=== PATIENT | female | born 1950 | race Caucasian/White ===

== ENCOUNTER 2018-11-10 12:58 | Inpatient (IN) | payer OTHER ==
[2018-11-10 13:25] LABS: Absolute Lymphocytes (CBC) 2.5 K/uL (0.7-4.9); Basophils % 0.4 % (0-1.3); Eosinophils % 0.6 % (0-4.4); Hematocrit 49.3 % (36.0-45.0); Lymphocytes % 26.2 % (15.3-44.8); MPV 8.5 fL (7.6-11.3); Monocytes % 8.1 % (3.3-12.3); RBC Red Blood Cell Count 5.32 M/uL (3.86-4.86)
[2018-11-10 13:27] LABS: Protime INR 1.01
[2018-11-10 13:43] LABS: ALT/SGPT 31 U/L (12-78); AST/SGOT 25 U/L (15-37); Albumin 3.6 g/dL (3.4-5.0); Alkaline Phosphatase 100 U/L (45-117); BUN Blood Urea Nitrogen 14 mg/dL (7-18); Bicarbonate 21 mmol/L (21-32); Bilirubin Direct 0.3 mg/dL (0-0.2); Bilirubin Total 1.2 mg/dL (0.2-1.0); Glucose Level 164 mg/dL (74-106); NT PRO-BNP 1364 pg/mL (<125); Potassium 3.6 mmol/L (3.5-5.1); Protein, Total 7.4 g/dL (6.4-8.2); Sodium Level 139 mmol/L (136-145); Troponin (Emerg Dept Use Only) < 0.02 ng/mL (0.0-0.045)
--- NOTE | 2018-11-10 13:45 | RAD REPORT ---
EXAM DESCRIPTION: RAD - Chest Single View - 11/10/2018 1:33 pm CLINICAL HISTORY: Dyspnea COMPARISON: None. TECHNIQUE: AP portable chest image was obtained 1325 hours . FINDINGS: Lungs are clear. Heart and vasculature are normal. No measurable pleural effusion and no p neumothorax. No acute bony abnormality seen. No acute aortic findings suspected. IMPRESSION: No acute cardiopulmonary process.
[2018-11-10] MEDS ORDERED: ENOXAPARIN 100 MG/ML SYR SQ ONE (13:46)
[2018-11-10] MEDS ORDERED: METOPROLOL TARTRATE 5 MG/5 ML INJ IV ONE (13:46)
[2018-11-10] MEDS ORDERED: ENOXAPARIN 30 MG/0.3 ML SQ ONE (13:48)
--- NOTE | 2018-11-10 14:36 | ER ---
Nurse's Notes [facility] Name: Mady Wilkins Age: 68 yrs Sex: Female : 1950 Arrival Date: 11/10/2018 Time: 13:05 Bed 4 Private MD: Diagnosis: Atrial fibrillation and flutter-with rvr Presentation: 11/10 13:06 Presenting complaint: EMS states: Generalized weakness x 1 week, N/V/D x 3 days. On hb scene HR 160-180, 110-130s after Cardizem 10mg IVP x 2. Transition of care: patient was not received from another setting of care. Onset of symptoms was November 10, 2018. Risk Assessment: Do you want to hurt yourself or someone else? Patient reports no desire to harm self or others. Care prior to arrival: Medication(s) given: Cardizem 10mg IVP x 1, Zofran 4 mg IVP, NS 250ml IV initiated. 18 GA, 22 GA, antecubital area. 13:06 Method Of Arrival: EMS: [facility] hb 13:06 Acuity: MONTSE 2 hb 13:40 Initial Sepsis Screen: Does the patient meet any 2 criteria? No. Patient's initial sg sepsis screen is negative. Does the patient have a suspected source of infection? No. Patient's initial sepsis screen is negative. Historical: - Allergies: 13:10 unknown antibiotic; hb - Home Meds: 13:10 None [Active]; hb - PMHx: 13:10 Fibromyalgia; Colitis; hb - Immunization history:: Adult Immunizations up to date. - Social history:: Smoking status: Patient/guardian denies using tobacco. - Ebola Screening: : No symptoms or risks identified at this time. Screenin:10 Abuse screen: Denies threats or abuse. Denies injuries from another. Nutritional hb screening: No deficits noted. Tuberculosis screening: No symptoms or risk factors identified. 13:23 Fall Risk Total Beauchamp Fall Scale indicates High Risk Score (45 or more points). Fall hb prevention measures have been instituted. Side Rails Up X 2 Frequent Obs/Assessments Occuring As available patient and family educated on Fall Prevention Program and Strategies. Assessment: 13:30 General: Appears in no apparent distress. uncomfortable, obese, well groomed, well sg developed, well nourished, Behavior is calm, cooperative. Pain: Complains of pain in headache Quality of pain is described as aching, sharp. Neuro: Level of Consciousness is awake, alert, obeys commands, Oriented to person, place, time, situation, Enrober are equal bilaterally Moves all extremities. Speech is normal, Facial symmetry appears normal, Pupils are PERRLA, Reports headache in entire frontal area. Cardiovascular: Capillary refill is brisk in bilateral fingers Patient's skin is warm and dry. Chest pain is denied. Respiratory: Airway is patent Respiratory effort is even, unlabored, Respiratory pattern is regular, symmetrical. GI: Abdomen is round non-distended, obese. : No signs and/or symptoms were reported regarding the genitourinary system. EENT: No signs and/or symptoms were reported regarding the EENT system. Derm: Skin is pink, warm \T\ dry. Musculoskeletal: No signs and/or symptoms reported regarding the musculoskeletal system. 14:30 Reassessment: Patient appears in no apparent distress at this time. Patient and/or sg family updated on plan of care and expected duration. Pain level reassessed. Patient is alert, oriented x 3, equal unlabored respirations, skin warm/dry/pink. 15:30 Reassessment: Patient appears in no apparent distress at this time. Patient and/or sg family updated on plan of care and expected duration. Pain level reassessed. Derm: Skin is pink, warm \T\ dry. Vital Signs: 13:06 BP 99 / 70; Pulse 133; Resp 16; Temp 97.8; Pulse Ox 100% on R/A; Weight 129.27 kg; hb Height 5 ft. 9 in. (175.26 cm); Pain 10/10; 13:40 BP 138 / 78; Pulse 88; Resp 16 S; Pulse Ox 100% ; sg 14:30 BP 113 / 62; Pulse 97; Resp 16; Pulse Ox 99% on R/A; sg 15:46 BP 139 / 87; Pulse 99; Resp 17 S; Pulse Ox 100% on R/A; Pain 0/10; sg 13:06 Body Mass Index 42.09 (129.27 kg, 175.26 cm) hb ED Course: 13:05 Patient arrived in ED. 13:07 Nash Livingston PA is PHCP. [facility] 13:07 Venkata Siegel MD is Attending Physician. jr8 13:09 Triage completed. hb 13:09 Arm band placed on. hb 13:12 Patient has correct armband on for positive identification. Placed in gown. Bed in low hb position. Call light in reach. Side rails up X2. disulfurizer tender on. Pulse ox on. NIBP on. 13:12 Maintain EMS IV. Dressing intact. Good blood return noted. Site clean \T\ dry. Gauge \T\ hb site: 18G LEFT AC. 13:19 EKG done, by data reduction technician. reviewed by Nash NUÑEZ. 3 13:23 CBC with Diff Sent. hb 13:23 Basic Metabolic Panel Sent. hb 13:23 LFT's Sent. hb 13:23 XRAY Chest (1 view) Sent. hb 13:28 Malik Cowan, RN is Primary Nurse. sg 13:30 No provider procedures requiring assistance completed. sg 13:33 X-ray completed. Portable x-ray completed in exam room. Patient tolerated procedure jb2 well. 13:35 XRAY Chest (1 view) In Process Unspecified. EDMS 14:35 Saba Arreaga MD is Hospitalizing Provider. jr8 15:42 Patient admitted, IV remains in place. intact, No redness/swelling at site. sg Administered Medications: 13:23 Drug: NS 0.9% 1000 ml Route: IV; Rate: 1000 ml; Site: left antecubital; hb 13:33 Drug: Metoprolol 5 mg Route: IVP; Site: left antecubital; sg 15:43 Drug: Lovenox 1 mg/kg Route: Sub-Q; Site: left lower abdomen; sg Outcome: 14:35 Decision to Hospitalize by Provider. jr8 16:00 Admitted to Tele accompanied by tech, via stretcher, room 430, with chart, Report sg called to Isabel COHEN 16:00 Condition: good 16:00 Instructed on the need for admit, safety practices, Demonstrated understanding of instructions. 16:07 Patient left the ED. hb Signatures: Dispatcher [employer] EDMS Malik Cowan, RN RN sg Arnie Haq jb2 Nash Livingston PA PA jr8 Wendy Jung RN RN Dawna Damico 3
[2018-11-10 14:37] LABS: Thyroid Stimulating Hormone 2.77 uIU/mL (0.360-3.740)
--- NOTE | 2018-11-10 14:37 | EDPHYS ---
Physician Documentation [facility] Name: Mady Wilkins Age: 68 yrs Sex: Female : 1950 Arrival Date: 11/10/2018 Time: 13:05 Bed 4 Private MD: ED Physician Venkata Siegel HPI: 11/10 14:23 This 68 yrs old Female presents to ER via EMS with complaints of AFIB w/RVR, jr8 shortness of breath. 14:23 The patient has shortness of breath at rest. Onset: The symptoms/episode began/occurred jr8 gradually, 1 week(s) ago, and became worse today, and became persistent today. Duration: The symptoms are continuous. The patient's shortness of breath is aggravated by light activity, walking. Associated signs and symptoms: Pertinent positives: chest pain, nausea, vomiting, palpitations. Severity of symptoms: At their worst the symptoms were moderate in the emergency department the symptoms have improved mildly. It is unknown whether or not the patient has had similar symptoms in the past. The patient has not recently seen a physician. Stated that she has been having n/v/d, weakness, shortness of breath, and palpitation feeling on/off for about one week. Has had similar symptoms in past. Much worse today. EMS called out and found patient to be cool, diaphoretic, with HR in the 180s and irregular. Cardizem given with mild control of rate upon arrival to ED . Historical: - Allergies: 13:10 unknown antibiotic; hb - Home Meds: 13:10 None [Active]; hb - PMHx: 13:10 Fibromyalgia; Colitis; hb - Immunization history:: Adult Immunizations up to date. - Social history:: Smoking status: Patient/guardian denies using tobacco. - Ebola Screening: : No symptoms or risks identified at this time. ROS: 14:23 Eyes: Negative for injury, pain, redness, and discharge, ENT: Negative for injury, jr8 pain, and discharge, Neck: Negative for injury, pain, and swelling, Back: Negative for injury and pain, MS/Extremity: Negative for injury and deformity, Skin: Negative for injury, rash, and discoloration, Neuro: Negative for headache, weakness, numbness, tingling, and seizure. 14:23 Cardiovascular: Positive for chest pain, palpitations. 14:23 Respiratory: Positive for dyspnea on exertion, shortness of breath. 14:23 Abdomen/GI: Positive for abdominal pain, nausea, vomiting, and diarrhea, Negative for abdominal distension, anorexia, dysphagia, hematemesis, black/tarry stool, rectal pain, rectal bleeding, bowel incontinence, flatulence. Exam: 14:23 Eyes: Pupils equal round and reactive to light, extra-ocular motions intact. Lids and jr8 lashes normal. Conjunctiva and sclera are non-icteric and not injected. Cornea within normal limits. Periorbital areas with no swelling, redness, or edema. ENT: Nares patent. No nasal discharge, no septal abnormalities noted. Tympanic membranes are normal and external auditory canals are clear. Oropharynx with no redness, swelling, or masses, exudates, or evidence of obstruction, uvula midline. Mucous membranes moist. Neck: Trachea midline, no thyromegaly or masses palpated, and no cervical lymphadenopathy. Supple, full range of motion without nuchal rigidity, or vertebral point tenderness. No Meningismus. Abdomen/GI: Soft, non-tender, with normal bowel sounds. No distension or tympany. No guarding or rebound. No evidence of tenderness throughout. Back: No spinal tenderness. No costovertebral tenderness. Full range of motion. Skin: Warm, dry with normal turgor. Normal color with no rashes, no lesions, and no evidence of cellulitis. MS/ Extremity: Pulses equal, no cyanosis. Neurovascular intact. Full, normal range of motion. Neuro: Awake and alert, GCS 15, oriented to person, place, time, and situation. Cranial nerves II-XII grossly intact. Motor strength 5/5 in all extremities. Sensory grossly intact. Cerebellar exam normal. Normal gait. 14:23 Cardiovascular: Rate: tachycardic, actual rate is 140 bpm, Rhythm: irregularly irregular, Pulses: Pulses are 2+ in bilateral radial, brachial, femoral, popliteal, posterior tibial and and dorsalis pedis arteries.. Heart sounds: normal, normal S1and S2, no S3 or S4, no murmur, no rub, no gallop, Edema: is not appreciated, JVD: is not appreciated. Vital Signs: 13:06 BP 99 / 70; Pulse 133; Resp 16; Temp 97.8; Pulse Ox 100% on R/A; Weight 129.27 kg; hb Height 5 ft. 9 in. (175.26 cm); Pain 10/10; 13:40 BP 138 / 78; Pulse 88; Resp 16 S; Pulse Ox 100% ; sg 14:30 BP 113 / 62; Pulse 97; Resp 16; Pulse Ox 99% on R/A; sg 15:46 BP 139 / 87; Pulse 99; Resp 17 S; Pulse Ox 100% on R/A; Pain 0/10; sg 13:06 Body Mass Index 42.09 (129.27 kg, 175.26 cm) hb MDM: 13:07 Patient medically screened. [facility] 14:35 Data reviewed: vital signs, nurses notes, lab test result(s), EKG, radiologic studies, jr8 plain films. Data interpreted: Pulse oximetry: on room air is 100 %. Interpretation: normal. Counseling: I had a detailed discussion with the patient and/or guardian regarding: the historical points, exam findings, and any diagnostic results supporting the discharge/admit diagnosis, lab results, radiology results, the need for further work-up and treatment in the hospital. 11/10 13:07 Order name: Basic Metabolic Panel [facility] 11/10 13:07 Order name: CBC with Diff [facility] 11/10 13:07 Order name: LFT's [facility] 11/10 13:07 Order name: Magnesium; Complete Time: 14:21 [facility] 11/10 13:07 Order name: NT PRO-BNP; Complete Time: 14:21 [facility] 11/10 13:07 Order name: PT-INR; Complete Time: 14:21 [facility] 11/10 13:07 Order name: Troponin (emerg Dept Use Only); Complete Time: 14:21 [facility] 11/10 13:07 Order name: XRAY Chest (1 view); Complete Time: 14:21 [facility] 11/10 13:07 Order name: Lipase; Complete Time: 14:46 [facility] 11/10 13:07 Order name: T4 Free; Complete Time: 14:46 [facility] 11/10 13:07 Order name: TSH; Complete Time: 14:46 [facility] 11/10 13:09 Order name: Basic Metabolic Panel; Complete Time: 14:21 [facility] 11/10 13:09 Order name: CBC with Automated Diff; Complete Time: 14:21 [facility] 06/20 13:09 Order name: Liver (Hepatic) Function; Complete Time: 14:21 [facility] 11/10 13:07 Order name: EKG; Complete Time: 13:10 [facility] 11/10 13:07 Order name: Cardiac monitoring; Complete Time: 13:23 [facility] 11/10 13:07 Order name: EKG - Nurse/Tech; Complete Time: 13:11 [facility] 11/10 13:07 Order name: IV Saline Lock; Complete Time: 13:11 [facility] 11/10 13:07 Order name: Labs collected and sent; Complete Time: 14:57 [facility] 11/10 13:07 Order name: O2 Per Protocol; Complete Time: 13:11 [facility] 11/10 13:07 Order name: O2 Sat Monitoring; Complete Time: 13: [facility] 11/10 14:57 Order name: Echo with Doppler EDMS Administered Medications: 13:23 Drug: NS 0.9% 1000 ml Route: IV; Rate: 1000 ml; Site: left antecubital; hb 13:33 Drug: Metoprolol 5 mg Route: IVP; Site: left antecubital; sg 15:43 Drug: Lovenox 1 mg/kg Route: Sub-Q; Site: left lower abdomen; sg Disposition: 16:15 Co-signature as Attending Physician, Venkata Siegel MD I agree with the assessment and kdr plan of care. Disposition: 11/10/18 14:35 Hospitalization ordered by Saba Arreaga for Inpatient Admission. Preliminary diagnosis is Atrial fibrillation and flutter - with rvr. - Bed requested for Telemetry/MedSurg (Inpatient). - Status is Inpatient Admission. hb - Condition is Stable. - Problem is new. - Symptoms have improved. UTI on Admission? No Signatures: Dispatcher [facility] Milka Camacho RN RN Malik Cowan RN RN Venkata Siegel MD MD [facility] Nash Livingston PA PA jr8 Wendy Jung RN RN hb Corrections: (The following items were deleted from the chart) 15:02 14:35 Hospitalization Ordered by Saba Arreaga MD for Inpatient Admission. Preliminary dw diagnosis is Atrial fibrillation and flutter - with rvr. Bed requested for Telemetry/MedSurg (Inpatient). Status is Inpatient Admission. Condition is Stable. Problem is new. Symptoms have improved. UTI on Admission? No. jr8 15:06 15:02 11/10/2018 14:35 Hospitalization Ordered by Saba Arreaga MD for Inpatient dw Admission. Preliminary diagnosis is Atrial fibrillation and flutter - with rvr. Bed requested for Telemetry/MedSurg (Inpatient). Status is Inpatient Admission. Condition is Stable. Problem is new. Symptoms have improved. UTI on Admission? No. dw 16:07 15:06 11/10/2018 14:35 Hospitalization Ordered by Saba Arreaga MD for Inpatient hb Admission. Preliminary diagnosis is Atrial fibrillation and flutter - with rvr. Bed requested for Telemetry/MedSurg (Inpatient). Status is Inpatient Admission. Condition is Stable. Problem is new. Symptoms have improved. UTI on Admission? No. dw
--- NOTE | 2018-11-10 15:04 | P.HP ---
Certification for Inpatient Patient admitted to: Inpatient Practitioner: I am a practitioner with admitting privileges, knowledge of patient current condition, hospital course, and medical plan of care. Services: Services provided to patient in accordance with Admission requirements found in Title 42 Section 412.3 of the Code of Federal Regulations Patient History Date of Service: 11/10/18 Reason for admission: Atrial fibrillation with RVR History of Present Illness: This is a 68-year-old female with no real past medical history admitted for symptomatic atrial fibrillation with RVR. Patient started with shortness of breath about a week ago, progressively worsening. Now she started feels palpitations along with the dyspnea on exertion. Also complaining of nausea and vomiting. She states she has had such previous episodes, mostly when she is stressed or anxious. She denies any OTC teas/medications/weight loss pills/ caffeine. Her symptoms became persistent today, therefore EMS was called. On EMS evaluation, patient's heart rate was of 180, in A-Fib with RVR. 2 times Cardizem were given which brought heart rate to 130. Patient was then brought to the emergency room here. In the emergency room, she received metoprolol x1 IV which helped control her heart rate to 80-100. She continues to remain in atrial fibrillation, but the rate is controlled. Initial blood pressure was 99/70 the ER, satting well on room air. BMI of 42. Labs remarkable for creatinine of 1.32, total bili 1.2, direct bili elevated at 3.3. TSH and free T4 normal. Her chest x-ray was without any acute abnormalities. She also received Lovenox in the ER. At the time of my exam, she was alert oriented x3, in no acute distress. She remained in atrial fibrillation, rate controlled. She was admitted for further evaluation of her new onset atrial fibrillation. Allergies tramadol Allergy (Verified 11/10/18 16:24) Nausea/Vomiting Home Medications: Ascorbic Acid [Vitamin C] 1 tab PO DAILY 11/10/18 Cholecalciferol (Vitamin D3) [Vitamin D 1000 Iu Tab*] 1 tab PO DAILY 11/10/18 Vitamin A [Vitamin A*] 1 tab PO DAILY 11/10/18 - Past Medical/Surgical History Diabetic: No -: HTN, no medications - Family History Father -: Hypertension, Diabetes Mother -: Hypertension, Diabetes, Stroke Sister -: Hypertension, Diabetes - Social History Smoking Status: Never smoker Alcohol use: No CD- Drugs: No Caffeine use: No Review of Systems 10-point ROS is otherwise unremarkable Physical Examination - Physical Exam General: Alert, In no apparent distress, Oriented x3, Obese HEENT: Atraumatic, PERRLA, Mucous membr. moist/pink, EOMI, Sclerae nonicteric Neck: Supple, 2+ carotid pulse no bruit, No LAD, Without JVD or thyroid abnormality Respiratory: Clear to auscultation bilaterally, Normal air movement Cardiovascular: Normal S1 S2, Irregular heart rate/rhythm (Atrial fibrilation) Gastrointestinal: Normal bowel sounds, No tenderness Musculoskeletal: No tenderness Integumentary: No rashes Neurological: Normal gait, Normal speech, Normal strength at 5/5 x4 extr, Normal tone, Normal affect Lymphatics: No axilla or inguinal lymphadenopathy - Studies Laboratory Data (last 24 hrs) 11/10/18 13:15: Lipase 53 L 11/10/18 13:15: PT 11.9, INR 1.01 11/10/18 13:15: WBC 9.4, Hgb 16.0 H, Hct 49.3 H, Plt Count 322 11/10/18 13:15: Sodium 139, Potassium 3.6, BUN 14, Creatinine 1.32 H, Glucose 164 H, Magnesium 2.0, Total Bilirubin 1.2 H, AST 25, ALT 31, Alkaline Phosphatase 100 Assessment and Plan - Problems (Diagnosis) (1) Atrial fibrillation with RVR Current Visit: Yes Status: Acute Plan: Unsure of etiology - monitor with tele - cardiology consult, awaiting accommodations - echo ordered, pending - [id number] score of 2 - will continue anticoagulation, full-dose Lovenox. May need oral anticoagulation with Eliquis on discharge. - rate control with metoprolol (2) JEZ (acute kidney injury) Current Visit: Yes Status: Acute Plan: Continue IV fluids and monitor creatinine (3) Morbid obesity with BMI of 40.0-44.9, adult Current Visit: Yes Status: Acute (4) Hypertension Current Visit: Yes Status: Chronic Plan: Per patient, she is not on any prior medications for HTN but has been told she has HTN. - Continue Metoprolol - monitor BP. Will adjust as needed. Qualifiers: Hypertension type: unspecified Qualified Code(s): I10 - Essential (primary ) hypertension - Plan DVT prophylaxis: Full-dose anticoagulation, as above GI prophylaxis: None Diet: Heart healthy Disposition: Admit to floor with tele. Pending cardiac evaluation and symptomatic improvement. She will need primary care set up upon discharge. Discharge Plan: Home Plan to discharge in: 48 Hours - Advance Directives Does patient have a Living Will: No Does patient have a Durable POA for Healthcare: No Time Spent Managing Pts Care (In Minutes): 55
[2018-11-10] MEDS ORDERED: ACETAMINOPHEN 500 MG TAB ONE (16:18)
[2018-11-10] MEDS ORDERED: POTASSIUM CL SA 10 MEQ TAB PO ONE (17:00)
[2018-11-10] MEDS: NA CHLORIDE 0.9% 1,000 ML IV SCH (17:11)
[2018-11-10] MEDS: ACETAMINOPHEN 325 MG TABLET PO PRN (17:53)
[2018-11-10] MEDS: METOPROLOL TAR 25 MG TAB PO SCH (17:53)
--- NOTE | 2018-11-10 18:40 | EKG ---
Test Date: 2018-11-10 Test Time: 13:00:44 Passenger Service Supervisor: CYNTHIA/S MEASUREMENT RESULTS: Intervals: Rate: 119 MI: QRSD: 74 QT: 336 QTc: 472 [place]: P: MI: QRS: 68 T: 268 INTERPRETIVE STATEMENTS: Atrial fibrillation with rapid ventricular response ST & T wave abnormality, consider inferolateral ischemia Abnormal ECG Compared to ECG 09/13/2006 12:04:07 ST (T wave) deviation now present Possible ischemia now present Sinus rhythm no longer present Electronically Signed On 11-10-18 18:38:56 CDT by Tobi Beverly
[2018-11-10] MEDS: Enoxaparin 120 MG/0.8 ML SYR SQ SCH (21:13)
[2018-11-10] MEDS ORDERED: MELATONIN 3 MG TABLET PO ONE (22:24)
[2018-11-11] MEDS: NA CHLORIDE 0.9% 1,000 ML IV SCH ×2 (03:49→13:27)
[2018-11-11] MEDS: ACETAMINOPHEN 325 MG TABLET PO PRN (03:49)
[2018-11-11] MEDS: ONDANSETRON 4 MG/2 ML VIAL IV PRN (05:10)
[2018-11-11] MEDS: METOPROLOL TAR 25 MG TAB PO SCH (05:10)
[2018-11-11 06:25] LABS: Absolute Lymphocytes (CBC) 2.6 K/uL (0.7-4.9); Basophils % 0.6 % (0-1.3); Eosinophils % 1.4 % (0-4.4); Lymphocytes % 28.2 % (15.3-44.8); MPV 9.1 fL (7.6-11.3); Monocytes % 9.3 % (3.3-12.3)
[2018-11-11 06:36] LABS: Bilirubin Total 1.1 mg/dL (0.2-1.0); Potassium 3.9 mmol/L (3.5-5.1); Protein, Total 6.3 g/dL (6.4-8.2)
[2018-11-11] MEDS: Enoxaparin 120 MG/0.8 ML SYR SQ SCH ×2 (08:10→22:02)
[2018-11-11] MEDS: SOTALOL HCL 80 MG TAB PO SCH ×2 (12:06→17:36)
--- NOTE | 2018-11-11 12:50 | ECHO ---
HEIGHT: 5 ft 6.5 in WEIGHT: 250 lb 4.8 oz DATE OF STUDY: 11/11/[address]: Saba Arreaga MD 2-DIMENSIONAL: YES M.MODE: YES DOPPLER: YES COLOR FLOW: YES TDS: YES PORTABLE: NO DEFINITY: NO BUBBLE STUDY: NO DIAGNOSIS: ATRIAL FIBRILLATION CARDIAC HISTORY: CATHERIZATION: NO SURGERY: NO PROSTHETIC VALVE: NO PACEMAKER: NO MEASUREMENTS (cm) DIASTOLIC (NORMALS) SYSTOLIC (NORMALS) IVSd 1.0 (0.6-1.2) LA Diam 3.9 (1.9-4.0) LVEF 54% LVIDd 3.5 (3.5-5.7) LVIDs 2.6 (2.0-3.5) %FS 27% LVPWd 1.2 (0.6-1.2) Ao Diam 2.3 (2.0-3.7) 2 DIMENSIONAL ASSESSMENT: RIGHT ATRIUM: NORMAL LEFT ATRIUM: NORMAL RIGHT VENTRICLE: NORMAL LEFT VENTRICLE: NORMAL TRICUSPID VALVE: NORMAL MITRAL VALVE: NORMAL PULMONIC VALVE: NORMAL AORTIC VALVE: NORMAL PERICARDIAL EFFUSION: NONE AORTIC ROOT: NORMAL LEFT VENTRICULAR WALL MOTION: NORMAL. DOPPLER/COLOR FLOW: NORMAL. COMMENTS: TECHNICALLY DIFFICULT STUDY. NORMAL LEFT VENTRICULAR SIZE AND FUNCTION. NORMAL LEFT ATRIAL SIZE. NO THROMBUS. TECHNOLOGIST: MACKENZIE YOUSIF
[2018-11-11] MEDS ORDERED: POTASSIUM CL SA 10 MEQ TAB PO ONE (16:00)
--- NOTE | 2018-11-11 17:19 | P.PN ---
Subjective Date of Service: 11/11/18 Chief Complaint: Atrial fibrillation with RVR Subjective: Improving Patient seen and examined at bedside. at bedside. Chart reviewed and case discussed with nursing staff. No acute events noted overnight. Patient continues to be in atrial fibrillation , heart rate ranges anywhere from 80s to 170s. Denies any chest pain this morning, headache, vision changes, syncope, GI or complaints. Reports improved shortness of breath but has not really gotten out of bed. Review of Systems 10-point ROS is otherwise unremarkable Physical Examination - Vital Signs Temperature: 97.5 F Blood Pressure: 96/67 Pulse: 72 Respirations: 19 Pulse Ox (%): 95 - Physical Exam General: Alert, In no apparent distress, Oriented x3, Obese HEENT: Atraumatic, PERRLA, EOMI Neck: Supple, JVD not distended Respiratory: Clear to auscultation bilaterally, Normal air movement Cardiovascular: Normal S1 S2, Irregular heart rate/rhythm (Irregularly irregular ) Gastrointestinal: Normal bowel sounds, No tenderness Musculoskeletal: No tenderness Integumentary: No rashes Neurological: Normal speech, Normal tone, Normal affect Lymphatics: No axilla or inguinal lymphadenopathy Assessment And Plan - Current Problems (Diagnosis) (1) Atrial fibrillation with RVR Current Visit: Yes Status: Acute Plan: Unsure of etiology - monitor with tele - cardiology consult, recommendations appreciated - echo normal, no thrombus. Ejection fraction of 54% - [id number] score of 2 - will continue anticoagulation, full-dose Lovenox. She will need oral anticoagulation with p.o. Eliquis on discharge. - beta-parvez discontinued per cardiology. Started sotalol 80 mg b.i.d. (2) JEZ (acute kidney injury) Current Visit: Yes Status: Acute Plan: Resolved. Continue IV fluids and monitor creatinine (3) Morbid obesity with BMI of 40.0-44.9, adult Current Visit: Yes Status: Acute (4) Hypertension Current Visit: Yes Status: Chronic Plan: Per patient, she is not on any prior medications for HTN but has been told she has HTN. - continue to monitor. Adjust medications as needed. Qualifiers: Hypertension type: unspecified Qualified Code(s): I10 - Essential (primary ) hypertension - Plan DVT prophylaxis: Full-dose anticoagulation, as above GI prophylaxis: None Diet: Heart healthy Disposition: Pending symptomatic improvement. She will need primary care set up upon discharge.
--- NOTE | 2018-11-11 20:09 | CON ---
Date of Consultation: 11/11/[address] Arreaga's service on 11/10/2018. I saw the patient on 11/11/2018. Reason For Consultation: Atrial fibrillation. History Of Present Illness: Ms. Wilkins is a 68-year-old white woman without any past medical cardiac h istory. She has a history of fibromyalgia, came in with palpitation, fast heart rate was noted to be in atrial fibrillation at a rate of about 120. She was given IV metoprolol and p.o. metoprolol, as well as Lovenox, and admitted for further evaluation and treatment. She denied any chest pain or parag rtness of breath. Denied any PND, orthopnea, pedal edema. She denied any syncope. Past Medical History: Otherwise negative. Allergies: TRAMADOL. Review of Systems: Negative. Social History: Negative. Family History: Negative. Medications: At home are none. Physical Examination: General: She weighed 250 pounds. Blood pressure is 164/68, atrial fibrillation, rate of 100. HEENT: Negative. Neck: Supple with no bruit. Chest: Clear. Cardiac: Revealed atrial fibrillation. Abdomen: Benign. Extremities: Revealed no clubbing, cyanosis, or edema. Diagnostic Data: Positive for a BNP of 1364. Her creatinine was 1.32. Chest x-ray was normal. EKG showed rapid atrial fibrillation. Impression And Plan: New-onset atrial fibrillation, unresponsive to beta-parvez. I would continue her Lovenox. I would put her on sotalol 80 mg 1 p.o. b.i.d. she has to get 3 dosages before we can d ischarge her. We can certainly keep her on the sotalol, put on Eliquis or Xarelto. Send her home to [place] if she converts or not. If she does not convert, we will wait for about 3 weeks on Xarelto or Eliquis before we do a cardioversion. She will eventually need an outpatient stress test. The case was discussed with Dr. Arreaga. TARA/RENARD Voice ID: [id number] Report ID: [id number]
[2018-11-12] MEDS: ONDANSETRON 4 MG/2 ML VIAL IV PRN (02:24)
[2018-11-12] MEDS: SOTALOL HCL 80 MG TAB PO SCH (05:25)
[2018-11-12 06:10] LABS: Absolute Lymphocytes (CBC) 2.6 K/uL (0.7-4.9); Basophils % 0.7 % (0-1.3); Eosinophils % 1.9 % (0-4.4); Lymphocytes % 26.7 % (15.3-44.8); MPV 9.1 fL (7.6-11.3); Monocytes % 7.8 % (3.3-12.3); RBC Red Blood Cell Count 4.16 M/uL (3.86-4.86)
[2018-11-12 06:24] LABS: Bilirubin Total 1.1 mg/dL (0.2-1.0); Protein, Total 6.1 g/dL (6.4-8.2)
--- NOTE | 2018-11-12 07:46 | EKG ---
Test Date: 2018-11-12 Test Time: 01:39:30 Forming Roll Operator: RT Segovia MEASUREMENT RESULTS: Intervals: Rate: 77 MN: 152 QRSD: 78 QT: 408 QTc: 461 [place]: P: 72 MN: 152 QRS: 39 T: 20 INTERPRETIVE STATEMENTS: Normal sinus rhythm Normal ECG Compared to ECG 11/10/2018 13:00:44 Atrial fibrillation no longer present ST (T wave) deviation no longer present Possible ischemia no longer present Electronically Signed On 11-12-18 07:45:49 CDT by Tobi Beverly
--- NOTE | 2018-11-12 08:22 | PN ---
The patient was seen yesterday for new-onset atrial fibrillation. She was switched from beta-parvez to sotalol 80 mg 1 p.o. b.i.d. She was also placed on Xarelto 20 mg daily. Overnight, she converte d to sinus rhythm. Her EKG is actually normal. Ms. Wilkins is asymptomatic today, is feeling better. We will send her home on her home medication. Also, her sotalol 80 b.i.d., Xarelto 20 mg daily. I w johnld like to see her in the office in the next couple of weeks. We will probably do an outpatient st ress test at that time. TARA/RENARD Voice ID: [id number] Report ID: [id number]
[2018-11-12] MEDS: Enoxaparin 120 MG/0.8 ML SYR SQ SCH (08:32)
[2018-11-12] MEDS ORDERED: PANTOPRAZOLE 40MG TABLET PO SCH (09:00)
[2018-11-12] MEDS: NA CHLORIDE 0.9% 1,000 ML IV SCH ×2 (10:34)
--- NOTE | 2018-11-12 11:23 | P.DS ---
Admission Date: 11/10/18 Discharge Date: 11/12/18 Disposition: ROUTINE DISCHARGE Discharge Condition: GOOD Reason for Admission: Atrial fibrillation with RVR Consultations: Cardiology - Problems (1) Atrial fibrillation with RVR Current Visit: Yes Status: Acute (2) JEZ (acute kidney injury) Current Visit: Yes Status: Acute (3) Morbid obesity with BMI of 40.0-44.9, adult Current Visit: Yes Status: Acute (4) Hypertension Current Visit: Yes Status: Chronic Qualifiers: Hypertension type: unspecified Qualified Code(s): I10 - Essential (primary ) hypertension Brief History of Present Illness: This is a 68-year-old female with no real past medical history admitted for symptomatic atrial fibrillation with RVR. Patient started with shortness of breath about a week ago, progressively worsening. Now she started feels palpitations along with the dyspnea on exertion. Also complaining of nausea and vomiting. She states she has had such previous episodes, mostly when she is stressed or anxious. She denies any OTC teas/medications/weight loss pills/ caffeine. Her symptoms became persistent today, therefore EMS was called. On EMS evaluation, patient's heart rate was of 180, in A-Fib with RVR. 2 times Cardizem were given which brought heart rate to 130. Patient was then brought to the emergency room here. In the emergency room, she received metoprolol x1 IV which helped control her heart rate to 80-100. She continues to remain in atrial fibrillation, but the rate is controlled. Initial blood pressure was 99/70 the ER, satting well on room air. BMI of 42. Labs remarkable for creatinine of 1.32, total bili 1.2, direct bili elevated at 3.3. TSH and free T4 normal. Her chest x-ray was without any acute abnormalities. She also received Lovenox in the ER. At the time of my exam, she was alert oriented x3, in no acute distress. She remained in atrial fibrillation, rate controlled. Hospital Course: She was admitted for further evaluation of her new onset atrial fibrillation. Cardiology was consulted. Beta-parvez was started along with anticoagulation as patient had a [id number] score of 2. She continued to be in atrial fibrillation. Her beta-parvez was discontinued and she was started on sotalol 80 mg b.i.d.. Overnight, she converted to normal sinus rhythm. This morning, prior to discharge she was alert oriented x3, in no acute distress and asymptomatic. She was also hemodynamically stable. She continues remain in normal sinus rhythm. She was then cleared for discharge by cardiology. She will be discharged on sotalol 80 mg twice a day and Xarelto for anticoagulation. She will follow up with cardiology in 2 weeks. She otherwise remained stable throughout the stay. Her diagnosis and treatment plan were explained to patient, all questions were answered and she verbalized understanding. She was then discharged home in a safe stable manner. Vital Signs/Physical Exam: Temp Pulse Resp BP Pulse Ox 97.7 F 67 20 138/53 L 94 11/12/18 08:00 11/12/18 08:00 11/12/18 08:00 11/12/18 08:00 11/12/18 08:00 General: Alert, In no apparent distress, Oriented x3 HEENT: Atraumatic, PERRLA, EOMI Neck: Supple, JVD not distended Respiratory: Clear to auscultation bilaterally, Normal air movement Cardiovascular: Regular rate/rhythm, Normal S1 S2 Gastrointestinal: Normal bowel sounds, No tenderness Musculoskeletal: No tenderness Integumentary: No rashes Neurological: Normal speech, Normal tone, Normal affect Lymphatics: No axilla or inguinal lymphadenopathy Laboratory Data at Discharge: WBC 9.8 K/uL (4.3-10.9) 11/12/18 05:28 Hgb 12.9 g/dL (12.0-15.0) 11/12/18 05:28 Hct 39.0 % (36.0-45.0) 11/12/18 05:28 Plt Count 248 K/uL (152-406) 11/12/18 05:28 PT 11.9 SECONDS (9.5-12.5) 11/10/18 13:15 INR 1.01 11/10/18 13:15 Sodium 144 mmol/L (136-145) 11/12/18 05:28 Potassium 4.0 mmol/L (3.5-5.1) 11/12/18 05:28 BUN 10 mg/dL (7-18) 11/12/18 05:28 Creatinine 1.00 mg/dL (0.55-1.3) 11/12/18 05:28 Glucose 91 mg/dL (74-106) 11/12/18 05:28 Phosphorus 3.5 mg/dL (2.5-4.9) 11/12/18 05:28 Magnesium 2.0 mg/dL (1.8-2.4) 11/10/18 13:15 Total Bilirubin 1.1 mg/dL (0.2-1.0) H 11/12/18 05:28 AST 17 U/L (15-37) 11/12/18 05:28 ALT 25 U/L (12-78) 11/12/18 05:28 Alkaline Phosphatase 73 U/L (45-117) 11/12/18 05:28 Lipase 53 U/L (73-393) L 11/10/18 13:15 Home Medications: Ascorbic Acid [Vitamin C] 1 tab PO DAILY 11/10/18 Cholecalciferol (Vitamin D3) [Vitamin D 1000 Iu Tab*] 1 tab PO DAILY 11/10/18 Vitamin A [Vitamin A*] 1 tab PO DAILY 11/10/18 Rivaroxaban [Xarelto] 20 mg PO DAILY #30 tablet 11/12/18 Sotalol HCl [Betapace*] 80 mg PO BID 6AM 6PM tab 11/12/18 New Medications: Rivaroxaban [Xarelto] 20 mg PO DAILY #30 tablet Patient Discharge Instructions: Please follow up with the primary care physician in 2-3 days. Please follow up with cardiology in 2 weeks. Please return to the emergency room for worsening symptoms. New medications: Sotalol , a medicine for your heart rate. Xarelto, blood thinner. Diet: AHA Activity: Ad carlos Followup: Tobi Beverly MD [ACTIVE - CAN ADMIT] - 1-2 Weeks Time spent managing pt's care (in minutes): 55
== END 2018-11-12 11:14 | disposition home or self-care (01) | DRG 309 ==
LOC: ER 12:58 → ERHOLD 14:48 → 4TH 15:47
PROVIDERS: ADMIT Family Medicine; ATTEND Family Medicine
DX: I48.91 Unspecified atrial fibrillation (principal); N17.9 Acute kidney failure, unspecified; Z68.41 Body mass index [BMI] 40.0-44.9, adult; E66.01 Morbid (severe) obesity due to excess calories; I10 Essential (primary) hypertension; M79.7 Fibromyalgia
CPT/HCPCS: 36415; 71045; 80048; 80053; 80076; 83690; 83735; 83880; 84100; 84439; 84443; 84484; 85025; 85610; 93005; 93306; 94760; 96372; 96374; 99285; J1650; J2405; J7030

== ENCOUNTER 2021-10-08 07:14 | Inpatient (IN) | payer BC ==
[2021-10-08 07:59] LABS: Absolute Lymphocytes (CBC) 0.9 K/uL (0.7-4.9); Hematocrit 43.6 % (36.0-45.0); Lymphocytes % 8.4 % (15.3-44.8); MPV 8.6 fL (7.6-11.3); RBC Red Blood Cell Count 4.72 M/uL (3.86-4.86)
[2021-10-08 08:00] LABS: Protime INR 1.06
[2021-10-08 08:09] LABS: Potassium 4.4 mmol/L (3.5-5.1); Troponin High Sensitivity 24.5 pg/mL (<58.9)
--- NOTE | 2021-10-08 08:22 | RAD REPORT ---
EXAM DESCRIPTION: Nadia Single View10/08/2021 8:02 am CLINICAL HISTORY: Shortness of breath COMPARISON: 2019 FINDINGS: The lungs appear clear of acute infiltrate. The heart is normal size IMPRESSION: No acute abnormalities displayed
[2021-10-08] MEDS ORDERED: AMIODARONE HCL 150 MG in D5W 100 ML IV STA (08:48)
[2021-10-08] MEDS ORDERED: ENOXAPARIN 100 MG/ML SYR SQ ONE (08:52)
[2021-10-08] MEDS ORDERED: AMIODARONE HCL 900 MG in Dextrose 5%-Water 482 ML IV SCH ×2 (09:00→10:00)
--- NOTE | 2021-10-08 09:12 | ER ---
Nurse's Notes [facility] Name: Mady Wilkins Age: 71 yrs Sex: Female : 1950 Arrival Date: 10/08/2021 Time: 07:17 Bed 4 Private MD: Diagnosis: A fib with RVR;Elevated BNP Presentation: 10/08 07:20 Chief complaint: EMS states: patient reported to them she started experiencing ap3 shortness of breath with chest pain at approx 0500 this morning. Upon EMS assessment, patient was in A-Fib with RVR with a heart rate in the 190s. Patient reported chest pain with shortness of breath on a scale of 8/10. It is also reported that the patient can NOT take any blood thinners. Patient states she is bed bound due to chronic pain with fibromyalgia, and has been unable to get access to her medications for "some time". Patient also reports pain with urination. Coronavirus screen: At this time, the client does not indicate any symptoms associated with coronavirus-19. Ebola Screen: No symptoms or risks identified at this time. Initial Sepsis Screen: Does the patient meet any 2 criteria? HR > 90 bpm. Does the patient have a suspected source of infection? No. Patient's initial sepsis screen is negative. Risk Assessment: Do you want to hurt yourself or someone else? Patient reports no desire to harm self or others. Onset of symptoms was October 08, 2021 at 05:00. Care prior to arrival: Medication(s) given: zofran 4 mg, Cardizem X's 2. First dose was 15 and second was 10 for a total of 25. IV initiated. 20 GA, in the left antecubital area. 07:20 Method Of Arrival: EMS: [facility] ap3 07:29 Acuity: MONTSE 2 ap3 Triage Assessment: 07:26 General: Appears uncomfortable, Behavior is calm, quiet. Pain: Complains of pain in ap3 chest Also complains of shortness of breath. Neuro: Level of Consciousness is awake, alert, obeys commands, patient is awake, alert and obeys commands. However, patient appears sleepy and quiet.. Cardiovascular: Reports chest pain, shortness of breath, Rhythm is irregular. Respiratory: Airway is patent Respiratory effort is even, unlabored. Historical: - Allergies: 07:24 unknown antibiotic; ap3 07:24 ALL BLOOD THINNERS; ap3 - Home Meds: 07:24 None [Active]; ap3 - PMHx: 07:24 Colitis; Fibromyalgia; Atrial fibrillation; ap3 - Immunization history:: Client reports having NOT received the Covid vaccine. - Social history:: Smoking status: unknown. Screenin:28 Abuse screen: Denies threats or abuse. Nutritional screening: No deficits noted. ap3 Tuberculosis screening: No symptoms or risk factors identified. 09:59 Fall Risk Secondary diagnosis (15 points) impaired mobility. tw2 Assessment: 10:03 Reassessment: Patient appears in no apparent distress at this time. No changes from tw2 previously documented assessment. Patient and/or family updated on plan of care and expected duration. Pain level reassessed. Patient is alert, oriented x 3, equal unlabored respirations, skin warm/dry/pink. 11:53 Reassessment: Patient appears in no apparent distress at this time. No changes from tw2 previously documented assessment. Patient and/or family updated on plan of care and expected duration. Pain level reassessed. Patient is alert, oriented x 3, equal unlabored respirations, skin warm/dry/pink. 12:10 Reassessment: pt requesting to use bedpan for bm at this time. pt instructed to press tw2 call light when finished. 12:22 Reassessment: pt pressed call light, upon entry into room pt had pants skilled nursing up, tw2 wipes and bedpan on tray next to bed, pt was working hard to breathe. pt nc increased to 4L at this time. will continue to monitor. 13:00 Reassessment: Patient appears in no apparent distress at this time. Patient and/or tw2 family updated on plan of care and expected duration. Pain level reassessed. Patient is alert, oriented x 3, equal unlabored respirations, skin warm/dry/pink. 14:00 Reassessment: Patient appears in no apparent distress at this time. Patient and/or tw2 family updated on plan of care and expected duration. Pain level reassessed. Patient is alert, oriented x 3, equal unlabored respirations, skin warm/dry/pink. Patient states feeling better. 15:00 Reassessment: Patient appears in no apparent distress at this time. No changes from tw2 previously documented assessment. Patient and/or family updated on plan of care and expected duration. Pain level reassessed. Patient is alert, oriented x 3, equal unlabored respirations, skin warm/dry/pink. Vital Signs: 07:20 BP 121 / 79; Pulse 132; Pulse Ox 99% on 4 lpm NC; Weight 113.4 kg; Height 5 ft. 6 in. ap3 (167.64 cm); Pain 8/10; 07:30 Resp 24; ss 08:27 BP 137 / 113; Pulse 129; Resp 16; Pulse Ox 100% on 3 lpm NC; mh5 08:37 BP 130 / 70; Pulse 136; ss 09:45 BP 126 / 97; Pulse 125; Resp 17; Pulse Ox 100% on 3 lpm NC; mh5 10:00 BP 123 / 106; Pulse 109; Resp 18; Pulse Ox 100% on 3 lpm NC; mh5 10:15 BP 93 / 78; Pulse 144; Resp 18; Pulse Ox 100% on 3 lpm NC; mh5 10:30 BP 94 / 68; Pulse 144; Resp 16; Pulse Ox 99% on 3 lpm NC; mh5 10:45 BP 118 / 103; Pulse 135; Resp 16; Temp 98(TE); Pulse Ox 99% on 3 lpm NC; mh5 11:00 BP 133 / 83; Pulse 134; Resp 17; Pulse Ox 99% on 3 lpm NC; tw2 11:30 BP 114 / 82; Pulse 126; Resp 20; Pulse Ox 99% on 3 lpm NC; tw2 11:45 BP 135 / 95; Pulse 145; Resp 19; Pulse Ox 98% on 3 lpm NC; tw2 12:15 BP 143 / 87; Pulse 143; Resp 24; Pulse Ox 98% on 4 lpm NC; tw2 12:30 BP 146 / 83; Pulse 138; Resp 26; Pulse Ox 99% on 4 lpm NC; tw2 12:45 BP 134 / 96; Pulse 136; Resp 22; Pulse Ox 98% on 4 lpm NC; tw2 13:00 BP 136 / 84; Pulse 138; Resp 18; Pulse Ox 100% on 3 lpm NC; tw2 13:30 BP 136 / 84; Pulse 134; Resp 17; Pulse Ox 98% on R/A; tw2 13:45 BP 139 / 92; Pulse 123; Resp 19; Pulse Ox 99% on 3 lpm NC; tw2 14:00 BP 136 / 88; Pulse 134; Resp 18; Pulse Ox 100% on 3 lpm NC; tw2 14:15 BP 141 / 84; Pulse 128; Resp 19; Pulse Ox 98% on 3 lpm NC; tw2 14:30 BP 126 / 75; Pulse 134; Resp 18; Pulse Ox 100% on 3 lpm NC; tw2 14:45 BP 144 / 72; Pulse 131; Resp 18; Pulse Ox 99% on 3 lpm NC; tw2 15:00 BP 146 / 83; Pulse 133; Resp 21; Pulse Ox 100% on 3 lpm NC; tw2 15:15 BP 144 / 94; Pulse 130; Resp 18; Pulse Ox 100% on 3 lpm NC; tw2 15:45 BP 122 / 95; Pulse 132; Resp 20; Pulse Ox 100% on 3 lpm NC; tw2 16:30 BP 127 / 72; Pulse 129; Resp 19; Pulse Ox 99% on 3 lpm NC; tw2 07:20 Body Mass Index 40.35 (113.40 kg, 167.64 cm) ap3 ED Course: 07:17 Patient arrived in ED. ss 07:19 Mars Graff DO is Attending Physician. ms3 07:27 Arm band placed on left wrist. ap3 07:28 Patient has correct armband on for positive identification. ap3 07:29 Triage completed. ap3 07:49 Maintain EMS IV. Dressing intact. Good blood return noted. Site clean \\T\\ dry. Gauge \\T\\ ss site: 20 gauge in L AC. Flushed. 08:01 Christiana Mckinley RN is Primary Nurse. tw2 08:04 XRAY Chest (1 view) In Process Unspecified. EDMS 09:10 Tk Young MD is Hospitalizing Provider. ms3 10:30 Inserted saline lock: 22 gauge in right forearm, using aseptic technique. ,using tw2 aseptic technique. VICKI Boss. 16:58 No provider procedures requiring assistance completed. tw2 16:59 Patient admitted, IV remains in place. tw2 19:08 Primary Nurse role handed off by Christiana Mckinley, VICKI tw2 19:25 Nikolai Sauceda, VICKI is Primary Nurse. as6 10/09 14:08 Primary Nurse role handed off by Nikolai Sauceda, VICKI [email or web address] 14:08 Inge Lee, VICKI is Primary Nurse. jl7 10/10 05:04 Notified the Hospitalist of a critical lab result(s), pot 5.9 lac 8.5 ast 385. tw5 Administered Medications: 10/08 07:36 CANCELLED (Physician Discretion): Aspirin Chewable Tablet 324 mg PO once; 81 mg tablets ms3 x 4 09:40 Drug: amiodarone 900 mg, D5W 500 ml Route: IVPB; Rate: 1 mg/min; Site: left antecubital;tw2 16:58 Follow up: IV Status: Infusion continued upon admission tw2 09:40 Drug: amiodarone 150 mg Volume: 100 ml; Route: IVPB; Infused Over: 10 mins; Site: left tw2 antecubital; 09:51 Follow up: Response: No adverse reaction; IV Status: Completed infusion; IV Intake: tw2 100ml 09:55 Drug: Lovenox (enoxaparin) 1 mg/kg Route: Sub-Q; Site: left lower abdomen; tw2 15:20 Follow up: Response: No adverse reaction tw2 Medication: 07:29 VIS not applicable for this client. ap3 Intake: 09:51 IV: 100ml; Total: 100ml. tw2 Outcome: 09:11 Decision to Hospitalize by Provider. ms3 16:58 Condition: stable tw2 16:58 Instructed on the need for admit, ICU HOLD 16:59 Admitted to tw2 10/10 14:03 Patient left the ED. iw Signatures: Dispatcher [employer] EDMS Mitra Zamora RN RN iw Smirch, Shelby, RN RN ss Wise, Tara, RN RN 2 Raissa Sumner [facility] Inge Lee RN RN jl7 Kyara Anthony RN RN ap3 Mars Graff DO DO ms3 Hodan Bass tw5 Nikolai Sauceda RN RN as6 Corrections: (The following items were deleted from the chart) 10/08 10:46 08:27 BP 137 / 113; Pulse 129bpm; Resp 16bpm; Pulse Ox 100% RA; tw2 5 10:46 09:45 BP 126 / 97; Pulse 125bpm; Resp 17bpm; Pulse Ox 100% RA; tw2 5 12:31 12:18 Reassessment: pt requesting to use bedpan for bm at this time. pt instructed to tw2 press call light when finished. tw2
--- NOTE | 2021-10-08 09:12 | EDPHYS ---
Physician Documentation [facility] Name: Mady Wilkins Age: 71 yrs Sex: Female : 1950 Arrival Date: 10/08/2021 Time: 07:17 Bed 4 Private MD: ED Physician Mars Graff HPI: 10/08 08:05 This 71 yrs old Female presents to ER via EMS with complaints of AFIB. ms3 08:05 The patient has shortness of breath at rest. Onset: The symptoms/episode began/occurred ms3 this morning. Duration: The symptoms are continuous, and are unchanged since they started. The patient's shortness of breath has no apparent modifying factors. Associated signs and symptoms: The patient has no apparent associated signs or symptoms. Severity of symptoms: At their worst the symptoms were moderate in the emergency department the symptoms are unchanged. . 71-year-old female with past medical history of atrial fibrillation and fibromyalgia presents via [facility] for shortness of breath that began on waking up this morning. EMS states they administered 10 mg Cardizem followed by an additional 15 mg Cardizem with slight improvement of patient's heart rate. Patient denies alleviating or inciting factors.. Historical: - Allergies: 07:24 unknown antibiotic; ap3 07:24 ALL BLOOD THINNERS; ap3 - Home Meds: 07:24 None [Active]; ap3 - PMHx: 07:24 Colitis; Fibromyalgia; Atrial fibrillation; ap3 - Immunization history:: Client reports having NOT received the Covid vaccine. - Social history:: Smoking status: unknown. ROS: 08:05 Constitutional: Negative for fever, and chills. Neck: Negative for injury, pain, and ms3 swelling, Back: Negative for injury and pain, MS/Extremity: Negative for injury and deformity. Exam: 08:32 ECG was reviewed by the Attending Physician. ms3 09:47 Constitutional: This is a well developed, well nourished patient who is awake, alert, ms3 and in no acute distress. Head/Face: Normocephalic, atraumatic. Neck: Trachea midline, no cervical lymphadenopathy. Supple, full range of motion without nuchal rigidity, or vertebral point tenderness. No Meningismus. Chest/axilla: Normal chest wall appearance and motion. Nontender with no deformity. Respiratory: Lungs have equal breath sounds bilaterally, clear to auscultation and percussion. No rales, rhonchi or wheezes noted. No increased work of breathing, no retractions or nasal flaring. Abdomen/GI: Soft, non-tender, with normal bowel sounds. No distension or tympany. No guarding or rebound. No evidence of tenderness throughout. Back: No spinal tenderness. No costovertebral tenderness. Full range of motion. Skin: Warm, dry with normal turgor. Normal color with no rashes, no lesions, and no evidence of cellulitis. Psych: Awake, alert, with orientation to person, place and time. Behavior, mood, and affect are within normal limits. 09:47 Cardiovascular: Rate: tachycardic, Rhythm: irregularly irregular, Pulses: Vital Signs: 07:20 BP 121 / 79; Pulse 132; Pulse Ox 99% on 4 lpm NC; Weight 113.4 kg; Height 5 ft. 6 in. ap3 (167.64 cm); Pain 8/10; 07:30 Resp 24; ss 08:27 BP 137 / 113; Pulse 129; Resp 16; Pulse Ox 100% on 3 lpm NC; mh5 08:37 BP 130 / 70; Pulse 136; ss 09:45 BP 126 / 97; Pulse 125; Resp 17; Pulse Ox 100% on 3 lpm NC; mh5 10:00 BP 123 / 106; Pulse 109; Resp 18; Pulse Ox 100% on 3 lpm NC; mh5 10:15 BP 93 / 78; Pulse 144; Resp 18; Pulse Ox 100% on 3 lpm NC; mh5 10:30 BP 94 / 68; Pulse 144; Resp 16; Pulse Ox 99% on 3 lpm NC; mh5 10:45 BP 118 / 103; Pulse 135; Resp 16; Temp 98(TE); Pulse Ox 99% on 3 lpm NC; mh5 11:00 BP 133 / 83; Pulse 134; Resp 17; Pulse Ox 99% on 3 lpm NC; tw2 11:30 BP 114 / 82; Pulse 126; Resp 20; Pulse Ox 99% on 3 lpm NC; tw2 11:45 BP 135 / 95; Pulse 145; Resp 19; Pulse Ox 98% on 3 lpm NC; tw2 12:15 BP 143 / 87; Pulse 143; Resp 24; Pulse Ox 98% on 4 lpm NC; tw2 12:30 BP 146 / 83; Pulse 138; Resp 26; Pulse Ox 99% on 4 lpm NC; tw2 12:45 BP 134 / 96; Pulse 136; Resp 22; Pulse Ox 98% on 4 lpm NC; tw2 13:00 BP 136 / 84; Pulse 138; Resp 18; Pulse Ox 100% on 3 lpm NC; tw2 13:30 BP 136 / 84; Pulse 134; Resp 17; Pulse Ox 98% on R/A; tw2 13:45 BP 139 / 92; Pulse 123; Resp 19; Pulse Ox 99% on 3 lpm NC; tw2 14:00 BP 136 / 88; Pulse 134; Resp 18; Pulse Ox 100% on 3 lpm NC; tw2 14:15 BP 141 / 84; Pulse 128; Resp 19; Pulse Ox 98% on 3 lpm NC; tw2 14:30 BP 126 / 75; Pulse 134; Resp 18; Pulse Ox 100% on 3 lpm NC; tw2 14:45 BP 144 / 72; Pulse 131; Resp 18; Pulse Ox 99% on 3 lpm NC; tw2 15:00 BP 146 / 83; Pulse 133; Resp 21; Pulse Ox 100% on 3 lpm NC; tw2 15:15 BP 144 / 94; Pulse 130; Resp 18; Pulse Ox 100% on 3 lpm NC; tw2 15:45 BP 122 / 95; Pulse 132; Resp 20; Pulse Ox 100% on 3 lpm NC; tw2 16:30 BP 127 / 72; Pulse 129; Resp 19; Pulse Ox 99% on 3 lpm NC; tw2 07:20 Body Mass Index 40.35 (113.40 kg, 167.64 cm) ap3 MDM: 07:24 Patient medically screened. ms3 08:32 Differential diagnosis: CHF exacerbation, Myocardial Infarction A Fib RVR. ms3 09:50 Data reviewed: vital signs, nurses notes, lab test result(s), EKG, radiologic studies. ms3 Data interpreted: monitor tech: rate is 126 beats/min, rhythm is atrial fibrillation, irregularly irregular, with no ectopy, Interpretation: atrial fibrillation, irregular, tachycardia. Counseling: I had a detailed discussion with the patient and/or guardian regarding: the historical points, exam findings, and any diagnostic results supporting the discharge/admit diagnosis, lab results, radiology results, the need for further work-up and treatment in the hospital. ED course: Discussed case with Dr Young and he accepts patient. Dr Gama saw patient in the ED. Discussed plan with patient and her and they understand/ agree with plan. Patient remains in stable condition.. 10/08 07:24 Order name: Basic Metabolic Panel; Complete Time: 08:19 ms3 10/08 07:24 Order name: CBC with Diff; Complete Time: 01:08 ms3 10/08 07:24 Order name: NT PRO-BNP; Complete Time: 08:19 ms3 10/08 07:24 Order name: PT-INR; Complete Time: 08:04 ms3 10/08 07:24 Order name: Troponin HS; Complete Time: 08:19 ms3 10/08 07:32 Order name: TSH; Complete Time: 08:19 ms3 10/08 08:47 Order name: COVID-19 SARS RT PCR (Document "Date of Onset" if Symptomatic); Complete ss Time: 01:10/08 09:35 Order name: CBC Smear Scan; Complete Time: 01:08 EDMS 10/08 09:58 Order name: CBC with Automated Diff EDMS 10/08 09:58 Order name: CBC with Automated Diff; Complete Time: 01:08 EDMS 10/08 09:58 Order name: Comprehensive Metabolic Panel EDMS 10/08 09:58 Order name: Comprehensive Metabolic Panel; Complete Time: 01:08 EDMS 10/08 09:58 Order name: T4 Free EDMS 10/09 03:25 Order name: T4 Free; Complete Time: 01:08 EDMS 10/09 09:56 Order name: Urine Dipstick-Ancillary; Complete Time: 01:08 EDMS 10/09 11:03 Order name: Urine Microscopic Only; Complete Time: 01:08 EDMS 10/09 16:22 Order name: Urine Dipstick-Ancillary; Complete Time: 01:08 EDMS 10/10 02:04 Order name: CBC with Automated Diff; Complete Time: 03:35 EDMS 10/10 02:36 Order name: Comprehensive Metabolic Panel; Complete Time: 03:35 EDMS 10/10 02:36 Order name: NT PRO-BNP; Complete Time: 03:35 EDMS 10/10 02:36 Order name: Magnesium; Complete Time: 03:35 EDMS 10/10 02:36 Order name: Thyroid Stimulating Hormone; Complete Time: 03:35 EDMS 10/10 02:37 Order name: Lactate; Complete Time: 03:35 EDMS 10/10 02:42 Order name: Procalcitonin; Complete Time: 03:35 EDMS 10/10 03:08 Order name: T4 Free; Complete Time: 03:35 EDMS 10/10 04:14 Order name: Potassium; Complete Time: 04:31 EDMS 10/10 04:34 Order name: ABG Arterial Blood Gas EDMS 10/10 04:50 Order name: Glucose, Ancillary Testing EDMS 10/10 05:03 Order name: Lactate Sepsis 2 HR Follow-up EDMS 10/10 05:05 Order name: Comprehensive Metabolic Panel EDMS 10/08 07:24 Order name: XRAY Chest (1 view); Complete Time: 09:11 ms3 10/08 07:24 Order name: EKG; Complete Time: 07:25 ms3 10/08 07:24 Order name: Cardiac monitoring; Complete Time: 08:02 ms3 10/08 07:24 Order name: EKG - Nurse/Tech; Complete Time: 15:20 ms3 10/08 07:24 Order name: IV Saline Lock; Complete Time: 08:02 ms3 10/08 07:24 Order name: Labs collected and sent; Complete Time: 08:02 ms3 10/08 07:24 Order name: O2 Per Protocol; Complete Time: 08:02 ms3 10/08 07:24 Order name: O2 Sat Monitoring; Complete Time: 08:02 ms3 10/08 07:32 Order name: Echo without doppler (2D) ms3 10/08 09:58 Order name: CONS Physician Consult EDMS 10/08 09:58 Order name: Heart Healthy EDMS 10/10 07:07 Order name: ABG Arterial Blood Gas EDMS 10/10 07:09 Order name: Lactate EDMS 10/10 08:11 Order name: Urine Culture EDMS 10/10 09:55 Order name: Lactate Sepsis 2 HR Follow-up EDMS 10/10 11:48 Order name: Comprehensive Metabolic Panel EDMS 10/10 11:48 Order name: NT PRO-BNP EDMS 10/10 11:48 Order name: Magnesium EDMS 10/10 11:49 Order name: Lactate EDMS 10/10 12:18 Order name: CBC with Automated Diff EDMS 10/10 12:34 Order name: Manual Differential EDMS 10/10 13:09 Order name: US EDMS EC:32 Rate is 135 beats/min. Rhythm is regular. QRS [place] is Normal. QRS interval is normal. ms3 Clinical impression: Atrial Fibrillation with RVR. Interpreted by me. Administered Medications: 07:36 CANCELLED (Physician Discretion): Aspirin Chewable Tablet 324 mg PO once; 81 mg tablets ms3 x 4 09:40 Drug: amiodarone 900 mg, D5W 500 ml Route: IVPB; Rate: 1 mg/min; Site: left antecubital;tw2 16:58 Follow up: IV Status: Infusion continued upon admission tw2 09:40 Drug: amiodarone 150 mg Volume: 100 ml; Route: IVPB; Infused Over: 10 mins; Site: left tw2 antecubital; 09:51 Follow up: Response: No adverse reaction; IV Status: Completed infusion; IV Intake: tw2 100ml 09:55 Drug: Lovenox (enoxaparin) 1 mg/kg Route: Sub-Q; Site: left lower abdomen; tw2 15:20 Follow up: Response: No adverse reaction tw2 Disposition Summary: 10/08/21 09:11 Hospitalization Ordered Hospitalization Status: Inpatient Admission ms3 Provider: Tk Young ms3 Condition: Stable ms3 Problem: new ms3 Symptoms: are unchanged ms3 Bed/Room Type: Standard ms3 Location: Intensive Care Unit(10/10/21 10:50) dw Room Assignment: 1-(10/10/21 10:50) dw Diagnosis - A fib with RVR ms3 - Elevated BNP ms3 Forms: - Medication Reconciliation Form ms3 - SBAR form ms3 Signatures: Dispatcher [employer] EDMS Rossy Genao RN RN mw Woody, Diana RN RN dw Aydin Arreaga MD MD rn Smirch, Shelby, RN RN ss Wise, Tara, RN RN tw2 Kyara Anthony RN RN ap3 Mars Graff DO DO ms3 Noreen Rust Corrections: (The following items were deleted from the chart) 07:36 07:24 Aspirin Chewable Tablet 324 mg PO once; 81 mg tablets x 4 ordered. ms3 ms3 12:14 09:11 Telemetry/MedSurg (Inpatient) ms3 ms3 12:14 09:11 ms3 ms3 17:37 12:14 Intensive Care Unit ms3 ss 17:37 12:14 ms3 ss 10/09 23:43 05 17:37 [facility] ER HOLD ss mw 10/09 23:43 10/08 17:37 ERHOLD- ss mw 10/10 01:22 05 23:43 Telemetry/MedSurg (Inpatient) mw 10/10 01:22 10/09 23:43 mw 10/10 10:50 01:22 [facility] ER HOLD wm dw 10:50 01:22 ERHOLD- wm dw
[2021-10-08 09:34] LABS: Blood Morphology Comment NOT SEEN (NOT SEEN); Platelet Estimate ADEQ; White Blood Cell Scan OK (OK)
[2021-10-08] MEDS ORDERED: ACETAMINOPHEN 500 MG TAB PO PRN (09:54)
[2021-10-08] MEDS: ONDANSETRON 4 MG/2 ML VIAL IV PRN (15:58)
[2021-10-08] MEDS ORDERED: ONDANSETRON 4 MG/2 ML VIAL ONE (15:58)
[2021-10-09 03:04] LABS: Absolute Lymphocytes (CBC) 2.2 K/uL (0.7-4.9); Hematocrit 40.4 % (36.0-45.0); Lymphocytes % 23.2 % (15.3-44.8); MPV 8.5 fL (7.6-11.3)
[2021-10-09 03:20] LABS: Albumin 3.3 g/dL (3.4-5.0); Bilirubin Total 2.3 mg/dL (0.2-1.0); Potassium 4.3 mmol/L (3.5-5.1); Protein, Total 6.6 g/dL (6.4-8.2)
[2021-10-09] MEDS ORDERED: METOPROLOL TARTRATE 5 MG/5 ML INJ IV STA ×2 (06:43→18:13)
[2021-10-09] MEDS ORDERED: METOPROLOL TARTRATE 5 MG/5 ML INJ IV ONE ×2 (07:21→19:34)
--- NOTE | 2021-10-09 07:40 | EKG ---
Test Date: 2021-10-08 Test Time: 08:32:32 Building Engineer: ANJALI MEASUREMENT RESULTS: Intervals: Rate: 135 [place]: QRSD: 76 QT: 344 QTc: 516 [place]: P: [place]: QRS: 82 T: 251 INTERPRETIVE STATEMENTS: Atrial fibrillation with rapid ventricular response Low voltage QRS Nonspecific ST and T wave abnormality Abnormal ECG Compared to ECG 11/12/2018 01:39:30 Low QRS voltage now present ST (T wave) deviation now present Sinus rhythm no longer present Electronically Signed On 10-09-21 07:37:20 CDT by Tobi Beverly
--- NOTE | 2021-10-09 08:26 | P.HP ---
Certification for Inpatient Patient admitted to: Inpatient With expected LOS: >2 Midnights Patient will require the following post-hospital care: None Practitioner: I am a practitioner with admitting privileges, knowledge of patient current condition, hospital course, and medical plan of care. Services: Services provided to patient in accordance with Admission requirements found in Title 42 Section 412.3 of the Code of Federal Regulations Patient History Date of Service: 10/08/21 Reason for admission: Atrial fibrillation with rapid ventricular response History of Present Illness: Patient is a 71-year-old female who presents to the hospital with atrial fibrillation. She has a history of atrial fibrillation but her rate is normally well controlled on sotalol. However, she may not have been compliant and her heart rate has been elevated. She presented to the emergency room with heart rates in the 170s. She was given IV amiodarone and she has been started on IV amiodarone drip. Her heart rate has come down to the 120s and 130s. We have consulted cardiology and they have seen the patient at this time. Continue with anticoagulation and medication for rate control. Patient is fully anticoagulated on home Xarelto. Future cardioversion if rate is not controlled. Will be admitted to the hospital for further treatment. Allergies tramadol Allergy (Verified 11/10/18 16:24) Nausea/Vomiting acetaminophen [From Tylenol] Adverse Reaction (Verified 10/08/21 15:59) Anaphylaxis Home Medications: Ascorbic Acid [Vitamin C] 1 tab PO DAILY 11/10/18 Cholecalciferol (Vitamin D3) [Vitamin D 1000 Iu Tab*] 1 tab PO DAILY 11/10/18 Vitamin A [Vitamin A*] 1 tab PO DAILY 11/10/18 Rivaroxaban [Xarelto] 20 mg PO DAILY #30 tablet 11/12/18 Sotalol HCl [Betapace*] 80 mg PO BID 6AM 6PM tab 11/12/18 Sotalol HCl [Sotalol] 80 mg PO BID #100 tablet 11/12/18 - Past Medical/Surgical History Has patient received pneumonia vaccine in the past: No Diabetic: No -: HTN, no medications -: atrial fibrillation -: fibromyalgia -: Kidney disease -: Cholesystectomy - Family History Father Medical History: Hypertension, Diabetes Mother Medical History: Hypertension, Diabetes, Stroke Sister Medical History: Hypertension, Diabetes - Social History Smoking Status: Never smoker Alcohol use: No Place of Residence: Home Physical Examination - Vital Signs Temperature: 97 F Blood Pressure: 143/109 Pulse: 135 Respirations: 15 Pulse Ox (%): 98 - Studies Laboratory Data (last 24 hrs) 10/08/21 07:44: WBC 11.3 H, Hgb 14.2, Hct 43.6, Plt Count 236 Assessment & Plan - Problems (Diagnosis) (1) JEZ (acute kidney injury) Current Visit: No Status: Acute (2) Atrial fibrillation with RVR Current Visit: No Status: Acute (3) Morbid obesity with BMI of 40.0-44.9, adult Current Visit: No Status: Acute (4) Hypertension Current Visit: No Status: Chronic Qualifiers: - Plan Plan: 1. Continue with amiodarone drip 2. Continue with Xarelto 3. Appreciate cardiology consultation 4. Echocardiogram pending 5. Continue home cardiac meds but hold sotalol 6. Strict blood pressure and blood sugar control 7. GI DVT prophylaxis Discharge Plan: Home Plan to discharge in: Greater than 2 days - Advance Directives Does patient have a Living Will: No Does patient have a Durable POA for Healthcare: No - Code Status/Comfort Care Code Status Assessed: Yes Code Status: Full Code Critical Care: No Time Spent Managing PTS Care (In Minutes): 45
--- NOTE | 2021-10-09 08:36 | ECHO ---
HEIGHT: 5 ft 6 in WEIGHT: 248 lb 0 oz DATE OF STUDY: 10/08/[address]: Mars Graff DO 2-DIMENSIONAL: YES M.MODE: YES DOPPLER: YES COLOR FLOW: YES TDS: YES PORTABLE: YES DEFINITY: BUBBLE STUDY: DIAGNOSIS: ATRIAL FIBRILLATION WITH RAPID VENTRICULAR RESPONSE CARDIAC HISTORY: CATHERIZATION: SURGERY: PROSTHETIC VALVE: PACEMAKER: MEASUREMENTS (cm) DIASTOLIC (NORMALS) SYSTOLIC (NORMALS) IVSd 1.1 (0.6-1.2) LA Diam 4.1 (1.9-4.0) LVEF 22% LVIDd 4.2 (3.5-5.7) LVIDs 3.8 (2.0-3.5) %FS 10% LVPWd 1.2 (0.6-1.2) Ao Diam 3.1 (2.0-3.7) 2 DIMENSIONAL ASSESSMENT: RIGHT ATRIUM: NORMAL LEFT ATRIUM: DILATED RIGHT VENTRICLE: NORMAL LEFT VENTRICLE: NORMAL TRICUSPID VALVE: NORMAL MITRAL VALVE: MITRAL ANNULAR CALCIFICATION PULMONIC VALVE: NORMAL AORTIC VALVE: NORMAL PERICARDIAL EFFUSION: NONE AORTIC ROOT: NORMAL LEFT VENTRICULAR WALL MOTION: SEVERE GLOBAL HYPOKINESIS. DOPPLER/COLOR FLOW: MODERATE PUMONARY HYPERTENSION. RIGHT VENTRICULAR SYSTOLIC PRESSURE 51 mmHg. COMMENTS: SEVERE GLOBAL HYPOKINESIS. MODERATE PUMONARY HYPERTENSION. EJECTION FRACTION 25-30%. LEFT ATRIAL ENLARGEMENT. TECHNOLOGIST: ALLISON JACOBO
[2021-10-09] MEDS ORDERED: METOPROLOL TAR 50 MG TAB PO SCH ×2 (09:00→21:00)
[2021-10-09] MEDS ORDERED: RIVAROXABAN 20 MG TABLET PO SCH (09:00)
[2021-10-09] MEDS ORDERED: RIVAROXABAN 20 MG TABLET PO ONE (09:42)
[2021-10-09] MEDS ORDERED: METOPROLOL TAR 50 MG TAB ONE ×2 (09:42→21:35)
[2021-10-09] MEDS: MORPHINE 2 MG/ML SYR IV PRN (09:45)
[2021-10-09] MEDS ORDERED: MORPHINE 2 MG/ML SYR ONE (09:47)
[2021-10-09 09:56] LABS: Urine Blood Trace-intact (Negative); Urine Glucose Negative (Negative); Urine Protein Trace (Negative); Urine Specific Gravity >=1.030 (1.005-1.030); Urine pH 5.5 (5.0-7.0)
[2021-10-09] MEDS ORDERED: AMIODARONE HCL 900 MG in Dextrose 5%-Water 482 ML IV SCH (11:00)
[2021-10-09 11:03] LABS: Urine Amorphous Sediment 4+ /HPF (NONE SEEN); Urine Bacteria NONE SEEN /HPF (<20); Urine RBC NONE SEEN /HPF (NONE SEEN)
[2021-10-09] MEDS ORDERED: CEFTRIAXONE 1000 MG/VIAL ONE (13:45)
[2021-10-09] MEDS ORDERED: NA CHLORIDE 0.9% 100 ML IV ONE (13:45)
[2021-10-09 16:22] LABS: Urine Blood TRACE (Negative); Urine Glucose NEGATIVE (Negative); Urine Protein TRACE (Negative); Urine Specific Gravity >1.030 (1.005-1.030); Urine pH 5.5 (5.0-7.0)
[2021-10-09] MEDS ORDERED: PROMETHAZINE INJ 25 MG/ML AMP IV PRN (21:36)
[2021-10-09] MEDS ORDERED: AMIODARONE HCL 450 MG in D5W 241 ML IV SCH (23:45)
[2021-10-09] MEDS ORDERED: ALBUMIN HUMAN 25% 100 ML IV ONE (23:51)
[2021-10-09] MEDS ORDERED: NA CHLORIDE 0.9% 500 ML ONE (23:54)
[2021-10-10] MEDS ORDERED: ONDANSETRON 4 MG/2 ML VIAL ONE (00:03)
[2021-10-10] MEDS ORDERED: ALBUMIN HUMAN 25% 100 ML IV ONE ×2 (00:04→06:36)
[2021-10-10] MEDS ORDERED: NA CHLORIDE 0.9% 500 ML ONE ×3 (01:19→04:09)
[2021-10-10] MEDS ORDERED: NA CHLORIDE 0.9% 500 ML IV SCH ×3 (02:00→04:00)
[2021-10-10 02:04] LABS: Absolute Lymphocytes (CBC) 2.1 K/uL (0.7-4.9); Hematocrit 44.6 % (36.0-45.0); Lymphocytes % 16.3 % (15.3-44.8); MPV 9.1 fL (7.6-11.3); RBC Red Blood Cell Count 4.69 M/uL (3.86-4.86)
[2021-10-10] MEDS ORDERED: NOREPINEPHRINE 4mg/D5W 250mL 0 MG/0 ML BAG IV ONE (02:15)
[2021-10-10 02:32] LABS: Albumin 3.3 g/dL (3.4-5.0); Bilirubin Total 4.2 mg/dL (0.2-1.0); Protein, Total 6.5 g/dL (6.4-8.2)
[2021-10-10 02:36] LABS: Magnesium 2.1 mg/dL (1.8-2.4); Potassium 5.7 mmol/L (3.5-5.1); Thyroid Stimulating Hormone 6.76 uIU/mL (0.360-3.740)
[2021-10-10] MEDS ORDERED: NOREPINEPHRINE 4 MG in D5W 250 ML IV SCH (03:00)
[2021-10-10] MEDS ORDERED: D50W 25 GM/50 ML SYRINGE IV PRN (04:19)
[2021-10-10] MEDS ORDERED: GLUCAGON 1 MG/VIAL IM PRN (04:19)
[2021-10-10] MEDS ORDERED: INSULIN -REGULAR HUMAN 50 UNIT/0.5 ML ML IV SCH (04:21)
[2021-10-10] MEDS ORDERED: D10W 250 ML IV SCH (04:22)
[2021-10-10] MEDS ORDERED: CALCIUM GLUC 10% INJ 4.65 MEQ in NA CHLORIDE 0.9% 100 ML IV ONE (04:23)
[2021-10-10 04:33] LABS: Arterial Blood Carboxyhemoglob 0.7 % (0-1.5); Blood Gas Oxyhemoglobin 96.5 % (94-97); Blood O2 Saturation 98.1 % (92-98.5)
[2021-10-10] MEDS ORDERED: SOD POLYSTYREN SUL 15 GM/60 ML UCUP PO ONE (04:41)
[2021-10-10] MEDS ORDERED: D10W 125 ML IV SCH (05:00)
[2021-10-10 05:02] LABS: Bilirubin Total 4.5 mg/dL (0.2-1.0); Protein, Total 5.8 g/dL (6.4-8.2)
[2021-10-10] MEDS ORDERED: CALCIUM GLUCONATE 1 GM IVPB 1 GM/50 ML BAG IV ONE (05:03)
[2021-10-10 05:05] LABS: Potassium 5.9 mmol/L (3.5-5.1)
--- NOTE | 2021-10-10 05:11 | P.INFCA ---
Sepsis Focused Assessment - Focused Assessment Complete? Sepsis Focused Assessment Completed?: Yes - Sepsis Screen Result Severe Sepsis: Positive Septic Shock: Positive - Evaluation Current stage of sepsis: Septic shock - Vital Signs Reviewed: Yes Temperature: 96.8 F Heart rate: 72 Blood Pressure: 81/56 Respiratory Rate: 24 O2 Sat by Pulse Oximetry: 97 - Examination Date exam was performed: 10/10/21 Time exam was performed: 05:06 Heart: Irregular rhythm (afib) Lungs: Diminished air movement (lower lobes ) Peripheral pulses: 1+ Faint Peripheral pulse location: Radial, Pedal Capillary refill: <2 Seconds Skin examination: Pale Comments: no sepsis fluids. patient received 4 500 mL boluses & is fluid overloaded
--- NOTE | 2021-10-10 05:26 | P.PN ---
Date of Service: 10/10/21 Received a call around 0100 that BP slowly trended down while on amio drip. 80s systolic. Amio drip was stopped and 500 mL bolus given along with albumin. Blood cultures, lactic acid, procal, cmp drawn. BP remained low despite additional boluses. Levophed was started in AC then transitioned to central line (ED provider inserted). Lactic acid came back at 5.4 and potassium 5.7. ABG and stat CXR done. Revealed metabolic acidosis and trace pleural effusions. Sepsis fluids were not initiated as patient had already received 4 500 mL boluses. Gave sodium bicarb, kayexolate, and calcium gluconate. BP slowly improving on levophed. Patient is awake and alert answering questions. Will keep patient in ER and monitor closely as ICU hold (no ICU beds available).
[2021-10-10] MEDS ORDERED: NOREPINEPHRINE 4mg/D5W 250mL 4 MG/250 ML BAG IV ONE ×2 (05:33→13:39)
[2021-10-10] MEDS ORDERED: SOD POLYSTYREN SUL 15 GM/60 ML UCUP ONE (05:33)
[2021-10-10 07:06] LABS: Arterial Blood Carboxyhemoglob 0.7 % (0-1.5); Blood Gas Oxyhemoglobin 95.8 % (94-97); Blood O2 Saturation 97.4 % (92-98.5)
[2021-10-10] MEDS ORDERED: ALBUMIN HUMAN 25% 50 ML IV ONE ×2 (07:07→07:09)
[2021-10-10] MEDS ORDERED: SODIUM BICARB 50 MEQ/50ML VIAL ONE ×2 (07:45→10:26)
[2021-10-10] MEDS: D5W 1,000 ML with NA BICARB 8.4% 150 MEQ IV SCH ×2 (08:00)
[2021-10-10] MEDS ORDERED: D5W 1,000 ML with NA BICARB 8.4% 150 MEQ IV SCH ×2 (08:00)
[2021-10-10] MEDS ORDERED: NOREPINEPHRINE 8 MG in Dextrose 5%-Water 500 ML IV SCH ×2 (08:00→23:58)
[2021-10-10] MEDS ORDERED: HYDROCORTISONE NA SUC 200 MG in NA CHLORIDE 0.9% 100 ML IV ONE (08:00)
[2021-10-10] MEDS: HYDROCORTISONE NA SUC 200 MG in NA CHLORIDE 0.9% 100 ML IV SCH (08:15)
[2021-10-10] MEDS: SODIUM BICARB 325 MG TAB PO SCH ×2 (09:00→20:03)
--- NOTE | 2021-10-10 09:45 | P.PN ---
Subjective Date of Service: 10/09/21 Patient's heart rate remains elevated. Continuing on amiodarone drip. Echocardiogram pending. Continue monitoring renal function and liver function testing. Review of Systems 10-point ROS is otherwise unremarkable Physical Examination - Vital Signs Temperature: 99.3 F Blood Pressure: 101/47 Pulse: 79 Respirations: 19 Pulse Ox (%): 100 - Physical Exam General: Alert, In no apparent distress, Oriented x3 HEENT: Atraumatic, PERRLA, EOMI Neck: Supple, JVD not distended Respiratory: Clear to auscultation bilaterally, Normal air movement Cardiovascular: Irregular heart rate/rhythm, Systolic murmur Gastrointestinal: Normal bowel sounds, Soft and benign, Non-distended, No tenderness Musculoskeletal: No clubbing, No swelling, No tenderness Neurological: Normal strength at 5/5 x4 extr, Sensation intact, Cranial nerves 3-12 intact - Studies Medications List Reviewed: Yes Assessment & Plan - Problems (Diagnosis) (1) JEZ (acute kidney injury) Current Visit: No Status: Acute (2) Atrial fibrillation with RVR Current Visit: No Status: Acute (3) Morbid obesity with BMI of 40.0-44.9, adult Current Visit: No Status: Acute (4) Hypertension Current Visit: No Status: Chronic Qualifiers: - Plan Plan: 1. Continue with amiodarone drip 2. Continue with Xarelto 3. Appreciate cardiology consultation 4. Echocardiogram pending 5. Continue home cardiac meds but hold sotalol 6. Strict blood pressure and blood sugar control 7. GI DVT prophylaxis Discharge Plan: Home Plan to discharge in: Greater than 2 days - Advance Directives Does patient have a Living Will: No Does patient have a Durable POA for Healthcare: No - Code Status/Comfort Care Code Status: Full Code Critical Care: Yes Time Spent Managing PTS Care (In Minutes): 40
[2021-10-10] MEDS ORDERED: NA CHLORIDE 0.9% 100 ML IV ONE (09:54)
[2021-10-10] MEDS ORDERED: PIPERACIL/TAZO 2.25 GM VIAL IV ONE (09:54)
--- NOTE | 2021-10-10 09:55 | P.PN ---
Subjective Date of Service: 10/10/21 Patient was found to be hypotensive. Patient was severely acidotic. Patient had lactic acidosis. Patient was in acute liver failure and acute renal failure. Patient was given bicarb and lactic acidosis is improving. Patient still hypotensive and on 30 mics of Levophed. Review of Systems 10-point ROS is otherwise unremarkable Physical Examination - Vital Signs Temperature: 99.3 F Blood Pressure: 101/47 Pulse: 79 Respirations: 19 Pulse Ox (%): 100 - Physical Exam General: Alert, In no apparent distress, Oriented x3 HEENT: Atraumatic, PERRLA, EOMI Neck: Supple, JVD not distended Respiratory: Diminished Cardiovascular: Irregular heart rate/rhythm Gastrointestinal: Normal bowel sounds, Soft and benign, Non-distended, No tenderness Musculoskeletal: No clubbing, No tenderness, Swelling Neurological: Normal strength at 5/5 x4 extr, Sensation intact - Studies Medications List Reviewed: Yes Assessment & Plan - Problems (Diagnosis) (1) JEZ (acute kidney injury) Current Visit: No Status: Acute (2) Atrial fibrillation with RVR Current Visit: No Status: Acute (3) Morbid obesity with BMI of 40.0-44.9, adult Current Visit: No Status: Acute (4) Hypertension Current Visit: No Status: Chronic Qualifiers: - Plan Plan: 1. DC amiodarone drip 2. DC Xarelto 3. Appreciate cardiology consultation 4. Echocardiogram with systolic dysfunction 5. Nephrology and Pulmonary consultation 6. Levophed & bicarb drip 6. Strict blood pressure and blood sugar control 7. GI DVT prophylaxis Discharge Plan: Home Plan to discharge in: Greater than 2 days - Advance Directives Does patient have a Living Will: No Does patient have a Durable POA for Healthcare: No - Code Status/Comfort Care Code Status: Full Code Critical Care: Yes Time Spent Managing PTS Care (In Minutes): 45
[2021-10-10] MEDS: PIPER TAZO 2.25 GM in NA CHLORIDE 0.9% 50 ML IV SCH ×2 (10:00→17:40)
[2021-10-10 11:14] LABS: Hematocrit 46.3 % (36.0-45.0); Lymphocytes % 4.3 % (15.3-44.8); MPV 9.1 fL (7.6-11.3); RBC Red Blood Cell Count 4.85 M/uL (3.86-4.86)
[2021-10-10 11:45] LABS: Albumin 3.7 g/dL (3.4-5.0); Bilirubin Total 5.4 mg/dL (0.2-1.0); Protein, Total 6.2 g/dL (6.4-8.2)
[2021-10-10 11:48] LABS: Potassium 5.6 mmol/L (3.5-5.1)
--- NOTE | 2021-10-10 12:05 | P.CNS ---
Date of Consult: 10/10/21 Reason for Consult: JEZ Requesting Physician: Tk Young Chief Complaint: Atrial fibrillation with rapid ventricular response History of Present Illness: 71F w/ PMHx of afib on sotalol & xarelto, who p/w SOB found to be in rapid afib w/ hypotension, received amiodarone gtt w/ HR now better controlled. Referred to Nephrology for JEZ. Baseline SCr 1.0 as of 10/2018. SCr 1.1 on adm, increased to 2.6 today. Allergies tramadol Allergy (Verified 11/10/18 16:24) Nausea/Vomiting acetaminophen [From Tylenol] Adverse Reaction (Verified 10/08/21 15:59) Anaphylaxis Home Medications: Ascorbic Acid [Vitamin C] 1 tab PO DAILY 11/10/18 Cholecalciferol (Vitamin D3) [Vitamin D 1000 Iu Tab*] 1 tab PO DAILY 11/10/18 - Past Medical/Surgical History Diabetic: No -: HTN, no medications -: atrial fibrillation -: fibromyalgia -: Kidney disease -: Cholesystectomy - Family History Father Medical History: Hypertension, Diabetes Mother Medical History: Hypertension, Diabetes, Stroke Sister Medical History: Hypertension, Diabetes - Social History Alcohol use: No CD- Drugs: No Caffeine use: No Place of Residence: Home Review of Systems General: Weakness Eyes: Unremarkable ENT: Unremarkable Respiratory: Shortness of Breath, SOB with Excertion Cardiovascular: Orthopnea Gastrointestinal: Unremarkable Genitourinary: Unremarkable Musculoskeletal: Unremarkable Integumentary: Unremarkable Neurological: Unremarkable Lymphatics: Unremarkable Physical Examination Temp Pulse Resp BP Pulse Ox 99.1 F 99 H 20 97/39 L 100 10/10/21 11:00 10/10/21 11:00 10/10/21 11:00 10/10/21 11:00 10/10/21 11:00 General: Acute distress HEENT: Atraumatic, Normocephalic Neck: Supple Respiratory: Other (+increased work of breathing; symmetric chest expansion) Cardiovascular: No rubs, No murmurs Gastrointestinal: Soft and benign, Non-distended Musculoskeletal: No clubbing Integumentary: No warmth Neurological: Normal tone, Sensation intact Lymphatics: No axilla or inguinal lymphadenopathy Urinary: Other (no bladder distention) External genitalia: Deferred Rectal: Deferred Conclusions/Impression: # JEZ 2/2 ischemic ATN from rapid afib w/ hypotension Baseline SCr 1.0 as of 10/2018 SCr 1.1 on adm, increased to 2.6 today Urinalysis inc SG, trace protein, otherwise unremarkable KUB on abd US +R renal cyst, otherwise unremarkable F/u random urine chem + UPCR F/u CPK HR control Keep MAP > 65 Strict I/O Polo cath Monitor renal panel # Rapid afib Hx of afib on sotalol & xarelto at home BNP sig elevated, trop neg TTE w/ systolic dysfxn May resume amio gtt or po as LFT abnormality c/w ischemic hepatopathy from rapid afib w/ hypotension, rather than LONG TERM from amiodarone Per Cardiology # AGMA Bicarb gtt # Hyperkalemia Shld improve w/ acidosis correction # Rising anion gap w/ lactic acidosis & normal osmolal gap 2/2 hypoperfusion & renal dysfxn Toxic alcohol ingestion unlikely Monitor #Acute respiratory failure 2/2 rapid afib HR control per other services Respiratory support per other services
--- NOTE | 2021-10-10 12:06 | P.CNS ---
Date of Consult: 10/10/21 Reason for Consult: Possible sepsis Chief Complaint: Atrial fibrillation with rapid ventricular response History of Present Illness: Patient is 71 years of age who presented to this hospital with Obie parham according to the she has some numbness in her left arm history of severe fibromyalgia has been out of medication heart rate is now controlled she is on IV amiodarone on BiPAP has some bleeding on anticoagulation before patient is alert Allergies tramadol Allergy (Verified 11/10/18 16:24) Nausea/Vomiting acetaminophen [From Tylenol] Adverse Reaction (Verified 10/08/21 15:59) Anaphylaxis Home Medications: Ascorbic Acid [Vitamin C] 1 tab PO DAILY 11/10/18 Cholecalciferol (Vitamin D3) [Vitamin D 1000 Iu Tab*] 1 tab PO DAILY 11/10/18 Vitamin A [Vitamin A*] 1 tab PO DAILY 11/10/18 Rivaroxaban [Xarelto] 20 mg PO DAILY #30 tablet 11/12/18 Sotalol HCl [Betapace*] 80 mg PO BID 6AM 6PM tab 11/12/18 Sotalol HCl [Sotalol] 80 mg PO BID #100 tablet 11/12/18 - Past Medical/Surgical History Diabetic: No -: HTN, no medications -: atrial fibrillation -: fibromyalgia -: Kidney disease -: Cholesystectomy - Family History Father Medical History: Hypertension, Diabetes Mother Medical History: Hypertension, Diabetes, Stroke Sister Medical History: Hypertension, Diabetes - Social History Alcohol use: No CD- Drugs: No Caffeine use: No Place of Residence: Home Review of Systems is unable to be obtained Physical Examination Temp Pulse Resp BP Pulse Ox 99.1 F 99 H 20 97/39 L 100 10/10/21 11:00 10/10/21 11:00 10/10/21 11:00 10/10/21 11:00 10/10/21 11:00 General: Alert, Other (Minimally responsive) Neck: Supple Respiratory: Clear to auscultation bilaterally, Diminished Cardiovascular: No edema, Regular rate/rhythm Gastrointestinal: Normal bowel sounds, Soft and benign Musculoskeletal: No clubbing, No swelling - Problems (1) Hypotension Current Visit: Yes Status: Acute Plan: Patient here was admitted with Obie parham developed hypotension abnormal LFTs elevated white count patient is on Zosyn and Levophed chest x-ray is clear echocardiogram shows severe global hypokinesis poor ejection fraction blood gases shows severe metabolic acidosis worsening renal function abnormal LFTs elevated lactic acid patient received 1 dose of hydrocortisone patient has se chata nazario not sure what medication she is taking Qualifiers: Hypotension type: unspecified hypotension type Qualified Code(s): I95.9 - H ypotension, unspecified
[2021-10-10 12:34] LABS: Blood Morphology Comment NOT SEEN (NOT SEEN); Platelet Estimate ADEQ
--- NOTE | 2021-10-10 13:08 | RAD REPORT ---
EXAM DESCRIPTION: US - Abdomen Exam Complete - 10/10/2021 12:47 pm CLINICAL HISTORY: Renal and hepatic failure COMPARISON: Chest Single View dated 10/10/2021 FINDINGS: Exam is limited due to limited patient mobility and body habitus affects. Gallbladder is not identified and absent by history. No mass or abnormal fluid collection in the gall bladder fossa. Common bile duct is normal with no common duct stone identified. Liver and spleen are normal size. Liver increased echogenicity noted which may be body habitus affect s, mild fatty infiltration or a combination. No focal liver lesion was identifiable. No portal vein a bnormality seen on Doppler assessment. The pancreas is obscured by bowel. No hydronephrosis or suspicious mass of the right kidney. A 3.8 centimeter cyst is present in the mid right kidney. Left kidney was obscured by body habitus affects and bowel. No left renal assessment c an be made. Aorta and IVC are partially obscured. No bulky lymphadenopathy or mass. Trace amount of fluid is present along the superior margin of the right liver. Due to body habitus af fects, it is difficult to determine if this is a trace amount of ascites or possibly minimal posterio r gutter pleural effusion. IMPRESSION: Increased echogenicity of the normal size liver could be fatty infiltration, body habitu s affects or a combination. No focal lesions seen. Simple right renal cyst 3.8 cm in size with no hydronephrosis or suspicious right renal finding. Nonvisualization of the left kidney. No assessment can be made. Pancreas is also obscured with no assessment made.
[2021-10-10 14:35] LABS: Albumin 3.6 g/dL (3.4-5.0); Phosphorus 5.9 mg/dL (2.5-4.9); Potassium 4.6 mmol/L (3.5-5.1)
[2021-10-10] MEDS ORDERED: PHENOL 1.4% ORAL SPRAY 180ML MM PRN (14:59)
[2021-10-10] MEDS ORDERED: DIGOXIN 0.25 MG/ML AMP IV SCH (15:00)
--- NOTE | 2021-10-10 15:37 | RAD REPORT ---
EXAM DESCRIPTION: XR Chest, 1 View CLINICAL HISTORY: The patient is 71 years old and is Female; central line placement and SHOB TECHNIQUE: Frontal view of the chest. COMPARISON: No relevant prior studies available. FINDINGS: Lungs: See below. Pleural space: Left hemidiaphragm is obscured which can be seen with left pleural effusion, as we ll as left lower lobe consolidation or atelectasis. Blunting of the costophrenic angles suggestive of bilateral pleural effusions. No pneumothorax. Heart: Unremarkable. Mediastinum: Unremarkable. Bones/joints: Unremarkable. IMPRESSION: 1. Left hemidiaphragm is obscured which can be seen with left pleural effusion, as wel l as left lower lobe consolidation or atelectasis. 2. Blunting of the costophrenic angles suggestive of bilateral pleural effusions. Electronically signed by: Obdulio Taylor MD 10/10/2021 4:23 AM CDT Due to temporary technical issues with the PACS/Fluency reporting system, reports are being signed by the in house radiologists without review as a courtesy to insure prompt reporting. The interpreting radiologist is fully responsible for the content of the report.
[2021-10-10 22:14] LABS: Absolute Lymphocytes (CBC) 1.4 K/uL (0.7-4.9); Hematocrit 39.5 % (36.0-45.0); RBC Red Blood Cell Count 4.24 M/uL (3.86-4.86)
[2021-10-10 22:58] LABS: Albumin 3.3 g/dL (3.4-5.0); Bilirubin Total 3.9 mg/dL (0.2-1.0); Potassium 4.6 mmol/L (3.5-5.1); Protein, Total 5.8 g/dL (6.4-8.2)
[2021-10-11] MEDS: PIPER TAZO 2.25 GM in NA CHLORIDE 0.9% 50 ML IV SCH ×3 (00:42→16:35)
[2021-10-11] MEDS ORDERED: HYDROCORTISONE SUC 100 MG INJ IV ONE (05:34)
[2021-10-11] MEDS ORDERED: HYDROCORTISONE SUC 100 MG INJ ONE (05:42)
[2021-10-11 06:07] LABS: Absolute Lymphocytes (CBC) 2.1 K/uL (0.7-4.9); Hematocrit 36.2 % (36.0-45.0); MPV 9.1 fL (7.6-11.3)
[2021-10-11 06:29] LABS: Protime INR 4.41
[2021-10-11 06:53] LABS: Albumin 2.9 g/dL (3.4-5.0); Magnesium 1.7 mg/dL (1.8-2.4); Potassium 3.7 mmol/L (3.5-5.1)
[2021-10-11] MEDS: D5W 1,000 ML with NA BICARB 8.4% 150 MEQ IV SCH ×2 (07:41)
[2021-10-11] MEDS: HYDROCORTISONE NA SUC 200 MG in NA CHLORIDE 0.9% 100 ML IV SCH (08:44)
[2021-10-11] MEDS: SODIUM BICARB 325 MG TAB PO SCH ×2 (09:08→21:01)
--- NOTE | 2021-10-11 11:07 | RAD REPORT ---
EXAM DESCRIPTION: RAD - Chest Single View - 10/11/2021 6:20 am CLINICAL HISTORY: pneumonia Chest pain. COMPARISON: Chest Single View dated 10/10/2021; Chest Single View dated 10/08/2021; Chest Single View dated 11/10/2018 FINDINGS: Portable technique limits examination quality. The lungs are grossly clear. Small left pleural effusion. The heart is upper limit of normal in size. No displaced fractures. IMPRESSION: Stable chest since yesterday's study.
--- NOTE | 2021-10-11 13:34 | P.PN ---
Subjective Date of Service: 10/11/21 Chief Complaint: Atrial fibrillation with rapid ventricular response Today Off pressers , BP stable Bicarbonate 28, of Bicarbonate drip Anuric will cont current medical treatment for now physcial exam General: Awake , Alert, NAD , obese HEENT: Atraumatic, Normocephalic Neck: Supple, no elevated JVD Respiratory: Expiratory wheezes, no rales Cardiovascular: No rubs, No murmurs Gastrointestinal: Soft and benign, Non-distended Musculoskeletal: No clubbing Integumentary: No warmth Neurological: Normal tone, Sensation intact Lymphatics: No axilla or inguinal lymphadenopathy Urinary: Other (no bladder distention) Conclusions/Impression: # JEZ 2/2 ischemic ATN from rapid afib w/ hypotension SCr 1.1 on adm, Anuric cr trending up to 3.1 KUB on abd US +R renal cyst, otherwise unremarkable F/u random urine chem + UPCR Keep MAP > 65 Strict I/O Polo cath Monitor renal panel no indication for renal replacement therapy at this time, but if creatinine cont to trend up +/- Acidosis +/- signs of fluid overload +/- hyperkalemia then pt might require renal replacement therapy # Afib with RVR now rate controlled BNP sig elevated, trop neg TTE w/ systolic dysfxn # AGMA Bicarbonate level 29 today off Bicarbonate drip # Hyperkalemia resolved low potassium diet # elevated LFT s due to shocked liver #Acute respiratory failure 2/2 rapid afib HR control per other services Respiratory support per other services Total time spent 45 minutes including documentation, reviewing labs , placing orders and discussing plan of care with medical staff and pt Physical Examination - Vital Signs Temperature: 96.8 F Blood Pressure: 123/66 Pulse: 80 Respirations: 16 Pulse Ox (%): 99 - Studies Medications List Reviewed: Yes
[2021-10-11] MEDS ORDERED: ALBUMIN HUMAN 25% 100 ML IV ONE (15:48)
[2021-10-11] MEDS: MORPHINE 2 MG/ML SYR IV PRN (23:24)
[2021-10-12] MEDS: PIPER TAZO 2.25 GM in NA CHLORIDE 0.9% 50 ML IV SCH ×3 (00:12→16:45)
[2021-10-12 06:42] LABS: Absolute Lymphocytes (CBC) 1.9 K/uL (0.7-4.9); Hematocrit 34.6 % (36.0-45.0); Lymphocytes % 13.7 % (15.3-44.8); MPV 9.7 fL (7.6-11.3); RBC Red Blood Cell Count 3.77 M/uL (3.86-4.86)
[2021-10-12 06:48] LABS: Protime INR 2.13
[2021-10-12 07:37] LABS: Albumin 3.1 g/dL (3.4-5.0); Bilirubin Total 2.2 mg/dL (0.2-1.0); Magnesium 1.9 mg/dL (1.8-2.4); Phosphorus 5.2 mg/dL (2.5-4.9); Potassium 3.7 mmol/L (3.5-5.1); Protein, Total 5.5 g/dL (6.4-8.2)
[2021-10-12] MEDS: SODIUM BICARB 325 MG TAB PO SCH (08:11)
[2021-10-12] MEDS: HYDROCORTISONE NA SUC 200 MG in NA CHLORIDE 0.9% 100 ML IV SCH (08:19)
[2021-10-12] MEDS ORDERED: ALBUMIN HUMAN 25% 100 ML IV ONE (11:40)
--- NOTE | 2021-10-12 13:08 | P.PN ---
Subjective Date of Service: 10/12/21 Chief Complaint: Atrial fibrillation with rapid ventricular response Today no overnight events cnt to be Anuric Cr trending up to 5.1 , if cont to trend up then will consider to initate renal replacement therapy physcial exam General: Awake , Alert, NAD , obese HEENT: Atraumatic, Normocephalic Neck: Supple, no elevated JVD Respiratory: Expiratory wheezes, no rales Cardiovascular: No rubs, No murmurs Gastrointestinal: Soft and benign, Non-distended Musculoskeletal: swelling, No clubbing Integumentary: No warmth Neurological: Normal tone, Sensation intact Lymphatics: No axilla or inguinal lymphadenopathy Urinary: Other (no bladder distention) Conclusions/Impression: # JEZ 2/2 ischemic ATN from rapid afib w/ hypotension SCr 1.1 on adm, Anuric cr trending up to 5.1 KUB on abd US +R renal cyst, otherwise unremarkable F/u random urine chem + UPCR Keep MAP > 65 Strict I/O Polo cath Monitor renal panel no indication for renal replacement therapy at this time, but if creatinine cont to trend up +/- Acidosis +/- signs of fluid overload +/- hyperkalemia then pt might require renal replacement therapy # Afib with RVR now rate controlled BNP sig elevated, trop neg TTE w/ systolic dysfxn # AGMA Bicarbonate level 29 today will stop po bicarbonate # Hyperkalemia resolved low potassium diet # elevated LFT s due to shocked liver trending down #Acute respiratory failure 2/2 rapid afib HR control per other services Respiratory support per other services Total time spent 45 minutes including documentation, reviewing labs , placing orders and discussing plan of care with medical staff and pt Physical Examination - Vital Signs Temperature: 96.9 F Blood Pressure: 113/55 Pulse: 64 Respirations: 14 Pulse Ox (%): 87 - Studies Medications List Reviewed: Yes
[2021-10-12] MEDS ORDERED: FUROSEMIDE 40 MG/4 ML VIAL IV ONE (13:30)
--- NOTE | 2021-10-12 14:27 | CON ---
Date of Consultation: 10/08/2021 The patient was admitted on 10/08/2021. I saw the patient on 10/08/2021. Reason For Consultation: Recurrent atrial fibrillation with rapid ventricular response. History Of Present Illness: Ms. Wilkins is a 71-year-old woman. She was admitted to Dr. Young on 2021. I saw her on 10/08/2021. Ms. Wilkins has had a history of atrial fibrillation. At one point, brennen white was on Xarelto and sotalol, but she was not taking it because she could not afford it. Has a histo ry of severe fibromyalgia, colitis, and chronic renal disease, was brought because of palpitation and rapid ventricular response with a heart rate of 113. Denied any chest pain denied any nausea, vomit ing, or diaphoresis. Has had some PND and orthopnea, but no pedal edema. Denied any syncope. Denie d any fever or chills. Past Medical History: As stated above. Allergies: SHE IS ALLERGIC TO XARELTO AND ANTIBIOTICS. Medications: At home were none. Review of Systems: Negative. Social History: Negative. Family History: Negative. Physical Examination: Vital Signs: She was in AFib with rate of 113. Otherwise, vital signs stable. She was afebrile. HEENT: Negative. Neck: Supple with no bruit. Chest: Reveals some rales both bases. Cardiac: Revealed atrial fibrillation. Abdomen: Obese, but benign. Extremities: Revealed trace edema. Diagnostic Data: Showed an elevated white count, creatinine of 2.77. She has elevated liver functio n tests, elevated lactic acid. Her chest x-ray was normal. Her EKG showed AFib with rapid ventricul ar response. Impression And Plan: 1.Recurrent atrial fibrillation. 2.Fibromyalgia. 3.Colitis. 4.Chronic renal disease. We elected to start the patient on IV amiodarone, hopefully that will cont rol her rate and cardiovert her. Obtain a 2D echocardiogram. Consult Nephrology. Continue close fo llowups. TARA/RENARD Voice ID: [id number] Report ID: [id number]
--- NOTE | 2021-10-12 14:51 | PN ---
Date of Progress Note: 10/10/2021 Mrs. Wilkins came in with atrial fibrillation, placed on IV amiodarone, became hypotensive with elevated liver function tests, elevated lactic acid, elevated creatinine. Echocardiogram showed an ejection fraction of 22%. She remains on albumin, received 1 dose of digoxin. Lasix has been held. She is o n Levophed. She is on bicarb for respiratory acidosis. She is on Solu-Cortef. She is on Zosyn. Ne phrology is following. They think she has ischemic ATN from the rapid atrial fibrillation and hypote nsion. I recommended a Polo catheter, renal panel, bicarbonate. Dr. Zambrano has been consulted as well. I believe her main problem is acute systolic congestive heart failure. We will continue her present regimen for now. She is obviously not a candidate for RADHA inhibitors. Her therapy is going to have to be low-dose beta-parvez, anticoagulation, and Lasix down the road when she is able to cody erate that. I would still consider a cardioversion electrically down the road. She will eventually need a Lexiscan and maybe a heart catheterization that will have to wait until her renal function imp roves. I will discuss the case further with Dr. Young. TARA/RENARD Voice ID: [id number] Report ID: [id number]
--- NOTE | 2021-10-12 14:57 | PN ---
Date of Progress Note: 10/09/2021 Ms. Wilkins had came in with atrial fibrillation, rapid ventricular response. She was placed on IV amio darone. Here, she remained in atrial fibrillation at a lower rate; however, echocardiogram showed mo derate pulmonary hypertension with an ejection fraction of 22%. She is showing worsening liver funct ion, worsening renal function, hypotensive, on Levophed now. IV amiodarone was discontinued. We marly l aim for rate control with beta-parvez if her blood pressure allows us, hopefully wean off the Levo phed. She needs to be on antibiotics. Nephrology is involved. We will continue to follow along. W e should probably avoid the use of IV Lasix or any diuretics. She is presently on albumin, Solu-Ramesh ef, antibiotics. May need to be hydrated. I will continue to follow her. TARA/RENARD Voice ID: [id number] Report ID: [id number]
--- NOTE | 2021-10-12 20:55 | P.PN ---
Date of Service: 10/11/21 Subjective Patient remains acidotic and hypotensive. We have been able to wean down the Levophed drip at this time. Continue with aggressive management of the acidosis. Most likely related to amiodarone toxicity. Review of Systems 10-point ROS is otherwise unremarkable Physical Examination - Vital Signs Reviewed - Physical Exam General: Alert, In no apparent distress, Oriented x3 Respiratory: Diminished Cardiovascular: Irregular heart rate/rhythm Gastrointestinal: Normal bowel sounds, Soft and benign, Non-distended, No tenderness Musculoskeletal: No clubbing, No tenderness, Swelling Neurological: Normal strength at 5/5 x4 extr, Sensation intact - Studies Medications List Reviewed: Yes Assessment & Plan - Problems (Diagnosis) (1) Acute liver injury with severe lactic acidosis Current Visit: Yes Status: Acute (2) Atrial fibrillation with RVR Current Visit: Yes Status: Acute (3) Morbid obesity with BMI of 40.0-44.9, adult Current Visit: No Status: Chronic (4) Cardiomyopathy with an ejection fraction of 25% Current Visit: Yes Status: Acute (5) Acute kidney injury Current Visit: Yes Status: Acute - Plan Continue with plan of care as mentioned below: 1. DC'd amiodarone drip; started digoxin; monitor levels 2. DC Xarelto; monitor coagulopathy 3. Appreciate cardiology consultation 4. Echocardiogram with systolic dysfunction 5. Nephrology and Pulmonary consultation 6. Levophed & bicarb drip will be discontinued 6. Strict blood pressure and blood sugar control 7. GI DVT prophylaxis Discharge Plan: Home Plan to discharge in: Greater than 2 days - Advance Directives Does patient have a Living Will: No Does patient have a Durable POA for Healthcare: No - Code Status/Comfort Care Code Status: Full Code Critical Care: Yes Time Spent Managing PTS Care (In Minutes): 35
--- NOTE | 2021-10-12 21:02 | P.PN ---
Date of Service: 10/12/21 Subjective Patient is improving. Acidosis has improved. We have discontinued bicarb drip as well as Levophed has been weaned off. Patient's urine output is still minimal and renal function is worsening. Spoke with nephrology and considering dialysis if renal function continues to worsen. Patient with cardiomyopathy with an ejection fraction of 25%. Atrial fibrillation converted to sinus rhythm. Patient was on amiodarone but developed liver toxicity. This is on hold. Review of Systems 10-point ROS is otherwise unremarkable Physical Examination - Vital Signs Reviewed - Physical Exam General: Alert, In no apparent distress, Oriented x3; morbid obesity Respiratory: Diminished Cardiovascular: Sinus rhythm regular rate and rhythm with no murmurs Gastrointestinal: Normal bowel sounds, Soft and benign, Non-distended, No tenderness Musculoskeletal: No clubbing, No tenderness, Swelling Neurological: Generalized weakness with no focal deficits Assessment & Plan - Problems (Diagnosis) (1) Acute liver injury with severe lactic acidosis Current Visit: Yes Status: Acute (2) Atrial fibrillation with RVR Current Visit: Yes Status: Acute (3) Morbid obesity with BMI of 40.0-44.9, adult Current Visit: No Status: Chronic (4) Cardiomyopathy with an ejection fraction of 25% Current Visit: Yes Status: Acute (5) Acute kidney injury Current Visit: Yes Status: Acute (6) Thrombocytopenia Current Visit: Yes Status: Acute - Plan Continue with plan of care as mentioned below: 1. DC'd amiodarone drip; started digoxin; monitor levels 2. DC Xarelto; monitor coagulopathy 3. Appreciate cardiology consultation 4. Echocardiogram with systolic dysfunction 5. Nephrology and Pulmonary consultation 6. Levophed & bicarb drip will be discontinued 6. Strict blood pressure and blood sugar control 7. GI DVT prophylaxis Discharge Plan: Home Plan to discharge in: Greater than 2 days - Advance Directives Does patient have a Living Will: No Does patient have a Durable POA for Healthcare: No - Code Status/Comfort Care Code Status: Full Code Critical Care: Yes Time Spent Managing PTS Care (In Minutes): 35
--- NOTE | 2021-10-12 21:03 | PN ---
Date of Progress Note: 10/11/2021 Ms. Wilkins had come in with atrial fibrillation, initially treated with amiodarone. Developed liver fa ilure, kidney failure, hypotension. Her kidney failure presumed to be related to ATN, liver failure presumed related to passive congestion. Has an ejection fraction of 22%. Today, her vital signs sta ble. She is in sinus rhythm. Blood pressure is 131/72 with a pulse of 67, O2 saturation 98% on the nasal cannula. Creatinine, however, run down to 5.13, it was initially about 2. Her hemoglobin is s table. White count was 14,000, which has improved. Her liver functions are down from yesterday with an AST of 3115, her ALT is 3048. Her BNP is 8538. She is presently getting digoxin as needed. She is on Lasix on an as-needed basis. Levophed has been discontinued. She is getting bicarbonate. Mayur white is on antibiotic. She is on Solu-Cortef. She has been followed by Nephrology who believe she has ischemic ATN from rapid AFib and hypotension. She is anuric. KUB and abdominal ultrasound and renal ultrasound have been rather unremarkable. She has a Polo catheter, so they are holding dialysis fo r now unless she becomes hyperkalemic or fluid overloaded. Bicarbonate has been stopped by them. He r hyperkalemia has been resolved. We will continue to follow her along. TARA/RENARD Voice ID: [id number] Report ID: [id number]
[2021-10-13] MEDS: PIPER TAZO 2.25 GM in NA CHLORIDE 0.9% 50 ML IV SCH ×2 (01:35→08:24)
[2021-10-13 04:11] LABS: UR PROTEIN 280.5 mg/dL (<11.9); Urine Protein/Creatinine Ratio 3.34 ratio (<0.15)
[2021-10-13 05:04] LABS: Absolute Lymphocytes (CBC) 1.7 K/uL (0.7-4.9); Hematocrit 35.9 % (36.0-45.0); Lymphocytes % 13.1 % (15.3-44.8); MPV 9.2 fL (7.6-11.3)
[2021-10-13 05:39] LABS: Albumin 3.2 g/dL (3.4-5.0); Bilirubin Total 1.7 mg/dL (0.2-1.0); Digoxin Level 0.8 ng/mL (0.80-2.00); Magnesium 1.9 mg/dL (1.8-2.4); Phosphorus 5.6 mg/dL (2.5-4.9); Potassium 3.9 mmol/L (3.5-5.1); Protein, Total 5.8 g/dL (6.4-8.2)
[2021-10-13] MEDS: MORPHINE 2 MG/ML SYR IV PRN (06:21)
--- NOTE | 2021-10-13 07:38 | P.PN ---
Subjective Date of Service: 10/13/21 Chief Complaint: Atrial fibrillation with rapid ventricular response Subjective: No new changes (seen , no new issues -still on NC 02 -still anuria) Physical Examination - Vital Signs Temperature: 98 F Blood Pressure: 125/70 Pulse: 72 Respirations: 17 Pulse Ox (%): 100 - Studies Medications List Reviewed: Yes Assessment And Plan Physician Review: Patient Assessed, Agree with Above Assessment and Plan Physician Review Additional Text: Physical Exam General: Alert, In no apparent distress, Oriented x3; morbid obesity Respiratory: Diminished Cardiovascular: Sinus rhythm regular rate and rhythm with no murmurs Gastrointestinal: Normal bowel sounds, Soft and benign, Non-distended, No tenderness Musculoskeletal: No clubbing, No tenderness, Swelling Neurological: Generalized weakness with no focal deficits Assessment & Plan s.p admitted for with RVR s/p amiodarone but developed amiodarone toxicity, hypotension acute kidney injury with acute liver toxicity. Creatinine still worsening. - Problems (Diagnosis) (1) Acute liver injury with severe lactic acidosis Current Visit: Yes Status: Acute (2) Atrial fibrillation with RVR Current Visit: Yes Status: Acute (3) Morbid obesity with BMI of 40.0-44.9, adult Current Visit: No Status: Chronic (4) Cardiomyopathy with an ejection fraction of 25% Current Visit: Yes Status: Acute (5) Acute kidney injury Current Visit: Yes Status: Acute (6) Thrombocytopenia Current Visit: Yes Status: Acute Plan Continue with plan of care as mentioned below: -Creatinine worsening, symptomatic elevated BNP, consider renal replacement therapy today, defer to nephrology team -continue to hold amiodarone, continue digoxin doses, rate controlled now Continue to optimize blood pressure Resolve hypertension Low EF CHFEF of 25%, appreciate cardiology follow-up Off Xarelto due to coagulopathy Strict blood pressure and blood sugar control GI DVT prophylaxis Discharge Plan: Home Plan to discharge in: Greater than 2 days - Advance Directives Does patient have a Living Will: No Does patient have a Durable POA for Healthcare: No
[2021-10-13] MEDS: HYDROCORTISONE NA SUC 200 MG in NA CHLORIDE 0.9% 100 ML IV SCH (08:25)
[2021-10-13] MEDS: DIGOXIN 0.125 MG TABLET PO SCH (08:36)
[2021-10-13] MEDS ORDERED: NA CHLORIDE 0.9% 500 ML ONE (09:18)
--- NOTE | 2021-10-13 09:55 | P.CNS ---
Date of Consult: 10/13/21 Reason for consult: Patient needs dialysis History of present illness: 71-year-old female who was admitted with A. fib and rapid ventricular response now needs dialysis as she has acute renal failure. Patient is awake and alert and oriented x3. Denies any fever or chills. Denies any signs or symptoms of infection. Review of systems: No sore throat, runny nose, headaches, dizziness, chest pain, nausea, vomiting, diarrhea, constipation or bleeding per rectum. Review of systems is otherwise unremarkable. Past medical history: Hypertension, A. fib, acute renal failure, morbid obesity Past surgical history: Cholecystectomy Allergies: Tramadol and acetaminophen Social history: Patient denies smoking or drinking alcohol Family history: Hypertension, diabetes and stroke Vital signs: Stable, afebrile Physical exam: Awake, alert and oriented x3 Head and neck exam: Cranial nerves II through XII grossly within normal limits, no neck masses, no JVD, throat clear and neck supple Chest: Clear Heart: S1-S2 Abdomen: Soft Extremity: Neurovascular intact Neuro: Nonfocal Diagnostic data: Laboratory data reviewedWhite count is 13.2, potassium is normal, BUN and creatinine are elevated, INR is elevated but trending down Assessment: Acute renal failure in a patient with multiple medical problems Plan/recommendation: Case discussed with the simulation software engineer. We will proceed with Tesio catheter placement. Patient understands risk benefits alternatives and agrees to procedure. CC:
[2021-10-13] MEDS ORDERED: LIDOCAINE 1% 20 ML MDV ONE (10:12)
[2021-10-13] MEDS ORDERED: HEPARIN 5000 UNIT/ML 1 ML VIAL ONE ×2 (10:13)
[2021-10-13] MEDS ORDERED: NS 0.9% VIAL 10 ML ONE (10:14)
[2021-10-13] MEDS ORDERED: NA CHLORIDE 0.9% 100 ML IV ONE (10:14)
[2021-10-13] MEDS ORDERED: propofoL 200 MG/20 ML VIAL IV ONE (10:33)
[2021-10-13] MEDS ORDERED: FENTANYL CITR 100 MCG/2 ML ONE (10:34)
[2021-10-13] MEDS ORDERED: ONDANSETRON 4 MG/2 ML VIAL ONE (10:34)
[2021-10-13] MEDS ORDERED: LIDOCAINE 2% MPF 5 ML VIAL ONE (10:34)
[2021-10-13] MEDS ORDERED: MIDAZOLAM HCL 2 MG/2 ML INJ ONE (10:34)
--- NOTE | 2021-10-13 11:23 | P.OP ---
Date of Service: 10/13/21 Preop diagnosis: Acute renal failure Postop diagnosis: Same Procedure performed: Placement of right IJ Tesio catheter, interpretation of intraoperative fluoroscopy Surgeon: Daniel Moss MD Audio Visual Production Specialist: LENY Kelly Estimated blood loss: Minimal Specimen: None Findings: As above Anesthesia: General Complications: None Drains: None Fluids and blood products: Nonapplicable Disposition: Recovery room Operative note: Patient brought to the OR and placed in the supine position. General anesthesia begun. Patient prepped and draped in usual sterile fashion. Lidocaine 1% infiltrated locally. 18-gauge needle used to access the right IJ vein. Guidewire passed and position confirmed with fluoroscopy. A counterincision made on the right anterior chest. Tunneling device used to tunnel the catheter between the 2 wounds. Seldinger technique used. Vein dilated. Tip of the catheter under fluoroscopy placed in the SVC. Catheter flushed with heparin and packed with heparin with good blood flow. 3-0 chromic used to reapproximate subcutaneous tissue. 3-0 nylon used to secure the tube to the chest wall. Sterile dressing applied. Patient awakened and taken to recovery room in good general condition. Chest x-ray has been ordered. CC:
--- NOTE | 2021-10-13 11:53 | RAD REPORT ---
EXAM DESCRIPTION: RAD - Fluoroscopy <1 Hour - 10/13/2021 11:47 am CLINICAL HISTORY: Venous catheter insertion. TESSIO CATH COMPARISON: No comparisons FINDINGS: Fluoroscopic imaging is submitted from placement of a venous catheter. Details of the pro cedure not available. Fluoroscopy time: 0.1 minutes
--- NOTE | 2021-10-13 11:58 | RAD REPORT ---
EXAM DESCRIPTION: RAD - Chest Single View - 10/13/2021 11:47 am CLINICAL HISTORY: Status post Tesio catheter placement Chest pain. COMPARISON: Chest Single View dated 10/11/2021; Chest Single View dated 10/10/2021; Chest Single View dated 10/08/2021; Chest Single View dated 11/10/2018 FINDINGS: Portable technique limits examination quality. Right-sided venous catheter has tip in the SVC. No postprocedure pneumothorax seen.
[2021-10-13] MEDS ORDERED: PIPERACIL/TAZO 3.375 GM VIAL IV ONE (23:50)
[2021-10-13] MEDS: PIPER TAZO 3.375 GM in NA CHLORIDE 0.9% 50 ML IV SCH (23:51)
[2021-10-13] MEDS ORDERED: NA CHLORIDE 0.9% 50 ML IV ONE (23:51)
--- NOTE | 2021-10-14 02:40 | PN ---
Date of Progress Note: 10/13/2021 Chief Complaint: Acute kidney injury, severe, with oliguria. Subjective: Creatinine is elevated and urine output has not improved. The patient developed acute kidney injury secondary to ischemic acute tubular necrosis from rapid atrial fibrillation with hypotension. On admission, serum creatinine was 1.1 and was trending up to 5.1. The patient underwent catheter placement and dialysis started today to obtain metabolic clearance. Review of Systems: The patient is lethargic, cannot provide review of systems. She follows commands. Objective: Lungs: Clear to auscultation bilaterally. Heart: S1 and S2. Abdomen: Soft, benign. Extremities: Slight edema. Laboratory Data: WBC 13.2, hemoglobin 11.6, platelet count 124,000. Chemistry showed sodium 144, potassium 3.9, chloride 95, CO2 of 27, BUN 63, creatinine of 6.72, magnesium 1.9, phosphorus 5.6. Impression And Plan: 1. Acute kidney injury, oliguric and anuric. Renal function has declined. The patient is started on hemodialysis. Plan is to monitor electrolytes. Adjust dialysis parameters. 2. Atrial fibrillation. Cardiology consultation was requested. 3. Hypertension. Monitor blood pressure closely. Adjust treatment accordingly. 4. Hyperkalemia, resolved. The patient is on low-potassium diet. Monitor electrolytes, adjust dialysis parameters. 5. Cardiorenal syndrome due to renal hypoperfusion in setting of acute systolic congestive heart failure complicated by atrial fibrillation. Heart rate is controlled. 6. Congestive heart failure with systolic dysfunction. Monitor blood pressure during dialysis, adjust ultrafiltration goal accordingly. DEEDEE/RENARD Voice ID: [id number] Report ID: [id number] AMARI
[2021-10-14 05:02] LABS: Absolute Lymphocytes (CBC) 1.4 K/uL (0.7-4.9); Hematocrit 34.8 % (36.0-45.0); Lymphocytes % 15.3 % (15.3-44.8); MPV 9.2 fL (7.6-11.3); RBC Red Blood Cell Count 3.76 M/uL (3.86-4.86)
[2021-10-14 05:40] LABS: Albumin 2.9 g/dL (3.4-5.0); Bilirubin Total 2.3 mg/dL (0.2-1.0); Potassium 4.1 mmol/L (3.5-5.1); Protein, Total 5.8 g/dL (6.4-8.2)
[2021-10-14] MEDS: MORPHINE 2 MG/ML SYR IV PRN (06:28)
[2021-10-14 08:04] LABS: Magnesium 1.9 mg/dL (1.8-2.4)
[2021-10-14] MEDS: DIGOXIN 0.125 MG TABLET PO SCH (08:38)
[2021-10-14] MEDS: HYDROCORTISONE NA SUC 200 MG in NA CHLORIDE 0.9% 100 ML IV SCH (08:39)
[2021-10-14] MEDS ORDERED: PIPERACIL/TAZO 3.375 GM VIAL IV ONE (08:41)
[2021-10-14] MEDS ORDERED: NA CHLORIDE 0.9% 50 ML ONE (08:56)
--- NOTE | 2021-10-14 09:08 | EKG ---
Test Date: 2021-10-14 Test Time: 07:22:17 Aircraft Body Repairer: CYNTHIA MEASUREMENT RESULTS: Intervals: Rate: 132 NH: QRSD: 80 QT: 300 QTc: 444 Campbell: P: NH: QRS: 70 T: 251 INTERPRETIVE STATEMENTS: Atrial fibrillation with rapid ventricular response ST & T wave abnormality, consider inferior ischemia or digitalis effect Abnormal ECG Compared to ECG 10/08/2021 08:32:32 Possible ischemia now present ST (T wave) deviation still present Electronically Signed On 10-14-21 09:07:55 CDT by Tobi Beverly
[2021-10-14] MEDS: carvediloL 6.25 MG TAB PO SCH ×2 (09:28→22:54)
[2021-10-14] MEDS: PIPER TAZO 3.375 GM in NA CHLORIDE 0.9% 50 ML IV SCH (09:29)
[2021-10-14] MEDS ORDERED: dexAMETHasone 10 MG/ML VIAL ONE (10:51)
[2021-10-14] MEDS ORDERED: ROCURONIUM 50 MG/5 ML VIAL IV ONE (10:55)
--- NOTE | 2021-10-14 12:42 | P.PN ---
Subjective Date of Service: 10/14/21 Chief Complaint: Atrial fibrillation with rapid ventricular response Subjective: New changes (Initiated on dialysis yesterday Feels drowsy today but shortness of breath improving Noted with recurrent rapid ventricular response today but improved with added Coreg) Physical Examination - Vital Signs Temperature: 95.9 F Blood Pressure: 117/88 Pulse: 133 Respirations: 11 Pulse Ox (%): 100 - Studies Medications List Reviewed: Yes Assessment And Plan Physician Review: Patient Assessed, Agree with Above Assessment and Plan Physician Review Additional Text: Physical Exam General: Alert, In no apparent distress, Oriented x3; morbid obesity, on nasal cannula O2 Respiratory: Diminished breath sounds, mild basal crypt Cardiovascular: Still irregular rhythm with no murmurs Gastrointestinal: Normal bowel sounds, Soft and benign, Non-distended, No tenderness GUFoley in situ Musculoskeletal: No clubbing, No tenderness, Swelling Neurological: Generalized weakness with no focal deficits Assessment & Plan s.p admitted for with RVR s/p amiodarone but developed amiodarone toxicity, hypotension acute kidney injury with acute liver toxicity. Creatinine still worsening, initiated on hemodialysis to - Problems (Diagnosis) (1) Acute liver injury with severe lactic acidosis Current Visit: Yes Status: Acute (2) Atrial fibrillation with RVR Current Visit: Yes Status: Acute (3) Morbid obesity with BMI of 40.0-44.9, adult Current Visit: No Status: Chronic (4) Cardiomyopathy with an ejection fraction of 25% Current Visit: Yes Status: Acute (5) Acute kidney injury Current Visit: Yes Status: Acute (6) Thrombocytopenia Current Visit: Yes Status: Acute Plan Continue initiated hemodialysis Follow UF target of 2 to 3 L today Continue to hold amiodarone, continue digoxin doses, continue cardiology follow- up and chronic If onset of hypotension with ultrafiltration to achieve euvolemic status, I will consider dobutamine/milrinone since low EF Follow with cardiology Appreciate nephrology follow-up Continue to hold Xarelto due to coagulopathy Resolved hypotension Elevated liver enzymes as well as acute kidney injury may be due to hypotension rather than amiodarone toxicity Strict blood pressure and blood sugar control GI DVT prophylaxis Add PT/OT DC [place] Discharge Plan: Home Plan to discharge in: Greater than 2 days - Advance Directives Does patient have a Living Will: No Does patient have a Durable POA for Healthcare: No 10/14/21 12:39
--- NOTE | 2021-10-14 14:22 | RAD REPORT ---
EXAM DESCRIPTION: RAD - Chest Single View - 10/14/2021 2:13 pm CLINICAL HISTORY: COPD COMPARISON: Portable 10/13/2021 TECHNIQUE: AP portable chest image was obtained 10/14/2021 2:13 pm . FINDINGS: No acute lung parenchymal process. Interstitial pattern matches comparison. Right-sided di alysis catheter is in place. Heart and vasculature are normal. No pneumothorax. Bilateral costophreni c angle blunting matches comparison. No acute bony abnormality seen. No acute aortic findings suspect ed. IMPRESSION: No new cardiopulmonary process. Chest findings are stable from October 13 imaging.
--- NOTE | 2021-10-14 14:51 | RAD REPORT ---
EXAM DESCRIPTION: US - Renal Ultrasound-Complete - 10/14/2021 1:59 pm CLINICAL HISTORY: JEZ COMPARISON: Abdomen Exam Complete dated 10/10/2021 FINDINGS: The right kidney measures 11.7 x 5.4 x 5.3 cm. The left kidney is identified on today's s tudy and measures 11.1 x 6.0 x 5.2 cm. Cortical thickness is normal. Echogenicity of each kidney is i ncreased slightly most likely medical renal disease. No hydronephrosis or suspicious renal mass. A 3. 8 centimeter right renal mass is again identified. Bladder was contracted and not assessed on this study. IMPRESSION: Underlying medical renal disease is evident in each kidney but no hydronephrosis, mass o r other significant finding.
--- NOTE | 2021-10-14 18:31 | PN ---
Date of Progress Note: 10/14/2021 Subjective: The patient was admitted with atrial fibrillation with RVR. The patient again had yesterday another atrial fibrillation with RVR continue. The patient was seen by Cardiology. Started on beta parvez. The patient still had oliguric. The patient was initiated on dialysis, received session of dialysis yesterday, scheduled for another session of today. The patient do not have any shortness of breath on 1 L of oxygen saturating above 96, but she complaining from tachycardia. Physical Examination: Vital Signs: When I saw the patient, blood pressure 117/88, pulse of 140, afebrile. Chest: Clear to auscultation. Heart: S1, S2. Tachycardic. Abdomen: Soft, nontender. Extremities: No edema. Neurological: Alert and oriented x3. No focal. Skin: Did not see any purpura, no ecchymosis or no sign of any atheroembolic on the peripheral. Laboratory Data: WBC 9.1, H and H 11.6/34.8, platelet 125. Sodium 137, potassium 4.1, bicarb 29, BUN 50, creatinine 6.1. This is after dialysis yesterday. Calcium 8.1, AST 368, ALT 1306, trending down. Albumin 2.9 procalcitonin 1.9. TSH 6.7. Urinalysis P/C ratio 3.3. Nephrotic range of proteinuria, specific gravity of 1030. Assessment And Plan: 1. Acute kidney injury, oliguric with nephrotic range proteinuria, normal volume without any hematuria. The patient does not have any history of diabetes. No anemia. Our differential diagnosis: a. Atheroembolic. b. Poor perfusion acute tubular necrosis. c. Cardiorenal. 2. Again I going to go ahead and send for C3 and C4 with urine eosinophil to evaluate for any atheroembolic process for the patient. 3. With the presence of the anemia and nephrotic range of proteinuria, we will send for serum protein electrophoresis. 4. With the presence of nephrotic range of proteinuria with only hypertension, no other risk factor. I going to go ahead and send for renal ultrasound, send for full serology to evaluate the patient and we will follow up. 5. We will monitor the patient on daily basis. We will do dialysis today. I do not think she going to need another session of dialysis tomorrow. We will follow up. 6. Nephrotic range of proteinuria with the presence of the anemia and acute kidney injury as above. We will send for serum protein electrophoresis. 7. Anemia, possible secondary to renal failure. We will send for serum protein electrophoresis and we will send for the rest of the workup of the anemia. 8. Hypertension, currently blood pressure on the lower side. We will utilize the blood pressure for more rate control. 9. Atrial fibrillation with RVR as by the Cardiology. 10. Elevation in BNP, possible secondary to the atrial fibrillation. We will follow up with Cardiology. Time spent examining the patient [id number], reviewing the data of lab and radiology discussing the case with the patient reviewing the case with the clinical team manager including nursing discussing the case with the hospitalist 35-minute RICHARD/RENARD Voice ID: [id number] Report ID: [id number] MTDD
[2021-10-14] MEDS ORDERED: CYCLOBENZAPRINE 10 MG TAB PO ONE (23:01)
[2021-10-15 05:30] LABS: Absolute Lymphocytes (CBC) 1.3 K/uL (0.7-4.9); Hematocrit 36.1 % (36.0-45.0); Lymphocytes % 13.2 % (15.3-44.8); MPV 9.1 fL (7.6-11.3); RBC Red Blood Cell Count 3.93 M/uL (3.86-4.86)
[2021-10-15 06:20] LABS: AST/SGOT 152 U/L (15-37); Albumin 2.9 g/dL (3.4-5.0); Alkaline Phosphatase 79 U/L (45-117); BUN Blood Urea Nitrogen 39 mg/dL (7-18); Bicarbonate 27 mmol/L (21-32); Bilirubin Total 1.8 mg/dL (0.2-1.0); Creatine Phosphokinase 20 U/L (26-192); Ferritin 372.8 ng/mL (8-388); Folic Acid, (Folate) > 20.0 ng/mL (3.1-17.5); Glomerular Filtration Rate 7 ml/min (=/>90); Glucose Level 92 mg/dL (74-106); Phosphorus 4.7 mg/dL (2.5-4.9); Potassium 3.8 mmol/L (3.5-5.1); Protein, Total 5.9 g/dL (6.4-8.2); Sodium Level 136 mmol/L (136-145); Transferrin 178 mg/dL (200-360); Uric Acid 7.7 mg/dL (2.6-6.0)
[2021-10-15 06:21] LABS: ALT/SGPT 932 U/L (12-78)
[2021-10-15] MEDS: carvediloL 6.25 MG TAB PO SCH (07:53)
--- NOTE | 2021-10-15 09:03 | P.PN ---
Subjective Date of Service: 10/15/21 Chief Complaint: Atrial fibrillation with rapid ventricular response Subjective: No new changes, No C/O voiced (tolerating dialysis well) Physical Examination - Vital Signs Temperature: 97.7 F Blood Pressure: 160/81 Pulse: 78 Respirations: 16 Pulse Ox (%): 99 - Studies Medications List Reviewed: Yes Assessment And Plan Physician Review: Patient Assessed, Agree with Above Assessment and Plan Physician Review Additional Text: Physical Exam General: Alert, In no apparent distress, Oriented x3; morbid obesity, on nasal cannula O2- 1L Respiratory: Diminished breath sounds, mild basal crypt Cardiovascular: Still irregular rhythm with no murmurs Gastrointestinal: Normal bowel sounds, Soft and benign, Non-distended, No tenderness GUFoley in situ Musculoskeletal: No clubbing, No tenderness, Swelling Neurological: Generalized weakness with no focal deficits Assessment & Plan s.p admitted for with RVR s/p amiodarone but developed amiodarone toxicity, hypotension acute kidney injury with acute liver toxicity. Creatinine still worsening, initiated on hemodialysis 10/13/21 - Problems (Diagnosis) (1) Acute liver injury with severe lactic acidosis Current Visit: Yes Status: Acute (2) Atrial fibrillation with RVR Current Visit: Yes Status: Acute (3) Morbid obesity with BMI of 40.0-44.9, adult Current Visit: No Status: Chronic (4) Cardiomyopathy with an ejection fraction of 25% Current Visit: Yes Status: Acute (5) Acute kidney injury Current Visit: Yes Status: Acute (6) Thrombocytopenia Current Visit: Yes Status: Acute Plan -Doing well Volume status improving, continue ultrafiltration with hemodialysis Rate improving, increase Coreg further for better blood pressure control to 12.5 twice daily today Wean off O2 We will restart Xarelto if INR less than 1.5 in a.m. -Continue to hold amiodarone since possibility of hepatic toxicity although both combined liver toxicity and acute kidney injury likely due to hypotension, - continue digoxin doses, continue cardiology follow-up Resolved hypotension -start trial of Entresto Strict blood pressure and blood sugar control GI DVT prophylaxis Continue started PT/OT DC Polo Transfer to telemetry floor today Discharge Plan: Home Plan to discharge in: Greater than 2 days - Advance Directives Does patient have a Living Will: No Does patient have a Durable POA for Healthcare: No 10/15/21 09:03 Time Spent Managing PTS Care (In Minutes): 35
[2021-10-15 09:04] LABS: Rheumatoid Factor NEG (NEG)
[2021-10-15] MEDS: HYDROCORTISONE NA SUC 200 MG in NA CHLORIDE 0.9% 100 ML IV SCH (09:22)
[2021-10-15] MEDS: carvediloL 12.5 MG TAB PO SCH ×2 (09:22→21:03)
--- NOTE | 2021-10-15 16:04 | PN ---
Date of Progress Note: 10/15/2021 Subjective: The patient is doing better, status post dialysis yesterday, tolerated the dialysis very well, managed to remove 1 L. Heart rate has been stabilized. Physical Examination: Vital Signs: Blood pressure 135/59, pulse of 90, irregular, afebrile. The patient still oliguric. Urine output only 50 cc. We managed to remove 1 L ultrafiltration. Chest: Faint crackles. DICTATION ENDS HERE RICHARD/RENARD Voice ID: [id number] Report ID: [id number]
--- NOTE | 2021-10-15 16:04 | PN ---
Date of Progress Note: 10/15/2021 Subjective: The patient was admitted to the hospital with AFib with RVR. The patient had acute kidney injury, normal-sized kidney with nephrotic range of proteinuria, oliguric. The patient was initiated on dialysis. Yesterday, the patient again had episode of AFib with RVR, started on carvedilol, currently her rate better controlled. The patient had dialysis yesterday, managed to remove 1 L, tolerated dialysis very well on blood flow of 250. Physical Examination: General: When I saw the patient; the patient is sleeping on nasal cannula 1-2 L, saturating 97%. Vital Signs: Blood pressure 135/59, pulse of 90, irregular. Chest: Faint crackles bilateral base. Heart S1, S2. Regular. Abdomen: Soft, nontender. Extremity: Trace edema. Neurological: Alert, oriented x3. No focal. Laboratory Data: WBC 9.9, H and H 12/36.1, platelets 139. Sodium 136, potassium 3.8, bicarb 27, BUN 39, creatinine 5.8, calcium 8.4, uric acid 7.7, phosphorus 4.7. Iron saturation is 15.3, ferritin 372. AST dropped to 152, ALT 932 trending down back. LDH 303, mildly elevated. Albumin 2.9. Serum protein electrophoresis is still pending. TSH 6.7, PTH 159. WBC 9.9, H and H 12/36.1. Serology still pending. Current Medications: The patient on include; 1. Promethazine. 2. Flexeril. 3. Heparin. 4. Carvedilol 12.5 b.i.d. 5. Digoxin 0.125. 6. Zofran. 7. Hydrocortisone. Assessment And Plan: 1. Acute kidney injury, normal-sized kidney, nephrotic range of proteinuria, oliguric, looked to me started being normal volume. The patient just stabilized from the cardiac standpoint. No uremic symptoms. Normal volume. No hyperkalemia. I am going to hold on the dialysis today. Given the patient is oliguric, the patient will require dialysis. We will arrange for dialysis tomorrow. I am going to go ahead and increase blood flow to 300, increase the treatment time to 3 hours and we will monitor the patient. 2. Hypertension, currently blood pressure marginal. Continue to utilize blood pressure for more rate control. 3. Nephrotic range of proteinuria. No history of diabetes or other diseases with acute kidney injury. Waiting for full serology. Depending on that, we will decide. The patient currently needing anticoagulation because of the new onset of atrial fibrillation. We will decide depending on the serology if the patient is going to need to have kidney biopsy for further evaluation. I will send for complement to evaluate if there is any atheroembolic even though that not supported with the finding of the urine without any hematuria. Waiting for urine eosinophil and complement. No significant elevation in LDH. 4. Rhabdomyolysis. The patient received dialysis. We will continue. 5. Hypokalemia. The patient is going to be dialyzed on high potassium bath. No need for supplement currently. 6. Atrial fibrillation with rapid ventricular response. We will follow up with Cardiology. Continue anticoagulation. Time spent examining the patient [id number], reviewing the data of lab and radiology discussing the case with the patient reviewing the case with the steam room attendant including nursing discussing the case with the hospitalist 35-minute ALLYN Voice ID: [id number] Report ID: [id number] AMARI
[2021-10-16] MEDS: MORPHINE 2 MG/ML SYR IV PRN ×3 (04:43→21:22)
[2021-10-16 05:11] LABS: Protime INR 1.12
[2021-10-16 05:12] LABS: Absolute Lymphocytes (CBC) 1.5 K/uL (0.7-4.9); Lymphocytes % 13.6 % (15.3-44.8); MPV 8.9 fL (7.6-11.3); RBC Red Blood Cell Count 3.91 M/uL (3.86-4.86)
[2021-10-16 05:36] LABS: Albumin 2.8 g/dL (3.4-5.0); Bilirubin Total 1.3 mg/dL (0.2-1.0); Phosphorus 5.4 mg/dL (2.5-4.9); Potassium 3.8 mmol/L (3.5-5.1); Protein, Total 5.7 g/dL (6.4-8.2)
--- NOTE | 2021-10-16 05:49 | PN ---
Date of Progress Note: 10/13/2021 Ms. Wilkins has been followed for atrial fibrillation, acute systolic congestive heart failure, renal fa ilure, liver failure. Today, her blood pressure is 143/105. She is back in atrial fibrillation at a rate of 119. She is off amiodarone because of liver failure. Her creatinine is 6.19. Her liver fu nction tests are decreasing. Presently on digoxin, heparin, and carvedilol as well as antibiotics. I suggest we increase her carvedilol dose to 12.5 mg twice a day. Avoid amiodarone or antiarrhythmic s. Start hemodialysis. Will follow as needed. TARA/RENARD Voice ID: [id number] Report ID: [id number]
--- NOTE | 2021-10-16 06:22 | PN ---
Date of Progress Note: 10/14/2021 Ms. Wilkins today has a blood pressure of 139/89. She has no complaint. She has a 99% O2 saturation on nasal cannula. Remained in atrial fibrillation at rate 114. She was started dialysis on 10/13/2021 . Creatinine was pending for today. Overall, she looks and feels better. Hepatitis panel and HIV p sherine remained pending. I will decrease her digoxin dose to 0.125 every other day because of her dandy l failure. Continue on carvedilol 12.5 mg twice a day and increase to 25 mg b.i.d., if her heart rat e remains poorly controlled. We will continue to follow her as needed. TARA/MODL Voice ID: [id number] Report ID: [id number]
[2021-10-16] MEDS: carvediloL 12.5 MG TAB PO SCH ×2 (07:33→21:16)
[2021-10-16] MEDS: DIGOXIN 0.125 MG TABLET PO SCH (07:35)
--- NOTE | 2021-10-16 07:47 | P.PN ---
Subjective Date of Service: 10/16/21 Chief Complaint: Atrial fibrillation with rapid ventricular response Subjective: No new changes (Seen, feel better -weaned off 02) Physical Examination - Vital Signs Temperature: 97.5 F Blood Pressure: 122/70 Pulse: 78 Respirations: 11 Pulse Ox (%): 94 - Studies Medications List Reviewed: Yes Assessment And Plan Discharge Plan: Home Physician Review: Patient Assessed, Agree with Above Assessment and Plan Physician Review Additional Text: Physical Exam General: Alert, In no apparent distress, Oriented x3; morbid obesity, on nasal cannula O2- 1L Respiratory: Diminished breath sounds, mild basal crypt Cardiovascular: Still irregular rhythm with no murmurs Gastrointestinal: Normal bowel sounds, Soft and benign, Non-distended, No tenderness GUFoley in situ Musculoskeletal: No clubbing, No tenderness, Swelling Neurological: Generalized weakness with no focal deficits Assessment & Plan s.p admitted for with RVR s/p amiodarone but developed amiodarone toxicity, hypotension acute kidney injury with acute liver toxicity. Creatinine still worsening, initiated on hemodialysis 10/13/21 - Problems (Diagnosis) (1) Acute liver injury with severe lactic acidosis Current Visit: Yes Status: Acute (2) Atrial fibrillation with RVR Current Visit: Yes Status: Acute (3) Morbid obesity with BMI of 40.0-44.9, adult Current Visit: No Status: Chronic (4) Cardiomyopathy with an ejection fraction of 25% Current Visit: Yes Status: Acute (5) Acute kidney injury Current Visit: Yes Status: Acute (6) Thrombocytopenia Current Visit: Yes Status: Acute Plan -continue dialysis today - volume much improved -follow plan for outpt dialysis set up -rate controlled now , c/w coreg - restarted Xarelto since improved coagulaopthy -Continue to hold amiodarone since possibility of hepatic toxicity although both combined liver toxicity and acute kidney injury likely due to hypotension,continue digoxin doses, continue cardiology follow-up -Resolved hypotension -Strict blood pressure and blood sugar control -GI DVT prophylaxis -Continue started PT/OT Discharge Plan: Home Plan to discharge in: when dialysis setup ready - Advance Directives Does patient have a Living Will: No Does patient have a Durable POA for Healthcare: No Time Spent Managing PTS Care (In Minutes): 31
[2021-10-16] MEDS ORDERED: DIGOXIN 0.25 MG TABLET PO SCH (09:00)
[2021-10-16] MEDS ORDERED: ALBUMIN HUMAN 25% 100 ML IV SCH (11:41)
--- NOTE | 2021-10-16 11:49 | PN ---
Date of Progress Note: 10/16/2021 Subjective: The patient was admitted with acute kidney injury. The patient had anuric stage. The patient required to be initiated on dialysis, tolerated the dialysis very well. The patient had AFib with RVR, now rate controlled with beta-parvez. Blood pressure has been stable. The patient had dialysis yesterday, managed to remove 1 L, tolerated very well. Blood pressure has been stable. The patient got right IJ PermCath. Physical Examination: Vital Signs: When I saw the patient; blood pressure of 122/70, pulse of 78, afebrile. The patient is still oliguric. Chest: Clear to auscultation. Heart: S1, S2. Regular. Abdomen: Soft, nontender. No guarding or rebound. Extremities: Trace edema. Neurologic: Alert and oriented x3. No focality. Laboratory Data: WBC 10.9, H and H 11.9/36, platelet 131. Sodium 133, potassium 3.8, bicarb 26, BUN 49, creatinine 7.1, GFR of 6, calcium 8.5, phosphorus 5.4, AST 81, ALT trending down 626, alkaline phosphatase 78. Serum protein electrophoresis is still pending. PTH 159. PC ratio is 3.3. Current Medications: The patient on include; 1. Promethazine. 2. Heparin. 3. Carvedilol 12.5 b.i.d. 4. Digoxin 0.125. 5. Zofran. 6. Hydrocortisone. Assessment And Plan: 1. Acute kidney injury with nephrotic range proteinuria secondary to cardiorenal. Serology is still pending. The patient is anuric. The patient is dialysis dependent currently. I am going to follow up the serology workup if there is any sign for any hypercoagulopathy or any autoimmune disease. I am going to send for hypercoagulopathy workup to consider if the patient had any questionable of renal vein thrombosis/our differential is going to be with the presence of nephrotic range of proteinuria;. a. Renal vein thrombosis. b. Cardiorenal secondary to poor perfusion, ATN secondary to the atrial fibrillation. c. Toxic ATN. d. Poor perfusion ATN secondary to low blood pressure. I am going to continue dialysis 3 times a week. e. As I said, we will send for hypercoagulopathy workup. We will follow up serology. f. Continue to monitor the patient. g. We discussed with social media coordinator for request for outpatient setup for hemodialysis. 2. Nephrotic range of proteinuria with acute kidney injury. No activity in the urine. Serology is still pending. We will send for hypercoagulopathy workup. 3. Atrial fibrillation as by primary and Cardiology. 4. Rhabdomyolysis, improving. CK trending down. The patient on dialysis. 5. Hypokalemia. The patient being dialyzed on high potassium bath, improved, resolved. 6. Hyponatremia secondary to dilutional secondary to cardiac. The patient is going to be corrected on dialysis. 7. Iron deficiency anemia. Hemoglobin above 11. I do not see the need to initiate any iron replacement for the time being. 8. Secondary hyperparathyroidism with elevation on the PTH, calcium and phosphorus on the goal. No need for initiating of any vitamin D or any phosphorus binder for the time being. 9. Liver shock secondary to poor perfusion secondary to the atrial fibrillation. AST, ALT trending down. We will follow up with primary. 10. Nephrotic range of proteinuria with anemia. Serum protein electrophoresis is still pending. We will follow up. Time spent examining the patient [id number], reviewing the data of lab and radiology discussing the case with the patient reviewing the case with the cdl team truck driver including nursing discussing the case with the hospitalist 35-minute RICHARD/RENARD Voice ID: [id number] Report ID: [id number]
[2021-10-16] MEDS ORDERED: ALBUMIN HUMAN 25% 50 ML IV SCH (14:00)
[2021-10-17 05:48] LABS: Albumin 2.9 g/dL (3.4-5.0); Bilirubin Total 1.3 mg/dL (0.2-1.0); Phosphorus 4.8 mg/dL (2.5-4.9); Protein, Total 5.6 g/dL (6.4-8.2)
[2021-10-17] MEDS: carvediloL 12.5 MG TAB PO SCH ×2 (08:28→20:53)
--- NOTE | 2021-10-17 13:28 | P.PN ---
Subjective Date of Service: 10/17/21 Chief Complaint: Atrial fibrillation with rapid ventricular response Subjective: No new changes Physical Examination - Vital Signs Temperature: 97.3 F Blood Pressure: 132/65 Pulse: 69 Respirations: 20 Pulse Ox (%): 98 - Physical Exam General: In no apparent distress HEENT: Atraumatic, Normocephalic Neck: Supple Respiratory: Other (symmetric chest expansion) Cardiovascular: No rubs, No murmurs Gastrointestinal: Soft and benign, No guarding Musculoskeletal: No clubbing Integumentary: No warmth Neurological: Normal tone Urinary: Other (no bladder distention) External genitalia: Deferred Rectal: Deferred - Studies Medications List Reviewed: Yes Assessment And Plan - Plan # JZE 2/2 ischemic ATN from rapid afib w/ hypotension Baseline SCr 1.0 as of 10/2018 SCr 1.1 on adm Urinalysis inc SG, trace protein, otherwise unremarkable KUB on abd US +R renal cyst, otherwise unremarkable Urine chem non-prerenal +Nephrotic-range proteinuria, 3.3g on random UPCR. Workup neg so far. CPK low, no rhabdo HR control Keep MAP > 65 Strict I/O Now HD dependent. Cont HD TTS until sig renal recovery. Monitor renal panel # Rapid afib Hx of afib on sotalol & xarelto at home BNP sig elevated, trop neg TTE w/ systolic dysfxn HR controlled On Carvedilol + Digoxin Mngt per primary team and Cardiology # Hyperkalemia Resolved HD as above # Increased anion gap w/ lactic acidosis & normal osmolal gap 2/2 hypoperfusion & renal dysfxn Toxic alcohol ingestion unlikely Monitor #Acute respiratory failure 2/2 rapid afib HR control per other services Respiratory support per other services # Secondary hyperPTH iPTH elevated at 159, monitor F/u 25OHD Physician Review: Patient Assessed, Agree with Above Assessment and Plan
--- NOTE | 2021-10-17 14:28 | P.PN ---
Subjective Date of Service: 10/17/21 Chief Complaint: Atrial fibrillation with rapid ventricular response Subjective: No new changes, No C/O voiced (still feel weak -HD today) Physical Examination - Vital Signs Temperature: 97.3 F Blood Pressure: 132/65 Pulse: 69 Respirations: 20 Pulse Ox (%): 98 - Studies Medications List Reviewed: Yes Assessment And Plan Physician Review: Patient Assessed, Agree with Above Assessment and Plan Physician Review Additional Text: Physical Exam General: Alert, In no apparent distress, Oriented x3; morbid obesity, on RA Respiratory: Diminished breath sounds, mild basal crypt Cardiovascular: Still irregular rhythm with no murmurs Gastrointestinal: Normal bowel sounds, Soft and benign, Non-distended, No tenderness GUFoley removed Musculoskeletal: No clubbing, No tenderness, Swelling Neurological: Generalized weakness with no focal deficits Assessment & Plan s.p admitted for with RVR s/p amiodarone but developed amiodarone toxicity, hypotension acute kidney injury with acute liver toxicity. Creatinine still worsening, initiated on hemodialysis 10/13/21 - Problems (Diagnosis) (1) Acute liver injury with severe lactic acidosis Current Visit: Yes Status: Acute (2) Atrial fibrillation with RVR Current Visit: Yes Status: Acute (3) Morbid obesity with BMI of 40.0-44.9, adult Current Visit: No Status: Chronic (4) Cardiomyopathy with an ejection fraction of 25% Current Visit: Yes Status: Acute (5) Acute kidney injury Current Visit: Yes Status: Acute (6) Thrombocytopenia Current Visit: Yes Status: Acute Plan -continue dialysis today -Much improved volume status Follow case management for outpatient dialysis set up Continue restarted Xarelto since improved coagulopathy Resolved hypotension, continue to avoid recurrence A. fib rate controlled Continue to hold amiodarone since possibility of hepatic toxicity although both combined liver toxicity and acute kidney injury likely due to hypotension,continue digoxin doses, continue cardiology follow-up --Strict blood pressure and blood sugar control -GI DVT prophylaxis -Continue started PT/OT, follow-up plan for inpatient rehab if accepted Discharge Plan: Home Plan to discharge in: when dialysis setup ready - Advance Directives Does patient have a Living Will: No Does patient have a Durable POA for Healthcare: No
[2021-10-17] MEDS: MORPHINE 2 MG/ML SYR IV PRN (20:53)
[2021-10-18] MEDS: MORPHINE 2 MG/ML SYR IV PRN (01:31)
[2021-10-18 07:06] LABS: Albumin 2.6 g/dL (3.4-5.0); Phosphorus 5.5 mg/dL (2.5-4.9)
[2021-10-18] MEDS: carvediloL 12.5 MG TAB PO SCH ×2 (09:16→21:25)
[2021-10-18] MEDS: DIGOXIN 0.125 MG TABLET PO SCH (09:16)
--- NOTE | 2021-10-18 09:57 | P.PN ---
Subjective Date of Service: 10/18/21 Chief Complaint: Atrial fibrillation with rapid ventricular response Subjective: No new changes Physical Examination - Vital Signs Temperature: 98.1 F Blood Pressure: 140/98 Pulse: 90 Respirations: 20 Pulse Ox (%): 97 - Physical Exam General: Other (appears chronically ill) HEENT: Atraumatic, Normocephalic Neck: Supple Respiratory: Other (symmetric chest expansion) Cardiovascular: No rubs, No murmurs Gastrointestinal: No rebound, No guarding Musculoskeletal: No clubbing Integumentary: No warmth Neurological: Normal speech, Normal tone Urinary: Other (no bladder distention) External genitalia: Deferred Rectal: Deferred - Studies Medications List Reviewed: Yes Assessment And Plan - Plan # JEZ 2/2 ischemic ATN from rapid afib w/ hypotension Baseline SCr 1.0 as of 10/2018 SCr 1.1 on adm Urinalysis inc SG, trace protein, otherwise unremarkable KUB on abd US +R renal cyst, otherwise unremarkable Urine chem non-prerenal +Nephrotic-range proteinuria, 3.3g on random UPCR. Workup neg so far. CPK low, no rhabdo HR control Keep MAP > 65 Strict I/O Now HD dependent. Cont HD TTS until sig renal recovery. HD today. Monitor renal panel # Rapid afib Hx of afib on sotalol & xarelto at home BNP sig elevated, trop neg TTE w/ systolic dysfxn HR controlled On Carvedilol + Digoxin Mngt per primary team and Cardiology # Hyperkalemia Resolved HD as above # Increased anion gap w/ lactic acidosis & normal osmolal gap 2/2 hypoperfusion & renal dysfxn Toxic alcohol ingestion unlikely Monitor #Acute respiratory failure 2/2 rapid afib HR control per other services Respiratory support per other services # Secondary hyperPTH iPTH elevated at 159, monitor F/u 25OHD Physician Review: Patient Assessed, Agree with Above Assessment and Plan
--- NOTE | 2021-10-18 11:57 | P.PN ---
Subjective Date of Service: 10/18/21 Chief Complaint: Atrial fibrillation with rapid ventricular response Subjective: No new changes, No C/O voiced (Feels fine, complaining of weakness) Physical Examination - Vital Signs Temperature: 98.1 F Blood Pressure: 140/98 Pulse: 90 Respirations: 20 Pulse Ox (%): 97 - Studies Medications List Reviewed: Yes Assessment And Plan Physician Review: Patient Assessed, Agree with Above Assessment and Plan Physician Review Additional Text: Physical Exam General: Alert, In no apparent distress, Oriented x3; morbid obesity, on RA Respiratory: Diminished breath sounds, mild basal crypt Cardiovascular: Still irregular rhythm with no murmurs Gastrointestinal: Normal bowel sounds, Soft and benign, Non-distended, No tenderness GUFoley removed Musculoskeletal: No clubbing, No tenderness, Swelling Neurological: Generalized weakness with no focal deficits Assessment & Plan s.p admitted for with RVR s/p amiodarone but developed amiodarone toxicity, hypotension acute kidney injury with acute liver toxicity. Creatinine still worsening, initiated on hemodialysis 10/13/21 - Problems (Diagnosis) (1) Acute liver injury with severe lactic acidosis Current Visit: Yes Status: Acute (2) Atrial fibrillation with RVR Current Visit: Yes Status: Acute (3) Morbid obesity with BMI of 40.0-44.9, adult Current Visit: No Status: Chronic (4) Cardiomyopathy with an ejection fraction of 25% Current Visit: Yes Status: Acute (5) Acute kidney injury Current Visit: Yes Status: Acute (6) Thrombocytopenia Current Visit: Yes Status: Acute Plan -Continue dialysis 3 times per week, monitor for renal recovery since acute renal failure Volume status controlled Needs to participate with physical therapy discussed with patient Follow case management for outpatient SNF/acute rehab since marked weakness Platelet count improving, continue restarted Xarelto Continue restarted Xarelto since improved coagulopathy Resolved hypotension, continue to avoid recurrence A. fib rate controlled Continue to hold amiodarone since possibility of hepatic toxicity although both combined liver toxicity and acute kidney injury likely due to hypotension,continue digoxin doses, continue cardiology follow-up --Strict blood pressure and blood sugar control -GI DVT prophylaxis -Continue started PT/OT, follow-up plan for inpatient rehab if accepted Discharge Plan: Home Plan to discharge in: when dialysis setup ready or accepted by rehab - Advance Directives Does patient have a Living Will: No Does patient have a Durable POA for Healthcare: No 10/18/21 11:54
[2021-10-18 15:12] LABS: Albumin, (SPE) 3.2 g/dL (3.8-4.8); Alpha-1-Globulins 0.4 g/dL (0.2-0.3); Alpha-2-Globulins 0.7 g/dL (0.5-0.9); Gamma Globulins 0.7 g/dL (0.8-1.7); INTERPRETATION REPORT
[2021-10-18 16:57] LABS: HIV AG/AB 4TH GEN Non-reactive (Non-reactive)
[2021-10-19 00:07] LABS: Vitamin D 1,25-Dihydroxy Total 22 pg/mL (18-72); Vitamin D,1,25-OH2, D2 <8 pg/mL
[2021-10-19 04:17] LABS: Absolute Lymphocytes (CBC) 1.2 K/uL (0.7-4.9); Hematocrit 34.6 % (36.0-45.0); Lymphocytes % 11.9 % (15.3-44.8); MPV 8.4 fL (7.6-11.3); RBC Red Blood Cell Count 3.73 M/uL (3.86-4.86)
[2021-10-19 04:35] LABS: Albumin 2.7 g/dL (3.4-5.0); Bilirubin Total 1.4 mg/dL (0.2-1.0); Phosphorus 4.5 mg/dL (2.5-4.9); Potassium 4.1 mmol/L (3.5-5.1); Protein, Total 5.6 g/dL (6.4-8.2)
[2021-10-19] MEDS: carvediloL 12.5 MG TAB PO SCH ×2 (08:38→21:50)
--- NOTE | 2021-10-19 13:00 | P.PN ---
Subjective Date of Service: 10/19/21 Chief Complaint: Atrial fibrillation with rapid ventricular response Subjective: No new changes (still feel weak Awaiting outpatient dialysis set up and SNF set up) Physical Examination - Vital Signs Temperature: 97.2 F Blood Pressure: 154/81 Pulse: 75 Respirations: 18 Pulse Ox (%): 97 - Studies Medications List Reviewed: Yes Assessment And Plan Physician Review: Patient Assessed, Agree with Above Assessment and Plan Physician Review Additional Text: Physical Exam General: Alert, In no apparent distress, Oriented x3; morbid obesity, on RA Respiratory: Diminished breath sounds, mild basal crypt Cardiovascular: Still irregular rhythm with no murmurs Gastrointestinal: Normal bowel sounds, Soft and benign, Non-distended, No tenderness GUFoley removed Musculoskeletal: No clubbing, No tenderness, Swelling Neurological: Generalized weakness with no focal deficits Assessment & Plan s.p admitted for with RVR s/p amiodarone but developed amiodarone toxicity, hypotension acute kidney injury with acute liver toxicity. Creatinine still worsening, initiated on hemodialysis 10/13/21 - Problems (Diagnosis) (1) Acute liver injury with severe lactic acidosis Current Visit: Yes Status: Acute (2) Atrial fibrillation with RVR Current Visit: Yes Status: Acute (3) Morbid obesity with BMI of 40.0-44.9, adult Current Visit: No Status: Chronic (4) Cardiomyopathy with an ejection fraction of 25% Current Visit: Yes Status: Acute (5) Acute kidney injury Current Visit: Yes Status: Acute (6) Thrombocytopenia Current Visit: Yes Status: Acute Plan -Continue dialysis 3 times per week, monitor for renal recovery since acute renal failure Volume status controlled Needs to participate with physical therapy discussed with patient Follow case management for outpatient SNF/acute rehab since marked weakness Platelet count improving, -Xarelto previously on hold due to coagulopathy which has now resolved, since new renal failure, will switch to Eliquis for A. fib and DVT prophylaxis for now Resolved hypotension, continue to avoid recurrence -A. fib rate controlled now Continue to hold amiodarone since possibility of hepatic toxicity although both combined liver toxicity and acute kidney injury likely due to hypotension,continue digoxin doses, continue cardiology follow-up --Strict blood pressure and blood sugar control -GI DVT prophylaxis -Continue started PT/OT, follow-up plan for inpatient rehab if accepted Discharge Plan: Home Plan to discharge in: when dialysis setup ready or accepted by rehab - Advance Directives Does patient have a Living Will: No Does patient have a Durable POA for Healthcare: No 10/19/21 13:00
[2021-10-19] MEDS: APIXABAN 2.5 MG TABLET PO SCH (21:50)
[2021-10-19] MEDS: MORPHINE 2 MG/ML SYR IV PRN (21:51)
--- NOTE | 2021-10-19 22:39 | P.PN ---
Subjective Date of Service: 10/19/21 Chief Complaint: Atrial fibrillation with rapid ventricular response Subjective: No new changes, Other (Received HD yesterday.) Physical Examination - Vital Signs Temperature: 97.8 F Blood Pressure: 176/80 Pulse: 89 Respirations: 17 Pulse Ox (%): 96 - Physical Exam General: In no apparent distress HEENT: Atraumatic, Normocephalic Neck: Supple Respiratory: Other (symmetric chest expansion) Cardiovascular: No rubs, No murmurs Gastrointestinal: Soft and benign, No guarding Musculoskeletal: No clubbing Integumentary: No warmth Neurological: Normal tone Urinary: Other (no bladder distention) External genitalia: Deferred Rectal: Deferred - Studies Medications List Reviewed: Yes Assessment And Plan - Plan # JEZ 2/2 ischemic ATN from rapid afib w/ hypotension Baseline SCr 1.0 as of 10/2018 SCr 1.1 on adm, now HD dependent. Urinalysis inc SG, trace protein, otherwise unremarkable KUB on abd US +R renal cyst, otherwise unremarkable Urine chem non-prerenal +Nephrotic-range proteinuria, 3.3g on random UPCR. Workup neg so far. CPK low, no rhabdo HR control Keep MAP > 65 Strict I/O HD received yesterday. Cont HD TTS until sig renal recovery. Monitor renal panel Outpt HD placement # Rapid afib Hx of afib on sotalol & xarelto at home BNP sig elevated, trop neg TTE w/ systolic dysfxn HR controlled On Carvedilol + Digoxin Mngt per primary team and Cardiology # Hyperkalemia Resolved HD as above # Increased anion gap w/ lactic acidosis & normal osmolal gap 2/2 hypoperfusion & renal dysfxn Toxic alcohol ingestion unlikely Monitor #Acute respiratory failure 2/2 rapid afib HR control per other services Respiratory support per other services # Secondary hyperPTH iPTH elevated at 159, monitor 25OHD 37, at goal Physician Review: Patient Assessed, Agree with Above Assessment and Plan
[2021-10-20 04:22] LABS: Absolute Lymphocytes (CBC) 1.7 K/uL (0.7-4.9); Hematocrit 33.1 % (36.0-45.0); Lymphocytes % 14.5 % (15.3-44.8); MPV 8.3 fL (7.6-11.3); RBC Red Blood Cell Count 3.61 M/uL (3.86-4.86)
[2021-10-20 04:47] LABS: Albumin 2.6 g/dL (3.4-5.0); Bilirubin Total 1.5 mg/dL (0.2-1.0); Potassium 4.1 mmol/L (3.5-5.1); Protein, Total 5.7 g/dL (6.4-8.2)
[2021-10-20] MEDS: ONDANSETRON 4 MG/2 ML VIAL IV PRN (06:04)
[2021-10-20] MEDS: MORPHINE 2 MG/ML SYR IV PRN (06:05)
[2021-10-20] MEDS: DIGOXIN 0.125 MG TABLET PO SCH (08:11)
[2021-10-20] MEDS: APIXABAN 2.5 MG TABLET PO SCH ×2 (08:11→21:41)
[2021-10-20] MEDS: carvediloL 12.5 MG TAB PO SCH (08:11)
--- NOTE | 2021-10-20 20:09 | P.PN ---
Date of Service: 10/20/21 Subjective Patient clinical symptoms continues to improve. Review of Systems 10-point ROS is otherwise unremarkable Physical Examination - Vital Signs Reviewed - Physical Exam General: Alert, In no apparent distress, Oriented x3; morbid obesity Respiratory: Diminished Cardiovascular: Sinus rhythm regular rate and rhythm with no murmurs Gastrointestinal: Normal bowel sounds, Soft and benign, Non-distended, No tenderness Musculoskeletal: No clubbing, No tenderness, Swelling Neurological: Generalized weakness with no focal deficits Assessment & Plan - Problems (Diagnosis) (1) Acute liver injury with severe lactic acidosis Current Visit: Yes Status: Acute (2) Atrial fibrillation with RVR Current Visit: Yes Status: Acute (3) Morbid obesity with BMI of 40.0-44.9, adult Current Visit: No Status: Chronic (4) Cardiomyopathy with an ejection fraction of 25% Current Visit: Yes Status: Acute (5) Acute kidney injury Current Visit: Yes Status: Acute (6) Thrombocytopenia Current Visit: Yes Status: Acute - Plan Continue with plan of care as mentioned below: 1. Liver function testing has improved 2. Patient is currently on hemodialysis 3. Appreciate cardiology consultation; continue with medication for rate control 4. Echocardiogram with systolic dysfunction; continue with diuretics 5. Nephrology and Pulmonary consultation appreciated 6. Physical therapy and await for inpatient rehab 6. Strict blood pressure and blood sugar control 7. GI DVT prophylaxis Discharge Plan: Home Plan to discharge in: Greater than 2 days - Advance Directives Does patient have a Living Will: No Does patient have a Durable POA for Healthcare: No - Code Status/Comfort Care Code Status: Full Code Critical Care: Yes Time Spent Managing PTS Care (In Minutes): 35
[2021-10-20] MEDS: carvediloL 25 MG TAB PO SCH (21:41)
--- NOTE | 2021-10-20 23:17 | PN ---
Date of Progress Note: 10/20/2021 Chief Complaint: Acute kidney injury secondary to ischemic ATN complicated by hypotension due to atrial fibrillation with rapid ventricular response. Previously in 2019 serum creatinine was 1.0, on admission serum creatinine was 1.1 and renal function has declined due to renal hypoperfusion in setting of atrial fibrillation following hypotensive episode. The patient although has history of nephrotic range proteinuria. Renal ultrasound showed right renal cyst, but there was no hydronephrosis. There was no evidence of rhabdomyolysis. The patient remains dialysis dependent. She has had dialysis on Wednesday. Review of Systems: Denies fever or chills. P.o. intake is improving. Objective: Lungs: Clear to auscultation bilaterally. Heart: S1, S2. Abdomen: Soft. Benign. Extremities: Slight edema around ankles. Impression And Plan: 1. Acute kidney injury secondary to ischemic acute tubular necrosis from atrial fibrillation with hypotension. Renal function has not improved. The patient is dialysis dependent and needs to continue dialysis on Wednesday, , Wednesday. 2. Proteinuria, nephrotic range. Workup was ordered to rule out nephritis and monoclonal gammopathy of unknown significance. Continue to monitor. 3. The patient may be a candidate renal biopsy, if renal function does not improved. 4. Hypertension. Blood pressure is elevated. Plan is to increase carvedilol. Monitor blood pressure and heart rate. 5. Rapid ventricular response, atrial fibrillation. The patient is on beta parvez and Xarelto at home. BNP is elevated. Troponin is negative. The patient has systolic dysfunction on transthoracic echo. The patient will continue digoxin. Monitor digoxin level. Further recommendation per Primary Team and Cardiology. 6. Hyperkalemia, resolved. Continue dialysis with electrolytes, adjusted per current blood work. 7. Increased anion gap lactic acidosis with normal osmolal gap secondary to renal hypoperfusion and renal dysfunction. Monitor labs. 8. Secondary hyperparathyroid. Vitamin D level is 37. Elevated PTH of 159, currently in proportion to renal dysfunction. Continue to monitor. EB/MODL Voice ID: [id number] Report ID: [id number] MTDD
--- NOTE | 2021-10-21 04:44 | P.PN ---
Subjective Date of Service: 10/21/21 Chief Complaint: Atrial fibrillation with rapid ventricular response Subjective: No new changes Physical Examination - Vital Signs Temperature: 98.1 F Blood Pressure: 146/79 Pulse: 90 Respirations: 19 Pulse Ox (%): 96 - Physical Exam General: In no apparent distress HEENT: Atraumatic, Normocephalic Neck: Supple, JVD not distended Respiratory: Other (Symmetric chest expansion) Cardiovascular: No rubs, No murmurs Gastrointestinal: Soft and benign, No rebound Musculoskeletal: No clubbing Integumentary: No warmth Neurological: Normal speech, Normal tone Lymphatics: No axilla or inguinal lymphadenopathy Urinary: Other (No bladder distention) External genitalia: Deferred Rectal: Deferred - Studies Medications List Reviewed: Yes Assessment And Plan - Plan # JEZ 2/2 ischemic ATN from rapid afib w/ hypotension Baseline SCr 1.0 as of 10/2018 SCr 1.1 on adm, now HD dependent. Urinalysis inc SG, trace protein, otherwise unremarkable KUB on abd US +R renal cyst, otherwise unremarkable Urine chem non-prerenal +Nephrotic-range proteinuria, 3.3g on random UPCR. Workup neg so far. CPK low, no rhabdo HR control Keep MAP > 65 Strict I/O HD received yesterday. Cont HD TTS until sig renal recovery. Received HD today. Monitor renal panel Outpt HD placement # Rapid afib Hx of afib on sotalol & xarelto at home BNP sig elevated, trop neg TTE w/ systolic dysfxn HR controlled On Carvedilol + Digoxin Mngt per primary team and Cardiology # Hyperkalemia Resolved HD as above # Increased anion gap w/ lactic acidosis & normal osmolal gap 2/2 hypoperfusion & renal dysfxn Toxic alcohol ingestion unlikely Monitor #Acute respiratory failure 2/2 rapid afib HR control per other services Respiratory support per other services # Secondary hyperPTH iPTH elevated at 159, monitor 25OHD 37, at goal # Dispo Rehab facility placement ongoing Physician Review: Patient Assessed, Agree with Above Assessment and Plan
[2021-10-21 05:28] LABS: Absolute Lymphocytes (CBC) 1.3 K/uL (0.7-4.9); Hematocrit 32.1 % (36.0-45.0); MPV 8.4 fL (7.6-11.3); RBC Red Blood Cell Count 3.48 M/uL (3.86-4.86)
[2021-10-21 05:52] LABS: Albumin 2.5 g/dL (3.4-5.0); Bilirubin Total 1.9 mg/dL (0.2-1.0); Potassium 4.2 mmol/L (3.5-5.1); Protein, Total 5.5 g/dL (6.4-8.2)
[2021-10-21] MEDS: carvediloL 25 MG TAB PO SCH ×2 (09:00→21:43)
[2021-10-21] MEDS: APIXABAN 2.5 MG TABLET PO SCH ×2 (09:00→21:43)
[2021-10-21] MEDS: ONDANSETRON 4 MG/2 ML VIAL IV PRN (10:12)
[2021-10-21 13:39] LABS: Protein C Antigen 74 % (70-140)
[2021-10-21] MEDS ORDERED: LOPERAMIDE HCL 2 MG CAPSULE PO STA (18:01)
[2021-10-22 05:50] LABS: Albumin 2.4 g/dL (3.4-5.0); Bilirubin Total 1.5 mg/dL (0.2-1.0); Potassium 3.9 mmol/L (3.5-5.1); Protein, Total 5.3 g/dL (6.4-8.2)
[2021-10-22] MEDS: DIGOXIN 0.125 MG TABLET PO SCH (09:31)
[2021-10-22] MEDS: carvediloL 25 MG TAB PO SCH ×2 (09:31→20:25)
[2021-10-22] MEDS: APIXABAN 2.5 MG TABLET PO SCH ×2 (09:32→20:25)
--- NOTE | 2021-10-22 12:25 | P.PN ---
Subjective Date of Service: 10/22/21 Chief Complaint: Atrial fibrillation with rapid ventricular response Physical Examination - Vital Signs Temperature: 97.9 F Blood Pressure: 112/55 Pulse: 79 Respirations: 14 Pulse Ox (%): 98 - Physical Exam General: In no apparent distress HEENT: Atraumatic, Normocephalic Neck: Supple, JVD not distended Respiratory: Other (symmetric chest expansion) Cardiovascular: No rubs, No murmurs Gastrointestinal: Soft and benign, No guarding Musculoskeletal: No warmth Integumentary: No warmth Neurological: Normal tone Urinary: Other (no bladder distention) External genitalia: Deferred Rectal: Deferred - Studies Medications List Reviewed: Yes Assessment And Plan - Plan # JEZ 2/2 ischemic ATN from rapid afib w/ hypotension Baseline SCr 1.0 as of 10/2018 SCr 1.1 on adm, now HD dependent. Urinalysis inc SG, trace protein, otherwise unremarkable KUB on abd US +R renal cyst, otherwise unremarkable Urine chem non-prerenal +Nephrotic-range proteinuria, 3.3g on random UPCR. Workup neg so far. CPK low, no rhabdo HR control Keep MAP > 65 Strict I/O HD received yesterday. Received HD yesterday. Cont HD TTS until sig renal recovery. Monitor renal panel Outpt HD placement # Rapid afib Hx of afib on sotalol & xarelto at home BNP sig elevated, trop neg TTE w/ systolic dysfxn HR controlled On Carvedilol + Digoxin Mngt per primary team and Cardiology # Hyperkalemia Resolved HD as above # Increased anion gap w/ lactic acidosis & normal osmolal gap 2/2 hypoperfusion & renal dysfxn Toxic alcohol ingestion unlikely Monitor #Acute respiratory failure 2/2 rapid afib HR control per other services Respiratory support per other services # Secondary hyperPTH iPTH elevated at 159, monitor 25OHD 37, at goal # Dispo Rehab facility placement ongoing Physician Review: Patient Assessed, Agree with Above Assessment and Plan
[2021-10-23 05:07] VITALS: BMI 44.3
[2021-10-23 09:02] VITALS: O2SAT 96
[2021-10-23] MEDS: APIXABAN 2.5 MG TABLET PO SCH (09:07)
[2021-10-23] MEDS: carvediloL 25 MG TAB PO SCH (09:07)
--- NOTE | 2021-10-23 12:40 | P.PN ---
Subjective Date of Service: 10/23/21 Chief Complaint: Atrial fibrillation with rapid ventricular response Subjective: No new changes Physical Examination - Vital Signs Temperature: 98.4 F Blood Pressure: 164/76 Pulse: 78 Respirations: 20 Pulse Ox (%): 96 - Physical Exam General: In no apparent distress HEENT: Atraumatic, Normocephalic Neck: Supple, JVD not distended Respiratory: Clear to auscultation bilaterally Cardiovascular: No rubs, No murmurs Gastrointestinal: Soft and benign, No rebound Musculoskeletal: No clubbing Integumentary: No warmth Neurological: Normal speech, Normal tone Urinary: Other (No bladder distention) External genitalia: Deferred Rectal: Deferred - Studies Medications List Reviewed: Yes Assessment And Plan - Plan # JEZ 2/2 ischemic ATN from rapid afib w/ hypotension Baseline SCr 1.0 as of 10/2018 SCr 1.1 on adm, now HD dependent. Urinalysis inc SG, trace protein, otherwise unremarkable KUB on abd US +R renal cyst, otherwise unremarkable Urine chem non-prerenal +Nephrotic-range proteinuria, 3.3g on random UPCR. Workup neg so far. CPK low, no rhabdo HR control Keep MAP > 65 Strict I/O HD received yesterday. Received HD today. Cont HD TTS until sig renal recovery. Monitor renal panel Outpt HD placement # Rapid afib Hx of afib on sotalol & xarelto at home BNP sig elevated, trop neg TTE w/ systolic dysfxn HR controlled On Carvedilol + Digoxin Mngt per primary team and Cardiology # Hyperkalemia Resolved HD as above # Increased anion gap w/ lactic acidosis & normal osmolal gap 2/2 hypoperfusion & renal dysfxn Toxic alcohol ingestion unlikely Monitor #Acute respiratory failure 2/2 rapid afib HR control per other services Respiratory support per other services # Secondary hyperPTH iPTH elevated at 159, monitor 25OHD 37, at goal # Dispo Rehab facility placement ongoing Physician Review: Patient Assessed, Agree with Above Assessment and Plan
[2021-10-24 06:38] VITALS: BP 164/76; TEMP 98.4
[2021-10-24 20:05] LABS: Anti-Cardiolipin IgA Antibody <2.0 APL-U/mL (<20.0)
--- NOTE | 2021-11-08 03:20 | P.PN ---
Date of Service: 10/21/21 Subjective Continues to improve. Review of Systems 10-point ROS is otherwise unremarkable Physical Examination - Vital Signs Reviewed - Physical Exam General: Alert, In no apparent distress, Oriented x3; morbid obesity Respiratory: Diminished Cardiovascular: Sinus rhythm regular rate and rhythm with no murmurs Gastrointestinal: Normal bowel sounds, Soft and benign, Non-distended, No tenderness Musculoskeletal: No clubbing, No tenderness, Swelling Neurological: Generalized weakness with no focal deficits Assessment & Plan - Problems (Diagnosis) (1) Acute liver injury with severe lactic acidosis Current Visit: Yes Status: Acute (2) Atrial fibrillation with RVR Current Visit: Yes Status: Acute (3) Morbid obesity with BMI of 40.0-44.9, adult Current Visit: No Status: Chronic (4) Cardiomyopathy with an ejection fraction of 25% Current Visit: Yes Status: Acute (5) Acute kidney injury Current Visit: Yes Status: Acute (6) Thrombocytopenia Current Visit: Yes Status: Acute - Plan Continue with plan of care as mentioned below: 1. Liver function testing has improved 2. Patient is currently on hemodialysis; renal function stable 3. Appreciate cardiology consultation; continue with medication for rate control 4. Echocardiogram with systolic dysfunction; continue with diuretics 5. Nephrology and Pulmonary consultation appreciated 6. Physical therapy and await for inpatient rehab 6. Strict blood pressure and blood sugar control 7. GI DVT prophylaxis Discharge Plan: Home Plan to discharge in: Greater than 2 days - Advance Directives Does patient have a Living Will: No Does patient have a Durable POA for Healthcare: No - Code Status/Comfort Care Code Status: Full Code Critical Care: Yes Time Spent Managing PTS Care (In Minutes): 35
--- NOTE | 2021-11-08 03:21 | P.PN ---
Date of Service: 10/22/21 Subjective Patient's clinical symptoms are better. Possibly rehab placement. Continues to improve. Review of Systems 10-point ROS is otherwise unremarkable Physical Examination - Vital Signs Reviewed - Physical Exam General: Alert, In no apparent distress, Oriented x3; morbid obesity Respiratory: Diminished Cardiovascular: Sinus rhythm regular rate and rhythm with no murmurs Gastrointestinal: Normal bowel sounds, Soft and benign, Non-distended, No tenderness Musculoskeletal: No clubbing, No tenderness, Swelling Neurological: Generalized weakness with no focal deficits Assessment & Plan - Problems (Diagnosis) (1) Acute liver injury with severe lactic acidosis Current Visit: Yes Status: Acute (2) Atrial fibrillation with RVR Current Visit: Yes Status: Acute (3) Morbid obesity with BMI of 40.0-44.9, adult Current Visit: No Status: Chronic (4) Cardiomyopathy with an ejection fraction of 25% Current Visit: Yes Status: Acute (5) Acute kidney injury Current Visit: Yes Status: Acute (6) Thrombocytopenia Current Visit: Yes Status: Acute - Plan Continue with plan of care as mentioned below: 1. Liver function stable 2. Patient is currently on hemodialysis; renal function stable 3. Appreciate cardiology consultation; continue with medication for rate control 4. Echocardiogram with systolic dysfunction; continue with diuretics 5. Nephrology and Pulmonary consultation appreciated 6. Physical therapy and transfer to inpatient rehab 6. Strict blood pressure and blood sugar control 7. GI DVT prophylaxis Discharge Plan: Home Plan to discharge in: Greater than 2 days - Advance Directives Does patient have a Living Will: No Does patient have a Durable POA for Healthcare: No - Code Status/Comfort Care Code Status: Full Code Critical Care: Yes Time Spent Managing PTS Care (In Minutes): 35
--- NOTE | 2021-11-08 03:22 | P.DS ---
Discharge Date: 10/23/21 Disposition: TRANSFER TO INPATIENT REHAB Discharge Condition: GOOD Reason for Admission: Atrial fibrillation with rapid ventricular response Consultations: Cardiology Nephrology General surgery - Problems (1) JEZ (acute kidney injury) Status: Acute (2) Atrial fibrillation with RVR Status: Acute (3) Morbid obesity with BMI of 40.0-44.9, adult Status: Acute (4) Hypertension Status: Chronic Qualifiers: Brief History of Present Illness: Patient is a 71-year-old female who presents to the hospital with atrial fibrillation. She has a history of atrial fibrillation but her rate is normally well controlled on sotalol. However, she may not have been compliant and her heart rate has been elevated. She presented to the emergency room with heart rates in the 170s. She was given IV amiodarone and she has been started on IV amiodarone drip. Her heart rate has come down to the 120s and 130s. We have consulted cardiology and they have seen the patient at this time. Continue with anticoagulation and medication for rate control. Patient is fully anticoagulated on home Xarelto. Future cardioversion if rate is not controlled. Will be admitted to the hospital for further treatment. Hospital Course: Patient with prolonged hospital stay. Liver function improved. Renal function is stable. Cardiac status is stable. Continue with strengthening patient had inpatient rehab. At this time, patient is stable for discharge. Vital Signs/Physical Exam: Temp Pulse Resp BP Pulse Ox 98.4 F 78 20 164/76 H 96 10/24/21 06:38 10/24/21 06:38 10/24/21 06:38 10/24/21 06:38 10/24/21 06:38 General: Alert, In no apparent distress, Oriented x3 Laboratory Data at Discharge: WBC 11.4 K/uL (4.3-10.9) H 10/21/21 05:00 Hgb 10.5 g/dL (12.0-15.0) L 10/21/21 05:00 Hct 32.1 % (36.0-45.0) L 10/21/21 05:00 Plt Count 143 K/uL (152-406) L 10/21/21 05:00 PT 12.3 SECONDS (9.5-12.5) 10/16/21 04:40 INR 1.12 10/16/21 04:40 APTT 29.8 SECONDS (24.3-36.9) 10/16/21 04:40 Sodium 136 mmol/L (136-145) 10/22/21 05:00 Potassium 3.9 mmol/L (3.5-5.1) 10/22/21 05:00 BUN 27 mg/dL (7-18) H 10/22/21 05:00 Creatinine 6.80 mg/dL (0.55-1.3) H* D 10/22/21 05:00 Glucose 118 mg/dL (74-106) H 10/22/21 05:00 Uric Acid 7.7 mg/dL (2.6-6.0) H 10/15/21 05:00 Phosphorus 4.5 mg/dL (2.5-4.9) 10/19/21 04:00 Magnesium 1.9 mg/dL (1.8-2.4) 10/14/21 04:45 Total Bilirubin 1.5 mg/dL (0.2-1.0) H 10/22/21 05:00 AST 27 U/L (15-37) 10/22/21 05:00 ALT 101 U/L (12-78) H 10/22/21 05:00 Alkaline Phosphatase 86 U/L (45-117) 10/22/21 05:00 Home Medications: Apixaban [Eliquis *] 2.5 mg PO BID #60 tablet 10/23/21 Digoxin [Lanoxin*] 0.125 mg PO Q48H #20 tab 10/23/21 carvediloL [Coreg*] 25 mg PO BID #60 tab 10/23/21 New Medications: carvediloL [Coreg*] 25 mg PO BID #60 tab Apixaban [Eliquis *] 2.5 mg PO BID #60 tablet Digoxin [Lanoxin*] 0.125 mg PO Q48H #20 tab Physician Discharge Instructions: -DC to inpatient rehab Diet: AHA Activity: Fall precautions Followup: Dusty Banegas MD [ASSOCIATE-ACTIVE - CAN ADMIT] - NONE,NONE [Primary Care Provider] - Time spent managing pt's care (in minutes): 35
== END 2021-10-23 18:20 | DRG 308 ==
LOC: ER 07:14 → ERHOLD 09:54 → 3RD-ICU 10-10 12:36 → 2ND 10-16 15:15
PROVIDERS: ADMIT Hospitalist; ATTEND Hospitalist
PROC: 3E043XZ Introduction of Vasopressor into Central Vein, Percutaneous Approach (ICD-10-PCS; 2021-10-10)
PROC: 0T9B70Z Drainage of Bladder with Drainage Device, Via Natural or Artificial Opening (ICD-10-PCS; 2021-10-10)
PROC: 5A09357 Assistance with Respiratory Ventilation, Less than 24 Consecutive Hours, Continuous Positive Airway Pressure (ICD-10-PCS; 2021-10-10)
PROC: 5A1D70Z Performance of Urinary Filtration, Intermittent, Less than 6 Hours Per Day (ICD-10-PCS; 2021-10-13)
PROC: 02HV33Z Insertion of Infusion Device into Superior Vena Cava, Percutaneous Approach (ICD-10-PCS; principal; 2021-10-13 10:30)
PROC: 5A1D70Z Performance of Urinary Filtration, Intermittent, Less than 6 Hours Per Day (ICD-10-PCS; 2021-10-14)
PROC: 5A1D70Z Performance of Urinary Filtration, Intermittent, Less than 6 Hours Per Day (ICD-10-PCS; 2021-10-16)
PROC: 5A1D70Z Performance of Urinary Filtration, Intermittent, Less than 6 Hours Per Day (ICD-10-PCS; 2021-10-18)
PROC: 5A1D70Z Performance of Urinary Filtration, Intermittent, Less than 6 Hours Per Day (ICD-10-PCS; 2021-10-21)
PROC: 5A1D70Z Performance of Urinary Filtration, Intermittent, Less than 6 Hours Per Day (ICD-10-PCS; 2021-10-23)
DX: I48.91 Unspecified atrial fibrillation (principal); N17.0 Acute kidney failure with tubular necrosis; K72.00 Acute and subacute hepatic failure without coma; J96.00 Acute respiratory failure, unspecified whether with hypoxia or hypercapnia; I50.21 Acute systolic (congestive) heart failure; Z68.41 Body mass index [BMI] 40.0-44.9, adult; E87.2 Acidosis; I75.89 Atheroembolism of other site; I13.0 Hypertensive heart and chronic kidney disease with heart failure and stage 1 through stage 4 chronic kidney disease, or unspecified chronic kidney disease; M62.82 Rhabdomyolysis; I82.3 Embolism and thrombosis of renal vein; E87.1 Hypo-osmolality and hyponatremia; N25.81 Secondary hyperparathyroidism of renal origin; R57.9 Shock, unspecified; I42.9 Cardiomyopathy, unspecified; M79.7 Fibromyalgia; E66.01 Morbid (severe) obesity due to excess calories; Z20.822 Contact with and (suspected) exposure to COVID-19; E87.5 Hyperkalemia; K52.9 Noninfective gastroenteritis and colitis, unspecified; I12.9 Hypertensive chronic kidney disease with stage 1 through stage 4 chronic kidney disease, or unspecified chronic kidney disease; N18.9 Chronic kidney disease, unspecified; D69.6 Thrombocytopenia, unspecified; D63.1 Anemia in chronic kidney disease; E87.6 Hypokalemia; T46.2X5A Adverse effect of other antidysrhythmic drugs, initial encounter
CPT/HCPCS: 36415; 71045; 76000; 76700; 76770; 80048; 80053; 80069; 80162; 81003; 81015; 82140; 82306; 82550; 82570; 82607; 82652; 82728; 82746; 82805; 82947; 83520; 83540; 83605; 83615; 83735; 83880; 83930; 83935; 83970; 84100; 84132; 84145; 84156; 84165; 84300; 84439; 84443; 84466; 84484; 84550; 85025; 85044; 85302; 85305; 85306; 85610; 85730; 86021; 86022; 86038; 86147; 86160; 86225; 86430; 86704; 86705; 86706; 86803; 87040; 87086; 87088; 87340; 87389; 88108; 90935; 93005; 93306; 94660; 96365; 96366; 96372; 97110; 97161; 97530; 99285; C1752; C1769; J0282; J0610; J1100; J1160; J1644; J1650; J1720; J1940; J2250; J2270; J2405; J2543; J2550; J2704; J3010; J7040; J7060; P9047; U0003

== ENCOUNTER 2021-10-20 10:57 | Inpatient (IN) | payer BC ==
--- NOTE | 2021-10-23 11:09 | R.PREADM ---
PRE-ADMISSION SCREENING FORM SCREENING DATE AND TIME 10/20/2021 11:05 (CDT) ANTICIPATED REHAB ADMISSION DATE 10/22/2021 REFERRING FACILITY [facility] REFERRAL DATE AND TIME 10/20/2021 11:05 (CDT) REFERRAL ROOM# 221 ACUTE ADMIT DATE 10/08/2021 Previous Rehabilitation(s): No. 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 Dusty Banegas M.D. MR# [id number] NAME RADHA LOPEZ ADDRESS [address] [facility] [address] [facility] [id number] DATE OF 1950 AGE 71 SSN# [id number] GENDER female MARITAL STATUS RACE unknown race ADMIT FROM 02 - [facility] PRE-HOSPITAL LIVING SETTING 01 - Home (private home/apt. board/care, assisted living, long term, transitional living) HOME TYPE AND DETAILS Type of home: single family house # of levels in the residence: 1 # of steps within the residence: 0 # of steps to enter the residence: 0 PRE-HOSPITAL LIVING WITH Family/Relatives FAMILY SUPPORT Yes PRIMARY FAMILY CONTACT NAME Kristine Lopez PRIMARY FAMILY CONTACT ALT. PHONE PRIMARY FAMILY CONTACT RELATIONSHIP Spouse PHONE PRIMARY FAMILY CONTACT ON ADM.? no IS PRIMARY FAMILY CONTACT AUTH. REP.? no 1ST EMERGENCY CONTACT Kristine Lopez 1ST CONTACT ALT. PHONE 1ST CONTACT RELATIONSHIP Spouse PHONE 1ST CONTACT ON ADM. no IS 1ST CONTACT AUTH. REP.? no PHONE 2ND CONTACT ON ADM.? no PATIENT EMPLOYMENT STATUS Retired (for age) PATIENT EMPLOYER No Employer PAYOR INFORMATION: 1ST PAYOR NAME ROLANDO SAJI 1ST PAYOR INJURY/ILLNESS DUE TO ACCIDENT? No ANOTHER REPUBLICAN RESPONSIBLE? No PRIMARY REHAB/ACUTE DIAGNOSIS: Atrial Fibrillation with RVR ONSET DATE 10/08/2021 REHAB IMPAIRMENT CATEGORY (JACKIE): 14 Cardiac does NOT meet 60% rule PRIMARY DIAGNOSIS-RELATED SURGERIES: None COMORBID REHAB/ACUTE DIAGNOSES: - Tier 1 Dependence on renal dialysis (Z99.2) - Tier 3 Morbid (severe) obesity due to excess calories (E66.01) Acute kidney failure, unspecified (N17.9) INTERVENTIONS: - Acute Kidney Injury Monitor pt for s/s of kidney insufficiency Monitor pt labs Dialysis - Afib Monitor pt cardiac and respiratory status regularly Administer prescribed anticoagulants and monitor effectiveness Vitals will be monitored regularly - Morbid Obesity Implement healthy diet Increase regular exercise - Hypertension Monitor patient B/P and treat with prescribed medications Monitor response to medications to control blood pressure Implement healthy diet Increase physical activity Fluid management - CHF Monitor daily weights Monitor for signs of fluid overload - Pleural Effusion Monitor color and characteristics of pt respiratory secretions Monitor for pt nail beds and skin cyanosis Monitor pt breathing rate, characteristics, involvement of accessory muscles when breathing and irreg ular breathing patterns Monitor pt o2 saturation - Rhabdomyolysis Assess patient's degree of fatigability and explore limitations to physical activity Assess pt v/s and characteristics of pain after administration of medication Educate patient on relaxation techniques and deep breathing - Liver Shock Monitor pt labs Monitor pt v/s regularly Monitor pt cardiac and respiratory status regularly RISK FOR COMPLICATIONS: - DVT Active and Passive ROM exercises Assist patient with frequent position changes Elevate BLE - Skin Breakdown Encourage ambulation as tolerated Repositioning q 2 hours Use of pillows or foam wedges while in bed - Pain Education on relaxation and deep breathing techniques Assist patient with frequent position changes at least every 2 hours Anticipate the need for pain medication for optimal pain managment Administer prescribed pain medication as needed - Stroke Monitor and maintain patient pain level Monitor patient blood pressure - Fluid Overload Administer prescribed diuretics Monitor pt fluid intake - Respiratory Failure Administer supplemental O2 as needed Monitor pt O2 sats - Bleeding Maintain pt safety Monitor pt for injury - CHF Monitor pt for s/s cardiac/respiratory distress SUMMARY OF ACUTE HOSPITALIZATION: Pt. is a 71 yo female of unknown race. On 10/08/2021 she was admitted to [facility] with diagnosis Atrial Fibrillation with RVR. Her impairment category is Cardiac 09 - Cardiac Disorders (). Pre-morbidly, Pt. was independent/mod-I in Self-Care and Locomotion; and she had good Safety Awarenes s, Balance, Transfers Control, and Endurance. Currently, she has deficits of Locomotion, Balance, Self-Care, Endurance, Transfers Control, and Safe ty Awareness. Pt. is now referred to [facility] for acute in-patient rehabilitation in order to maximize patient's functional independence in activities of daily living, strength, ROM, and mobi lity. Patient has realistic goal of being discharged at assistance level 6-Taylor to reside at Home with Fam gerard/Relatives. PAST MEDICAL HISTORY Acute kidney failure, unspecified (N17.9) Dependence on renal dialysis (Z99.2) Morbid (severe) obesity due to excess calories (E66.01) Fibromyalgia (M79.7) Hypertension PAST SURGICAL HISTORY: Cholecystectomy MEDICATION ALLERGIES: No Known Drug Allergies (NKDA) ENVIRONMENTAL ALLERGIES: - Substance Allergies None Known - Other Allergies None Known CODE STATUS: Full code WEIGHT/HEIGHT/BMI: WEIGHT 282 lbs HEIGHT 5' 6" BMI 45.5 DIET: - Diet Type Regular - Diet - Solid Texture Regular - Diet - Liquid Texture Regular - Tube Feed N/A SKIN DIAGRAM: PermCath on Chest; extent - small; stage - NS(Not Stageable). Treatment - Per Physician's Orders. REVIEW OF SYSTEMS: - Gen Alert and awake Lying in bed No apparent distress Oriented to: person, time, and place - Vital Signs Temperature: 98.4 F SBP/DBP: 164/76 Pulse: 78 Resp: 20 Vital signs stable, afebrile - CVS RRR VITAL SIGNS Temperature: 98.4 F SBP/DBP: 164/76 Pulse: 78 Resp: 20 Vital signs stable, afebrile 10/23/2021 MEDICATIONS/TREATMENT: Other- See attached MAR (Medication Administration Record). CURRENT SPHINCTER CONTROL: Pre-hospital bladder status: unspecified # of bladder accidents in the last 7 days prior to screenin Pre-hospital bowel status: unspecified # of bowel accidents in the last 7 days prior to screenin Last Bowel Movement Date: 10/20/2021 CURRENT LOCOMOTION STATUS: distance walked 0 feet DETAILED CURRENT FUNCTIONAL STATUS: - Bladder accident frequency: 7-Ind - No accidents in the past 7 days - Bowel accident frequency: 7-Ind - No accidents in the past 7 days - Walking score based on distance walked: 0(N/A) - Wheelchair score based on distance traveled: 0(N/A) QI SCORES: - Self-Care A. Eating 02-Substantial/maximal assistance B. Oral hygiene 02-Substantial/maximal assistance C. Toileting hygiene 02-Substantial/maximal assistance E. Shower/bathe self 02-Substantial/maximal assistance F. Upper body dressing 02-Substantial/maximal assistance G. Lower body dressing 02-Substantial/maximal assistance H. Putting on/taking off footwear 02-Substantial/maximal assistance - Mobility A. Roll left and right 03-Partial/moderate assistance B. Sit to lying 03-Partial/moderate assistance C. Lying to sitting on side of bed 03-Partial/moderate assistance D. Sit to stand 03-Partial/moderate assistance E. Chair/[id number] transfer 88-Not attempted due to medical condition or safety concerns F. Toilet transfer 88-Not attempted due to medical condition or safety concerns G. Car transfer 88-Not attempted due to medical condition or safety concerns I. Walk 10 feet 88-Not attempted due to medical condition or safety concerns J. Walk 50 feet with two turns 88-Not attempted due to medical condition or safety concerns K. Walk 150 feet 88-Not attempted due to medical condition or safety concerns L. Walking 10 feet on uneven surfaces 88-Not attempted due to medical condition or safety concerns M. 1 step (curb) 88-Not attempted due to medical condition or safety concerns N. 4 steps 88-Not attempted due to medical condition or safety concerns O. 12 steps 88-Not attempted due to medical condition or safety concerns P. Picking up object 88-Not attempted due to medical condition or safety concerns R. Wheel 50 feet with two turns 09-Not applicable S. Wheel 150 feet 09-Not applicable - Bladder and Bowel Bladder continence 5-No urine output Bowel continence 1-Occasionally incontinent - Endurance Poor - Balance Fair - Safety Awareness Fair CURRENT FUNC. DEFICITS: Self-Care, Mobility, Endurance, Balance, and Safety Awareness HISTORY OF FALLS. HAS THE PATIENT HAD TWO OR MORE FALLS IN THE PAST YEAR OR ANY FALL WITH INJURY IN T HE PAST YEAR?: No PRIOR SURGERY. DID THE PATIENT HAVE MAJOR SURGERY DURING THE 100 DAYS PRIOR TO ADMISSION?: No THERAPY NOTES FROM ACUTE CARE: Attached. SPECIAL NEEDS: - Safety Concerns Skin breakdown and Fall precautions needed due to skin breakdown risk, Poor balance, Risk of injury, and High fall risk - Respiratory Supplemental oxygen: as needed liters Nasal Canula - Fall Precautions Due to poor balance - Dialysis Dialysis TBD PRECAUTIONS: - Fall Precaution Bed alarm TABS alarm Wheel chair alarm - Bleeding Risk Heparin - DVT Risk due to restricted mobility, age, and obesity - Skin Breakdown Risk due to restricted mobility and age - Cardiac Precaution Monitor blood pressure, heart rate, lower extremity edema, notify MD for shortness of breath or chest pain PATIENT NEEDS ACTIVE AND ONGOING THERAPEUTIC INTERVENTION OF MULTIPLE THERAPY DISCIPLINES, INCLUDING: - Dietary and Nutrition Adequate Nutrition. Nutritional Education. Nutritional Supplements. - Occupational Therapy Cognitive Retraining. Patient needs Occupational Therapy for a daily minimum of 1.5 hours at least 5 out of 7 days, to improve Activities of Daily Living, including: Eating, Grooming, Bathing, Dressing, Toileting, Toilet Transfers, Community Reintegration, Higher functional activities, Adaptive Equipme nt, Splinting, Household Tasks, and Other activities as determined. Visual Perceptual Training. - Speech Therapy Cognitive Training. Expressive Language Skills. Memory Strategies. Patient needs Speech Therapy for a daily minimum of 1.5 hours at least 5 out of 7 days, to improve: Swallowing, Cognition, Language Ski lls, and Compensatory Strategies. Receptive Language Skills. Speech Intelligibility Training. - Physical Therapy Patient needs Physical Therapy for a daily minimum of 1.5 hours at least 5 out of 7 days, to improve: Mobility, Strengthening, Transfers, Stretching, ROM, Endurance, Ability to manage stairs, Gait, and Balance. PATIENT NEEDS CLOSE MEDICAL SUPERVISION BY A REHABILITATION PHYSICIAN FOR: Coordination of Treatment Team Medical and Co-Morbidity Management Respiratory/Airway Management Wound Care Bowel and Bladder Management Pain Management PATIENT REQUIRES 24X7 REHAB NURSING FOR MEDICAL AND FUNCTIONAL MGT. OF THE FOLLOWING DEFICITS: Patient requires 24x7 Rehabilitation Nursing for: Pain Issues, Identifying and preventing risk factor s, Monitoring and reporting current medical conditions, Assisting with ambulation and transfer, Vanessa ting with all ADL-s, Teaching patients about disease process and medications, Family teaching, Provid ing safe environment, Bowel and Bladder Issues, Skin Integrity, and Medication Management PATIENT REQUIRES INTENSIVE, COORDINATED INTERDISCIPLINARY APPROACH TO REHAB: Patient needs Dietary and Nutrition Services for: Adequate Nutrition, Nutritional Supplements, and Nu tritional Education Patient needs Case Finisher and/or Case Management for: Discharge Planning, Arranging Home Equipmen t or Services, and Family Interventions PATIENT REHAB POTENTIAL: Jah LOPEZ is able and expected to receive 3 hours of individualized therapy daily on at least 5 of ever y 7 days Jah LOPEZ'main prognosis for significant practical improvement within a reasonable period of time appears Good Expected level of measurable improvement will be of a practical value to Jah LOPEZ's functional capacit y or adaptations to impairments Has a viable Discharge Plan Medically appropriate; condition is sufficiently stable to participate in intensive rehab program DISCHARGE PLAN: - Estimated Length of Stay (days) 10. - Consensus on plan Discharge plan has been discussed with primary caregiver. Patient/Family is in agreement with the vandana n. Primary caregiver is in agreement with the plan. - Patient/Family Goals Return home independently. - Planned Living Setting Upon Discharge Home, to live with Family/Relatives. Transitional Living. RECOMMENDED CARE LEVEL: IRF RECOMMENDATION DETAILS: Recommended Admission to Comprehensive Rehabilitation Program to Increase Functional Trigg SCREENER'S COMPLETENESS CONFIRMATION: - Screening Confirmation The patient data collection on this preadmission screening form is finished PHYSICIANS REVIEW AND ADMISSION DETERMINATION Admit - Based on my review of the Pre-Admission Screening results, in my medical judgment and experie nce, I concur with the findings and recommend admission to [facility], as this patient requires an IRF level of care. SIGNATURE PANEL: Clinical Liaison - [electronically] signed by Marly Delgadillo on 10/23/2021 at 10:40 (CDT) Physician Reviewer - [electronically] signed by Dr. uDsty Banegas M.D. on 10/23/2021 at 11:07 (CDT )
--- OUTSIDE RECORDS SUMMARY | 2021-10-23 18:28 | XMS REPORT | Continuity of Care Document ---
:1950 Author Organization [facility] t Address [address] [place] [id number] Care Team Providers Name Role Phone Unavailable Unavailable Unavailable Problems This patient has no known problems. Allergies, Adverse Reactions, Alerts This patient has no known allergies or adverse reactions. Medications This patient has no known medications. Procedures This patient has no known procedures. Results Test Description Test Time Test Comments Results Result Comments Source HEPATITIS C PCR, QUANTITATIVE 2021-10-17 18:13:08 Test Item Value Reference Range Interpretation Comme nts HCV RESULT COMPONENT (BEAKER) (test HCV RNA not detected HCV RNA no t detected code = 2699) This test uses a Real-Time Polymerase Chain Reaction (RT-PCR) methodology and was performed using KRISTIN Ampliprep/KRISTIN TaqMan HCV test kit version 2.0 ([employer]le [employer]).Reportable range for this assay is 15 - 100,000,000 IU per mL (1.18 - 8.00 Log IU/mL).HEPATITIS B SURFACE ANTIBODY 2021-10-15 22:13:18 Test Item Value Reference Range Interpretation Comments HEPATITIS B SURFACE ANTIBODY < mIU/mL <8.0 (BEAKER) (test code = 647) Document Analyst ID - BSHEPATITIS B CORE ANTIBODY, [id number] 22:08:40 Test Item Value Reference Range Interpretation Comments HEPATITIS B CORE IGM ANTIBODY Nonreactive Nonreactive (BEAKER) (test code = 645) Document Analyst ID - BSHEPATITIS B CORE ANTIBODY, [id number] 22:08:40 Test Item Value Reference Range Interpretation Comments HEPATITIS B CORE TOTAL ANTIBODY Nonreactive Nonreactive (BEAKER) (test code = 497) Document Analyst ID - BSHEPATITIS B SURFACE [id number] 13:45:53 Test Item Value Reference Range Interpretation Comments HEPATITIS B SURFACE ANTIBODY < mIU/mL <8.0 (BEAKER) (test code = 647) Document Analyst ID - JUAN JOSÉ MHEPATITIS B SURFACE [id number] 13:39:29 Test Item Value Reference Range Interpretation Comments HEPATITIS B SURFACE ANTIGEN (2) Nonreactive Nonreactive (BEAKER) (test code = 2585) Specimen is considered negative for HBsAg.
[2021-10-23] MEDS ORDERED: PHENOL 1.4% ORAL SPRAY 180ML MM PRN (19:33)
[2021-10-23] MEDS ORDERED: carvediloL 25 MG TAB PO SCH (20:00)
[2021-10-23] MEDS: APIXABAN 2.5 MG TABLET PO SCH (21:28)
[2021-10-23 22:20] LABS: Digoxin Level 1.2 ng/mL (0.80-2.00)
[2021-10-24 06:00] LABS: Absolute Lymphocytes (CBC) 1.6 K/uL (0.7-4.9); Hematocrit 31.3 % (36.0-45.0); Lymphocytes % 18.7 % (15.3-44.8); MPV 7.9 fL (7.6-11.3); RBC Red Blood Cell Count 3.44 M/uL (3.86-4.86)
[2021-10-24 06:20] LABS: Albumin 2.7 g/dL (3.4-5.0); Magnesium 1.9 mg/dL (1.8-2.4); Phosphorus 3.7 mg/dL (2.5-4.9)
[2021-10-24] MEDS: APIXABAN 2.5 MG TABLET PO SCH (07:05)
[2021-10-24] MEDS: carvediloL 25 MG TAB PO SCH ×2 (08:02→19:44)
[2021-10-24] MEDS: DIGOXIN 0.125 MG TABLET PO SCH (08:02)
[2021-10-24] MEDS: ONDANSETRON 4 MG (ODT) TAB PO PRN ×2 (08:52→12:51)
--- NOTE | 2021-10-24 10:06 | P.RH.PN ---
Estimated Length of Stay: 11 Expected Discharge Date: 10/31/21 Discharge Disposition Plan: Home Family Support: Yes [facility] Goal: Mobility, Transfers, Self Care Vital Signs: Last Vital Signs Temp 97.7 F 10/24/21 07:59 Pulse 87 10/24/21 08:02 Resp 17 10/24/21 07:59 BP 148/66 H 10/24/21 08:02 Pulse Ox 94 10/24/21 07:59 Laboratory: Laboratory Last Values WBC 8.5 K/uL (4.3-10.9) D 10/24/21 05:43 RBC 3.44 M/uL (3.86-4.86) L 10/24/21 05:43 Hgb 10.6 g/dL (12.0-15.0) L 10/24/21 05:43 Hct 31.3 % (36.0-45.0) L 10/24/21 05:43 MCV 90.9 fL (80-100) 10/24/21 05:43 MCH 30.8 pg (27.0-35.0) 10/24/21 05:43 MCHC 33.8 g/dL (32.0-36.0) 10/24/21 05:43 RDW 15.6 % (12.1-15.2) H 10/24/21 05:43 Plt Count 169 K/uL (152-406) 10/24/21 05:43 MPV 7.9 fL (7.6-11.3) 10/24/21 05:43 Neutrophils % 65.1 % (41.7-73.7) 10/24/21 05:43 Lymphocytes % 18.7 % (15.3-44.8) 10/24/21 05:43 Monocytes % 12.7 % (3.3-12.3) H 10/24/21 05:43 Eosinophils % 2.4 % (0-4.4) 10/24/21 05:43 Basophils % 1.1 % (0-1.3) 10/24/21 05:43 Absolute Neutrophils 5.5 K/uL (1.8-8.0) 10/24/21 05:43 Absolute Lymphocytes 1.6 K/uL (0.7-4.9) 10/24/21 05:43 Absolute Monocytes 1.1 K/uL (0.1-1.3) 10/24/21 05:43 Absolute Eosinophils 0.2 K/uL (0-0.5) 10/24/21 05:43 Absolute Basophils 0.1 K/uL (0-0.5) 10/24/21 05:43 Sodium 138 mmol/L (136-145) 10/24/21 05:43 Potassium 4.0 mmol/L (3.5-5.1) 10/24/21 05:43 Chloride 105 mmol/L (98-107) 10/24/21 05:43 Carbon Dioxide 26 mmol/L (21-32) 10/24/21 05:43 Anion Gap 11.0 mEq/L (5.0-15.0) 10/24/21 05:43 BUN 21 mg/dL (7-18) H 10/24/21 05:43 Creatinine 6.05 mg/dL (0.55-1.3) H* 10/24/21 05:43 Est GFR (CKD-EPI) 7 ml/min (=/>90) L 10/24/21 05:43 Glucose 93 mg/dL (74-106) 10/24/21 05:43 Calcium 8.5 mg/dL (8.5-10.1) 10/24/21 05:43 Phosphorus 3.7 mg/dL (2.5-4.9) 10/24/21 05:43 Magnesium 1.9 mg/dL (1.8-2.4) 10/24/21 05:43 Albumin 2.7 g/dL (3.4-5.0) L 10/24/21 05:43 Prealbumin 13.0 mg/dL (20-40) L 10/24/21 05:43 Digoxin 1.20 ng/mL (0.80-2.00) 10/23/21 21:00 Weight: 259 lb 1.6 oz Physician Update: Reports stomach cramping. Stood up with minimum assistance. She refused to work with physical therapy. Will be evaluated by OT later today. Summary: Patient's care plan and fci goals have been reviewed and revised as necessary. Please see the Rehabilitation Signature page for all necessary signatures.
[2021-10-24] MEDS: NYSTATIN PWDR 100000 UNIT/GM TOP SCH ×2 (10:40→19:45)
--- NOTE | 2021-10-24 11:15 | P.CNS ---
Date of Consult: 10/24/21 Reason for Consult: ESRD Requesting Physician: Dusty Bnaegas History of Present Illness: 71F who was admitted w/ rapid afib c/b hypotension & JEZ. She became dialysis dependent & has been receiving HD TTS. She was dc to the rehab floor yesterday. On my eval, she remains bedbound. Has poor motivation to do any OOB activity. VS stable. No uremic complaints. Allergies tramadol Allergy (Verified 10/24/21 14:31) Nausea/Vomiting acetaminophen [From Tylenol] Adverse Reaction (Verified 10/24/21 14:31) Anaphylaxis Home Medications: Apixaban [Eliquis *] 2.5 mg PO BID #60 tablet 10/23/21 Digoxin [Lanoxin*] 0.125 mg PO Q48H #20 tab 10/23/21 carvediloL [Coreg*] 25 mg PO BID #60 tab 10/23/21 - Past Medical/Surgical History Diabetic: No -: HTN, no medications -: atrial fibrillation -: fibromyalgia -: Kidney disease -: Cholesystectomy - Family History Father Medical History: Hypertension, Diabetes Mother Medical History: Hypertension, Diabetes, Stroke Sister Medical History: Hypertension, Diabetes - Social History Smoking Status: Unknown if ever smoked Alcohol use: No CD- Drugs: No Caffeine use: No Place of Residence: Home Review of Systems General: Weakness Eyes: Unremarkable ENT: Unremarkable Respiratory: Unremarkable Cardiovascular: Unremarkable Gastrointestinal: Unremarkable Genitourinary: Unremarkable Musculoskeletal: Unremarkable Integumentary: Unremarkable Neurological: Unremarkable Lymphatics: Unremarkable Physical Examination Temp Pulse Resp BP Pulse Ox 97.7 F 87 17 148/66 H 94 10/24/21 07:59 10/24/21 08:02 10/24/21 07:59 10/24/21 08:02 10/24/21 07:59 General: In no apparent distress HEENT: Atraumatic, Normocephalic Neck: Supple, JVD not distended Respiratory: Clear to auscultation bilaterally Cardiovascular: Normal pulses, No rubs, No murmurs Capillary refill: <2 Seconds Gastrointestinal: Soft and benign, No guarding Musculoskeletal: No clubbing Integumentary: No warmth Neurological: Normal speech, Normal tone Lymphatics: No axilla or inguinal lymphadenopathy Urinary: Other (No bladder distention) External genitalia: Deferred Rectal: Deferred Laboratory Data (last 24 hrs) 10/24/21 05:43: Sodium 138, Potassium 4.0, BUN 21 H, Creatinine 6.05 H*, Glucose 93, Phosphorus 3.7, Magnesium 1.9 10/24/21 05:43: WBC 8.5 D, Hgb 10.6 L, Hct 31.3 L, Plt Count 169 10/23/21 21:00: Creatinine 5.64 H* D Conclusions/Impression: # JEZ 2/2 ischemic ATN from rapid afib w/ hypotension Baseline SCr 1.0 as of 10/2018 SCr 1.1 on adm, now remains HD dependent Cont HD TTS until sig renal recovery Urinalysis inc SG, trace protein, otherwise unremarkable KUB on abd US +R renal cyst, otherwise unremarkable Urine chem non-prerenal +Nephrotic-range proteinuria, 3.3g on random UPCR. Workup neg so far. CPK low, no rhabdo HR control Keep MAP > 65 Strict I/O Monitor renal panel Outpt HD placement # Rapid afib Hx of afib on sotalol & xarelto at home BNP sig elevated, trop neg TTE w/ systolic dysfxn HR controlled On Carvedilol + Digoxin Mngt per primary team and Cardiology # Hyperkalemia Resolved HD as above # Increased anion gap w/ lactic acidosis & normal osmolal gap 2/2 hypoperfusion & renal dysfxn Toxic alcohol ingestion unlikely Monitor #Acute respiratory failure 2/2 rapid afib HR control per other services Respiratory support per other services # Secondary hyperPTH iPTH elevated at 159, monitor 25OHD 37, at goal
--- NOTE | 2021-10-24 12:09 | RAD REPORT ---
EXAM DESCRIPTION: CT - Head Brain Wo Cont - 10/24/2021 10:52 am CLINICAL HISTORY: Left hand weakness, R/O stroke. COMPARISON: No comparisons TECHNIQUE: Axial 5 mm thick images of the head were obtained without IV contrast. All CT scans are performed using dose optimization technique as appropriate and may include automated exposure control or mA/KV adjustment according to patient size. FINDINGS: No intracranial hemorrhage is present. In the posteroinferior left occipital lobe there is a 4 x 3 x 2.5 cm area of decreased attenuation. This abuts the tentorium along the inferior margin w ith small portion abutting the posterior falx. No significant mass effect at this site. No significan t localized edema or midline shift. There is questionable more subtle diminished attenuation along th e posteromedial temporal lobe. Patient has underlying mild for age atrophy and chronic ischemic flores e. The left occipital finding is most likely acute/subacute CVA. No additional site infarction identi fied. No abnormal extra-axial fluid collections. Ventricles are normal. Mastoid air cells and visualized portions of the paranasal sinuses are clear. No acute bony findings. Findings telephoned to Dr Banegas 12:04 p.m. IMPRESSION: Acute/subacute nonhemorrhagic left occipital lobe CVA as detailed. No significant mass effect or edema. No other acute intracranial finding seen.
[2021-10-24] MEDS ORDERED: DOCUSATE NA/SENNA CONC 1 TAB PO PRN (14:26)
[2021-10-24] MEDS ORDERED: LORAZEPAM 0.5 MG TABLET PO ONE (15:00)
--- NOTE | 2021-10-24 16:51 | RAD REPORT ---
EXAM DESCRIPTION: MRI - Brain Wo Cont - 10/24/2021 4:13 pm CLINICAL HISTORY: stroke Headache, drowsiness COMPARISON: Head Brain Wo Cont dated 10/24/2021 TECHNIQUE: Multi-sequence, multiplanar MR imaging of the brain was performed without contrast. FINDINGS: No intracranial hemorrhage, hydrocephalus or extra-axial fluid collections. 31 mm area of abnormal signal is seen in the left occipital lobe. In addition there is 14-15 mm area of abnormal si gnal in the right posterior frontal lobe near the precentral gyrus. The area in the posterior right f rontal lobe precentral gyrus shows evidence of diffusion restriction diminished ADC map is compatible with acute CVA. Left occipital lobe finding shows no significant diffusion abnormality. Midline structures are normally formed. Mastoid air cells and paranasal sinuses are clear. IMPRESSION: 14-15 mm nonhemorrhagic acute CVA right posterior frontal lobe near the pre central gyru s. Left occipital lobe signal abnormality does not show diffusion restriction.
--- NOTE | 2021-10-24 17:14 | R.HP ---
HISTORY AND PHYSICAL FACILITY: [facility] ENCOUNTER DATE AND TIME: 10/24/2021 15:30 (CDT) MR#: [id number] NAME RADHA LOPEZ ADDRESS: [address] [place] [id number]: [place]IP [id number] PHONE: DATE OF : 1950 AGE: 71 SSN# [id number] GENDER: Female DEXTERITY Unknown dexterity MARITAL STATUS RACE Unknown race PRE-HOSPITAL LIVING SETTING 01 - Home (private home/apt. board/care, assisted living, alf, transitional living) PRE-HOSPITAL LIVING WITH Family/Relatives ENCOUNTER PHYSICIAN: Dr. Dusty Banegas M.D. REFERRING DOCTOR: demond Young DATE OF ADMISSION: 10/23/2021 18:43 (CDT) REFERRING FACILITY [facility] HOME TYPE AND DETAILS: Type of home: single family house # of levels in the residence: 1 # of steps within the residence: 0 # of steps to enter the residence: 0 ONSET DATE: 10/08/2021 PRIMARY DIAGNOSIS-RELATED SURGERIES: None SECONDARY/COMORBID DIAGNOSES (TIERED): - Tier 3 Morbid (severe) obesity due to excess calories (E66.01) Acute kidney failure, unspecified (N17.9) - Tier 1 Dependence on renal dialysis (Z99.2) HISTORY OF PRESENT ILLNESS (HPI): Pt. is a 71 yo female of unknown race. On 10/08/2021 Pt. presented to [facility] with shortness of breath at rest, fatigue and ch est discomfort along with left hand weakness not initially noted. Her EKG showed afib with rapid vent ricular response and ECHO show very low EF of 22%. Her repeat chest x-ray showed bilateral pleural ef fusions. She experienced shock with elevated lactic acid, procalcitonin and severely decreased SBP to 70s for several hours. She had acute renal and liver failure treated with hemodialysis three times p er week and careful hydration. Due to her multiple complex medical conditions, she is significantly d ebilitated with stroke deficits of left hand weakness and incoordination along with right face weakne ss and visual field deficits. NIH stroke scale 4. It is necessary for her to have acute inpatient young abilitation to facilitate her recovery. She received 0.5 mg of Ativan just prior brain MRI and will r equire 12 -24 hours of recovery time prior to beginning aggressive rehab. Given her current condition , the onset of her aggressive physical, occupational and speech therapy will be delayed until Wednesday morning 10/27/21. She will have gentle therapy in bed until then. On 10/08/2021 she was admitted to [facility] with diagnosis Subacute left occipital stroke with right facial weakness and visual field deficit.. Her impairment category is Stroke - Right Body (Left Brain) (01.2). Pre-morbidly, Pt. was independent/mod-I in Self-Care and Locomotion; and she had good Safety Awarenes s, Balance, Transfers Control, and Endurance. Currently, she has deficits of Locomotion, Balance, Self-Care, Endurance, Transfers Control, and Safe ty Awareness. Pt. is now referred to [facility] for acute in-patient rehabilitation in order to maximize patient's functional independence in activities of daily living, strength, ROM, and mobi lity. Patient has realistic goal of being discharged at assistance level 6-Taylor to reside at Home with Fam gerard/Relatives. Atrial fibrillation with rapid response, new onset end stage renal disease with HD 3 times weekly. Un treated fibromyalgia with generalized pain in extremities and core. MEDICATION ALLERGIES: No Known Drug Allergies (NKDA) ENVIRONMENTAL ALLERGIES: - Substance Allergies None Known - Other Allergies None Known PAST MEDICAL HISTORY: Acute kidney failure, unspecified (N17.9) Dependence on renal dialysis (Z99.2) Morbid (severe) obesity due to excess calories (E66.01) Fibromyalgia (M79.7) Hypertension PAST SURGICAL HISTORY: Cholecystectomy SOCIAL HISTORY: - Home Living Family/Relatives REVIEW OF SYSTEMS: - Gen No Chills Fatigue No Fever - Eyes No Double Vision No itchiness - ENMT No Difficulty Swallowing - CVS No Chest Discomfort No Chest Pain Fatigue No Weight Gain - Resp No Cough No Shortness of Breath - GI Continent Abdominal Pain Constipation No Diarrhea - Continent No Kidney Pain No Painful Urination No Urinary Urgency - MSK No Joint Pain Muscle Cramps Stiffness - Skin No Itching No Rash No Suspicious Lesions - Neuro Coordination Difficulty No Difficulty with Concentration No Memory Loss No Seizures Weakness - Psych Anxiety No Depression No HIV Exposure No Persistent Infections No Seasonal Allergies - Endo No Cold/Heat Intolerance No Excessive Hunger No Excessive Thirst No Excessive Urination PHYSICAL EXAM - Gen Alert and awake Lying in bed No apparent distress Oriented to: person, time, and place - Skin No skin breakdown. Normacephalic - Eyes No abnormalities - ENMT No abnormalities - Neck No abnormalities - CVS IRIR - Chest No abnormalities - Abd Soft - GI nondistended Deferred - No abnormalities - Ext No significant edema - MSK 4/5 weakness in left upper and 4/5 weakness in right face. - Neuro 4/5 weakness in left upper and 4/5 weakness in right face with right visual field deficit. - Psych Mild anxiety. VITAL SIGNS Temperature: 97.7 F SBP/DBP: 142/70 Pulse: 75 Resp: 17 NURSING: - Shower allowing shower - Bladder care per protocol - Skin care per protocol PRECAUTIONS: - Fall Precaution Bed alarm TABS alarm Wheel chair alarm - Bleeding Risk Heparin - DVT Risk due to restricted mobility, age, and obesity - Skin Breakdown Risk due to restricted mobility and age - Cardiac Precaution Monitor blood pressure, heart rate, lower extremity edema, notify MD for shortness of breath or chest pain ACTIVITIES OOB only with supervision QI SCORES: - Self-Care A. Eating 02-Substantial/maximal assistance B. Oral hygiene 02-Substantial/maximal assistance C. Toileting hygiene 02-Substantial/maximal assistance E. Shower/bathe self 02-Substantial/maximal assistance F. Upper body dressing 02-Substantial/maximal assistance G. Lower body dressing 02-Substantial/maximal assistance H. Putting on/taking off footwear 02-Substantial/maximal assistance - Mobility A. Roll left and right 03-Partial/moderate assistance B. Sit to lying 03-Partial/moderate assistance C. Lying to sitting on side of bed 03-Partial/moderate assistance D. Sit to stand 03-Partial/moderate assistance E. Chair/yds-fv-cjjel transfer 88-Not attempted due to medical condition or safety concerns F. Toilet transfer 88-Not attempted due to medical condition or safety concerns G. Car transfer 88-Not attempted due to medical condition or safety concerns I. Walk 10 feet 88-Not attempted due to medical condition or safety concerns J. Walk 50 feet with two turns 88-Not attempted due to medical condition or safety concerns K. Walk 150 feet 88-Not attempted due to medical condition or safety concerns L. Walking 10 feet on uneven surfaces 88-Not attempted due to medical condition or safety concerns M. 1 step (curb) 88-Not attempted due to medical condition or safety concerns N. 4 steps 88-Not attempted due to medical condition or safety concerns O. 12 steps 88-Not attempted due to medical condition or safety concerns P. Picking up object 88-Not attempted due to medical condition or safety concerns R. Wheel 50 feet with two turns 09-Not applicable S. Wheel 150 feet 09-Not applicable - Bladder and Bowel Bladder continence 5-No urine output Bowel continence 1-Occasionally incontinent - Endurance Poor - Balance Fair - Safety Awareness Fair CURRENT FUNC. DEFICITS: Self-Care, Mobility, Endurance, Balance, and Safety Awareness MEDICATIONS: - Other See attached MAR (Medication Administration Record) ASSESSMENT: Pt. is a 71 yo female of unknown race.On 10/08/2021 she was admitted to [facility] with di agnosis Subacute left occipital stroke with right facial weakness and visual field deficit.Due to her multiple complex medical conditions, she is significantly debilitated with stroke deficits of left h and weakness and incoordination along with right face weakness and visual field deficits. NIH stroke scale 4. It is necessary for her to have acute inpatient rehabilitation to facilitate her recovery. S he received 0.5 mg of Ativan just prior to brain MRI and will require 12 -24 hours of recovery time p rior to beginning aggressive rehab. Onset of aggressive physical, occupational and speech therapy wi ll be delayed until Wednesday morning 10/27/21. She will have gentle therapy in bed until then.Her impairm ent category is Stroke - Right Body (Left Brain) (01.2).Pre-morbidly, Pt. was independent/mod-I in S elf-Care and Locomotion; and she had good Safety Awareness, Balance, Transfers Control, and Endurance .Currently, she has deficits of Locomotion, Balance, Self-Care, Endurance, Transfers Control, and Saf ety Awareness.Pt. is now referred to [facility] for acute in-patient rehabilit ation in order to maximize patient's functional independence in activities of daily living, strength, ROM, and mobility.- Rehab Goal Patient has realistic goal of being discharged at assistance level 6-Taylor to reside at Home with Fam gerard/Relatives. for Dementia, TBI, Stroke, or others - Physical Therapy Weakness - to improve, our physical therapists will perform initial evaluation of pt's status upon ad mission and devise an individualized program for Aquatic Therapy, Neuromuscular Reeducation, and Stre ngthening Poor balance - to improve, our physical therapists will perform initial evaluation of pt's status upo n admission and devise an individualized program for Balance Training Inability to transfer - to improve, our physical therapists will perform initial evaluation of pt's s tatus upon admission and devise an individualized program for Bed mobility Need in caregiver upon discharge - to improve, our physical therapists will perform initial evaluatio n of pt's status upon admission and devise an individualized program for Caregiver Training Poor endurance - to improve, our physical therapists will perform initial evaluation of pt's status u kareen admission and devise an individualized program for Endurance Training Edema - to improve, our physical therapists will perform initial evaluation of pt's status upon admi ssion and devise an individualized program for Elevation Training, and Lymphedema Therapy Gait dysfunction - to improve, our physical therapists will perform initial evaluation of pt's status upon admission and devise an individualized program for Gait Training, and Wheel Chair mobility Need for home safety evaluation - to improve, our physical therapists will perform initial evaluation of pt's status upon admission and devise an individualized program for Home Evaluation New precaution - to improve, our physical therapists will perform initial evaluation of pt's status u kareen admission and devise an individualized program for Patient precaution education Achieving independence - to improve, our physical therapists will perform initial evaluation of pt's status upon admission and devise an individualized program for Community Reintegration Activities - Occupational Therapy Weakness - to improve, our occupation therapists will perform initial evaluation of pt's status upon admission and devise an individualized program for Aquatic Therapy, Balance, Endurance, UE ROM, and U E strengthening ADL deficits - to improve, our occupation therapists will perform initial evaluation of pt's status u kareen admission and devise an individualized program for Bathing, Bed mobility, Community Reintegration , Cooking, Dressing, Eating, Fine Motor Skills, Grooming, Homemaking, Kitchen Mobility, Laundry, Eliana ent Education, Safety Awareness, Splinting - Positioning, Transfers(Toilet, Tub, Shower), and Wheel C hair Management Need for child care aide - to improve, our occupation therapists will perform initial evaluation of pt's s tatus upon admission and devise an individualized program for Caregiver Training - Balance Training for Poor balance - Balance for Weakness - Bed mobility for Inability to transfer for ADL deficits - Cognition - orientation for Dementia - Dressing Status: for ADL deficits - Gait Training for Gait dysfunction - Eating for ADL deficits - Lymphedema Therapy for Edema - Grooming Status: for ADL deficits - Toilet Transfer for ADL deficits Status: - Bed to Chair Transfer SELECT Status: for ADL deficits - Tub Transfer for ADL deficits Status: - Hygiene for ADL deficits - Shower Transfer for ADL deficits Status: - Wheel Chair to Bed Transfer Status: for ADL deficits MEDICAL PLAN: - Diet Type Regular - Diet - Liquid Texture Regular - Tube Feed N/A - Bleeding Risk Heparin - DVT Risk due to restricted mobility, age, and obesity - Skin Breakdown Risk due to restricted mobility and age - Cardiac Precaution Monitor blood pressure, heart rate, lower extremity edema, notify MD for shortness of breath or chest pain - Fall Precaution Bed alarm TABS alarm Wheel chair alarm - Bladder care per protocol - Skin care per protocol - Other See attached MAR (Medication Administration Record) - Diet - Solid Texture Regular - Shower shower DISCHARGE PLAN: - Estimated Length of Stay (days) 10. - Consensus on plan Discharge plan has been discussed with primary caregiver. Patient/Family is in agreement with the vandana n. Primary caregiver is in agreement with the plan. - Patient/Family Goals Return home independently. - Planned Living Setting Upon Discharge Home, to live with Family/Relatives. Transitional Living. SIGNATURE PANEL: (CDT)
--- NOTE | 2021-10-24 17:16 | PAPE ---
POST ADMISSION PHYSICIAN EVALUATION PATIENT: [facility] MR# [id number] REFERRING DOCTOR demond Young EVALUATION DATE AND TIME 10/24/2021 17:13 (CDT) NAME RADHA LOPEZ DATE OF 1950 AGE 71 PHONE N# [id number] GENDER female EVALUATING PHYSICIAN Dr. Dusty Banegas M.D. ADMISSION DIAGNOSIS: Subacute left occipital stroke with right facial weakness and visual field deficit. Late subacute right hemispheric stroke with left hand weakness ONSET DATE 10/08/2021 SECONDARY/COMORBID DIAGNOSES TIERED: - Tier 3 Morbid (severe) obesity due to excess calories (E66.01) Acute kidney failure, unspecified (N17.9) - Tier 1 Dependence on renal dialysis (Z99.2) POST-ADMISSION FUNCTIONAL/MEDICAL STATUS: - Bladder Same accident frequency: 7-Ind - No accidents in the past 7 days - Bowel Same accident frequency: 7-Ind - No accidents in the past 7 days - Walking Same score based on distance walked: 0(N/A) - Wheelchair Same score based on distance traveled: 0(N/A) STATUS CHANGE EVALUATION: No change in Functional or Medical Status is identified compared with Pre-Admission screening. PATIENT NEEDS CLOSE MEDICAL SUPERVISION BY A REHABILITATION PHYSICIAN FOR: Coordination of Treatment Team Medical and Co-Morbidity Management Respiratory/Airway Management Wound Care Bowel and Bladder Management Pain Management PATIENT REQUIRES 24X7 REHAB NURSING FOR MEDICAL AND FUNCTIONAL MGT. OF THE FOLLOWING DEFICITS: Patient requires 24x7 Rehabilitation Nursing for: Pain Issues, Identifying and preventing risk factor s, Monitoring and reporting current medical conditions, Assisting with ambulation and transfer, Vanessa ting with all ADL-s, Teaching patients about disease process and medications, Family teaching, Provid ing safe environment, Bowel and Bladder Issues, Skin Integrity, and Medication Management PATIENT REQUIRES INTENSIVE, COORDINATED INTERDISCIPLINARY APPROACH TO REHAB: Patient needs Dietary and Nutrition Services for: Adequate Nutrition, Nutritional Supplements, and Nu tritional Education Patient needs Barrel Rifler Operator and/or Case Management for: Discharge Planning, Arranging Home Equipmen t or Services, and Family Interventions LIST OF IDENTIFIED AND POTENTIAL PROBLEMS: Alteration in air exchange Alteration in leisure activities Bladder, Incontinence Bowel, Incontinence Falls, Actual or Potential Infection, Actual or Potential Mobility Impaired Pain, Alteration in Comfort Self Care Deficit Skin Integrity, Actual or Potential Urinary Tract Infection (UTI), Actual or Potential RISK FOR COMPLICATIONS - DVT Active and Passive ROM exercises. Assist patient with frequent position changes. Elevate BLE. - Skin Breakdown Encourage ambulation as tolerated. Repositioning q 2 hours. Use of pillows or foam wedges while in be d. - Pain Education on relaxation and deep breathing techniques. Assist patient with frequent position changes at least every 2 hours. Anticipate the need for pain medication for optimal pain managment. Administe r prescribed pain medication as needed. - Stroke Monitor and maintain patient pain level. Monitor patient blood pressure. - Fluid Overload Administer prescribed diuretics. Monitor pt fluid intake. - Respiratory Failure Administer supplemental O2 as needed. Monitor pt O2 sats. - Bleeding Maintain pt safety. Monitor pt for injury. - CHF Monitor pt for s/s cardiac/respiratory distress. INTERVENTIONS - Acute Kidney Injury Monitor pt for s/s of kidney insufficiency. Monitor pt labs. Dialysis. - Afib Monitor pt cardiac and respiratory status regularly. Administer prescribed anticoagulants and monitor effectiveness. Vitals will be monitored regularly. - Morbid Obesity Implement healthy diet. Increase regular exercise. - Hypertension Monitor patient B/P and treat with prescribed medications. Monitor response to medications to control blood pressure. Implement healthy diet. Increase physical activity. Fluid management. - CHF - Pleural Effusion Monitor color and characteristics of pt respiratory secretions. Monitor for pt nail beds and skin cy anosis. Monitor pt breathing rate, characteristics, involvement of accessory muscles when breathing a nd irregular breathing patterns. Monitor pt o2 saturation. - Rhabdomyolysis Assess patient's degree of fatigability and explore limitations to physical activity. Assess pt v/s a nd characteristics of pain after administration of medication. Educate patient on relaxation techniqu es and deep breathing. - Liver Shock Monitor pt labs. Monitor pt v/s regularly. Monitor pt cardiac and respiratory status regularly. PATIENT COULD BE AT RISK FOR COMPLICATIONS FROM ADVERSE MEDICAL CONDITIONS DUE TO HIS/HER COMORBIDITI ES AND THE RIGORS OF THE INTENSIVE REHABILLITATION PROGRAM. METHODS OR INTERVENTIONS TO AVOID COMPLIC ATIONS INCLUDE: - Bleeding Assess lab values and manage abnormalities. Nursing to teach precautions for anti-coagulation therapy . Stroke patients assessed for lethargy or change in status. Wound to be assessed every shift. - Infection Clinical staff to assess and manage the signs and symptoms of infection including fever, redness, war mth, etc. - Urinary Tract Infection - Aspiration Clinical staff will assess and manage coughing, drooling, congestion. - Falls Patient will be evaluated for Fall Precautions and will be placed on Fall Precautions as indicated pe r protocol. - Skin Breakdown Nursing will assess skin daily using assessment tool and will place on Skin Breakdown Precautions as indicated per protocol. - Pain Clinical staff may employ non-medication methods such as massage, distraction, decrease stimulus, etc . as needed. Clinical staff will assess patient's pain level every shift per protocol to assess and e nsure pain management effectiveness. Medications will be given and the pain level re-assessed. PRELIMINARY PLAN OF CARE: - Physical Therapy Patient needs Physical Therapy for a daily minimum of 1.5 hours at least 5 out of 7 days, to improve: Mobility, Strengthening, Transfers, Stretching, ROM, Endurance, Ability to manage stairs, Gait, and Balance. - Speech Therapy Patient needs Speech Therapy for a daily minimum of 0.5 hours at least 5 out of 7 days, to improve: S wallowing, Cognition, Language Skills, and Compensatory Strategies. - Rehabilitation Nursing Patient requires 24x7 Rehabilitation Nursing for: Pain Issues, Identifying and preventing risk factor s, Monitoring and reporting current medical conditions, Assisting with ambulation and transfer, Vanessa ting with all ADL-s, Teaching patients about disease process and medications, Family teaching, Provid ing safe environment, Bowel and Bladder Issues, Skin Integrity, and Medication Management. Patient needs Barrel Rifler Operator and/or Case Management for: Discharge Planning, Arranging Home Equipmen t or Services, and Family Interventions. - Dietary and Nutrition Services Patient needs Dietary and Nutrition Services for: Adequate Nutrition, Nutritional Supplements, and Nu tritional Education. - Occupational Therapy Patient needs Occupational Therapy for a daily minimum of 1.5 hours at least 5 out of 7 days, to impr ove Activities of Daily Living, including: Eating, Grooming, Bathing, Dressing, Toileting, Toilet Tra nsfers, Community Reintegration, Higher functional activities, Adaptive Equipment, Splinting, Househo ld Tasks, and Other activities as determined. - Aggressive physical, occupational and speech therapy to begin Wednesday. Due to her multiple complex medical conditions, she is significantly debilitated with stroke deficits of left hand weakness and incoordination along with right face weakness and visual field deficits. N IH stroke scale 4. It is necessary for her to have acute inpatient rehabilitation to facilitate her r ecovery. She received 0.5 mg of Ativan just prior brain MRI and will require 12 -24 hours of recovery time prior to beginning aggressive rehab. Given her current condition, the onset of her aggressive p hysical, occupational and speech therapy will be delayed until Wednesday10/27/21. She will have g entle therapy in bed until then. QI SCORES: - Self-Care A. Eating 02-Substantial/maximal assistance B. Oral hygiene 02-Substantial/maximal assistance C. Toileting hygiene 02-Substantial/maximal assistance E. Shower/bathe self 02-Substantial/maximal assistance F. Upper body dressing 02-Substantial/maximal assistance G. Lower body dressing 02-Substantial/maximal assistance H. Putting on/taking off footwear 02-Substantial/maximal assistance - Mobility A. Roll left and right 03-Partial/moderate assistance B. Sit to lying 03-Partial/moderate assistance C. Lying to sitting on side of bed 03-Partial/moderate assistance D. Sit to stand 03-Partial/moderate assistance E. Chair/ghl-ps-acjrs transfer 88-Not attempted due to medical condition or safety concerns F. Toilet transfer 88-Not attempted due to medical condition or safety concerns G. Car transfer 88-Not attempted due to medical condition or safety concerns I. Walk 10 feet 88-Not attempted due to medical condition or safety concerns J. Walk 50 feet with two turns 88-Not attempted due to medical condition or safety concerns K. Walk 150 feet 88-Not attempted due to medical condition or safety concerns L. Walking 10 feet on uneven surfaces 88-Not attempted due to medical condition or safety concerns M. 1 step (curb) 88-Not attempted due to medical condition or safety concerns N. 4 steps 88-Not attempted due to medical condition or safety concerns O. 12 steps 88-Not attempted due to medical condition or safety concerns P. Picking up object 88-Not attempted due to medical condition or safety concerns R. Wheel 50 feet with two turns 09-Not applicable S. Wheel 150 feet 09-Not applicable - Bladder and Bowel Bladder continence 5-No urine output Bowel continence 1-Occasionally incontinent - Endurance Poor - Balance Fair - Safety Awareness Fair POTENTIAL FUNCTIONAL GOALS FOR PATIENT TO ACHIEVE BY DISCHARGE: - Safety Precaution Patient will remain free from falls or injury at time of discharge. - Bed Mobility Patient will perform bed mobility at 4-Juliana level of assistance. - Transfers Patient will complete transfers from bed to chair at 4-Juliana level of assistance. - Mobility Patient will ambulate 150 ft with 4-Juliana level of assistance with RW. PATIENT REHAB POTENTIAL Jah LOPEZ is able and expected to receive 3 hours of individualized therapy daily on at least 5 of ever y 7 days Jah MITCHELLs prognosis for significant practical improvement within a reasonable period of time appears Good Expected level of measurable improvement will be of a practical value to Jah MITCHELLs functional capacit y or adaptations to impairments Has a viable Discharge Plan Medically appropriate; condition is sufficiently stable to participate in intensive rehab program DISCHARGE PLAN: - Estimated Length of Stay (days) 10. - Consensus on plan Discharge plan has been discussed with primary caregiver. Patient/Family is in agreement with the vandana n. Primary caregiver is in agreement with the plan. - Patient/Family Goals Return home independently. - Planned Living Setting Upon Discharge Home, to live with Family/Relatives. Transitional Living. CONCLUSION ON REHABILITATION NECESSITY: I have evaluated patient's pre-admission functional status and, comparing it to the patient's post-ad mission functional status now, I conclude that the pre-admission assessment was accurate. Patient's c ondition on admission supports the medical necessity of admission to IR[facility]. It is safe to proceed with patient's therapy program. SIGNATURE PANEL: (CDT)
[2021-10-24] MEDS: APIXABAN 5 MG TABLET PO SCH (19:44)
[2021-10-24] MEDS: MEGESTROL 40 MG TAB PO SCH (19:44)
[2021-10-24] MEDS: GABAPENTIN 100 MG CAP PO SCH (19:45)
[2021-10-24] MEDS: LOPERAMIDE HCL 2 MG CAPSULE PO PRN (19:46)
[2021-10-24] MEDS: ATORVASTATIN 20 MG TAB PO SCH (19:46)
[2021-10-25 06:20] LABS: Urine Appearance Clear (Clear); Urine Bilirubin Negative (Negative); Urine Blood 2+ (Negative); Urine Color Yellow (Yellow); Urine Glucose Negative (Negative); Urine Protein Negative (Negative); Urine Urobilinogen 0.2 mg/dL (0.2-1.0)
[2021-10-25 06:29] LABS: Urine Microscopic Reflex ORDER UMIC
[2021-10-25 06:51] LABS: Urine Bacteria 20-50 /HPF (<20); Urine RBC <5 /HPF (NONE SEEN)
[2021-10-25] MEDS: MEGESTROL 40 MG TAB PO SCH ×2 (09:07→20:13)
[2021-10-25] MEDS: VENLAFAXINE HCL XR 37.5MG CAP PO SCH (09:07)
[2021-10-25] MEDS: APIXABAN 5 MG TABLET PO SCH ×2 (09:07→20:14)
[2021-10-25] MEDS: GABAPENTIN 100 MG CAP PO SCH ×2 (09:07→20:13)
[2021-10-25] MEDS: NYSTATIN PWDR 100000 UNIT/GM TOP SCH ×2 (09:07→20:14)
[2021-10-25] MEDS: DIGOXIN 0.125 MG TABLET PO SCH (09:07)
[2021-10-25] MEDS: carvediloL 25 MG TAB PO SCH ×2 (09:07→20:13)
[2021-10-25] MEDS: ONDANSETRON 4 MG (ODT) TAB PO PRN (09:55)
--- NOTE | 2021-10-25 14:29 | EKG ---
Test Date: 2021-10-24 Test Time: 13:06:37 Fire Alarm Dispatcher: CYNTHIA MEASUREMENT RESULTS: Intervals: Rate: 88 IA: QRSD: 82 QT: 346 QTc: 418 Rohwer: P: IA: QRS: 40 T: 226 INTERPRETIVE STATEMENTS: Atrial fibrillation ST & T wave abnormality, consider inferior ischemia or digitalis effect ST & T wave abnormality, consider anterior ischemia or digitalis effect Abnormal ECG Compared to ECG 10/14/2021 07:22:17 No significant changes Electronically Signed On 10-25-21 14:28:25 CDT by Michael Chaudhari
[2021-10-25] MEDS: ATORVASTATIN 20 MG TAB PO SCH (20:14)
[2021-10-26] MEDS: DIGOXIN 0.125 MG TABLET PO SCH (08:47)
[2021-10-26] MEDS: GABAPENTIN 100 MG CAP PO SCH ×2 (08:48→19:54)
[2021-10-26] MEDS: VENLAFAXINE HCL XR 37.5MG CAP PO SCH (08:48)
[2021-10-26] MEDS: MEGESTROL 40 MG TAB PO SCH ×2 (08:48→19:54)
[2021-10-26] MEDS: APIXABAN 5 MG TABLET PO SCH ×2 (08:48→19:54)
[2021-10-26] MEDS: NYSTATIN PWDR 100000 UNIT/GM TOP SCH ×2 (08:48→19:54)
[2021-10-26] MEDS: carvediloL 25 MG TAB PO SCH ×2 (08:48→19:53)
--- NOTE | 2021-10-26 10:02 | P.PN ---
Subjective Date of Service: 10/26/21 Subjective no overnight events last HD on 10/24 pt is making more urine now will monitor output labs tomorrow will decide about next HD after tomorrow's labs General: Awake, NAD , obese HEENT: Atraumatic, Normocephalic Neck: Supple, no elevated JVD Respiratory: Other CTAB. No rales or wheezes Cardiovascular: No rubs, No murmurs Gastrointestinal: Soft and benign, Non-distended Musculoskeletal: No clubbing Integumentary: No warmth Neurological: Normal tone, Sensation intact Lymphatics: No axilla or inguinal lymphadenopathy Urinary: Other (no bladder distention) # JEZ 2/2 ischemic ATN from rapid afib w/ hypotension Baseline SCr 1.0 as of 10/2018 SCr 1.1 on adm, now remains HD dependent +Nephrotic-range proteinuria, 3.3g on random UPCR. Workup neg so far. CPK low, no rhabdo HR control Keep MAP > 65 Strict I/O Monitor renal panel last HD on 10/24 pt is making more urine now will monitor output labs tomorrow will decide about next HD after tomorrow's labs # Rapid afib Hx of afib on sotalol & xarelto at home BNP sig elevated, trop neg TTE w/ systolic dysfxn HR controlled On Carvedilol + Digoxin Mngt per primary team and Cardiology # Hyperkalemia Resolved renal diet #Acute respiratory failure 2/2 rapid afib HR control per other services Respiratory support per other services # Secondary hyperPTH iPTH elevated at 159, monitor 25OHD 37, at goal Total time spent 45 minutes including documentation, reviewing labs , placing orders and discussing plan of care with medical staff and pt Physical Examination - Vital Signs Temperature: 98.2 F Blood Pressure: 136/60 Pulse: 65 Respirations: 18 Pulse Ox (%): 96
[2021-10-26] MEDS: LOPERAMIDE HCL 2 MG CAPSULE PO PRN (14:39)
[2021-10-26] MEDS: ATORVASTATIN 20 MG TAB PO SCH (19:54)
[2021-10-27 06:41] LABS: Albumin 2.6 g/dL (3.4-5.0); Bilirubin Total 0.9 mg/dL (0.2-1.0); Potassium 3.9 mmol/L (3.5-5.1); Protein, Total 5.7 g/dL (6.4-8.2)
[2021-10-27] MEDS: DIGOXIN 0.125 MG TABLET PO SCH (07:10)
[2021-10-27] MEDS: APIXABAN 5 MG TABLET PO SCH ×2 (07:11→19:29)
[2021-10-27] MEDS: carvediloL 25 MG TAB PO SCH ×2 (07:11→19:35)
[2021-10-27] MEDS ORDERED: SIMETHICONE 80 MG TAB PO PRN (08:48)
[2021-10-27] MEDS: GABAPENTIN 100 MG CAP PO SCH ×2 (09:07→19:30)
[2021-10-27] MEDS: MEGESTROL 40 MG TAB PO SCH ×2 (09:07→19:29)
[2021-10-27] MEDS: VENLAFAXINE HCL XR 37.5MG CAP PO SCH (09:07)
[2021-10-27] MEDS: NYSTATIN PWDR 100000 UNIT/GM TOP SCH ×2 (09:08→19:30)
[2021-10-27 09:25] LABS: CKMB Creatine Kinase MB < 1.0 ng/mL (1.0-3.6); Creatine Phosphokinase 99 U/L (26-192)
--- NOTE | 2021-10-27 13:17 | EKG ---
Test Date: 2021-10-27 Test Time: 12:03:02 Trekking Guide: CYNTHIA MEASUREMENT RESULTS: Intervals: Rate: 78 PA: QRSD: 82 QT: 348 QTc: 396 [place]: P: PA: QRS: 49 T: 256 INTERPRETIVE STATEMENTS: Atrial fibrillation ST & T wave abnormality, consider inferior ischemia or digitalis effect ST & T wave abnormality, consider anterior ischemia or digitalis effect Abnormal ECG Compared to ECG 10/24/2021 13:06:37 No significant changes Electronically Signed On 10-27-21 13:17:30 CDT by Michael Chaudhari
--- NOTE | 2021-10-27 17:37 | R.PN ---
PROGRESS NOTES ENCOUNTER DATE AND TIME: 10/27/2021 10:51 (CDT) NAME RADHA LOPEZ DATE OF : 1950 DATE OF ADMISSION: 10/23/2021 18:43 (CDT) Subacute left occipital stroke with right facial weakness and visual field deficit.Late subacute righ t hemispheric stroke with left hand weaknessCHIEF COMPLAINT: Subacute left occipital stroke, late subacute right hemispheric stroke SUBJECTIVE: Pt denied any Shortness of Breath. 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 Supervisor Grips. 8.45, HDL 37, LDL 52, WBC 8.5, Hgb 10.6. UA is positive with 20-50 bacteria, WBC 10-20, esterase 2+, digoxin level 1.2. Self-propelled wheelchair 480 with standby assistance. VITAL SIGNS Temperature: 97.6 F SBP/DBP: 136/64 Pulse: 79 Resp: 16 MEDICATION ALLERGIES: No Known Drug Allergies (NKDA) ENVIRONMENTAL ALLERGIES: - Substance Allergies None Known - Other Allergies None Known NURSING: - Shower allowing shower - Bladder care per protocol - Skin care per protocol PRECAUTIONS: - Fall Precaution Bed alarm TABS alarm Wheel chair alarm - Bleeding Risk Heparin - DVT Risk due to restricted mobility, age, and obesity - Skin Breakdown Risk due to restricted mobility and age - Cardiac Precaution Monitor blood pressure, heart rate, lower extremity edema, notify MD for shortness of breath or chest pain ACTIVITIES OOB only with supervision THERAPIES: - Dietary and Nutrition Adequate Nutrition. Nutritional Education. Nutritional Supplements. - Occupational Therapy Cognitive Retraining. Patient needs Occupational Therapy for a daily minimum of 1.5 hours at least 5 out of 7 days, to improve Activities of Daily Living, including: Eating, Grooming, Bathing, Dressing, Toileting, Toilet Transfers, Community Reintegration, Higher functional activities, Adaptive Equipme nt, Splinting, Household Tasks, and Other activities as determined. Visual Perceptual Training. - Speech Therapy Cognitive Training. Expressive Language Skills. Memory Strategies. Patient needs Speech Therapy for a daily minimum of 1.5 hours at least 5 out of 7 days, to improve: Swallowing, Cognition, Language Ski lls, and Compensatory Strategies. Receptive Language Skills. Speech Intelligibility Training. - Physical Therapy Patient needs Physical Therapy for a daily minimum of 1.5 hours at least 5 out of 7 days, to improve: Mobility, Strengthening, Transfers, Stretching, ROM, Endurance, Ability to manage stairs, Gait, and Balance. PHYSICAL EXAM - Gen Alert and awake Lying in bed No apparent distress Oriented to: person, time, and place - Skin No skin breakdown. Normacephalic - Eyes No abnormalities - ENMT No abnormalities - Neck No abnormalities - CVS IRIR - Chest No abnormalities - Abd Soft - GI nondistended Deferred - No abnormalities - Ext No significant edema - MSK 4/5 weakness in left upper and 4/5 weakness in right face. - Neuro 4/5 weakness in left upper and 4/5 weakness in right face with right visual field deficit. - Psych Mild anxiety. ASSESSMENT: Pt. is a 71 yo female of unknown race.On 10/08/2021 Pt. presented to [facility] with short ness of breath at rest, fatigue and chest discomfort along with left hand weakness not initially note d. Her EKG showed afib with rapid ventricular response and ECHO show very low EF of 22%. Her repeat c hest x-ray showed bilateral pleural effusions. She experienced shock with elevated lactic acid, proca lcitonin and severely decreased SBP to 70s for several hours. She had acute renal and liver failure t reated with hemodialysis three times per week and careful hydration. Due to her multiple complex medi mey conditions, she is significantly debilitated with stroke deficits of left hand weakness and incoo rdination along with right face weakness and visual field deficits. NIH stroke scale 4. It is necessa ry for her to have acute inpatient rehabilitation to facilitate her recovery. She received 0.5 mg of Ativan just prior brain MRI and will require 12 -24 hours of recovery time prior to beginning aggress suzanne rehab. Given her current condition, the onset of her aggressive physical, occupational and speech therapy will be delayed until Wednesday morning 10/27/21. She will have gentle therapy in bed until then. On 10/08/2021 she was admitted to [facility] with diagnosis Subacute left occipital stroke with right facial weakness and visual field deficit.On 10/08/2021 she was admitted to [facility] with diagnosis Subacute left occipital stroke with right facial weakness and visual field def icit..Due to her multiple complex medical conditions, she is significantly debilitated with stroke de ficits of left hand weakness and incoordination along with right face weakness and visual field defic its. NIH stroke scale 4. It is necessary for her to have acute inpatient rehabilitation to facilitate her recovery. She received 0.5 mg of Ativan just prior to brain MRI and will require 12 -24 hours of recovery time prior to beginning aggressive rehab. Onset of aggressive physical, occupational and s peech therapy will be delayed until Wednesday morning 10/27/21. She will have gentle therapy in bed until then.Her impairment category is Stroke - Right Body (Left Brain) (01.2).Pre-morbidly, Pt. was indepe ndent/mod-I in Self-Care and Locomotion; and she had good Safety Awareness, Balance, Transfers Contro l, and Endurance.Currently, she has deficits of Locomotion, Balance, Self-Care, Endurance, Transfers Control, and Safety Awareness.Pt. is now referred to [facility] for acute in-p atient rehabilitation in order to maximize patient's functional independence in activities of daily l iving, strength, ROM, and mobility.- Rehab Goal Patient has realistic goal of being discharged at assistance level 6-Taylor to reside at Home with Fam gerard/Relatives. Atrial fibrillation with rapid response, new onset end stage renal disease with HD 3 times weekly. Un treated fibromyalgia with generalized pain in extremities and core.MDM/PLAN: - Physical Therapy Weakness - to improve, our physical therapists will perform initial evaluation of pt's status upon a dmission and devise an individualized program for Aquatic Therapy, Neuromuscular Reeducation, and Str engthening Poor balance - to improve, our physical therapists will perform initial evaluation of pt's status up on admission and devise an individualized program for Balance Training Inability to transfer - to improve, our physical therapists will perform initial evaluation of pt's status upon admission and devise an individualized program for Bed mobility Need in caregiver upon discharge - to improve, our physical therapists will perform initial evaluati on of pt's status upon admission and devise an individualized program for Caregiver Training Poor endurance - to improve, our physical therapists will perform initial evaluation of pt's status upon admission and devise an individualized program for Endurance Training Edema - to improve, our physical therapists will perform initial evaluation of pt's status upon admis michael and devise an individualized program for Elevation Training, and Lymphedema Therapy Gait dysfunction - to improve, our physical therapists will perform initial evaluation of pt's statu s upon admission and devise an individualized program for Gait Training, and Wheel Chair mobility Need for home safety evaluation - to improve, our physical therapists will perform initial evaluatio n of pt's status upon admission and devise an individualized program for Home Evaluation New precaution - to improve, our physical therapists will perform initial evaluation of pt's status upon admission and devise an individualized program for Patient precaution education Achieving independence - to improve, our physical therapists will perform initial evaluation of pt's status upon admission and devise an individualized program for Community Reintegration Activities - Occupational Therapy Weakness - to improve, our occupation therapists will perform initial evaluation of pt's status upon admission and devise an individualized program for Aquatic Therapy, Balance, Endurance, UE ROM, and UE strengthening ADL deficits - to improve, our occupation therapists will perform initial evaluation of pt's status upon admission and devise an individualized program for Bathing, Bed mobility, Community Reintegratio n, Cooking, Dressing, Eating, Fine Motor Skills, Grooming, Homemaking, Kitchen Mobility, Laundry, Pat ient Education, Safety Awareness, Splinting - Positioning, Transfers(Toilet, Tub, Shower), and Wheel Chair Management Need for home care consultant - to improve, our occupation therapists will perform initial evaluation of pt's status upon admission and devise an individualized program for Caregiver Training - Other See attached MAR (Medication Administration Record) - Diet Type Continue Regular - Diet - Liquid Texture Continue Regular - Tube Feed Continue N/A - Bleeding Risk Heparin - DVT Risk due to restricted mobility, age, and obesity - Skin Breakdown Risk due to restricted mobility and age - Cardiac Precaution Monitor blood pressure, heart rate, lower extremity edema, notify MD for shortness of breath or ches t pain - Fall Precaution Bed alarm TABS alarm Wheel chair alarm - Bladder care per protocol - Skin care per protocol - Diet - Solid Texture Continue Regular - Shower allowing shower for Dementia, TBI, Stroke, or others - Balance Training for Poor balance - Balance for Weakness - Bed mobility for Inability to transfer for ADL deficits - Cognition - orientation for Dementia - Dressing Status: indep for ADL deficits - Gait Training for Gait dysfunction - Eating for ADL deficits - Lymphedema Therapy for Edema - Grooming Status: indep for ADL deficits - Toilet Transfer for ADL deficits Status: indep - Bed to Chair Transfer SELECT Status: indep for ADL deficits - Tub Transfer for ADL deficits Status: indep - Hygiene for ADL deficits - Shower Transfer for ADL deficits Status: indep - Wheel Chair to Bed Transfer Status: indep for ADL deficits FUNCTIONAL STATUS: UPDATED AT WEEKLY TEAM CONFERENCE - Bladder Same accident frequency: 7-Ind - No accidents in the past 7 days - Bowel Same accident frequency: 7-Ind - No accidents in the past 7 days - Walking Same score based on distance walked: 0(N/A) - Wheelchair Same score based on distance traveled: 0(N/A) FUNCTIONAL STATUS: - Self-Care A. Eating Ind B. Grooming sup C. Bathing modA D. Dressing - Upper Juliana E. Dressing - Lower modA F. Toileting sup - Sphincter Control G. Bladder control Juliana H. Bowel control Juliana - Transfers Control I. Bed/Chair/Wheelchair sup J. Toilet sup K. Tub/Shower Juliana - Locomotion L. Walk/Wheelchair (B) sup M. Stairs maxA - Communication N. Comprehension (B) sup O. Expression (B) Juliana - Social Cognition P. Social Interaction Taylor Q. Problem Solving Juliana R. Memory Juliana - Endurance Fair - Balance Good - Safety Awareness Fair QI SCORES: - Self-Care A. Eating 02-Substantial/maximal assistance B. Oral hygiene 02-Substantial/maximal assistance C. Toileting hygiene 02-Substantial/maximal assistance E. Shower/bathe self 02-Substantial/maximal assistance F. Upper body dressing 02-Substantial/maximal assistance G. Lower body dressing 02-Substantial/maximal assistance H. Putting on/taking off footwear 02-Substantial/maximal assistance - Mobility A. Roll left and right 03-Partial/moderate assistance B. Sit to lying 03-Partial/moderate assistance C. Lying to sitting on side of bed 03-Partial/moderate assistance D. Sit to stand 03-Partial/moderate assistance E. Chair/[id number] transfer 88-Not attempted due to medical condition or safety concerns F. Toilet transfer 88-Not attempted due to medical condition or safety concerns G. Car transfer 88-Not attempted due to medical condition or safety concerns I. Walk 10 feet 88-Not attempted due to medical condition or safety concerns J. Walk 50 feet with two turns 88-Not attempted due to medical condition or safety concerns K. Walk 150 feet 88-Not attempted due to medical condition or safety concerns L. Walking 10 feet on uneven surfaces 88-Not attempted due to medical condition or safety concerns M. 1 step (curb) 88-Not attempted due to medical condition or safety concerns N. 4 steps 88-Not attempted due to medical condition or safety concerns O. 12 steps 88-Not attempted due to medical condition or safety concerns P. Picking up object 88-Not attempted due to medical condition or safety concerns R. Wheel 50 feet with two turns 09-Not applicable S. Wheel 150 feet 09-Not applicable - Bladder and Bowel Bladder continence 5-No urine output Bowel continence 1-Occasionally incontinent - Endurance Poor - Balance Fair - Safety Awareness Fair CURRENT [facility]. DEFICITS: Self-Care, Mobility, Endurance, Balance, and Safety Awareness SIGNATURE PANEL: (CDT)
[2021-10-27] MEDS: ATORVASTATIN 20 MG TAB PO SCH (19:30)
--- NOTE | 2021-10-28 02:01 | PN ---
Date of Progress Note: 10/27/2021 Chief Complaint: Acute kidney injury. Subjective: The patient remains dialysis dependent. She has nonoliguric urine output, although crea tinine level has not improved; in between dialysis creatinine level is going up, the patient is to [facility] today. Patient has history of acute kidney injury secondary to ischemic ATN from rapid atrial fibrillation r esulted in hypotension and renal hypoperfusion, which caused ATN. Serum creatinine previously at [facility] was 1.1. Currently, patient is dialysis dependent and creatinine level is ranging from 6-8. P atient has nephrotic range proteinuria, rhabdo was ruled out. Patient is making more urine, has nono liguric urine output over last 24 hours, although urine output was 500. Review of Systems: Denies fever, chills. Objective: Lungs: Clear to auscultation bilaterally. Heart: S1, S2. Abdomen: Soft, benign. Extremities: Minimal edema. Impression And Plan: 1.Acute kidney injury secondary to acute tubular necrosis. Continue dialysis. Patient has nephroti c range proteinuria, she might be a candidate for renal biopsy if renal function does not improve. 2.History of cardiac arrhythmia, rapid atrial fibrillation. Patient is on beta-parvez and Xarelto. Monitor BMP. Continue ultrafiltration to control fluid overload. The patient has systolic dysfunc tion. She had a transthoracic echo, which showed diminished ejection fraction. Patient will continu e carvedilol and digoxin. Adjust digoxin level to renal function. 3.Hyperkalemia, resolved. Continue renal diet with low potassium diet. 4.Acute respiratory failure secondary to rapid atrial fibrillation, currently rate is controlled. 5.Secondary hyperparathyroid. Intact PTH decelerated. 25-hydroxy vitamin D level remains stable. Intact PTH is adequate to current renal function. EB/MODL Voice ID: [id number] Report ID: [id number]
[2021-10-28 04:36] LABS: Absolute Lymphocytes (CBC) 1.8 K/uL (0.7-4.9); Lymphocytes % 26.9 % (15.3-44.8); MPV 7.7 fL (7.6-11.3); RBC Red Blood Cell Count 3.46 M/uL (3.86-4.86)
[2021-10-28 04:55] LABS: Albumin 2.7 g/dL (3.4-5.0); Phosphorus 3.3 mg/dL (2.5-4.9); Potassium 3.7 mmol/L (3.5-5.1)
[2021-10-28] MEDS: APIXABAN 5 MG TABLET PO SCH ×2 (08:53→19:51)
[2021-10-28] MEDS: MEGESTROL 40 MG TAB PO SCH ×2 (08:53→19:50)
[2021-10-28] MEDS: VENLAFAXINE HCL XR 37.5MG CAP PO SCH (08:54)
[2021-10-28] MEDS: NYSTATIN PWDR 100000 UNIT/GM TOP SCH ×2 (08:54→19:50)
[2021-10-28] MEDS: GABAPENTIN 100 MG CAP PO SCH ×2 (08:54→19:50)
[2021-10-28] MEDS: DIGOXIN 0.125 MG TABLET PO SCH (08:54)
[2021-10-28] MEDS: carvediloL 25 MG TAB PO SCH ×2 (08:54→19:50)
--- NOTE | 2021-10-28 18:12 | R.PN ---
PROGRESS NOTES ENCOUNTER DATE AND TIME: 10/28/2021 18:09 (CDT) NAME RADHA LOPEZ DATE OF : 1950 DATE OF ADMISSION: 10/23/2021 18:43 (CDT) Subacute left occipital stroke with right facial weakness and visual field deficit.Late subacute righ t hemispheric stroke with left hand weaknessCHIEF COMPLAINT: Subacute left occipital stroke, late subacute right hemispheric stroke SUBJECTIVE: Pt denied any Shortness of Breath. 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 5.07, HDL 37, LDL 52, WBC 6.7, Hgb 10.4. UA is positive with 20-50 bacteria, WBC 10-20, esterase 2+, digoxin level 1.2. Self-propelled wheelchair 480 with standby assistance. VITAL SIGNS Temperature: 97.5 F SBP/DBP: 157/54 Pulse: 72 Resp: 16 MEDICATION ALLERGIES: No Known Drug Allergies (NKDA) ENVIRONMENTAL ALLERGIES: - Substance Allergies None Known - Other Allergies None Known NURSING: - Shower allowing shower - Bladder care per protocol - Skin care per protocol PRECAUTIONS: - Fall Precaution Bed alarm TABS alarm Wheel chair alarm - Bleeding Risk Heparin - DVT Risk due to restricted mobility, age, and obesity - Skin Breakdown Risk due to restricted mobility and age - Cardiac Precaution Monitor blood pressure, heart rate, lower extremity edema, notify MD for shortness of breath or chest pain ACTIVITIES OOB only with supervision THERAPIES: - Dietary and Nutrition Adequate Nutrition. Nutritional Education. Nutritional Supplements. - Occupational Therapy Cognitive Retraining. Patient needs Occupational Therapy for a daily minimum of 1.5 hours at least 5 out of 7 days, to improve Activities of Daily Living, including: Eating, Grooming, Bathing, Dressing, Toileting, Toilet Transfers, Community Reintegration, Higher functional activities, Adaptive Equipme nt, Splinting, Household Tasks, and Other activities as determined. Visual Perceptual Training. - Speech Therapy Cognitive Training. Expressive Language Skills. Memory Strategies. Patient needs Speech Therapy for a daily minimum of 1.5 hours at least 5 out of 7 days, to improve: Swallowing, Cognition, Language Ski lls, and Compensatory Strategies. Receptive Language Skills. Speech Intelligibility Training. - Physical Therapy Patient needs Physical Therapy for a daily minimum of 1.5 hours at least 5 out of 7 days, to improve: Mobility, Strengthening, Transfers, Stretching, ROM, Endurance, Ability to manage stairs, Gait, and Balance. PHYSICAL EXAM - Gen Alert and awake Lying in bed No apparent distress Oriented to: person, time, and place - Skin No skin breakdown. Normacephalic - Eyes No abnormalities - ENMT No abnormalities - Neck No abnormalities - CVS IRIR - Chest No abnormalities - Abd Soft - GI nondistended Deferred - No abnormalities - Ext No significant edema - MSK 4/5 weakness in left upper and 4/5 weakness in right face. - Neuro 4/5 weakness in left upper and 4/5 weakness in right face with right visual field deficit. - Psych Mild anxiety. ASSESSMENT: Pt. is a 71 yo female of unknown race.On 10/08/2021 Pt. presented to [facility] with short ness of breath at rest, fatigue and chest discomfort along with left hand weakness not initially note d. Her EKG showed afib with rapid ventricular response and ECHO show very low EF of 22%. Her repeat c hest x-ray showed bilateral pleural effusions. She experienced shock with elevated lactic acid, proca lcitonin and severely decreased SBP to 70s for several hours. She had acute renal and liver failure t reated with hemodialysis three times per week and careful hydration. Due to her multiple complex medi mey conditions, she is significantly debilitated with stroke deficits of left hand weakness and incoo rdination along with right face weakness and visual field deficits. NIH stroke scale 4. It is necessa ry for her to have acute inpatient rehabilitation to facilitate her recovery. She received 0.5 mg of Ativan just prior brain MRI and will require 12 -24 hours of recovery time prior to beginning aggress suzanne rehab. Given her current condition, the onset of her aggressive physical, occupational and speech therapy will be delayed until Wednesday morning 10/27/21. She will have gentle therapy in bed until then. On 10/08/2021 she was admitted to [facility] with diagnosis Subacute left occipital stroke with right facial weakness and visual field deficit.On 10/08/2021 she was admitted to [facility] with diagnosis Subacute left occipital stroke with right facial weakness and visual field def icit..Due to her multiple complex medical conditions, she is significantly debilitated with stroke de ficits of left hand weakness and incoordination along with right face weakness and visual field defic its. NIH stroke scale 4. It is necessary for her to have acute inpatient rehabilitation to facilitate her recovery. She received 0.5 mg of Ativan just prior to brain MRI and will require 12 -24 hours of recovery time prior to beginning aggressive rehab. Onset of aggressive physical, occupational and s peech therapy will be delayed until Wednesday morning 10/27/21. She will have gentle therapy in bed until then.Her impairment category is Stroke - Right Body (Left Brain) (01.2).Pre-morbidly, Pt. was indepe ndent/mod-I in Self-Care and Locomotion; and she had good Safety Awareness, Balance, Transfers Contro l, and Endurance.Currently, she has deficits of Locomotion, Balance, Self-Care, Endurance, Transfers Control, and Safety Awareness.Pt. is now referred to [facility] for acute in-p atient rehabilitation in order to maximize patient's functional independence in activities of daily l iving, strength, ROM, and mobility.- Rehab Goal Patient has realistic goal of being discharged at assistance level 6-Taylor to reside at Home with Fam gerard/Relatives. Atrial fibrillation with rapid response, new onset end stage renal disease with HD 3 times weekly. Un treated fibromyalgia with generalized pain in extremities and core.MDM/PLAN: - Physical Therapy Weakness - to improve, our physical therapists will perform initial evaluation of pt's status upon a dmission and devise an individualized program for Aquatic Therapy, Neuromuscular Reeducation, and Str engthening Poor balance - to improve, our physical therapists will perform initial evaluation of pt's status up on admission and devise an individualized program for Balance Training Inability to transfer - to improve, our physical therapists will perform initial evaluation of pt's status upon admission and devise an individualized program for Bed mobility Need in caregiver upon discharge - to improve, our physical therapists will perform initial evaluati on of pt's status upon admission and devise an individualized program for Caregiver Training Poor endurance - to improve, our physical therapists will perform initial evaluation of pt's status upon admission and devise an individualized program for Endurance Training Edema - to improve, our physical therapists will perform initial evaluation of pt's status upon admi ssion and devise an individualized program for Elevation Training, and Lymphedema Therapy Gait dysfunction - to improve, our physical therapists will perform initial evaluation of pt's statu s upon admission and devise an individualized program for Gait Training, and Wheel Chair mobility Need for home safety evaluation - to improve, our physical therapists will perform initial evaluatio n of pt's status upon admission and devise an individualized program for Home Evaluation New precaution - to improve, our physical therapists will perform initial evaluation of pt's status upon admission and devise an individualized program for Patient precaution education Achieving independence - to improve, our physical therapists will perform initial evaluation of pt's status upon admission and devise an individualized program for Community Reintegration Activities - Occupational Therapy Weakness - to improve, our occupation therapists will perform initial evaluation of pt's status upon admission and devise an individualized program for Aquatic Therapy, Balance, Endurance, UE ROM, and UE strengthening ADL deficits - to improve, our occupation therapists will perform initial evaluation of pt's status upon admission and devise an individualized program for Bathing, Bed mobility, Community Reintegratio n, Cooking, Dressing, Eating, Fine Motor Skills, Grooming, Homemaking, Kitchen Mobility, Laundry, Pat ient Education, Safety Awareness, Splinting - Positioning, Transfers(Toilet, Tub, Shower), and Wheel Chair Management 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 - to improve, our occupation therapists will perform initial evaluation of pt's status upon admission and devise an individualized program for Caregiver Training - Other See attached MAR (Medication Administration Record) - Diet Type Continue Regular - Diet - Liquid Texture Continue Regular - Tube Feed Continue N/A - Bleeding Risk Heparin - DVT Risk due to restricted mobility, age, and obesity - Skin Breakdown Risk due to restricted mobility and age - Cardiac Precaution Monitor blood pressure, heart rate, lower extremity edema, notify MD for shortness of breath or ches t pain - Fall Precaution Bed alarm TABS alarm Wheel chair alarm - Bladder care per protocol - Skin care per protocol - Diet - Solid Texture Continue Regular - Shower allowing shower for Dementia, TBI, Stroke, or others - Balance Training for Poor balance - Balance for Weakness - Bed mobility for Inability to transfer for ADL deficits - Cognition - orientation for Dementia - Dressing Status: indep for ADL deficits - Gait Training for Gait dysfunction - Eating for ADL deficits - Lymphedema Therapy for Edema - Grooming Status: indep for ADL deficits - Toilet Transfer for ADL deficits Status: indep - Bed to Chair Transfer SELECT Status: indep for ADL deficits - Tub Transfer for ADL deficits Status: indep - Hygiene for ADL deficits - Shower Transfer for ADL deficits Status: indep - Wheel Chair to Bed Transfer Status: indep for ADL deficits FUNCTIONAL STATUS: UPDATED AT WEEKLY TEAM CONFERENCE - Bladder Same accident frequency: 7-Ind - No accidents in the past 7 days - Bowel Same accident frequency: 7-Ind - No accidents in the past 7 days - Walking Same score based on distance walked: 0(N/A) - Wheelchair Same score based on distance traveled: 0(N/A) FUNCTIONAL STATUS: - Self-Care A. Eating Ind B. Grooming sup C. Bathing modA D. Dressing - Upper Juliana E. Dressing - Lower modA F. Toileting sup - Sphincter Control G. Bladder control Juliana H. Bowel control Juliana - Transfers Control I. Bed/Chair/Wheelchair sup J. Toilet sup K. Tub/Shower Juliana - Locomotion L. Walk/Wheelchair (B) sup M. Stairs maxA - Communication N. Comprehension (B) sup O. Expression (B) Juliana - Social Cognition P. Social Interaction Taylor Q. Problem Solving Juliana R. Memory Juliana - Endurance Fair - Balance Good - Safety Awareness Fair QI SCORES: - Self-Care A. Eating 02-Substantial/maximal assistance B. Oral hygiene 02-Substantial/maximal assistance C. Toileting hygiene 02-Substantial/maximal assistance E. Shower/bathe self 02-Substantial/maximal assistance F. Upper body dressing 02-Substantial/maximal assistance G. Lower body dressing 02-Substantial/maximal assistance H. Putting on/taking off footwear 02-Substantial/maximal assistance - Mobility A. Roll left and right 03-Partial/moderate assistance B. Sit to lying 03-Partial/moderate assistance C. Lying to sitting on side of bed 03-Partial/moderate assistance D. Sit to stand 03-Partial/moderate assistance E. Chair/[id number] transfer 88-Not attempted due to medical condition or safety concerns F. Toilet transfer 88-Not attempted due to medical condition or safety concerns G. Car transfer 88-Not attempted due to medical condition or safety concerns I. Walk 10 feet 88-Not attempted due to medical condition or safety concerns J. Walk 50 feet with two turns 88-Not attempted due to medical condition or safety concerns K. Walk 150 feet 88-Not attempted due to medical condition or safety concerns L. Walking 10 feet on uneven surfaces 88-Not attempted due to medical condition or safety concerns M. 1 step (curb) 88-Not attempted due to medical condition or safety concerns N. 4 steps 88-Not attempted due to medical condition or safety concerns O. 12 steps 88-Not attempted due to medical condition or safety concerns P. Picking up object 88-Not attempted due to medical condition or safety concerns R. Wheel 50 feet with two turns 09-Not applicable S. Wheel 150 feet 09-Not applicable - Bladder and Bowel Bladder continence 5-No urine output Bowel continence 1-Occasionally incontinent - Endurance Poor - Balance Fair - Safety Awareness Fair CURRENT [facility]. DEFICITS: Self-Care, Mobility, Endurance, Balance, and Safety Awareness SIGNATURE PANEL: (CDT)
[2021-10-28] MEDS: ATORVASTATIN 20 MG TAB PO SCH (19:50)
--- NOTE | 2021-10-29 05:20 | P.PN ---
Subjective Date of Service: 10/28/21 Chief Complaint: SOB Subjective: No new changes (Received HD yesterday.) Physical Examination - Vital Signs Temperature: 97.8 F Blood Pressure: 149/63 Pulse: 54 Respirations: 18 Pulse Ox (%): 94 - Physical Exam General: In no apparent distress HEENT: Atraumatic, Normocephalic Neck: Supple, JVD not distended Respiratory: Other (symmetric chest expansion) Cardiovascular: No rubs, No murmurs Gastrointestinal: Soft and benign, No rebound Musculoskeletal: No clubbing Integumentary: No warmth Neurological: Normal speech, Normal tone Urinary: Other (no bladder distention) External genitalia: Deferred Rectal: Deferred Assessment And Plan - Plan # JEZ 2/2 ischemic ATN from rapid afib w/ hypotension Baseline SCr 1.0 as of 10/2018 SCr 1.1 on adm, now remains HD dependent Cont HD MWF until sig renal recovery Urinalysis inc SG, trace protein, otherwise unremarkable KUB on abd US +R renal cyst, otherwise unremarkable Urine chem non-prerenal +Nephrotic-range proteinuria, 3.3g on random UPCR. Workup neg so far. CPK low, no rhabdo HR control Keep MAP > 65 Strict I/O Monitor renal panel Outpt HD placement # Rapid afib Hx of afib on sotalol & xarelto at home BNP sig elevated, trop neg TTE w/ systolic dysfxn HR controlled On Carvedilol + Digoxin Mngt per primary team and Cardiology # Hyperkalemia Resolved HD as above # Increased anion gap w/ lactic acidosis & normal osmolal gap 2/2 hypoperfusion & renal dysfxn Toxic alcohol ingestion unlikely Monitor #Acute respiratory failure 2/2 rapid afib HR control per other services Respiratory support per other services # Secondary hyperPTH iPTH elevated at 159, monitor 25OHD 37, at goal
[2021-10-29] MEDS: APIXABAN 5 MG TABLET PO SCH ×2 (07:17→20:21)
[2021-10-29] MEDS: NYSTATIN PWDR 100000 UNIT/GM TOP SCH ×2 (07:55→20:21)
[2021-10-29] MEDS: carvediloL 25 MG TAB PO SCH ×2 (07:55→20:21)
[2021-10-29] MEDS: DIGOXIN 0.125 MG TABLET PO SCH (07:56)
[2021-10-29] MEDS: CRANBERRY FRUIT EXTRACT 400 MG CAP PO SCH ×2 (07:56→20:21)
[2021-10-29] MEDS: VENLAFAXINE HCL XR 37.5MG CAP PO SCH (07:56)
[2021-10-29] MEDS: GABAPENTIN 100 MG CAP PO SCH ×2 (07:56→20:21)
[2021-10-29] MEDS: MEGESTROL 40 MG TAB PO SCH ×2 (08:00→20:21)
--- NOTE | 2021-10-29 17:47 | R.PN ---
PROGRESS NOTES ENCOUNTER DATE AND TIME: 10/29/2021 17:42 (CDT) NAME RADHA LOPEZ DATE OF : 1950 DATE OF ADMISSION: 10/23/2021 18:43 (CDT) Subacute left occipital stroke with right facial weakness and visual field deficit.Late subacute righ t hemispheric stroke with left hand weaknessCHIEF COMPLAINT: Subacute left occipital stroke, late subacute right hemispheric stroke SUBJECTIVE: Pt denied any Shortness of Breath. 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 [employer]ice. 5.07, HDL 37, LDL 52, WBC 6.7, Hgb 10.4. UA is positive with 20-50 bacteria, WBC 10-20, esterase 2+, digoxin level 1.2. Self-propelled wheelchair 480 with standby assistance. Ambulated 230' with rolling walker and contact guard assistance. VITAL SIGNS Temperature: 97.8 F SBP/DBP: 132/52 Pulse: 72 Resp: 16 MEDICATION ALLERGIES: No Known Drug Allergies (NKDA) ENVIRONMENTAL ALLERGIES: - Substance Allergies None Known - Other Allergies None Known NURSING: - Shower allowing shower - Bladder care per protocol - Skin care per protocol PRECAUTIONS: - Fall Precaution Bed alarm TABS alarm Wheel chair alarm - Bleeding Risk Heparin - DVT Risk due to restricted mobility, age, and obesity - Skin Breakdown Risk due to restricted mobility and age - Cardiac Precaution Monitor blood pressure, heart rate, lower extremity edema, notify MD for shortness of breath or chest pain ACTIVITIES OOB only with supervision THERAPIES: - Dietary and Nutrition Adequate Nutrition. Nutritional Education. Nutritional Supplements. - Occupational Therapy Cognitive Retraining. Patient needs Occupational Therapy for a daily minimum of 1.5 hours at least 5 out of 7 days, to improve Activities of Daily Living, including: Eating, Grooming, Bathing, Dressing, Toileting, Toilet Transfers, Community Reintegration, Higher functional activities, Adaptive Equipme nt, Splinting, Household Tasks, and Other activities as determined. Visual Perceptual Training. - Speech Therapy Cognitive Training. Expressive Language Skills. Memory Strategies. Patient needs Speech Therapy for a daily minimum of 1.5 hours at least 5 out of 7 days, to improve: Swallowing, Cognition, Language Ski lls, and Compensatory Strategies. Receptive Language Skills. Speech Intelligibility Training. - Physical Therapy Patient needs Physical Therapy for a daily minimum of 1.5 hours at least 5 out of 7 days, to improve: Mobility, Strengthening, Transfers, Stretching, ROM, Endurance, Ability to manage stairs, Gait, and Balance. PHYSICAL EXAM - Gen Alert and awake Lying in bed No apparent distress Oriented to: person, time, and place - Skin No skin breakdown. Normacephalic - Eyes No abnormalities - ENMT No abnormalities - Neck No abnormalities - CVS IRIR - Chest No abnormalities - Abd Soft - GI nondistended Deferred - No abnormalities - Ext No significant edema - MSK 4/5 weakness in left upper and 4/5 weakness in right face. - Neuro 4/5 weakness in left upper and 4/5 weakness in right face with right visual field deficit. - Psych Mild anxiety. ASSESSMENT: Pt. is a 71 yo female of unknown race.On 10/08/2021 Pt. presented to [facility] with short ness of breath at rest, fatigue and chest discomfort along with left hand weakness not initially note d. Her EKG showed afib with rapid ventricular response and ECHO show very low EF of 22%. Her repeat c hest x-ray showed bilateral pleural effusions. She experienced shock with elevated lactic acid, proca lcitonin and severely decreased SBP to 70s for several hours. She had acute renal and liver failure t reated with hemodialysis three times per week and careful hydration. Due to her multiple complex medi mey conditions, she is significantly debilitated with stroke deficits of left hand weakness and incoo rdination along with right face weakness and visual field deficits. NIH stroke scale 4. It is necessa ry for her to have acute inpatient rehabilitation to facilitate her recovery. She received 0.5 mg of Ativan just prior brain MRI and will require 12 -24 hours of recovery time prior to beginning aggress suzanne rehab. Given her current condition, the onset of her aggressive physical, occupational and speech therapy will be delayed until Wednesday morning 10/27/21. She will have gentle therapy in bed until then. On 10/08/2021 she was admitted to [facility] with diagnosis Subacute left occipital stroke with right facial weakness and visual field deficit.On 10/08/2021 she was admitted to [facility] with diagnosis Subacute left occipital stroke with right facial weakness and visual field def icit..Due to her multiple complex medical conditions, she is significantly debilitated with stroke de ficits of left hand weakness and incoordination along with right face weakness and visual field defic its. NIH stroke scale 4. It is necessary for her to have acute inpatient rehabilitation to facilitate her recovery. She received 0.5 mg of Ativan just prior to brain MRI and will require 12 -24 hours of recovery time prior to beginning aggressive rehab. Onset of aggressive physical, occupational and s peech therapy will be delayed until Wednesday morning 10/27/21. She will have gentle therapy in bed until then.Her impairment category is Stroke - Right Body (Left Brain) (01.2).Pre-morbidly, Pt. was indepe ndent/mod-I in Self-Care and Locomotion; and she had good Safety Awareness, Balance, Transfers Contro l, and Endurance.Currently, she has deficits of Locomotion, Balance, Self-Care, Endurance, Transfers Control, and Safety Awareness.Pt. is now referred to [facility] for acute in-p atient rehabilitation in order to maximize patient's functional independence in activities of daily l iving, strength, ROM, and mobility.- Rehab Goal Patient has realistic goal of being discharged at assistance level 6-Taylor to reside at Home with Fam gerard/Relatives. Atrial fibrillation with rapid response, new onset end stage renal disease with HD 3 times weekly. Un treated fibromyalgia with generalized pain in extremities and core.MDM/PLAN: - Physical Therapy Weakness - to improve, our physical therapists will perform initial evaluation of pt's status upon a dmission and devise an individualized program for Aquatic Therapy, Neuromuscular Reeducation, and Str engthening Poor balance - to improve, our physical therapists will perform initial evaluation of pt's status up on admission and devise an individualized program for Balance Training Inability to transfer - to improve, our physical therapists will perform initial evaluation of pt's status upon admission and devise an individualized program for Bed mobility Need in caregiver upon discharge - to improve, our physical therapists will perform initial evaluati on of pt's status upon admission and devise an individualized program for Caregiver Training Poor endurance - to improve, our physical therapists will perform initial evaluation of pt's status upon admission and devise an individualized program for Endurance Training Edema - to improve, our physical therapists will perform initial evaluation of pt's status upon admi ssion and devise an individualized program for Elevation Training, and Lymphedema Therapy Gait dysfunction - to improve, our physical therapists will perform initial evaluation of pt's statu s upon admission and devise an individualized program for Gait Training, and Wheel Chair mobility Need for home safety evaluation - to improve, our physical therapists will perform initial evaluatio n of pt's status upon admission and devise an individualized program for Home Evaluation New precaution - to improve, our physical therapists will perform initial evaluation of pt's status upon admission and devise an individualized program for Patient precaution education Achieving independence - to improve, our physical therapists will perform initial evaluation of pt's status upon admission and devise an individualized program for Community Reintegration Activities - Occupational Therapy Weakness - to improve, our occupation therapists will perform initial evaluation of pt's status upon admission and devise an individualized program for Aquatic Therapy, Balance, Endurance, UE ROM, and UE strengthening ADL deficits - to improve, our occupation therapists will perform initial evaluation of pt's status upon admission and devise an individualized program for Bathing, Bed mobility, Community Reintegratio n, Cooking, Dressing, Eating, Fine Motor Skills, Grooming, Homemaking, Kitchen Mobility, Laundry, Pat ient Education, Safety Awareness, Splinting - Positioning, Transfers(Toilet, Tub, Shower), and Wheel Chair Management Need for healthcare consultant - to improve, our occupation therapists will perform initial evaluation of pt's status upon admission and devise an individualized program for Caregiver Training - Other See attached MAR (Medication Administration Record) - Diet Type Continue Regular - Diet - Liquid Texture Continue Regular - Tube Feed Continue N/A - Bleeding Risk Heparin - DVT Risk due to restricted mobility, age, and obesity - Skin Breakdown Risk due to restricted mobility and age - Cardiac Precaution Monitor blood pressure, heart rate, lower extremity edema, notify MD for shortness of breath or ches t pain - Fall Precaution Bed alarm TABS alarm Wheel chair alarm - Bladder care per protocol - Skin care per protocol - Diet - Solid Texture Continue Regular - Shower allowing shower for Dementia, TBI, Stroke, or others - Balance Training for Poor balance - Balance for Weakness - Bed mobility for Inability to transfer for ADL deficits - Cognition - orientation for Dementia - Dressing Status: indep for ADL deficits - Gait Training for Gait dysfunction - Eating for ADL deficits - Lymphedema Therapy for Edema - Grooming Status: indep for ADL deficits - Toilet Transfer for ADL deficits Status: indep - Bed to Chair Transfer SELECT Status: indep for ADL deficits - Tub Transfer for ADL deficits Status: indep - Hygiene for ADL deficits - Shower Transfer for ADL deficits Status: indep - Wheel Chair to Bed Transfer Status: indep for ADL deficits FUNCTIONAL STATUS: UPDATED AT WEEKLY TEAM CONFERENCE - Bladder Same accident frequency: 7-Ind - No accidents in the past 7 days - Bowel Same accident frequency: 7-Ind - No accidents in the past 7 days - Walking Same score based on distance walked: 0(N/A) - Wheelchair Same score based on distance traveled: 0(N/A) FUNCTIONAL STATUS: - Self-Care A. Eating Ind B. Grooming sup C. Bathing modA D. Dressing - Upper Juliana E. Dressing - Lower modA F. Toileting sup - Sphincter Control G. Bladder control Juliana H. Bowel control Juliana - Transfers Control I. Bed/Chair/Wheelchair sup J. Toilet sup K. Tub/Shower Juliana - Locomotion L. Walk/Wheelchair (B) sup M. Stairs maxA - Communication N. Comprehension (B) sup O. Expression (B) Juliana - Social Cognition P. Social Interaction Taylor Q. Problem Solving Juliana R. Memory Juliana - Endurance Fair - Balance Good - Safety Awareness Fair QI SCORES: - Self-Care A. Eating 02-Substantial/maximal assistance B. Oral hygiene 02-Substantial/maximal assistance C. Toileting hygiene 02-Substantial/maximal assistance E. Shower/bathe self 02-Substantial/maximal assistance F. Upper body dressing 02-Substantial/maximal assistance G. Lower body dressing 02-Substantial/maximal assistance H. Putting on/taking off footwear 02-Substantial/maximal assistance - Mobility A. Roll left and right 03-Partial/moderate assistance B. Sit to lying 03-Partial/moderate assistance C. Lying to sitting on side of bed 03-Partial/moderate assistance D. Sit to stand 03-Partial/moderate assistance E. Chair/cvy-[id number]-[id number] transfer 88-Not attempted due to medical condition or safety concerns F. Toilet transfer 88-Not attempted due to medical condition or safety concerns G. Car transfer 88-Not attempted due to medical condition or safety concerns I. Walk 10 feet 88-Not attempted due to medical condition or safety concerns J. Walk 50 feet with two turns 88-Not attempted due to medical condition or safety concerns K. Walk 150 feet 88-Not attempted due to medical condition or safety concerns L. Walking 10 feet on uneven surfaces 88-Not attempted due to medical condition or safety concerns M. 1 step (curb) 88-Not attempted due to medical condition or safety concerns N. 4 steps 88-Not attempted due to medical condition or safety concerns O. 12 steps 88-Not attempted due to medical condition or safety concerns P. Picking up object 88-Not attempted due to medical condition or safety concerns R. Wheel 50 feet with two turns 09-Not applicable S. Wheel 150 feet 09-Not applicable - Bladder and Bowel Bladder continence 5-No urine output Bowel continence 1-Occasionally incontinent - Endurance Poor - Balance Fair - Safety Awareness Fair CURRENT [facility]. DEFICITS: Self-Care, Mobility, Endurance, Balance, and Safety Awareness SIGNATURE PANEL: (CDT)
[2021-10-29] MEDS: ATORVASTATIN 20 MG TAB PO SCH (20:21)
--- NOTE | 2021-10-30 04:28 | P.PN ---
Subjective Date of Service: 10/29/21 Chief Complaint: SOB Subjective: No new changes Physical Examination - Vital Signs Temperature: 97.2 F Blood Pressure: 123/57 Pulse: 61 Respirations: 21 Pulse Ox (%): 96 - Physical Exam General: In no apparent distress HEENT: Atraumatic, Normocephalic Neck: Supple, JVD not distended Respiratory: Other (symmetric chest expansion) Cardiovascular: No rubs, No murmurs Gastrointestinal: Soft and benign, No rebound Musculoskeletal: No clubbing Integumentary: No warmth Neurological: Normal tone Urinary: Other (no bladder distention) External genitalia: Deferred Rectal: Deferred Assessment And Plan - Plan # JEZ 2/2 ischemic ATN from rapid afib w/ hypotension Baseline SCr 1.0 as of 10/2018 SCr 1.1 on adm, now remains HD dependent Cont HD MWF until sig renal recovery. HD today. Urinalysis inc SG, trace protein, otherwise unremarkable KUB on abd US +R renal cyst, otherwise unremarkable Urine chem non-prerenal +Nephrotic-range proteinuria, 3.3g on random UPCR. Workup neg so far. CPK low, no rhabdo HR control Keep MAP > 65 Strict I/O Monitor renal panel Outpt HD placement # Rapid afib Hx of afib on sotalol & xarelto at home BNP sig elevated, trop neg TTE w/ systolic dysfxn HR controlled On Carvedilol + Digoxin Mngt per primary team and Cardiology # Hyperkalemia Resolved HD as above # Increased anion gap w/ lactic acidosis & normal osmolal gap 2/2 hypoperfusion & renal dysfxn Toxic alcohol ingestion unlikely Monitor #Acute respiratory failure 2/2 rapid afib HR control per other services Respiratory support per other services # Secondary hyperPTH iPTH elevated at 159, monitor 25OHD 37, at goal
[2021-10-30 06:42] LABS: Hematocrit 31.8 % (36.0-45.0); MPV 8.3 fL (7.6-11.3); RBC Red Blood Cell Count 3.49 M/uL (3.86-4.86)
[2021-10-30 06:47] LABS: Albumin 2.9 g/dL (3.4-5.0); Potassium 3.5 mmol/L (3.5-5.1); Prealbumin 13.1 mg/dL (20-40)
[2021-10-30] MEDS: GABAPENTIN 100 MG CAP PO SCH (07:14)
[2021-10-30] MEDS: APIXABAN 5 MG TABLET PO SCH ×2 (07:14→20:13)
[2021-10-30] MEDS: MEGESTROL 40 MG TAB PO SCH ×2 (07:15→20:13)
[2021-10-30] MEDS: carvediloL 25 MG TAB PO SCH ×2 (07:15→20:13)
[2021-10-30] MEDS: CRANBERRY FRUIT EXTRACT 400 MG CAP PO SCH ×2 (07:15→20:12)
[2021-10-30] MEDS: DIGOXIN 0.125 MG TABLET PO SCH (07:15)
[2021-10-30] MEDS: VENLAFAXINE HCL XR 37.5MG CAP PO SCH (07:15)
[2021-10-30] MEDS: NYSTATIN PWDR 100000 UNIT/GM TOP SCH ×2 (09:17→20:14)
[2021-10-30] MEDS: LIDOCAINE 4% PATCH TOP SCH (12:58)
--- NOTE | 2021-10-30 18:15 | R.PN ---
PROGRESS NOTES ENCOUNTER DATE AND TIME: 10/30/2021 18:04 (CDT) NAME RADHA LOPEZ DATE OF : 1950 DATE OF ADMISSION: 10/23/2021 18:43 (CDT) Subacute left occipital stroke with right facial weakness and visual field deficit.Late subacute righ t hemispheric stroke with left hand weaknessCHIEF COMPLAINT: Subacute left occipital stroke, late subacute right hemispheric stroke SUBJECTIVE: Pt denied any Shortness of Breath. 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 Name Plate Stamper. 3.72, HDL 37, LDL 52, WBC 6.7, Hgb 10.4. UA is positive with 20-50 bacteria, WBC 10-20, esterase 2+, cultures showed Enterococcus Raffinosus, digoxin level 1.2. Prealbumin 13.1. Self-propelled wheelchair 480 with standby assistance. Ambulated 360' with rolling walker and contact guard assistance. VITAL SIGNS Temperature: 97.7 F SBP/DBP: 132/63 Pulse: 69 Resp: 15 MEDICATION ALLERGIES: No Known Drug Allergies (NKDA) ENVIRONMENTAL ALLERGIES: - Substance Allergies None Known - Other Allergies None Known NURSING: - Shower allowing shower - Bladder care per protocol - Skin care per protocol PRECAUTIONS: - Fall Precaution Bed alarm TABS alarm Wheel chair alarm - Bleeding Risk Heparin - DVT Risk due to restricted mobility, age, and obesity - Skin Breakdown Risk due to restricted mobility and age - Cardiac Precaution Monitor blood pressure, heart rate, lower extremity edema, notify MD for shortness of breath or chest pain ACTIVITIES OOB only with supervision THERAPIES: - Dietary and Nutrition Adequate Nutrition. Nutritional Education. Nutritional Supplements. - Occupational Therapy Cognitive Retraining. Patient needs Occupational Therapy for a daily minimum of 1.5 hours at least 5 out of 7 days, to improve Activities of Daily Living, including: Eating, Grooming, Bathing, Dressing, Toileting, Toilet Transfers, Community Reintegration, Higher functional activities, Adaptive Equipme nt, Splinting, Household Tasks, and Other activities as determined. Visual Perceptual Training. - Speech Therapy Cognitive Training. Expressive Language Skills. Memory Strategies. Patient needs Speech Therapy for a daily minimum of 1.5 hours at least 5 out of 7 days, to improve: Swallowing, Cognition, Language Ski lls, and Compensatory Strategies. Receptive Language Skills. Speech Intelligibility Training. - Physical Therapy Patient needs Physical Therapy for a daily minimum of 1.5 hours at least 5 out of 7 days, to improve: Mobility, Strengthening, Transfers, Stretching, ROM, Endurance, Ability to manage stairs, Gait, and Balance. PHYSICAL EXAM - Gen Alert and awake Lying in bed No apparent distress Oriented to: person, time, and place - Skin No skin breakdown. Normacephalic - Eyes No abnormalities - ENMT No abnormalities - Neck No abnormalities - CVS IRIR - Chest No abnormalities - Abd Soft - GI nondistended Deferred - No abnormalities - Ext No significant edema - MSK 4/5 weakness in left upper and 4/5 weakness in right face. - Neuro 4/5 weakness in left upper and 4/5 weakness in right face with right visual field deficit. - Psych Mild anxiety. ASSESSMENT: Pt. is a 71 yo female of unknown race.On 10/08/2021 Pt. presented to [facility] with short ness of breath at rest, fatigue and chest discomfort along with left hand weakness not initially note d. Her EKG showed afib with rapid ventricular response and ECHO show very low EF of 22%. Her repeat c hest x-ray showed bilateral pleural effusions. She experienced shock with elevated lactic acid, proca lcitonin and severely decreased SBP to 70s for several hours. She had acute renal and liver failure t reated with hemodialysis three times per week and careful hydration. Due to her multiple complex medi mey conditions, she is significantly debilitated with stroke deficits of left hand weakness and incoo rdination along with right face weakness and visual field deficits. NIH stroke scale 4. It is necessa ry for her to have acute inpatient rehabilitation to facilitate her recovery. She received 0.5 mg of Ativan just prior brain MRI and will require 12 -24 hours of recovery time prior to beginning aggress suzanne rehab. Given her current condition, the onset of her aggressive physical, occupational and speech therapy will be delayed until Wednesday morning 10/27/21. She will have gentle therapy in bed until then. On 10/08/2021 she was admitted to [facility] with diagnosis Subacute left occipital stroke with right facial weakness and visual field deficit.On 10/08/2021 she was admitted to [facility] with diagnosis Subacute left occipital stroke with right facial weakness and visual field def icit..Due to her multiple complex medical conditions, she is significantly debilitated with stroke de ficits of left hand weakness and incoordination along with right face weakness and visual field defic its. NIH stroke scale 4. It is necessary for her to have acute inpatient rehabilitation to facilitate her recovery. She received 0.5 mg of Ativan just prior to brain MRI and will require 12 -24 hours of recovery time prior to beginning aggressive rehab. Onset of aggressive physical, occupational and s peech therapy will be delayed until Wednesday morning 10/27/21. She will have gentle therapy in bed until then.Her impairment category is Stroke - Right Body (Left Brain) (01.2).Pre-morbidly, Pt. was indepe ndent/mod-I in Self-Care and Locomotion; and she had good Safety Awareness, Balance, Transfers Contro l, and Endurance.Currently, she has deficits of Locomotion, Balance, Self-Care, Endurance, Transfers Control, and Safety Awareness.Pt. is now referred to [facility] for acute in-p atient rehabilitation in order to maximize patient's functional independence in activities of daily l iving, strength, ROM, and mobility.- Rehab Goal Patient has realistic goal of being discharged at assistance level 6-Taylor to reside at Home with Fam gerard/Relatives. Atrial fibrillation with rapid response, new onset end stage renal disease with HD 3 times weekly. Un treated fibromyalgia with generalized pain in extremities and core.MDM/PLAN: - Physical Therapy Weakness - to improve, our physical therapists will perform initial evaluation of pt's status upon a dmission and devise an individualized program for Aquatic Therapy, Neuromuscular Reeducation, and Str engthening Poor balance - to improve, our physical therapists will perform initial evaluation of pt's status up on admission and devise an individualized program for Balance Training Inability to transfer - to improve, our physical therapists will perform initial evaluation of pt's status upon admission and devise an individualized program for Bed mobility Need in caregiver upon discharge - to improve, our physical therapists will perform initial evaluati on of pt's status upon admission and devise an individualized program for Caregiver Training Poor endurance - to improve, our physical therapists will perform initial evaluation of pt's status upon admission and devise an individualized program for Endurance Training Edema - to improve, our physical therapists will perform initial evaluation of pt's status upon admi ssion and devise an individualized program for Elevation Training, and Lymphedema Therapy Gait dysfunction - to improve, our physical therapists will perform initial evaluation of pt's statu s upon admission and devise an individualized program for Gait Training, and Wheel Chair mobility Need for home safety evaluation - to improve, our physical therapists will perform initial evaluatio n of pt's status upon admission and devise an individualized program for Home Evaluation New precaution - to improve, our physical therapists will perform initial evaluation of pt's status upon admission and devise an individualized program for Patient precaution education Achieving independence - to improve, our physical therapists will perform initial evaluation of pt's status upon admission and devise an individualized program for Community Reintegration Activities - Occupational Therapy Weakness - to improve, our occupation therapists will perform initial evaluation of pt's status upon admission and devise an individualized program for Aquatic Therapy, Balance, Endurance, UE ROM, and UE strengthening ADL deficits - to improve, our occupation therapists will perform initial evaluation of pt's status upon admission and devise an individualized program for Bathing, Bed mobility, Community Reintegratio n, Cooking, Dressing, Eating, Fine Motor Skills, Grooming, Homemaking, Kitchen Mobility, Laundry, Pat ient Education, Safety Awareness, Splinting - Positioning, Transfers(Toilet, Tub, Shower), and Wheel Chair Management Need for acute care surgeon - to improve, our occupation therapists will perform initial evaluation of pt's status upon admission and devise an individualized program for Caregiver Training - Other See attached MAR (Medication Administration Record) - Diet Type Continue Regular - Diet - Liquid Texture Continue Regular - Tube Feed Continue N/A - Bleeding Risk Heparin - DVT Risk due to restricted mobility, age, and obesity - Skin Breakdown Risk due to restricted mobility and age - Cardiac Precaution Monitor blood pressure, heart rate, lower extremity edema, notify MD for shortness of breath or ches t pain - Fall Precaution Bed alarm TABS alarm Wheel chair alarm - Bladder care per protocol - Skin care per protocol - Diet - Solid Texture Continue Regular - Shower allowing shower for Dementia, TBI, Stroke, or others - Balance Training for Poor balance - Balance for Weakness - Bed mobility for Inability to transfer for ADL deficits - Cognition - orientation for Dementia - Dressing Status: indep for ADL deficits - Gait Training for Gait dysfunction - Eating for ADL deficits - Lymphedema Therapy for Edema - Grooming Status: indep for ADL deficits - Toilet Transfer for ADL deficits Status: indep - Bed to Chair Transfer spt Status: min for ADL deficits - Tub Transfer for ADL deficits Status: indep - Hygiene for ADL deficits - Shower Transfer for ADL deficits Status: indep - Wheel Chair to Bed Transfer Status: indep for ADL deficits FUNCTIONAL STATUS: UPDATED AT WEEKLY TEAM CONFERENCE - Bladder Same accident frequency: 7-Ind - No accidents in the past 7 days - Bowel Same accident frequency: 7-Ind - No accidents in the past 7 days - Walking Same score based on distance walked: 0(N/A) - Wheelchair Same score based on distance traveled: 0(N/A) FUNCTIONAL STATUS: - Self-Care A. Eating Ind B. Grooming sup C. Bathing modA D. Dressing - Upper Juliana E. Dressing - Lower modA F. Toileting sup - Sphincter Control G. Bladder control Juliana H. Bowel control Juliana - Transfers Control I. Bed/Chair/Wheelchair sup J. Toilet sup K. Tub/Shower Juliana - Locomotion L. Walk/Wheelchair (B) sup M. Stairs maxA - Communication N. Comprehension (B) sup O. Expression (B) Juliana - Social Cognition P. Social Interaction Taylor Q. Problem Solving Juliana R. Memory Juliana - Endurance Fair - Balance Good - Safety Awareness Fair QI SCORES: - Self-Care A. Eating 02-Substantial/maximal assistance B. Oral hygiene 02-Substantial/maximal assistance C. Toileting hygiene 02-Substantial/maximal assistance E. Shower/bathe self 02-Substantial/maximal assistance F. Upper body dressing 02-Substantial/maximal assistance G. Lower body dressing 02-Substantial/maximal assistance H. Putting on/taking off footwear 02-Substantial/maximal assistance - Mobility A. Roll left and right 03-Partial/moderate assistance B. Sit to lying 03-Partial/moderate assistance C. Lying to sitting on side of bed 03-Partial/moderate assistance D. Sit to stand 03-Partial/moderate assistance E. Chair/[id number]-[id number] transfer 88-Not attempted due to medical condition or safety concerns F. Toilet transfer 88-Not attempted due to medical condition or safety concerns G. Car transfer 88-Not attempted due to medical condition or safety concerns I. Walk 10 feet 88-Not attempted due to medical condition or safety concerns J. Walk 50 feet with two turns 88-Not attempted due to medical condition or safety concerns K. Walk 150 feet 88-Not attempted due to medical condition or safety concerns L. Walking 10 feet on uneven surfaces 88-Not attempted due to medical condition or safety concerns M. 1 step (curb) 88-Not attempted due to medical condition or safety concerns N. 4 steps 88-Not attempted due to medical condition or safety concerns O. 12 steps 88-Not attempted due to medical condition or safety concerns P. Picking up object 88-Not attempted due to medical condition or safety concerns R. Wheel 50 feet with two turns 09-Not applicable S. Wheel 150 feet 09-Not applicable - Bladder and Bowel Bladder continence 5-No urine output Bowel continence 1-Occasionally incontinent - Endurance Poor - Balance Fair - Safety Awareness Fair CURRENT [facility]. DEFICITS: Self-Care, Mobility, Endurance, Balance, and Safety Awareness SIGNATURE PANEL: (CDT)
[2021-10-30] MEDS: GABAPENTIN 300 MG CAP PO SCH (20:12)
[2021-10-30] MEDS: ATORVASTATIN 20 MG TAB PO SCH (20:13)
[2021-10-30] MEDS: ENSURE HIGH PROTEIN 237 ML CAN PO SCH (20:14)
--- NOTE | 2021-10-31 06:56 | P.PN ---
Subjective Date of Service: 10/31/21 Chief Complaint: SOB Subjective: No new changes Physical Examination - Vital Signs Temperature: 98.4 F Blood Pressure: 148/69 Pulse: 72 Respirations: 18 Pulse Ox (%): 95 - Physical Exam General: In no apparent distress HEENT: Atraumatic, Normocephalic Neck: Supple, JVD not distended Respiratory: Other (symmetric chest expansion) Cardiovascular: No rubs, No murmurs Gastrointestinal: Soft and benign, No rebound Musculoskeletal: No clubbing Integumentary: No warmth Neurological: Normal tone Urinary: Other (no bladder distention) External genitalia: Deferred Rectal: Deferred Assessment And Plan - Plan # JEZ 2/2 ischemic ATN from rapid afib w/ hypotension Baseline SCr 1.0 as of 10/2018 SCr 1.1 on adm, now remains HD dependent Cont HD MWF until sig renal recovery. HD today. Urinalysis inc SG, trace protein, otherwise unremarkable KUB on abd US +R renal cyst, otherwise unremarkable Urine chem non-prerenal +Nephrotic-range proteinuria, 3.3g on random UPCR. Workup neg so far. CPK low, no rhabdo HR control Keep MAP > 65 Strict I/O Monitor renal panel Outpt HD placement # Rapid afib Hx of afib on sotalol & xarelto at home BNP sig elevated, trop neg TTE w/ systolic dysfxn HR controlled On Carvedilol + Digoxin Mngt per primary team and Cardiology # Hyperkalemia Resolved HD as above # Increased anion gap w/ lactic acidosis & normal osmolal gap 2/2 hypoperfusion & renal dysfxn Toxic alcohol ingestion unlikely Monitor #Acute respiratory failure 2/2 rapid afib HR control per other services Respiratory support per other services # Secondary hyperPTH iPTH elevated at 159, monitor 25OHD 37, at goal
[2021-10-31] MEDS: ENSURE HIGH PROTEIN 237 ML CAN PO SCH ×2 (07:20→19:52)
[2021-10-31] MEDS: VENLAFAXINE HCL XR 37.5MG CAP PO SCH (07:51)
[2021-10-31] MEDS: MEGESTROL 40 MG TAB PO SCH (07:51)
[2021-10-31] MEDS: LIDOCAINE 4% PATCH TOP SCH (07:51)
[2021-10-31] MEDS: GABAPENTIN 300 MG CAP PO SCH ×2 (07:52→19:51)
[2021-10-31] MEDS: APIXABAN 5 MG TABLET PO SCH ×2 (07:52→19:50)
[2021-10-31] MEDS: carvediloL 25 MG TAB PO SCH ×2 (07:52→19:50)
[2021-10-31] MEDS: CRANBERRY FRUIT EXTRACT 400 MG CAP PO SCH ×2 (07:52→19:50)
[2021-10-31] MEDS: DIGOXIN 0.125 MG TABLET PO SCH (07:52)
[2021-10-31] MEDS: NYSTATIN PWDR 100000 UNIT/GM TOP SCH ×2 (07:53→19:52)
--- NOTE | 2021-10-31 10:11 | P.RH.PN ---
Estimated Length of Stay: 18 Expected Discharge Date: 11/10/21 Discharge Disposition Plan: Home Family Support: Yes Senior Care Goal: Mobility, Transfers, Self Care Vital Signs: Last Vital Signs Temp 98.2 F 10/31/21 09:06 Pulse 75 10/31/21 09:06 Resp 18 10/31/21 09:06 BP 144/53 H 10/31/21 09:06 Pulse Ox 92 10/31/21 09:06 Laboratory: Laboratory Last Values WBC 6.6 K/uL (4.3-10.9) 10/30/21 05:37 RBC 3.49 M/uL (3.86-4.86) L 10/30/21 05:37 Hgb 10.6 g/dL (12.0-15.0) L 10/30/21 05:37 Hct 31.8 % (36.0-45.0) L 10/30/21 05:37 MCV 91.2 fL (80-100) 10/30/21 05:37 MCH 30.5 pg (27.0-35.0) 10/30/21 05:37 MCHC 33.5 g/dL (32.0-36.0) 10/30/21 05:37 RDW 16.1 % (12.1-15.2) H 10/30/21 05:37 Plt Count 160 K/uL (152-406) 10/30/21 05:37 MPV 8.3 fL (7.6-11.3) 10/30/21 05:37 Neutrophils % 58.7 % (41.7-73.7) 10/28/21 04:25 Lymphocytes % 26.9 % (15.3-44.8) 10/28/21 04:25 Monocytes % 10.6 % (3.3-12.3) 10/28/21 04:25 Eosinophils % 2.9 % (0-4.4) 10/28/21 04:25 Basophils % 0.9 % (0-1.3) 10/28/21 04:25 Absolute Neutrophils 4.0 K/uL (1.8-8.0) 10/28/21 04:25 Absolute Lymphocytes 1.8 K/uL (0.7-4.9) 10/28/21 04:25 Absolute Monocytes 0.7 K/uL (0.1-1.3) 10/28/21 04:25 Absolute Eosinophils 0.2 K/uL (0-0.5) 10/28/21 04:25 Absolute Basophils 0.1 K/uL (0-0.5) 10/28/21 04:25 Sodium 138 mmol/L (136-145) 10/30/21 05:37 Potassium 3.5 mmol/L (3.5-5.1) 10/30/21 05:37 Chloride 105 mmol/L (98-107) 10/30/21 05:37 Carbon Dioxide 27 mmol/L (21-32) 10/30/21 05:37 Anion Gap 9.5 mEq/L (5.0-15.0) 10/30/21 05:37 BUN 10 mg/dL (7-18) 10/30/21 05:37 Creatinine 3.72 mg/dL (0.55-1.3) H D 10/30/21 05:37 Est GFR (CKD-EPI) 12 ml/min (=/>90) L 10/30/21 05:37 Glucose 83 mg/dL (74-106) 10/30/21 05:37 Calcium 8.7 mg/dL (8.5-10.1) 10/30/21 05:37 Phosphorus 3.3 mg/dL (2.5-4.9) 10/28/21 04:25 Magnesium 2.0 mg/dL (1.8-2.4) 10/30/21 05:37 Total Bilirubin 0.9 mg/dL (0.2-1.0) 10/27/21 05:49 AST 37 U/L (15-37) 10/27/21 05:49 ALT 63 U/L (12-78) 10/27/21 05:49 Alkaline Phosphatase 86 U/L (45-117) 10/27/21 05:49 Creatine Kinase 21 U/L (26-192) L D 10/27/21 11:57 CK-MB (CK-2) Cancelled 10/27/21 09:06 Troponin I High Sens 24.1 pg/mL (<58.9) 10/27/21 Unknown Serum Total Protein 5.7 g/dL (6.4-8.2) L 10/27/21 05:49 Albumin 2.9 g/dL (3.4-5.0) L 10/30/21 05:37 Globulin 3.1 g/dL (2.3-3.5) 10/27/21 05:49 Albumin/Globulin Ratio 0.8 (1.1-1.8) L 10/27/21 05:49 Prealbumin 13.1 mg/dL (20-40) L 10/30/21 05:37 Triglycerides 99 mg/dL (<150) 10/25/21 01:57 Cholesterol 109 mg/dL (<200) 10/25/21 01:57 LDL Cholesterol, Calc 52 mg/dL (<130) 10/25/21 01:57 HDL Cholesterol 37 mg/dL (40-60) L 10/25/21 01:57 Cholesterol/HDL Ratio 2.95 10/25/21 01:57 Urine Color Yellow (Yellow) 10/25/21 06:18 Urine Appearance Clear (Clear) 10/25/21 06:18 Urine pH 7.0 (5.0-7.0) 10/25/21 06:18 Ur Specific [place] 1.010 (1.005-1.030) 10/25/21 06:18 Glucose (UA)(Auto) Negative (Negative) 10/25/21 06:18 Urine Ketones Negative (Negative) 10/25/21 06:18 Urine Blood 2+ (Negative) H 10/25/21 06:18 Urine Nitrite Negative (Negative) 10/25/21 06:18 Urine Bilirubin Negative (Negative) 10/25/21 06:18 Urine Urobilinogen 0.2 mg/dL (0.2-1.0) 10/25/21 06:18 Ur Leukocyte Esterase 2+ (Negative) H 10/25/21 06:18 Urine RBC <5 /HPF (NONE SEEN) 10/25/21 06:18 Urine WBC 10-20 /HPF (<5) H 10/25/21 06:18 Ur Squamous Epith Cells <5 /HPF (NONE SEEN) 10/25/21 06:18 Ur Urothelial Cells Cancelled 10/25/21 05:30 Calcium Oxalate Crystal Cancelled 10/25/21 05:30 Uric Acid Crystals Cancelled 10/25/21 05:30 Triple Phos Crystals Cancelled 10/25/21 05:30 Other Crystals Cancelled 10/25/21 05:30 Amorphous Sediment Cancelled 10/25/21 05:30 Glitter Cells Cancelled 10/25/21 05:30 Urine Bacteria 20-50 /HPF (<20) H 10/25/21 06:18 Hyaline Casts Cancelled 10/25/21 05:30 Fine Granular Casts Cancelled 10/25/21 05:30 Coarse Granular Casts Cancelled 10/25/21 05:30 Waxy Casts Cancelled 10/25/21 05:30 RBC Casts Cancelled 10/25/21 05:30 WBC Casts Cancelled 10/25/21 05:30 Urine Mucus Cancelled 10/25/21 05:30 Urine Other Cancelled 10/25/21 05:30 Urine Trichomonas Cancelled 10/25/21 05:30 Urine Yeast Cancelled 10/25/21 05:30 Ur Yeast w Hyphae Cancelled 10/25/21 05:30 Urine Yeast (Budding) Cancelled 10/25/21 05:30 Urine Sperm Cancelled 10/25/21 05:30 Urine Culture Reflexed Not needed 10/25/21 06:18 Urine Total Volume Cancelled 10/25/21 05:30 Urine Total Protein Negative (Negative) 10/25/21 06:18 Digoxin 1.20 ng/mL (0.80-2.00) 10/23/21 21:00 SARS-CoV-2 Rap RNA(RT-PCR) Negative (NEGATIVE) 10/30/21 05:15 Weight: 266 lb 12.8 oz Wound Present: No Closed Surgical Incision Present: No Negative Pressure Wound Therapy Present: No Physician Update: She has possible UTI and will repeat UA. Fair progress with PT, SBA with transferring, 90' with rolling walker. 10 steps with CGA, Max assistance bathing,CGA for upper body dressing. Speech: has aphasia with the n eed for encouragement. Summary: Patient's care plan and care home goals have been reviewed and revised as necessary. Please see the Rehabilitation Signature page for all necessary signatures.
[2021-10-31] MEDS: LOPERAMIDE HCL 2 MG CAPSULE PO PRN (14:28)
[2021-10-31] MEDS: MEGESTROL 400 MG/10 ML UCUP PO SCH (19:50)
[2021-10-31] MEDS: ATORVASTATIN 20 MG TAB PO SCH (19:51)
[2021-11-01] MEDS: ENSURE HIGH PROTEIN 237 ML CAN PO SCH ×2 (08:00→19:42)
[2021-11-01] MEDS: APIXABAN 5 MG TABLET PO SCH ×3 (08:00→19:41)
[2021-11-01] MEDS: carvediloL 25 MG TAB PO SCH ×2 (08:46→19:42)
[2021-11-01] MEDS: CRANBERRY FRUIT EXTRACT 400 MG CAP PO SCH ×2 (08:46→19:41)
[2021-11-01] MEDS: DIGOXIN 0.125 MG TABLET PO SCH (08:46)
[2021-11-01] MEDS: GABAPENTIN 300 MG CAP PO SCH ×2 (08:47→19:41)
[2021-11-01] MEDS: NYSTATIN PWDR 100000 UNIT/GM TOP SCH ×2 (08:47→19:43)
[2021-11-01] MEDS: MEGESTROL 400 MG/10 ML UCUP PO SCH ×2 (08:48→19:41)
[2021-11-01] MEDS: LIDOCAINE 4% PATCH TOP SCH (08:48)
[2021-11-01] MEDS: VENLAFAXINE HCL XR 37.5MG CAP PO SCH (08:48)
[2021-11-01 15:20] LABS: Urine Blood 3+ (Negative); Urine Glucose Negative (Negative); Urine Protein 2+ (Negative); Urine pH 5.5 (5.0-7.0)
[2021-11-01 15:29] LABS: Urine Appearance SL CLOUDY (Clear); Urine Color DK YELLOW (Yellow); Urine Microscopic Reflex ORDER UMIC
[2021-11-01 15:32] LABS: Urine Bacteria >50 /HPF (<20); Urine RBC <5 /HPF (NONE SEEN); Urine Yeast MANY (NONE SEEN); Urine Yeast with Hyphae PRESENT
[2021-11-01 15:35] LABS: Urine Bilirubin NEGATIVE (Negative)
--- NOTE | 2021-11-01 17:03 | R.PN ---
PROGRESS NOTES ENCOUNTER DATE AND TIME: 11/01/2021 16:54 (CDT) NAME RADHA LOPEZ DATE OF : 1950 DATE OF ADMISSION: 10/23/2021 18:43 (CDT) Subacute left occipital stroke with right facial weakness and visual field deficit.Late subacute righ t hemispheric stroke with left hand weaknessCHIEF COMPLAINT: Subacute left occipital stroke, late subacute right hemispheric stroke SUBJECTIVE: Pt denied any Shortness of Breath. 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 3.72, HDL 37, LDL 52, WBC 6.7, Hgb 10.4. UA is positive with 20-50 bacteria, WBC 10-20, esterase 2+, cultures showed Enterococcus Raffinosus, digoxin level 1.2. Prealbumin 13.1. Ambulated 360' with rolling walker and contact guard assistance. Up and down 10 steps with contact gu lucie assistance. Repeat UA shows blood 3+, esterase 2+, bacteria > 50. Patient had 200 ml or urine. 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 0 VITAL SIGNS Temperature: 97.6 F SBP/DBP: 132/46 Pulse: 59 Resp: 16 MEDICATION ALLERGIES: No Known Drug Allergies (NKDA) ENVIRONMENTAL ALLERGIES: - Substance Allergies None Known - Other Allergies None Known NURSING: - Shower allowing shower - Bladder care per protocol - Skin care per protocol PRECAUTIONS: - Fall Precaution Bed alarm TABS alarm Wheel chair alarm - Bleeding Risk Heparin - DVT Risk due to restricted mobility, age, and obesity - Skin Breakdown Risk due to restricted mobility and age - Cardiac Precaution Monitor blood pressure, heart rate, lower extremity edema, notify MD for shortness of breath or chest pain ACTIVITIES OOB only with supervision THERAPIES: - Dietary and Nutrition Adequate Nutrition. Nutritional Education. Nutritional Supplements. - Occupational Therapy Cognitive Retraining. Patient needs Occupational Therapy for a daily minimum of 1.5 hours at least 5 out of 7 days, to improve Activities of Daily Living, including: Eating, Grooming, Bathing, Dressing, Toileting, Toilet Transfers, Community Reintegration, Higher functional activities, Adaptive Equipme nt, Splinting, Household Tasks, and Other activities as determined. Visual Perceptual Training. - Speech Therapy Cognitive Training. Expressive Language Skills. Memory Strategies. Patient needs Speech Therapy for a daily minimum of 1.5 hours at least 5 out of 7 days, to improve: Swallowing, Cognition, Language Ski lls, and Compensatory Strategies. Receptive Language Skills. Speech Intelligibility Training. - Physical Therapy Patient needs Physical Therapy for a daily minimum of 1.5 hours at least 5 out of 7 days, to improve: Mobility, Strengthening, Transfers, Stretching, ROM, Endurance, Ability to manage stairs, Gait, and Balance. PHYSICAL EXAM - Gen Alert and awake Lying in bed No apparent distress Oriented to: person, time, and place - Skin No skin breakdown. Normacephalic - Eyes No abnormalities - ENMT No abnormalities - Neck No abnormalities - CVS IRIR - Chest No abnormalities - Abd Soft - GI nondistended Deferred - No abnormalities - Ext No significant edema - MSK 4/5 weakness in left upper and 4/5 weakness in right face. - Neuro 4/5 weakness in left upper and 4/5 weakness in right face with right visual field deficit. - Psych Mild anxiety. ASSESSMENT: Pt. is a 71 yo female of unknown race.On 10/08/2021 Pt. presented to [facility] with short ness of breath at rest, fatigue and chest discomfort along with left hand weakness not initially note d. Her EKG showed afib with rapid ventricular response and ECHO show very low EF of 22%. Her repeat c hest x-ray showed bilateral pleural effusions. She experienced shock with elevated lactic acid, proca lcitonin and severely decreased SBP to 70s for several hours. She had acute renal and liver failure t reated with hemodialysis three times per week and careful hydration. Due to her multiple complex medi mey conditions, she is significantly debilitated with stroke deficits of left hand weakness and incoo rdination along with right face weakness and visual field deficits. NIH stroke scale 4. It is necessa ry for her to have acute inpatient rehabilitation to facilitate her recovery. She received 0.5 mg of Ativan just prior brain MRI and will require 12 -24 hours of recovery time prior to beginning aggress suzanne rehab. Given her current condition, the onset of her aggressive physical, occupational and speech therapy will be delayed until Wednesday morning 10/27/21. She will have gentle therapy in bed until then. On 10/08/2021 she was admitted to [facility] with diagnosis Subacute left occipital stroke with right facial weakness and visual field deficit.On 10/08/2021 she was admitted to [facility] with diagnosis Subacute left occipital stroke with right facial weakness and visual field def icit..Due to her multiple complex medical conditions, she is significantly debilitated with stroke de ficits of left hand weakness and incoordination along with right face weakness and visual field defic its. NIH stroke scale 4. It is necessary for her to have acute inpatient rehabilitation to facilitate her recovery. She received 0.5 mg of Ativan just prior to brain MRI and will require 12 -24 hours of recovery time prior to beginning aggressive rehab. Onset of aggressive physical, occupational and s peech therapy will be delayed until Wednesday10/27/21. She will have gentle therapy in bed until then.Her impairment category is Stroke - Right Body (Left Brain) (01.2).Pre-morbidly, Pt. was indepe ndent/mod-I in Self-Care and Locomotion; and she had good Safety Awareness, Balance, Transfers Contro l, and Endurance.Currently, she has deficits of Locomotion, Balance, Self-Care, Endurance, Transfers Control, and Safety Awareness.Pt. is now referred to [facility] for acute in-p atient rehabilitation in order to maximize patient's functional independence in activities of daily l iving, strength, ROM, and mobility.- Rehab Goal Patient has realistic goal of being discharged at assistance level 6-Taylor to reside at Home with Fam gerard/Relatives. Atrial fibrillation with rapid response, new onset end stage renal disease with HD 3 times weekly. Un treated fibromyalgia with generalized pain in extremities and core.MDM/PLAN: - Physical Therapy Weakness - to improve, our physical therapists will perform initial evaluation of pt's status upon a dmission and devise an individualized program for Aquatic Therapy, Neuromuscular Reeducation, and Str engthening Poor balance - to improve, our physical therapists will perform initial evaluation of pt's status up on admission and devise an individualized program for Balance Training Inability to transfer - to improve, our physical therapists will perform initial evaluation of pt's status upon admission and devise an individualized program for Bed mobility Need in caregiver upon discharge - to improve, our physical therapists will perform initial evaluati on of pt's status upon admission and devise an individualized program for Caregiver Training Poor endurance - to improve, our physical therapists will perform initial evaluation of pt's status upon admission and devise an individualized program for Endurance Training Edema - to improve, our physical therapists will perform initial evaluation of pt's status upon admi ssion and devise an individualized program for Elevation Training, and Lymphedema Therapy Gait dysfunction - to improve, our physical therapists will perform initial evaluation of pt's statu s upon admission and devise an individualized program for Gait Training, and Wheel Chair mobility Need for home safety evaluation - to improve, our physical therapists will perform initial evaluatio n of pt's status upon admission and devise an individualized program for Home Evaluation New precaution - to improve, our physical therapists will perform initial evaluation of pt's status upon admission and devise an individualized program for Patient precaution education Achieving independence - to improve, our physical therapists will perform initial evaluation of pt's status upon admission and devise an individualized program for Community Reintegration Activities - Occupational Therapy Weakness - to improve, our occupation therapists will perform initial evaluation of pt's status upon admission and devise an individualized program for Aquatic Therapy, Balance, Endurance, UE ROM, and UE strengthening ADL deficits - to improve, our occupation therapists will perform initial evaluation of pt's status upon admission and devise an individualized program for Bathing, Bed mobility, Community Reintegratio n, Cooking, Dressing, Eating, Fine Motor Skills, Grooming, Homemaking, Kitchen Mobility, Laundry, Pat ient Education, Safety Awareness, Splinting - Positioning, Transfers(Toilet, Tub, Shower), and Wheel Chair Management Need for home care administrator - to improve, our occupation therapists will perform initial evaluation of pt's status upon admission and devise an individualized program for Caregiver Training - Other See attached MAR (Medication Administration Record) - Diet Type Continue Regular - Diet - Liquid Texture Continue Regular - Tube Feed Continue N/A - Bleeding Risk Heparin - DVT Risk due to restricted mobility, age, and obesity - Skin Breakdown Risk due to restricted mobility and age - Cardiac Precaution Monitor blood pressure, heart rate, lower extremity edema, notify MD for shortness of breath or ches t pain - Fall Precaution Bed alarm TABS alarm Wheel chair alarm - Bladder care per protocol - Skin care per protocol - Diet - Solid Texture Continue Regular - Shower allowing shower for Dementia, TBI, Stroke, or others - Balance Training for Poor balance - Balance for Weakness - Bed mobility for Inability to transfer for ADL deficits - Cognition - orientation for Dementia - Dressing Status: indep for ADL deficits - Gait Training for Gait dysfunction - Eating for ADL deficits - Lymphedema Therapy for Edema - Grooming Status: indep for ADL deficits - Toilet Transfer for ADL deficits Status: indep - Bed to Chair Transfer spt Status: min for ADL deficits - Tub Transfer for ADL deficits Status: indep - Hygiene for ADL deficits - Shower Transfer for ADL deficits Status: indep - Wheel Chair to Bed Transfer Status: indep for ADL deficits FUNCTIONAL STATUS: UPDATED AT WEEKLY TEAM CONFERENCE - Bladder Same accident frequency: 7-Ind - No accidents in the past 7 days - Bowel Same accident frequency: 7-Ind - No accidents in the past 7 days - Walking Same score based on distance walked: 0(N/A) - Wheelchair Same score based on distance traveled: 0(N/A) FUNCTIONAL STATUS: - Self-Care A. Eating Ind B. Grooming sup C. Bathing modA D. Dressing - Upper uJliana E. Dressing - Lower modA F. Toileting sup - Sphincter Control G. Bladder control Juliana H. Bowel control Juliana - Transfers Control I. Bed/Chair/Wheelchair sup J. Toilet sup K. Tub/Shower Juliana - Locomotion L. Walk/Wheelchair (B) sup M. Stairs maxA - Communication N. Comprehension (B) sup O. Expression (B) Juliana - Social Cognition P. Social Interaction Taylor Q. Problem Solving Juliana R. Memory Juliana - Endurance Fair - Balance Good - Safety Awareness Fair QI SCORES: - Self-Care A. Eating 02-Substantial/maximal assistance B. Oral hygiene 02-Substantial/maximal assistance C. Toileting hygiene 02-Substantial/maximal assistance E. Shower/bathe self 02-Substantial/maximal assistance F. Upper body dressing 02-Substantial/maximal assistance G. Lower body dressing 02-Substantial/maximal assistance H. Putting on/taking off footwear 02-Substantial/maximal assistance - Mobility A. Roll left and right 03-Partial/moderate assistance B. Sit to lying 03-Partial/moderate assistance C. Lying to sitting on side of bed 03-Partial/moderate assistance D. Sit to stand 03-Partial/moderate assistance E. Chair/[id number]-pg-eedsp transfer 88-Not attempted due to medical condition or safety concerns F. Toilet transfer 88-Not attempted due to medical condition or safety concerns G. Car transfer 88-Not attempted due to medical condition or safety concerns I. Walk 10 feet 88-Not attempted due to medical condition or safety concerns J. Walk 50 feet with two turns 88-Not attempted due to medical condition or safety concerns K. Walk 150 feet 88-Not attempted due to medical condition or safety concerns L. Walking 10 feet on uneven surfaces 88-Not attempted due to medical condition or safety concerns M. 1 step (curb) 88-Not attempted due to medical condition or safety concerns N. 4 steps 88-Not attempted due to medical condition or safety concerns O. 12 steps 88-Not attempted due to medical condition or safety concerns P. Picking up object 88-Not attempted due to medical condition or safety concerns R. Wheel 50 feet with two turns 09-Not applicable S. Wheel 150 feet 09-Not applicable - Bladder and Bowel Bladder continence 5-No urine output Bowel continence 1-Occasionally incontinent - Endurance Poor - Balance Fair - Safety Awareness Fair [facility] DEFICITS: Self-Care, Mobility, Endurance, Balance, and Safety Awareness SIGNATURE PANEL: (CDT)
[2021-11-01] MEDS: ATORVASTATIN 20 MG TAB PO SCH (19:41)
[2021-11-01] MEDS ORDERED: TRAMADOL HCL 50 MG TAB PO PRN (23:47)
[2021-11-02] MEDS: MEGESTROL 400 MG/10 ML UCUP PO SCH ×2 (07:45→19:50)
[2021-11-02] MEDS: GABAPENTIN 300 MG CAP PO SCH ×2 (07:45→19:53)
[2021-11-02] MEDS: DIGOXIN 0.125 MG TABLET PO SCH (07:45)
[2021-11-02] MEDS: LIDOCAINE 4% PATCH TOP SCH (07:45)
[2021-11-02] MEDS: CRANBERRY FRUIT EXTRACT 400 MG CAP PO SCH ×2 (07:46→19:50)
[2021-11-02] MEDS: NYSTATIN PWDR 100000 UNIT/GM TOP SCH ×2 (07:46→19:50)
[2021-11-02] MEDS: ENSURE HIGH PROTEIN 237 ML CAN PO SCH ×2 (07:47→19:51)
[2021-11-02] MEDS: VENLAFAXINE HCL XR 37.5MG CAP PO SCH (07:47)
[2021-11-02] MEDS: carvediloL 25 MG TAB PO SCH ×2 (07:47→19:51)
[2021-11-02] MEDS: APIXABAN 5 MG TABLET PO SCH ×2 (07:48→19:50)
[2021-11-02] MEDS: TRAMADOL HCL 50 MG TAB PO PRN ×2 (13:37→19:50)
[2021-11-02] MEDS: ATORVASTATIN 20 MG TAB PO SCH (19:50)
[2021-11-03 05:37] VITALS: BMI 41.8
[2021-11-03] MEDS: APIXABAN 5 MG TABLET PO SCH ×2 (07:42→20:40)
[2021-11-03] MEDS: ENSURE HIGH PROTEIN 237 ML CAN PO SCH (08:00)
[2021-11-03] MEDS: CRANBERRY FRUIT EXTRACT 400 MG CAP PO SCH ×2 (08:03→20:40)
[2021-11-03] MEDS: DIGOXIN 0.125 MG TABLET PO SCH (08:03)
[2021-11-03] MEDS: MEGESTROL 400 MG/10 ML UCUP PO SCH ×2 (08:03→20:39)
[2021-11-03] MEDS: NYSTATIN PWDR 100000 UNIT/GM TOP SCH ×2 (08:03→20:49)
[2021-11-03] MEDS: carvediloL 25 MG TAB PO SCH ×2 (08:04→20:40)
[2021-11-03] MEDS: GABAPENTIN 300 MG CAP PO SCH ×2 (08:04→20:40)
[2021-11-03] MEDS: VENLAFAXINE HCL XR 37.5MG CAP PO SCH (08:07)
[2021-11-03 09:04] LABS: Absolute Lymphocytes (CBC) 2.4 K/uL (0.7-4.9); Hematocrit 34.9 % (36.0-45.0); Lymphocytes % 30.2 % (15.3-44.8); MPV 8.4 fL (7.6-11.3); RBC Red Blood Cell Count 3.84 M/uL (3.86-4.86)
[2021-11-03 09:06] LABS: Albumin 3.1 g/dL (3.4-5.0); Magnesium 1.8 mg/dL (1.8-2.4); Phosphorus 2.9 mg/dL (2.5-4.9); Potassium 3.3 mmol/L (3.5-5.1)
[2021-11-03] MEDS: LIDOCAINE 4% PATCH TOP SCH (09:53)
[2021-11-03 10:20] LABS: Blood Morphology Comment NOT SEEN (NOT SEEN); Platelet Estimate ADEQ
[2021-11-03] MEDS: ONDANSETRON 4 MG (ODT) TAB PO PRN (13:03)
[2021-11-03] MEDS ORDERED: ONDANSETRON 4 MG (ODT) TAB PO ONE (16:00)
--- NOTE | 2021-11-03 18:38 | R.PN ---
PROGRESS NOTES ENCOUNTER DATE AND TIME: 11/03/2021 18:34 (CDT) NAME RADHA LOPEZ DATE OF : 1950 DATE OF ADMISSION: 10/23/2021 18:43 (CDT) Subacute left occipital stroke with right facial weakness and visual field deficit.Late subacute righ t hemispheric stroke with left hand weaknessCHIEF COMPLAINT: Subacute left occipital stroke, late subacute right hemispheric stroke SUBJECTIVE: Pt denied any Shortness of Breath. 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 UA is positive with 20-50 bacteria, WBC 10-20, esterase 2+, cultures showed Enterococcus Raffinosus, digoxin level 1.2. Prealbumin 13.1. Repeat UA shows blood 3+, esterase 2+, bacteria > 50. Patient had 200 ml or urine. 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 Therapeutic exercises done with standby assistance. VITAL SIGNS Temperature: 97.2 F SBP/DBP: 159/75 Pulse: 66 Resp: 15 MEDICATION ALLERGIES: No Known Drug Allergies (NKDA) ENVIRONMENTAL ALLERGIES: - Substance Allergies None Known - Other Allergies None Known NURSING: - Shower allowing shower - Bladder care per protocol - Skin care per protocol PRECAUTIONS: - Fall Precaution Bed alarm TABS alarm Wheel chair alarm - Bleeding Risk Heparin - DVT Risk due to restricted mobility, age, and obesity - Skin Breakdown Risk due to restricted mobility and age - Cardiac Precaution Monitor blood pressure, heart rate, lower extremity edema, notify MD for shortness of breath or chest pain ACTIVITIES OOB only with supervision THERAPIES: - Dietary and Nutrition Adequate Nutrition. Nutritional Education. Nutritional Supplements. - Occupational Therapy Cognitive Retraining. Patient needs Occupational Therapy for a daily minimum of 1.5 hours at least 5 out of 7 days, to improve Activities of Daily Living, including: Eating, Grooming, Bathing, Dressing, Toileting, Toilet Transfers, Community Reintegration, Higher functional activities, Adaptive Equipme nt, Splinting, Household Tasks, and Other activities as determined. Visual Perceptual Training. - Speech Therapy Cognitive Training. Expressive Language Skills. Memory Strategies. Patient needs Speech Therapy for a daily minimum of 1.5 hours at least 5 out of 7 days, to improve: Swallowing, Cognition, Language Ski lls, and Compensatory Strategies. Receptive Language Skills. Speech Intelligibility Training. - Physical Therapy Patient needs Physical Therapy for a daily minimum of 1.5 hours at least 5 out of 7 days, to improve: Mobility, Strengthening, Transfers, Stretching, ROM, Endurance, Ability to manage stairs, Gait, and Balance. PHYSICAL EXAM - Gen Alert and awake Lying in bed No apparent distress Oriented to: person, time, and place - Skin No skin breakdown. Normacephalic - Eyes No abnormalities - ENMT No abnormalities - Neck No abnormalities - CVS IRIR - Chest No abnormalities - Abd Soft - GI nondistended Deferred - No abnormalities - Ext No significant edema - MSK 4/5 weakness in left upper and 4/5 weakness in right face. - Neuro 4/5 weakness in left upper and 4/5 weakness in right face with right visual field deficit. - Psych Mild anxiety. ASSESSMENT: Pt. is a 71 yo female of unknown race.On 10/08/2021 Pt. presented to [facility] with short ness of breath at rest, fatigue and chest discomfort along with left hand weakness not initially note d. Her EKG showed afib with rapid ventricular response and ECHO show very low EF of 22%. Her repeat c hest x-ray showed bilateral pleural effusions. She experienced shock with elevated lactic acid, proca lcitonin and severely decreased SBP to 70s for several hours. She had acute renal and liver failure t reated with hemodialysis three times per week and careful hydration. Due to her multiple complex medi mey conditions, she is significantly debilitated with stroke deficits of left hand weakness and incoo rdination along with right face weakness and visual field deficits. NIH stroke scale 4. It is necessa ry for her to have acute inpatient rehabilitation to facilitate her recovery. She received 0.5 mg of Ativan just prior brain MRI and will require 12 -24 hours of recovery time prior to beginning aggress suzanne rehab. Given her current condition, the onset of her aggressive physical, occupational and speech therapy will be delayed until Wednesday morning 10/27/21. She will have gentle therapy in bed until then. On 10/08/2021 she was admitted to [facility] with diagnosis Subacute left occipital stroke with right facial weakness and visual field deficit.On 10/08/2021 she was admitted to [facility] with diagnosis Subacute left occipital stroke with right facial weakness and visual field def icit..Due to her multiple complex medical conditions, she is significantly debilitated with stroke de ficits of left hand weakness and incoordination along with right face weakness and visual field defic its. NIH stroke scale 4. It is necessary for her to have acute inpatient rehabilitation to facilitate her recovery. She received 0.5 mg of Ativan just prior to brain MRI and will require 12 -24 hours of recovery time prior to beginning aggressive rehab. Onset of aggressive physical, occupational and s peech therapy will be delayed until Wednesday10/27/21. She will have gentle therapy in bed until then.Her impairment category is Stroke - Right Body (Left Brain) (01.2).Pre-morbidly, Pt. was indepe ndent/mod-I in Self-Care and Locomotion; and she had good Safety Awareness, Balance, Transfers Contro l, and Endurance.Currently, she has deficits of Locomotion, Balance, Self-Care, Endurance, Transfers Control, and Safety Awareness.Pt. is now referred to [facility] for acute in-p atient rehabilitation in order to maximize patient's functional independence in activities of daily l iving, strength, ROM, and mobility.- Rehab Goal Patient has realistic goal of being discharged at assistance level 6-Taylor to reside at Home with Fam gerard/Relatives. Atrial fibrillation with rapid response, new onset end stage renal disease with HD 3 times weekly. Un treated fibromyalgia with generalized pain in extremities and core.MDM/PLAN: - Physical Therapy Weakness - to improve, our physical therapists will perform initial evaluation of pt's status upon a dmission and devise an individualized program for Aquatic Therapy, Neuromuscular Reeducation, and Str engthening Poor balance - to improve, our physical therapists will perform initial evaluation of pt's status up on admission and devise an individualized program for Balance Training Inability to transfer - to improve, our physical therapists will perform initial evaluation of pt's status upon admission and devise an individualized program for Bed mobility Need in caregiver upon discharge - to improve, our physical therapists will perform initial evaluati on of pt's status upon admission and devise an individualized program for Caregiver Training Poor endurance - to improve, our physical therapists will perform initial evaluation of pt's status upon admission and devise an individualized program for Endurance Training Edema - to improve, our physical therapists will perform initial evaluation of pt's status upon admi ssion and devise an individualized program for Elevation Training, and Lymphedema Therapy Gait dysfunction - to improve, our physical therapists will perform initial evaluation of pt's statu s upon admission and devise an individualized program for Gait Training, and Wheel Chair mobility Need for home safety evaluation - to improve, our physical therapists will perform initial evaluatio n of pt's status upon admission and devise an individualized program for Home Evaluation New precaution - to improve, our physical therapists will perform initial evaluation of pt's status upon admission and devise an individualized program for Patient precaution education Achieving independence - to improve, our physical therapists will perform initial evaluation of pt's status upon admission and devise an individualized program for Community Reintegration Activities - Occupational Therapy Weakness - to improve, our occupation therapists will perform initial evaluation of pt's status upon admission and devise an individualized program for Aquatic Therapy, Balance, Endurance, UE ROM, and UE strengthening ADL deficits - to improve, our occupation therapists will perform initial evaluation of pt's status upon admission and devise an individualized program for Bathing, Bed mobility, Community Reintegratio n, Cooking, Dressing, Eating, Fine Motor Skills, Grooming, Homemaking, Kitchen Mobility, Laundry, Pat ient Education, Safety Awareness, Splinting - Positioning, Transfers(Toilet, Tub, Shower), and Wheel Chair Management Need for career services manager - to improve, our occupation therapists will perform initial evaluation of pt's status upon admission and devise an individualized program for Caregiver Training - Other See attached MAR (Medication Administration Record) - Diet Type Continue Regular - Diet - Liquid Texture Continue Regular - Tube Feed Continue N/A - Bleeding Risk Heparin - DVT Risk due to restricted mobility, age, and obesity - Skin Breakdown Risk due to restricted mobility and age - Cardiac Precaution Monitor blood pressure, heart rate, lower extremity edema, notify MD for shortness of breath or ches t pain - Fall Precaution Bed alarm TABS alarm Wheel chair alarm - Bladder care per protocol - Skin care per protocol - Diet - Solid Texture Continue Regular - Shower allowing shower for Dementia, TBI, Stroke, or others - Balance Training for Poor balance - Balance for Weakness - Bed mobility for Inability to transfer for ADL deficits - Cognition - orientation for Dementia - Dressing Status: indep for ADL deficits - Gait Training for Gait dysfunction - Eating for ADL deficits - Lymphedema Therapy for Edema - Grooming Status: indep for ADL deficits - Toilet Transfer for ADL deficits Status: indep - Bed to Chair Transfer spt Status: min for ADL deficits - Tub Transfer for ADL deficits Status: indep - Hygiene for ADL deficits - Shower Transfer for ADL deficits Status: indep - Wheel Chair to Bed Transfer Status: indep for ADL deficits FUNCTIONAL STATUS: UPDATED AT WEEKLY TEAM CONFERENCE - Bladder Same accident frequency: 7-Ind - No accidents in the past 7 days - Bowel Same accident frequency: 7-Ind - No accidents in the past 7 days - Walking Same score based on distance walked: 0(N/A) - Wheelchair Same score based on distance traveled: 0(N/A) FUNCTIONAL STATUS: - Self-Care A. Eating Ind B. Grooming sup C. Bathing modA D. Dressing - Upper Juliana E. Dressing - Lower modA F. Toileting sup - Sphincter Control G. Bladder control Juliana H. Bowel control Juliana - Transfers Control I. Bed/Chair/Wheelchair sup J. Toilet sup K. Tub/Shower Juliana - Locomotion L. Walk/Wheelchair (B) sup M. Stairs maxA - Communication N. Comprehension (B) sup O. Expression (B) Juliana - Social Cognition P. Social Interaction Taylor Q. Problem Solving Juliana R. Memory Juliana - Endurance Fair - Balance Good - Safety Awareness Fair QI SCORES: - Self-Care A. Eating 02-Substantial/maximal assistance B. Oral hygiene 02-Substantial/maximal assistance C. Toileting hygiene 02-Substantial/maximal assistance E. Shower/bathe self 02-Substantial/maximal assistance F. Upper body dressing 02-Substantial/maximal assistance G. Lower body dressing 02-Substantial/maximal assistance H. Putting on/taking off footwear 02-Substantial/maximal assistance - Mobility A. Roll left and right 03-Partial/moderate assistance B. Sit to lying 03-Partial/moderate assistance C. Lying to sitting on side of bed 03-Partial/moderate assistance D. Sit to stand 03-Partial/moderate assistance E. Chair/oxv-eh-mlowq transfer 88-Not attempted due to medical condition or safety concerns F. Toilet transfer 88-Not attempted due to medical condition or safety concerns G. Car transfer 88-Not attempted due to medical condition or safety concerns I. Walk 10 feet 88-Not attempted due to medical condition or safety concerns J. Walk 50 feet with two turns 88-Not attempted due to medical condition or safety concerns K. Walk 150 feet 88-Not attempted due to medical condition or safety concerns L. Walking 10 feet on uneven surfaces 88-Not attempted due to medical condition or safety concerns M. 1 step (curb) 88-Not attempted due to medical condition or safety concerns N. 4 steps 88-Not attempted due to medical condition or safety concerns O. 12 steps 88-Not attempted due to medical condition or safety concerns P. Picking up object 88-Not attempted due to medical condition or safety concerns R. Wheel 50 feet with two turns 09-Not applicable S. Wheel 150 feet 09-Not applicable - Bladder and Bowel Bladder continence 5-No urine output Bowel continence 1-Occasionally incontinent - Endurance Poor - Balance Fair - Safety Awareness Fair CURRENT [facility]. DEFICITS: Self-Care, Mobility, Endurance, Balance, and Safety Awareness SIGNATURE PANEL: (CDT)
[2021-11-03] MEDS: NEPRO SHAKE 237 ML CAN PO SCH ×2 (20:00→20:50)
[2021-11-03] MEDS: ATORVASTATIN 20 MG TAB PO SCH (20:40)
--- NOTE | 2021-11-04 03:29 | PN ---
Date of Progress Note: 11/03/2021 Chief Complaint: Acute kidney injury. Subjective: The patient has acute kidney injury secondary to ischemic ATN in the setting of hypotens ion related to atrial fibrillation with rapid ventricular response. Baseline creatinine level from 2018 was 1.0. The patient remains dialysis dependent. There is no evidence of renal function re covery. Urinalysis did not show active urinary sediment except there was trace protein, which goes a long with benign nephrosclerosis. Although, recent workup shows nephrotic range proteinuria __ there is no rhabdomyolysis. The patient may need renal biopsy . Review of Systems: Denies fever or chills, but complaining of some nausea and was medicated with anti-nausea medication. Objective: Lungs: Clear to auscultation bilaterally. Heart: S1 and S2. Abdomen: Soft. Extremities: Slight edema. Impression And Plan: 1.Acute kidney injury. Continue hemodialysis on Wednesday, Wednesday, and Wednesday. Re-evaluate 24 hour s' urine collection to rule out monoclonal gammopathy of unknown significance. 2.Hypertension. Monitor blood pressure closely and continue to provide dialysis with ultrafiltratio n to control . 3.Secondary hyperparathyroidism. Intact PTH was 159, which correlates with renal insufficiency. EB/MODL Voice ID: [id number] Report ID: [id number]
[2021-11-04] MEDS: TRAMADOL HCL 50 MG TAB PO PRN (06:33)
[2021-11-04] MEDS: CRANBERRY FRUIT EXTRACT 400 MG CAP PO SCH ×2 (07:45→20:38)
[2021-11-04] MEDS: DIGOXIN 0.125 MG TABLET PO SCH (07:45)
[2021-11-04] MEDS: GABAPENTIN 300 MG CAP PO SCH ×3 (07:45→20:38)
[2021-11-04] MEDS: LIDOCAINE 4% PATCH TOP SCH (07:45)
[2021-11-04] MEDS: carvediloL 25 MG TAB PO SCH ×2 (07:46→20:38)
[2021-11-04] MEDS: MEGESTROL 400 MG/10 ML UCUP PO SCH ×2 (07:46→20:39)
[2021-11-04] MEDS: APIXABAN 5 MG TABLET PO SCH ×2 (07:46→20:38)
[2021-11-04] MEDS: NEPRO SHAKE 237 ML CAN PO SCH ×3 (07:47→20:30)
[2021-11-04] MEDS: NYSTATIN PWDR 100000 UNIT/GM TOP SCH ×2 (07:47→20:38)
[2021-11-04] MEDS: VENLAFAXINE HCL XR 37.5MG CAP PO SCH (07:49)
[2021-11-04] MEDS ORDERED: levoFLOXacin 250 MG TAB PO SCH (17:00)
--- NOTE | 2021-11-04 17:32 | R.PN ---
PROGRESS NOTES ENCOUNTER DATE AND TIME: 11/04/2021 10:52 (CDT) NAME RADHA LOPEZ DATE OF : 1950 DATE OF ADMISSION: 10/23/2021 18:43 (CDT) Subacute left occipital stroke with right facial weakness and visual field deficit.Late subacute righ t hemispheric stroke with left hand weaknessCHIEF COMPLAINT: Subacute left occipital stroke, late subacute right hemispheric stroke SUBJECTIVE: Pt denied any Shortness of Breath. 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 Client Relationship Consultant. 4.45, Na 131, K 3.3, Ca 8.4 HDL 37, LDL 52, WBC 7.8, Hg 11.6.4. UA is positive with 20-50 bacter ia, WBC 10-20, esterase 2+, cultures showed Enterococcus Raffinosus, digoxin level 1.2. Prealbumin 13 .1, albumin 3.1. Repeat UA shows blood 3+, esterase 2+, bacteria > 50. Patient had 200 ml or urine. 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 Therapeutic exercises done with standby assistance. Ambulated 10' with minimum assistance using a rolling walker. VITAL SIGNS Temperature: 98.0 F SBP/DBP: 135/58 Pulse: 60 Resp: 16 MEDICATION ALLERGIES: No Known Drug Allergies (NKDA) ENVIRONMENTAL ALLERGIES: - Substance Allergies None Known - Other Allergies None Known NURSING: - Shower allowing shower - Bladder care per protocol - Skin care per protocol PRECAUTIONS: - Fall Precaution Bed alarm TABS alarm Wheel chair alarm - Bleeding Risk Heparin - DVT Risk due to restricted mobility, age, and obesity - Skin Breakdown Risk due to restricted mobility and age - Cardiac Precaution Monitor blood pressure, heart rate, lower extremity edema, notify MD for shortness of breath or chest pain ACTIVITIES OOB only with supervision THERAPIES: - Dietary and Nutrition Adequate Nutrition. Nutritional Education. Nutritional Supplements. - Occupational Therapy Cognitive Retraining. Patient needs Occupational Therapy for a daily minimum of 1.5 hours at least 5 out of 7 days, to improve Activities of Daily Living, including: Eating, Grooming, Bathing, Dressing, Toileting, Toilet Transfers, Community Reintegration, Higher functional activities, Adaptive Equipme nt, Splinting, Household Tasks, and Other activities as determined. Visual Perceptual Training. - Speech Therapy Cognitive Training. Expressive Language Skills. Memory Strategies. Patient needs Speech Therapy for a daily minimum of 1.5 hours at least 5 out of 7 days, to improve: Swallowing, Cognition, Language Ski lls, and Compensatory Strategies. Receptive Language Skills. Speech Intelligibility Training. - Physical Therapy Patient needs Physical Therapy for a daily minimum of 1.5 hours at least 5 out of 7 days, to improve: Mobility, Strengthening, Transfers, Stretching, ROM, Endurance, Ability to manage stairs, Gait, and Balance. PHYSICAL EXAM - Gen Alert and awake Lying in bed No apparent distress Oriented to: person, time, and place - Skin No skin breakdown. Normacephalic - Eyes No abnormalities - ENMT No abnormalities - Neck No abnormalities - CVS IRIR - Chest No abnormalities - Abd Soft - GI nondistended Deferred - No abnormalities - Ext No significant edema - MSK 4/5 weakness in left upper and 4/5 weakness in right face. - Neuro 4/5 weakness in left upper and 4/5 weakness in right face with right visual field deficit. - Psych Mild anxiety. ASSESSMENT: Pt. is a 71 yo female of unknown race.On 10/08/2021 Pt. presented to [facility] with short ness of breath at rest, fatigue and chest discomfort along with left hand weakness not initially note d. Her EKG showed afib with rapid ventricular response and ECHO show very low EF of 22%. Her repeat c hest x-ray showed bilateral pleural effusions. She experienced shock with elevated lactic acid, proca lcitonin and severely decreased SBP to 70s for several hours. She had acute renal and liver failure t reated with hemodialysis three times per week and careful hydration. Due to her multiple complex medi mey conditions, she is significantly debilitated with stroke deficits of left hand weakness and incoo rdination along with right face weakness and visual field deficits. NIH stroke scale 4. It is necessa ry for her to have acute inpatient rehabilitation to facilitate her recovery. She received 0.5 mg of Ativan just prior brain MRI and will require 12 -24 hours of recovery time prior to beginning aggress suzanne rehab. Given her current condition, the onset of her aggressive physical, occupational and speech therapy will be delayed until Wednesday morning 10/27/21. She will have gentle therapy in bed until then. On 10/08/2021 she was admitted to [facility] with diagnosis Subacute left occipital stroke with right facial weakness and visual field deficit.On 10/08/2021 she was admitted to [facility] with diagnosis Subacute left occipital stroke with right facial weakness and visual field def icit..Due to her multiple complex medical conditions, she is significantly debilitated with stroke de ficits of left hand weakness and incoordination along with right face weakness and visual field defic its. NIH stroke scale 4. It is necessary for her to have acute inpatient rehabilitation to facilitate her recovery. She received 0.5 mg of Ativan just prior to brain MRI and will require 12 -24 hours of recovery time prior to beginning aggressive rehab. Onset of aggressive physical, occupational and s peech therapy will be delayed until Wednesday10/27/21. She will have gentle therapy in bed until then.Her impairment category is Stroke - Right Body (Left Brain) (01.2).Pre-morbidly, Pt. was indepe ndent/mod-I in Self-Care and Locomotion; and she had good Safety Awareness, Balance, Transfers Contro l, and Endurance.Currently, she has deficits of Locomotion, Balance, Self-Care, Endurance, Transfers Control, and Safety Awareness.Pt. is now referred to [facility] for acute in-p atient rehabilitation in order to maximize patient's functional independence in activities of daily l iving, strength, ROM, and mobility.- Rehab Goal Patient has realistic goal of being discharged at assistance level 6-Taylor to reside at Home with Fam gerard/Relatives. Atrial fibrillation with rapid response, new onset end stage renal disease with HD 3 times weekly. Un treated fibromyalgia with generalized pain in extremities and core.MDM/PLAN: - Physical Therapy Weakness - to improve, our physical therapists will perform initial evaluation of pt's status upon a dmission and devise an individualized program for Aquatic Therapy, Neuromuscular Reeducation, and Str engthening Poor balance - to improve, our physical therapists will perform initial evaluation of pt's status up on admission and devise an individualized program for Balance Training Inability to transfer - to improve, our physical therapists will perform initial evaluation of pt's status upon admission and devise an individualized program for Bed mobility Need in caregiver upon discharge - to improve, our physical therapists will perform initial evaluati on of pt's status upon admission and devise an individualized program for Caregiver Training Poor endurance - to improve, our physical therapists will perform initial evaluation of pt's status upon admission and devise an individualized program for Endurance Training Edema - to improve, our physical therapists will perform initial evaluation of pt's status upon admi ssion and devise an individualized program for Elevation Training, and Lymphedema Therapy Gait dysfunction - to improve, our physical therapists will perform initial evaluation of pt's statu s upon admission and devise an individualized program for Gait Training, and Wheel Chair mobility Need for home safety evaluation - to improve, our physical therapists will perform initial evaluatio n of pt's status upon admission and devise an individualized program for Home Evaluation New precaution - to improve, our physical therapists will perform initial evaluation of pt's status upon admission and devise an individualized program for Patient precaution education Achieving independence - to improve, our physical therapists will perform initial evaluation of pt's status upon admission and devise an individualized program for Community Reintegration Activities - Occupational Therapy Weakness - to improve, our occupation therapists will perform initial evaluation of pt's status upon admission and devise an individualized program for Aquatic Therapy, Balance, Endurance, UE ROM, and UE strengthening ADL deficits - to improve, our occupation therapists will perform initial evaluation of pt's status upon admission and devise an individualized program for Bathing, Bed mobility, Community Reintegratio n, Cooking, Dressing, Eating, Fine Motor Skills, Grooming, Homemaking, Kitchen Mobility, Laundry, Pat ient Education, Safety Awareness, Splinting - Positioning, Transfers(Toilet, Tub, Shower), and Wheel Chair Management Need for transition of care specialist - to improve, our occupation therapists will perform initial evaluation of pt's status upon admission and devise an individualized program for Caregiver Training - Other See attached MAR (Medication Administration Record) - Diet Type Continue Regular - Diet - Liquid Texture Continue Regular - Tube Feed Continue N/A - Bleeding Risk Heparin - DVT Risk due to restricted mobility, age, and obesity - Skin Breakdown Risk due to restricted mobility and age - Cardiac Precaution Monitor blood pressure, heart rate, lower extremity edema, notify MD for shortness of breath or ches t pain - Fall Precaution Bed alarm TABS alarm Wheel chair alarm - Bladder care per protocol - Skin care per protocol - Diet - Solid Texture Continue Regular - Shower allowing shower for Dementia, TBI, Stroke, or others - Balance Training for Poor balance - Balance for Weakness - Bed mobility for Inability to transfer for ADL deficits - Cognition - orientation for Dementia - Dressing Status: indep for ADL deficits - Gait Training for Gait dysfunction - Eating for ADL deficits - Lymphedema Therapy for Edema - Grooming Status: indep for ADL deficits - Toilet Transfer for ADL deficits Status: indep - Bed to Chair Transfer spt Status: min for ADL deficits - Tub Transfer for ADL deficits Status: indep - Hygiene for ADL deficits - Shower Transfer for ADL deficits Status: indep - Wheel Chair to Bed Transfer Status: indep for ADL deficits FUNCTIONAL STATUS: UPDATED AT WEEKLY TEAM CONFERENCE - Bladder Same accident frequency: 7-Ind - No accidents in the past 7 days - Bowel Same accident frequency: 7-Ind - No accidents in the past 7 days - Walking Same score based on distance walked: 0(N/A) - Wheelchair Same score based on distance traveled: 0(N/A) FUNCTIONAL STATUS: - Self-Care A. Eating Ind B. Grooming sup C. Bathing modA D. Dressing - Upper Juliana E. Dressing - Lower modA F. Toileting sup - Sphincter Control G. Bladder control Juliana H. Bowel control Juliana - Transfers Control I. Bed/Chair/Wheelchair sup J. Toilet sup K. Tub/Shower Juliana - Locomotion L. Walk/Wheelchair (B) sup M. Stairs maxA - Communication N. Comprehension (B) sup O. Expression (B) Juliana - Social Cognition P. Social Interaction Taylor Q. Problem Solving Juliana R. Memory Juliana - Endurance Fair - Balance Good - Safety Awareness Fair QI SCORES: - Self-Care A. Eating 02-Substantial/maximal assistance B. Oral hygiene 02-Substantial/maximal assistance C. Toileting hygiene 02-Substantial/maximal assistance E. Shower/bathe self 02-Substantial/maximal assistance F. Upper body dressing 02-Substantial/maximal assistance G. Lower body dressing 02-Substantial/maximal assistance H. Putting on/taking off footwear 02-Substantial/maximal assistance - Mobility A. Roll left and right 03-Partial/moderate assistance B. Sit to lying 03-Partial/moderate assistance C. Lying to sitting on side of bed 03-Partial/moderate assistance D. Sit to stand 03-Partial/moderate assistance E. Chair/[id number] transfer 88-Not attempted due to medical condition or safety concerns F. Toilet transfer 88-Not attempted due to medical condition or safety concerns G. Car transfer 88-Not attempted due to medical condition or safety concerns I. Walk 10 feet 88-Not attempted due to medical condition or safety concerns J. Walk 50 feet with two turns 88-Not attempted due to medical condition or safety concerns K. Walk 150 feet 88-Not attempted due to medical condition or safety concerns L. Walking 10 feet on uneven surfaces 88-Not attempted due to medical condition or safety concerns M. 1 step (curb) 88-Not attempted due to medical condition or safety concerns N. 4 steps 88-Not attempted due to medical condition or safety concerns O. 12 steps 88-Not attempted due to medical condition or safety concerns P. Picking up object 88-Not attempted due to medical condition or safety concerns R. Wheel 50 feet with two turns 09-Not applicable S. Wheel 150 feet 09-Not applicable - Bladder and Bowel Bladder continence 5-No urine output Bowel continence 1-Occasionally incontinent - Endurance Poor - Balance Fair - Safety Awareness Fair [facility] DEFICITS: Self-Care, Mobility, Endurance, Balance, and Safety Awareness SIGNATURE PANEL: (CDT)
[2021-11-04] MEDS: ATORVASTATIN 20 MG TAB PO SCH (20:38)
[2021-11-05 04:34] LABS: Absolute Lymphocytes (CBC) 2.5 K/uL (0.7-4.9); Hematocrit 35.1 % (36.0-45.0); Lymphocytes % 28.2 % (15.3-44.8); MPV 8.2 fL (7.6-11.3); RBC Red Blood Cell Count 3.83 M/uL (3.86-4.86)
[2021-11-05 05:10] LABS: Albumin 2.9 g/dL (3.4-5.0); Digoxin Level 2.2 ng/mL (0.80-2.00); Magnesium 1.7 mg/dL (1.8-2.4); Phosphorus 2.6 mg/dL (2.5-4.9); Potassium 3.5 mmol/L (3.5-5.1); Prealbumin 17.1 mg/dL (20-40)
[2021-11-05] MEDS: VENLAFAXINE HCL XR 37.5MG CAP PO SCH (07:34)
[2021-11-05] MEDS: MEGESTROL 400 MG/10 ML UCUP PO SCH ×2 (07:35→20:25)
[2021-11-05] MEDS: NYSTATIN PWDR 100000 UNIT/GM TOP SCH ×2 (07:35→20:26)
[2021-11-05] MEDS: CRANBERRY FRUIT EXTRACT 400 MG CAP PO SCH ×2 (07:36→20:25)
[2021-11-05] MEDS: GABAPENTIN 300 MG CAP PO SCH (07:36)
[2021-11-05] MEDS: APIXABAN 5 MG TABLET PO SCH ×2 (07:36→20:25)
[2021-11-05] MEDS: NEPRO SHAKE 237 ML CAN PO SCH ×2 (07:37→20:00)
[2021-11-05] MEDS: LIDOCAINE 4% PATCH TOP SCH (07:38)
[2021-11-05] MEDS: DIGOXIN 0.125 MG TABLET PO SCH (08:00)
[2021-11-05] MEDS: carvediloL 25 MG TAB PO SCH ×2 (08:00→20:25)
--- NOTE | 2021-11-05 10:11 | P.RH.PN ---
Estimated Length of Stay: 18 Expected Discharge Date: 11/10/21 Discharge Disposition Plan: Home Family Support: Yes Halfway Goal: Mobility, Transfers, Self Care Vital Signs: Last Vital Signs Temp 96.5 F L 11/05/21 08:30 Pulse 63 11/05/21 08:30 Resp 18 11/05/21 08:30 BP 131/62 11/05/21 08:30 Pulse Ox 96 11/05/21 08:30 Laboratory: Laboratory Last Values WBC 9.0 K/uL (4.3-10.9) D 11/05/21 04:21 RBC 3.83 M/uL (3.86-4.86) L 11/05/21 04:21 Hgb 11.6 g/dL (12.0-15.0) L 11/05/21 04:21 Hct 35.1 % (36.0-45.0) L 11/05/21 04:21 MCV 91.7 fL (80-100) 11/05/21 04:21 MCH 30.4 pg (27.0-35.0) 11/05/21 04:21 MCHC 33.1 g/dL (32.0-36.0) 11/05/21 04:21 RDW 16.3 % (12.1-15.2) H 11/05/21 04:21 Plt Count 151 K/uL (152-406) L 11/05/21 04:21 MPV 8.2 fL (7.6-11.3) 11/05/21 04:21 Neutrophils % 54.9 % (41.7-73.7) 11/05/21 04:21 Lymphocytes % 28.2 % (15.3-44.8) 11/05/21 04:21 Monocytes % 12.3 % (3.3-12.3) 11/05/21 04:21 Eosinophils % 3.4 % (0-4.4) 11/05/21 04:21 Basophils % 1.2 % (0-1.3) 11/05/21 04:21 Absolute Neutrophils 4.9 K/uL (1.8-8.0) 11/05/21 04:21 Segmented Neutrophils 60 % (40-80) 11/03/21 08:32 Band Neutrophils 1 % (0-1) 11/03/21 08:32 Absolute Lymphocytes 2.5 K/uL (0.7-4.9) 11/05/21 04:21 Lymphocytes 30 % (15-42) 11/03/21 08:32 Monocytes 5 % (0-10) 11/03/21 08:32 Absolute Monocytes 1.1 K/uL (0.1-1.3) 11/05/21 04:21 Eosinophils 2 % (0-3) 11/03/21 08:32 Absolute Eosinophils 0.3 K/uL (0-0.5) 11/05/21 04:21 Basophils 2 % (0-1) H 11/03/21 08:32 Absolute Basophils 0.1 K/uL (0-0.5) 11/05/21 04:21 Platelet Estimate Adeq 11/03/21 08:32 Morphology Comment Not seen (NOT SEEN) 11/03/21 08:32 Sodium 134 mmol/L (136-145) L 11/05/21 04:21 Potassium 3.5 mmol/L (3.5-5.1) 11/05/21 04:21 Chloride 100 mmol/L (98-107) 11/05/21 04:21 Carbon Dioxide 26 mmol/L (21-32) 11/05/21 04:21 Anion Gap 11.5 mEq/L (5.0-15.0) 11/05/21 04:21 BUN 15 mg/dL (7-18) 11/05/21 04:21 Creatinine 4.38 mg/dL (0.55-1.3) H 11/05/21 04:21 Est GFR (CKD-EPI) 10 ml/min (=/>90) L 11/05/21 04:21 Glucose 104 mg/dL (74-106) 11/05/21 04:21 Calcium 8.6 mg/dL (8.5-10.1) 11/05/21 04:21 Phosphorus 2.6 mg/dL (2.5-4.9) 11/05/21 04:21 Magnesium 1.7 mg/dL (1.8-2.4) L 11/05/21 04:21 Total Bilirubin 0.9 mg/dL (0.2-1.0) 10/27/21 05:49 AST 37 U/L (15-37) 10/27/21 05:49 ALT 63 U/L (12-78) 10/27/21 05:49 Alkaline Phosphatase 86 U/L (45-117) 10/27/21 05:49 Creatine Kinase 21 U/L (26-192) L D 10/27/21 11:57 CK-MB (CK-2) Cancelled 10/27/21 09:06 Troponin I High Sens 24.1 pg/mL (<58.9) 10/27/21 Unknown NT-Pro-B Natriuret Pep 82554 pg/mL (<125) H 11/05/21 04:21 Serum Total Protein 5.7 g/dL (6.4-8.2) L 10/27/21 05:49 Albumin 2.9 g/dL (3.4-5.0) L 11/05/21 04:21 Globulin 3.1 g/dL (2.3-3.5) 10/27/21 05:49 Albumin/Globulin Ratio 0.8 (1.1-1.8) L 10/27/21 05:49 Prealbumin 17.1 mg/dL (20-40) L 11/05/21 04:21 Triglycerides 99 mg/dL (<150) 10/25/21 01:57 Cholesterol 109 mg/dL (<200) 10/25/21 01:57 LDL Cholesterol, Calc 52 mg/dL (<130) 10/25/21 01:57 HDL Cholesterol 37 mg/dL (40-60) L 10/25/21 01:57 Cholesterol/HDL Ratio 2.95 10/25/21 01:57 Urine Color Dk yellow (Yellow) 11/01/21 15:17 Urine Appearance Sl cloudy (Clear) 11/01/21 15:17 Urine pH 5.5 (5.0-7.0) 11/01/21 15:17 Ur Specific [place] 1.010 (1.005-1.030) 11/01/21 15:17 Glucose (UA)(Auto) Negative (Negative) 11/01/21 15:17 Urine Ketones Trace (Negative) H 11/01/21 15:17 Urine Blood 3+ (Negative) H 11/01/21 15:17 Urine Nitrite Negative (Negative) 11/01/21 15:17 Urine Bilirubin Negative (Negative) 11/01/21 15:17 Urine Urobilinogen 1.0 mg/dL (0.2-1.0) 11/01/21 15:17 Ur Leukocyte Esterase 2+ (Negative) H 11/01/21 15:17 Urine RBC <5 /HPF (NONE SEEN) 11/01/21 15:17 Urine WBC <5 /HPF (<5) 11/01/21 15:17 Ur Squamous Epith Cells <5 /HPF (NONE SEEN) 11/01/21 15:17 Ur Urothelial Cells Cancelled 11/01/21 13:45 Calcium Oxalate Crystal Cancelled 11/01/21 13:45 Uric Acid Crystals Cancelled 11/01/21 13:45 Triple Phos Crystals Cancelled 11/01/21 13:45 Other Crystals Cancelled 11/01/21 13:45 Amorphous Sediment Cancelled 11/01/21 13:45 Glitter Cells Cancelled 11/01/21 13:45 Urine Bacteria >50 /HPF (<20) H 11/01/21 15:17 Hyaline Casts Cancelled 11/01/21 13:45 Fine Granular Casts Cancelled 11/01/21 13:45 Coarse Granular Casts Cancelled 11/01/21 13:45 Waxy Casts Cancelled 11/01/21 13:45 RBC Casts Cancelled 11/01/21 13:45 WBC Casts Cancelled 11/01/21 13:45 Urine Mucus Cancelled 11/01/21 13:45 Urine Other Cancelled 11/01/21 13:45 Urine Trichomonas Cancelled 11/01/21 13:45 Urine Yeast Many (NONE SEEN) 11/01/21 15:17 Ur Yeast w Hyphae Present 11/01/21 15:17 Urine Yeast (Budding) Present (NONE SEEN) H 11/01/21 15:17 Urine Sperm Cancelled 11/01/21 13:45 Urine Culture Reflexed Not needed 11/01/21 15:17 Urine Total Volume Cancelled 11/01/21 13:45 Urine Total Protein 2+ (Negative) H 11/01/21 15:17 Digoxin 2.20 ng/mL (0.80-2.00) H 11/05/21 04:21 SARS-CoV-2 Rap RNA(RT-PCR) Negative (NEGATIVE) 10/30/21 05:15 Weight: 257 lb 11.2 oz Wound Present: No Closed Surgical Incision Present: No Negative Pressure Wound Therapy Present: No Physician Update: Labs reviewed. Max for bathing, lower body dressing, foot wear, mod carri upper boddy, min assistance for toileting. Ambulating 150', 165' min assistance with walker, SBA sit to stand and transfers. The patient and do not want continued home health or outpatient therapy. Will give a home exercise plan for the patient. Summary: Patient's care plan and intermediate manager goals have been reviewed and revised as necessary. Please see the Rehabilitation Signature page for all necessary signatures.
[2021-11-05] MEDS: GABAPENTIN 100 MG CAP PO SCH ×2 (14:06→20:25)
--- NOTE | 2021-11-05 14:17 | PN ---
Date of Progress Note: 11/05/2021 Physical Examination: Vital Signs: Blood pressure 131/62, pulse of 63, afebrile. Chest: Clear to auscultation. Heart: S1, S2. Systolic murmur. Abdomen: Soft, nontender. Extremity: Trace edema. Neuro: Alert. Ambulating. Using walker. Laboratory Data: WBC 9, H and H 11.6/35. Sodium 134, potassium 3.5, bicarb 26, BUN 15, creatinine 4.3, GFR of 10, calcium 8.4. Urinalysis; +2 esterase, WBC less than 5. Current Medications: The patient on include heparin, megestrol, Levaquin, Atorvastatin, carvedilol, digoxin, gabapentin, venlafaxine, Nepro, loperamide, simethicone, cranberry, tramadol. Assessment And Plan: 1. Acute kidney injury on chronic kidney disease, dialysis dependent. We will continue dialysis 3 times a week. The patient due for dialysis today. We will arrange for the dialysis. 2. Hypertension, controlled, optimal. Continue current medication. 3. Urinary tract infection. We will start the patient on Levaquin. We will follow up. 4. Anemia of chronic kidney disease. No need for TANIKA. 5. Cerebrovascular accident. Continue supportive treatment as by Neuro and Rehab. Time spent examining the patient [id number], reviewing the data of lab and radiology discussing the case with the patient reviewing the case with the seafood team member including nursing discussing the case with the hospitalist 35-minute RICHARD/RENARD Voice ID: [id number] Report ID: [id number] AMARI
[2021-11-05] MEDS: ATORVASTATIN 20 MG TAB PO SCH (20:25)
[2021-11-05] MEDS: MAGNESIUM OXIDE 400 MG TAB PO SCH (20:25)
[2021-11-06] MEDS: LIDOCAINE 4% PATCH TOP SCH (07:08)
[2021-11-06] MEDS: VENLAFAXINE HCL XR 37.5MG CAP PO SCH (07:45)
[2021-11-06] MEDS: MEGESTROL 400 MG/10 ML UCUP PO SCH ×2 (07:45→19:17)
[2021-11-06] MEDS: NYSTATIN PWDR 100000 UNIT/GM TOP SCH ×2 (07:45→19:16)
[2021-11-06] MEDS: GABAPENTIN 100 MG CAP PO SCH ×3 (07:45→19:16)
[2021-11-06] MEDS: MAGNESIUM OXIDE 400 MG TAB PO SCH ×2 (07:46→19:17)
[2021-11-06] MEDS: CRANBERRY FRUIT EXTRACT 400 MG CAP PO SCH ×2 (07:46→19:16)
[2021-11-06] MEDS: carvediloL 25 MG TAB PO SCH ×2 (07:46→19:51)
[2021-11-06] MEDS: APIXABAN 5 MG TABLET PO SCH ×2 (07:47→19:17)
[2021-11-06] MEDS: NEPRO SHAKE 237 ML CAN PO SCH ×2 (07:47→19:17)
[2021-11-06] MEDS: DIGOXIN 0.125 MG TABLET PO SCH (07:51)
[2021-11-06] MEDS ORDERED: DIGOXIN 0.125 MG TABLET PO SCH (09:00)
[2021-11-06] MEDS ORDERED: POLYETHYL GLY 3350 17 GM/DOSE PO PRN (15:31)
[2021-11-06] MEDS ORDERED: levoFLOXacin 250 MG TAB PO SCH (17:00)
[2021-11-06] MEDS: ATORVASTATIN 20 MG TAB PO SCH (19:17)
[2021-11-07] MEDS: MEGESTROL 400 MG/10 ML UCUP PO SCH ×3 (10:13→20:59)
[2021-11-07] MEDS: CRANBERRY FRUIT EXTRACT 400 MG CAP PO SCH ×2 (10:14→21:00)
[2021-11-07] MEDS: LIDOCAINE 4% PATCH TOP SCH (10:14)
[2021-11-07] MEDS: NYSTATIN PWDR 100000 UNIT/GM TOP SCH ×2 (10:14→21:02)
[2021-11-07] MEDS: GABAPENTIN 100 MG CAP PO SCH ×3 (10:15→21:01)
[2021-11-07] MEDS: carvediloL 25 MG TAB PO SCH ×2 (10:15→21:00)
[2021-11-07] MEDS: APIXABAN 5 MG TABLET PO SCH ×2 (10:15→21:00)
[2021-11-07] MEDS: NEPRO SHAKE 237 ML CAN PO SCH ×3 (10:16→21:02)
[2021-11-07] MEDS: VENLAFAXINE HCL XR 37.5MG CAP PO SCH (10:16)
[2021-11-07] MEDS: MAGNESIUM OXIDE 400 MG TAB PO SCH ×2 (10:18→21:01)
--- NOTE | 2021-11-07 11:57 | P.PN ---
Subjective Date of Service: 11/07/21 Chief Complaint: SOB Subjective: No new changes Physical Examination - Vital Signs Temperature: 96.9 F Blood Pressure: 131/58 Pulse: 66 Respirations: 16 Pulse Ox (%): 96 - Physical Exam General: In no apparent distress HEENT: Atraumatic, Normocephalic Neck: Supple, JVD not distended Respiratory: Other (Symmetric chest expansion) Cardiovascular: No rubs, No murmurs Gastrointestinal: Soft and benign, No rebound Musculoskeletal: No clubbing Integumentary: No warmth Neurological: Normal tone Urinary: Other (No bladder distention) External genitalia: Deferred Rectal: Deferred Assessment And Plan - Plan # JEZ 2/2 ischemic ATN from rapid afib w/ hypotension Baseline SCr 1.0 as of 10/2018 SCr 1.1 on adm, now remains HD dependent Cont HD MWF until sig renal recovery. HD today. Urinalysis inc SG, trace protein, otherwise unremarkable KUB on abd US +R renal cyst, otherwise unremarkable Urine chem non-prerenal +Nephrotic-range proteinuria, 3.3g on random UPCR. Workup neg. CPK low, no rhabdo HR control Keep MAP > 65 Strict I/O Monitor renal panel Outpt HD placement # Afib On Carvedilol + Digoxin # Hyperkalemia Resolved HD as above # Increased anion gap w/ lactic acidosis & normal osmolal gap 2/2 hypoperfusion & renal dysfxn Resolved HD as above #Acute respiratory failure 2/2 rapid afib, resolved Monitor # Secondary hyperPTH iPTH elevated at 159, monitor 25OHD 37, at goal # UTI Levaquin # Subacute L occipital stroke PT/OT
[2021-11-07] MEDS: TRAMADOL HCL 50 MG TAB PO PRN (20:59)
[2021-11-07] MEDS: ATORVASTATIN 20 MG TAB PO SCH (21:00)
[2021-11-07 21:24] VITALS: O2SAT 94
[2021-11-08] MEDS: APIXABAN 5 MG TABLET PO SCH (07:17)
[2021-11-08 07:20] VITALS: BP 132/59; TEMP 96.8
[2021-11-08] MEDS: LIDOCAINE 4% PATCH TOP SCH (07:56)
[2021-11-08] MEDS: MEGESTROL 400 MG/10 ML UCUP PO SCH (07:57)
[2021-11-08] MEDS: DIGOXIN 0.125 MG TABLET PO SCH (07:57)
[2021-11-08] MEDS: VENLAFAXINE HCL XR 37.5MG CAP PO SCH (07:57)
[2021-11-08] MEDS: CRANBERRY FRUIT EXTRACT 400 MG CAP PO SCH (07:57)
[2021-11-08] MEDS: GABAPENTIN 100 MG CAP PO SCH (07:57)
[2021-11-08] MEDS: MAGNESIUM OXIDE 400 MG TAB PO SCH (07:58)
[2021-11-08] MEDS: carvediloL 25 MG TAB PO SCH (07:58)
[2021-11-08] MEDS: NEPRO SHAKE 237 ML CAN PO SCH (08:00)
--- NOTE | 2021-11-08 11:39 | R.DS ---
DISCHARGE SUMMARY FACILITY [facility] MR# [id number] NAME RADHA LOPEZ AD[address]ESS [address] [place] [address] [address] [id number] PHONE DATE OF 1950 AGE 71 SSN# [id number] GENDER Female DEXTERITY Unknown dexterity MARITAL STATUS Unknown race ENCOUNTER PHYSICIAN Dr. Tk Young REFERRING DOCTOR Tk Young REFERRING FACILITY [facility] DISCHARGE DIAGNOSIS: - Stroke - Right Body (Left Brain) (01.2) Subacute left occipital stroke with right facial weakness and visual field deficit. Late subacute rig ht hemispheric stroke with left hand weakness. DISCHARGE COMORBIDITIES: - Tier 3 Morbid (severe) obesity due to excess calories (E66.01) Acute kidney failure, unspecified (N17.9) - Tier 1 Dependence on renal dialysis (Z99.2) DATE OF ADMISSION 10/23/2021 18:43 (CDT) MEDICATION ALLERGIES: No Known Drug Allergies (NKDA) ENVIRONMENTAL ALLERGIES: - Substance Allergies None Known - Other Allergies None Known DISCHARGE MEDICATIONS: Other- ContinueSee attached MAR (Medication Administration Record). NURSING: - Shower allowing shower - Bladder care per protocol - Skin care per protocol PRECAUTIONS: - Fall Precaution Bed alarm TABS alarm Wheel chair alarm - Bleeding Risk Heparin - DVT Risk due to restricted mobility, age, and obesity - Skin Breakdown Risk due to restricted mobility and age - Cardiac Precaution Monitor blood pressure, heart rate, lower extremity edema, notify MD for shortness of breath or chest pain ACTIVITIES OOB only with supervision THERAPIES: - Dietary and Nutrition Adequate Nutrition Nutritional Education Nutritional Supplements - Occupational Therapy Cognitive Retraining Patient needs Occupational Therapy for a daily minimum of 1.5 hours at least 5 out of 7 days, to impr ove Activities of Daily Living, including: Eating, Grooming, Bathing, Dressing, Toileting, Toilet Tra nsfers, Community Reintegration, Higher functional activities, Adaptive Equipment, Splinting, Househo ld Tasks, and Other activities as determined Visual Perceptual Training - Speech Therapy Cognitive Training Expressive Language Skills Memory Strategies Patient needs Speech Therapy for a daily minimum of 1.5 hours at least 5 out of 7 days, to improve: S wallowing, Cognition, Language Skills, and Compensatory Strategies Receptive Language Skills Speech Intelligibility Training - Physical Therapy Patient needs Physical Therapy for a daily minimum of 1.5 hours at least 5 out of 7 days, to improve: Mobility, Strengthening, Transfers, Stretching, ROM, Endurance, Ability to manage stairs, Gait, and Balance HISTORY OF PRESENT ILLNESS: Pt. is a 71 yo female of unknown race.On 10/08/2021 Pt. presented to [facility] with short ness of breath at rest, fatigue and chest discomfort along with left hand weakness not initially note d. Her EKG showed afib with rapid ventricular response and ECHO show very low EF of 22%. Her repeat c hest x-ray showed bilateral pleural effusions. She experienced shock with elevated lactic acid, proca lcitonin and severely decreased SBP to 70s for several hours. She had acute renal and liver failure t reated with hemodialysis three times per week and careful hydration. Due to her multiple complex medi mey conditions, she is significantly debilitated with stroke deficits of left hand weakness and incoo rdination along with right face weakness and visual field deficits. NIH stroke scale 4. It is necessa ry for her to have acute inpatient rehabilitation to facilitate her recovery. She received 0.5 mg of Ativan just prior brain MRI and will require 12 -24 hours of recovery time prior to beginning aggress suzanne rehab. Given her current condition, the onset of her aggressive physical, occupational and speech therapy will be delayed until Wednesday10/27/21. She will have gentle therapy in bed until then. On 10/08/2021 she was admitted to [facility] with diagnosis Subacute left occipital stroke with right facial weakness and visual field deficit.On 10/08/2021 she was admitted to [facility] with diagnosis Subacute left occipital stroke with right facial weakness and visual field def icit..Due to her multiple complex medical conditions, she is significantly debilitated with stroke de ficits of left hand weakness and incoordination along with right face weakness and visual field defic its. NIH stroke scale 4. It is necessary for her to have acute inpatient rehabilitation to facilitate her recovery. She received 0.5 mg of Ativan just prior to brain MRI and will require 12 -24 hours of recovery time prior to beginning aggressive rehab. Onset of aggressive physical, occupational and s peech therapy will be delayed until Wednesday10/27/21. She will have gentle therapy in bed until then.Her impairment category is Stroke - Right Body (Left Brain) (01.2).Pre-morbidly, Pt. was indepe ndent/mod-I in Self-Care and Locomotion; and she had good Safety Awareness, Balance, Transfers Contro l, and Endurance.Currently, she has deficits of Locomotion, Balance, Self-Care, Endurance, Transfers Control, and Safety Awareness.Pt. is now [facility] in order to maximize patient's functional independence in activities of daily l iving, strength, ROM, and mobility.- Rehab Goal Patient has realistic goal of being discharged at assistance level 6-Taylor to reside at Home with Fam gerard/Relatives. BLEEDING RISK: On 10/20/2021 the following precautions were added for the patient: Bleeding Risk - Heparin. On 10/27/2021 the following precautions were added for the patient: Bleeding Risk - Heparin. On 10/20/2021 the following precautions were removed for the patient: Bleeding Risk - Heparin, and Bl eeding Risk - Heparin. The following precautions were added for the patient: Cardiac Precaution - Monitor blood pressure, he art rate, lower extremity edema, notify MD for shortness of breath or chest pain. On 10/27/2021 the following precautions were added for the patient: Cardiac Precaution - Monitor blo od pressure, heart rate, lower extremity edema, notify MD for shortness of breath or chest pain. On 10/20/2021 the following precautions were removed for the patient: Cardiac Precaution - Monitor bl ood pressure, heart rate, lower extremity edema, notify MD for shortness of breath or chest pain, and Cardiac Precaution - Monitor blood pressure, heart rate, lower extremity edema, notify MD for short ness of breath or chest pain. The following precautions were added for the patient: DVT Risk - due to restricted mobility, age, and obesity. On 10/27/2021 the following precautions were added for the patient: DVT Risk - due to restricted mob ility, age, and obesity. The following precautions were removed for the patient: DVT Risk - due to restricted mobility, age, a nd obesity, and DVT Risk - due to restricted mobility, age, and obesity. On 10/20/2021 the following precautions were added for the patient: Fall Precaution - Wheel chair ala rm, Fall Precaution - TABS alarm, and Fall Precaution - Bed alarm. On 10/27/2021 the following precautions were added for the patient: Fall Precaution - Bed alarm, Fal l Precaution - TABS alarm, and Fall Precaution - Wheel chair alarm. On 10/20/2021 the following precautions were removed for the patient: Fall Precaution - Bed alarm, Fa ll Precaution - TABS alarm, Fall Precaution - Wheel chair alarm, Fall Precaution - Bed alarm, Fall P recaution - TABS alarm, and Fall Precaution - Wheel chair alarm. The following precautions were added for the patient: Skin Breakdown Risk - due to restricted mobilit y and age. On 10/27/2021 the following precautions were added for the patient: Skin Breakdown Risk - due to res tricted mobility and age. The following precautions were removed for the patient: Skin Breakdown Risk - due to restricted mobil ity and age, and Skin Breakdown Risk - due to restricted mobility and age. CARDIAC PRECAUTION: DVT RISK: DIET - LIQUID TEXTURE: On 10/20/2021 Pt was upgraded to Regular Diet - Liquid Texture. DIET - SOLID TEXTURE: On 10/20/2021 Pt was upgraded to Regular Diet - Solid Texture. DIET TYPE: On 10/20/2021 Pt was upgraded to Regular Diet Type. FALL PRECAUTION: SKIN BREAKDOWN RISK: TUBE FEED: On 10/20/2021 Pt was changed to N/A Tube Feed. DISCHARGE PHYSICAL EXAM - Gen Alert and awake Lying in bed No apparent distress Oriented to: person, time, and place - Skin No skin breakdown. Normacephalic - Eyes No abnormalities - ENMT No abnormalities - Neck No abnormalities - CVS IRIR - Chest No abnormalities - Abd Soft - GI nondistended Deferred - No abnormalities - Ext No significant edema - MSK 4/5 weakness in left upper and 4/5 weakness in right face. - Neuro 4/5 weakness in left upper and 4/5 weakness in right face with right visual field deficit. - Psych Mild anxiety. QI SCORES: - Self-Care A. Eating 02-Substantial/maximal assistance B. Oral hygiene 02-Substantial/maximal assistance C. Toileting hygiene 02-Substantial/maximal assistance E. Shower/bathe self 02-Substantial/maximal assistance F. Upper body dressing 02-Substantial/maximal assistance G. Lower body dressing 02-Substantial/maximal assistance H. Putting on/taking off footwear 02-Substantial/maximal assistance - Mobility A. Roll left and right 03-Partial/moderate assistance B. Sit to lying 03-Partial/moderate assistance C. Lying to sitting on side of bed 03-Partial/moderate assistance D. Sit to stand 03-Partial/moderate assistance E. Chair/hcl-hk-sgdti transfer 88-Not attempted due to medical condition or safety concerns F. Toilet transfer 88-Not attempted due to medical condition or safety concerns G. Car transfer 88-Not attempted due to medical condition or safety concerns I. Walk 10 feet 88-Not attempted due to medical condition or safety concerns J. Walk 50 feet with two turns 88-Not attempted due to medical condition or safety concerns K. Walk 150 feet 88-Not attempted due to medical condition or safety concerns L. Walking 10 feet on uneven surfaces 88-Not attempted due to medical condition or safety concerns M. 1 step (curb) 88-Not attempted due to medical condition or safety concerns N. 4 steps 88-Not attempted due to medical condition or safety concerns O. 12 steps 88-Not attempted due to medical condition or safety concerns P. Picking up object 88-Not attempted due to medical condition or safety concerns R. Wheel 50 feet with two turns 09-Not applicable S. Wheel 150 feet 09-Not applicable - Bladder and Bowel Bladder continence 5-No urine output Bowel continence 1-Occasionally incontinent - Endurance Poor - Balance Fair - Safety Awareness Fair DISCHARGE INSTRUCTIONS: - Followup The patient will have a incentive spirometry on 11/08/2021. DISCHARGE PLAN, FOLLOW UP CARE PROVISIONS: - Estimated Length of Stay (days) 10. - Consensus on plan Discharge plan has been discussed with primary caregiver. Patient/Family is in agreement with the vandana n. Primary caregiver is in agreement with the plan. - Patient/Family Goals Return home independently. - Planned Living Setting Upon Discharge Home, to live with Family/Relatives. Transitional Living. SIGNATURE PANEL: (CDT)
== END 2021-11-08 10:20 | disposition home or self-care (01) | DRG 308 ==
LOC: 5TH 10-23 18:25
PROVIDERS: ADMIT Psychiatry & Neurology Neurology with Special Qualifications in Child Neurology; ATTEND Psychiatry & Neurology Neurology with Special Qualifications in Child Neurology
PROC: 5A1D70Z Performance of Urinary Filtration, Intermittent, Less than 6 Hours Per Day (ICD-10-PCS; principal; 2021-10-27)
PROC: 5A1D70Z Performance of Urinary Filtration, Intermittent, Less than 6 Hours Per Day (ICD-10-PCS; 2021-10-29)
PROC: 5A1D70Z Performance of Urinary Filtration, Intermittent, Less than 6 Hours Per Day (ICD-10-PCS; 2021-10-31)
PROC: 5A1D70Z Performance of Urinary Filtration, Intermittent, Less than 6 Hours Per Day (ICD-10-PCS; 2021-11-03)
PROC: 5A1D70Z Performance of Urinary Filtration, Intermittent, Less than 6 Hours Per Day (ICD-10-PCS; 2021-11-05)
PROC: 5A1D70Z Performance of Urinary Filtration, Intermittent, Less than 6 Hours Per Day (ICD-10-PCS; 2021-11-07)
DX: I48.91 Unspecified atrial fibrillation (principal); N18.6 End stage renal disease; N17.0 Acute kidney failure with tubular necrosis; J96.00 Acute respiratory failure, unspecified whether with hypoxia or hypercapnia; I63.9 Cerebral infarction, unspecified; I12.0 Hypertensive chronic kidney disease with stage 5 chronic kidney disease or end stage renal disease; Z68.41 Body mass index [BMI] 40.0-44.9, adult; N25.81 Secondary hyperparathyroidism of renal origin; N39.0 Urinary tract infection, site not specified; R47.01 Aphasia; R29.810 Facial weakness; G83.24 Monoplegia of upper limb affecting left nondominant side; R53.81 Other malaise; I69.392 Facial weakness following cerebral infarction; Z99.2 Dependence on renal dialysis; M79.7 Fibromyalgia; E66.01 Morbid (severe) obesity due to excess calories; I69.320 Aphasia following cerebral infarction; B95.2 Enterococcus as the cause of diseases classified elsewhere; Z20.822 Contact with and (suspected) exposure to COVID-19
CPT/HCPCS: 36415; 70450; 70551; 80048; 80053; 80061; 80069; 80162; 81003; 81015; 82040; 82550; 82553; 82565; 83735; 83880; 84134; 84484; 85025; 85027; 86704; 86706; 86803; 87077; 87086; 87088; 87186; 87340; 90935; 92507; 92523; 93005; 93041; 97110; 97112; 97116; 97161; 97165; 97530; 97542; J1644; J2001; U0003

== ENCOUNTER 2021-11-10 15:50 | Emergency (ER) | payer BC ==
--- OUTSIDE RECORDS SUMMARY | 2021-11-10 15:53 | XMS REPORT | Continuity of Care Document ---
:1950 Author Organization [facility] t Address [address] [place] [id number] Care Team Providers Name Role Phone Unavailable Unavailable Unavailable Problems This patient has no known problems. Allergies, Adverse Reactions, Alerts This patient has no known allergies or adverse reactions. Medications This patient has no known medications. Procedures This patient has no known procedures. Results Test Description Test Time Test Comments Results Result Comments Source HEPATITIS B SURFACE ANTIBODY 2021-11-08 19:15:28 Test Item Value Reference Range Interpretation Comme nts HEPATITIS B SURFACE ANTIBODY (BEAKER) (test code = 647) < mIU/mL <8.0 Post Acute Care Nurse Practitioner ID - DBHEPATITIS B CORE ANTIBODY, [id number] 19:10:48 Test Item Value Reference Range Interpretation Comments HEPATITIS B CORE TOTAL ANTIBODY Nonreactive Nonreactive (BEAKER) (test code = 497) Post Acute Care Nurse Practitioner ID - DBHEPATITIS B SURFACE [id number] 19:10:47 Test Item Value Reference Range Interpretation Comments HEPATITIS B SURFACE ANTIGEN (2) Nonreactive Nonreactive (BEAKER) (test code = 2585) Specimen is considered negative for HBsAg.HEPATITIS C [id number] 19:10:47 Test Item Value Reference Range Interpretation Comments HEPATITIS C ANTIBODY (BEAKER) Nonreactive Nonreactive (test code = 367) Post Acute Care Nurse Practitioner ID - DBHEPATITIS C PCR, [id number] 18:13:08 Test Item Value Reference Range Interpretation Comments HCV RESULT COMPONENT HCV RNA not detected HCV RNA not detected (BEAKER) (test code = 2699) This test uses a Real-Time Polymerase Chain Reaction (RT-PCR) methodology and was performed using KRISTIN Ampliprep/KRISTIN TaqMan HCV test kit version 2.0 ([employer]).Reportable range for this assay is 15 - 100,000,000 IU per mL (1.18 - 8.00 Log IU/mL).HEPATITIS B SURFACE ANTIBODY 2021-10-15 22:13:18 Test Item Value Reference Range Interpretation Comments HEPATITIS B SURFACE ANTIBODY < mIU/mL <8.0 (BEAKER) (test code = 647) Post Acute Care Nurse Practitioner ID - BSHEPATITIS B CORE ANTIBODY, [id number] 22:08:40 Test Item Value Reference Range Interpretation Comments HEPATITIS B CORE IGM ANTIBODY Nonreactive Nonreactive (BEAKER) (test code = 645) Post Acute Care Nurse Practitioner ID - BSHEPATITIS B CORE ANTIBODY, [id number] 22:08:40 Test Item Value Reference Range Interpretation Comments HEPATITIS B CORE TOTAL ANTIBODY Nonreactive Nonreactive (BEAKER) (test code = 497) Post Acute Care Nurse Practitioner ID - BSHEPATITIS B SURFACE [id number] 13:45:53 Test Item Value Reference Range Interpretation Comments HEPATITIS B SURFACE ANTIBODY < mIU/mL <8.0 (BEAKER) (test code = 647) Post Acute Care Nurse Practitioner ID - JUAN JOSÉ MHEPATITIS B SURFACE [id number] 13:39:29 Test Item Value Reference Range Interpretation Comments HEPATITIS B SURFACE ANTIGEN (2) Nonreactive Nonreactive (BEAKER) (test code = 2585) Specimen is considered negative for HBsAg.
[2021-11-10 17:42] LABS: Absolute Lymphocytes (CBC) 1.9 K/uL (0.7-4.9); Hematocrit 36.1 % (36.0-45.0); Lymphocytes % 18.6 % (15.3-44.8); MPV 8.2 fL (7.6-11.3); RBC Red Blood Cell Count 3.98 M/uL (3.86-4.86)
[2021-11-10 17:44] LABS: Protime INR 2.04
[2021-11-10 17:47] LABS: Albumin 2.9 g/dL (3.4-5.0); Bilirubin Direct 0.5 mg/dL (0-0.2); Bilirubin Total 1.2 mg/dL (0.2-1.0); Magnesium 2.7 mg/dL (1.8-2.4); Potassium 4.5 mmol/L (3.5-5.1); Protein, Total 6.2 g/dL (6.4-8.2); Troponin High Sensitivity 44.3 pg/mL (<58.9)
--- NOTE | 2021-11-10 18:09 | RAD REPORT ---
EXAM DESCRIPTION: RAD - Chest Single View - 11/10/2021 5:56 pm CLINICAL HISTORY: Weakness COMPARISON: Abdomen Pelvis W/Wo Contrast dated 10/29/2021bdomen Pelvis W Contrast dated 6Chest Single View dated 10/14/2021; Chest Single View dated 10/13/2021; Chest Single View dated 022; Chest Single View dated 10/10/2021 FINDINGS: Lines: Right IJ approach dialysis catheter with distal tip overlying the SVC. Lungs: Mild increased prominence of the pulmonary vasculature Pleural: No significant pleural effusions or pneumothorax. Cardiac: Similar cardiomegaly Bones: No acute fractures. Other: IMPRESSION: Vascular congestion but no olesya pulmonary edema or consolidative airspace disease.
[2021-11-10 18:34] LABS: Blood Morphology Comment NOT SEEN (NOT SEEN); Platelet Estimate ADEQ; White Blood Cell Scan OK (OK)
--- NOTE | 2021-11-10 21:48 | ER ---
Nurse's Notes [facility] Name: Mady Wilkins Age: 71 yrs Sex: Female : 1950 Arrival Date: 11/10/2021 Time: 16:13 Bed 8 Private MD: Diagnosis: Weakness Presentation: 11/10 16:34 Chief complaint: EMS states: "pt was scheduled for her first out patient dialysis today jd3 and had problems getting into the car. the pt reports that she has been growing weaker over the last couple of days since Wednesday. she was released from the hospital on Wednesday after a 30 day stay in due to kidney failure and starting dialysis.". Coronavirus screen: At this time, the client does not indicate any symptoms associated with coronavirus-19. Ebola Screen: No symptoms or risks identified at this time. Initial Sepsis Screen: Does the patient meet any 2 criteria? No. Patient's initial sepsis screen is negative. Does the patient have a suspected source of infection? No. Patient's initial sepsis screen is negative. Risk Assessment: Do you want to hurt yourself or someone else? Patient reports no desire to harm self or others. Onset of symptoms was November 07, 2021. 16:34 Method Of Arrival: EMS: [facility] jd3 16:34 Acuity: MONTSE 3 jd3 Historical: - Allergies: 16:38 unknown antibiotic; jd3 - PMHx: 16:38 Colitis; Fibromyalgia; Atrial fibrillation; jd3 - PSHx: 16:38 right chest wall dialysis site; jd3 - Immunization history:: Adult Immunizations up to date, Client reports having NOT received the Covid vaccine. Flu vaccine is not up to date. - Social history:: Smoking status: Patient denies any tobacco usage or history of. Screenin:40 Abuse screen: Denies threats or abuse. Nutritional screening: No deficits noted. jd3 Tuberculosis screening: No symptoms or risk factors identified. Fall Risk Ambulatory Aid- Crutches/Cane/Walker (15 pts). Gait- Weak (10 pts.). Mental Status- Oriented to own ability (0 pts). Total Beauchamp Fall Scale indicates Low Risk Score (25-44 pts). Fall prevention measures have been instituted. Side Rails Up X 2 Placed close to Nursing Station Frequent Obs/Assesments occuring Family Present and informed to notify staff if they need to leave bedside. Assessment: 16:40 General: Appears in no apparent distress. uncomfortable, Behavior is calm, cooperative, jd3 appropriate for age, Reports fatigue for >3 days, general weakness X 3 days. Pain: Complains of pain in back, right leg and left leg Quality of pain is described as sharp. Neuro: Escudero Agitation-Sedation Scale (RASS): 0 - Alert and Calm Level of Consciousness is awake, alert, obeys commands, Oriented to person, place, time, situation. Cardiovascular: Denies chest pain, Capillary refill < 3 seconds Patient's skin is warm and dry. Respiratory: Airway is patent Respiratory effort is even, unlabored, Respiratory pattern is regular, symmetrical, Denies cough, shortness of breath. GI: No signs and/or symptoms were reported involving the gastrointestinal system. : No signs and/or symptoms were reported regarding the genitourinary system. EENT: No signs and/or symptoms were reported regarding the EENT system. Derm: Skin is intact, Skin is dry, Skin is normal, Skin temperature is warm. Musculoskeletal: Circulation, motion, and sensation intact. Range of motion: intact in all extremities. 17:30 Reassessment: Patient appears in no apparent distress at this time. No changes from jd3 previously documented assessment. Patient and/or family updated on plan of care and expected duration. Pain level reassessed. Patient is alert, oriented x 3, equal unlabored respirations, skin warm/dry/pink. 18:24 Reassessment: Patient appears in no apparent distress at this time. No changes from jd3 previously documented assessment. Patient and/or family updated on plan of care and expected duration. Pain level reassessed. Patient is alert, oriented x 3, equal unlabored respirations, skin warm/dry/pink. awaiting results and disposition. 20:00 Reassessment: No changes from previously documented assessment. Patient and/or family ll3 updated on plan of care and expected duration. Pain level reassessed. Patient is alert, oriented x 3, equal unlabored respirations, skin warm/dry/pink. Vital Signs: 16:39 BP 121 / 45; Pulse 81; Resp 18 S; Temp 98(TE); Pulse Ox 97% on R/A; Weight 113.4 kg jd3 (R); Height 5 ft. 6 in. (167.64 cm) (R); Pain 10/10; 17:30 BP 118 / 39; Pulse 75; Resp 18 S; Pulse Ox 99% on R/A; jd3 18:25 BP 109 / 50; Pulse 66; Resp 17 S; Pulse Ox 99% on R/A; jd3 20:00 BP 113 / 46; Pulse 64; Resp 14; Pulse Ox 98% on R/A; ll3 16:39 Body Mass Index 40.35 (113.40 kg, 167.64 cm) jd3 ED Course: 16:13 Patient arrived in ED. bp 16:14 Juvenal Mckay, RN is Primary Nurse. jd3 16:21 Riley Rose NP is PHCP. pm1 16:21 Wade Dey MD is Attending Physician. pm1 16:37 Triage completed. jd3 16:40 Arm band placed on. jd3 16:40 Patient has correct armband on for positive identification. Bed in low position. Call jd3 light in reach. Side rails up X2. Adult w/ patient. Client placed on continuous cardiac and pulse oximetry monitoring. NIBP monitoring applied. monitoring analyst on. Pulse ox on. NIBP on. 17:30 EKG done, by ED staff, reviewed by Riley Rose LAUNDRY EQUIPMENT OPERATOR. Inserted saline lock: 20 gauge jd3 in right antecubital area, using aseptic technique. Blood collected. 17:58 XRAY Chest (1 view) In Process Unspecified. EDMS 22:16 No provider procedures requiring assistance completed. IV discontinued, intact, ll3 bleeding controlled, No redness/swelling at site. Pressure dressing applied. Administered Medications: No medications were administered Medication: 16:40 VIS not applicable for this client. jd3 Outcome: 21:47 Discharge ordered by . pm1 22:16 Discharged to home via wheelchair, with family. ll3 22:16 Condition: stable 22:16 Discharge instructions given to patient, family, Instructed on discharge instructions, follow up and referral plans. Demonstrated understanding of instructions, follow-up care. 22:17 Patient left the ED. ll3 Signatures: Dispatcher [employer] EDMS Riley Rose NP LAUNDRY EQUIPMENT OPERATOR pm1 Juvenal Mckay RN RN jd3 Hermilo Martines RN RN bp Michael Vargas RN RN ll3
--- NOTE | 2021-11-10 21:48 | EDPHYS ---
Physician Documentation [facility] Name: Mady Wilkins Age: 71 yrs Sex: Female : 1950 Arrival Date: 11/10/2021 Time: 16:13 Bed 8 Private MD: AUNG Physician Wade Dey HPI: 11/10 17:03 This 71 yrs old Female presents to ER via EMS with complaints of General Weakness. pm1 17:03 The patient presents to the emergency department with weakness of the entire body, pm1 generalized weakness. Onset: The symptoms/episode began/occurred 3 day(s) ago. Context: occurred at home, Possibly due to decreased p.o. intake of food. Associated signs and symptoms: Pertinent positives: weakness, Decreased p.o. intake, Pertinent negatives: Chest pain, shortness of breath, nausea, vomiting, diarrhea. Severity of symptoms: in the emergency department the symptoms are unchanged. Current symptoms: Currently, the patient is not experiencing any symptoms. Patient admitted to the hospital 1 month ago for acute renal failure, atrial fibrillation. Patient went to rehab for approximately 3 weeks due to generalized weakness from acute renal failure and atrial fibrillation. Patient also scheduled for dialysis due to the acute renal failure. Patient last had dialysis on Wednesday and was scheduled to have dialysis today but had difficulty getting into the vehicle, full-size pickup. attempted to assist her into the vehicle but was unable to so he had to have the patient lay onto the ground until he had help from his friends. Him and his friends were unable to assist the patient up into the vehicle to take the dialysis so they call EMS to bring him to the ER for evaluation. Patient and her do not want any further admission for rehabilitation. Historical: - Allergies: 16:38 unknown antibiotic; jd3 - PMHx: 16:38 Colitis; Fibromyalgia; Atrial fibrillation; jd3 - PSHx: 16:38 right chest wall dialysis site; jd3 - Immunization history:: Adult Immunizations up to date, Client reports having NOT received the Covid vaccine. Flu vaccine is not up to date. - Social history:: Smoking status: Patient denies any tobacco usage or history of. ROS: 17:03 Cardiovascular: Negative for chest pain, palpitations, and edema, Respiratory: Negative pm1 for shortness of breath, cough, wheezing, and pleuritic chest pain, Abdomen/GI: Negative for abdominal pain, nausea, vomiting, diarrhea, and constipation, Back: Negative for injury and pain, MS/Extremity: Negative for injury and deformity, Skin: Negative for injury, rash, and discoloration. 17:03 Constitutional: Positive for fatigue, poor PO intake. 17:03 Neuro: Positive for Generalized weakness, Negative for headache, numbness, tingling. 17:03 All other systems are negative. Exam: 17:03 Constitutional: This is a well developed, well nourished patient who is awake, alert, pm1 and in no acute distress. Head/Face: Normocephalic, atraumatic. 17:03 Back: No spinal tenderness. No costovertebral tenderness. Full range of motion. Skin: Warm, dry with normal turgor. Normal color with no rashes, no lesions, and no evidence of cellulitis. MS/ Extremity: Pulses equal, no cyanosis. Neurovascular intact. Full, normal range of motion. 17:03 Eyes: Exam is negative for acute changes, Extraocular movements: no acute changes, Conjunctiva: no acute changes, no injection. 17:03 ENT: Exam is negative for acute changes, Mouth: no acute changes, Lips: normal, moist, Oral mucosa: normal, pink and intact, moist. 17:03 Cardiovascular: Exam negative for acute changes, Rate: normal, Rhythm: irregular, Pulses: no pulse deficits are appreciated. 17:03 Respiratory: Exam negative for acute changes, respiratory distress, shortness of breath, Breath sounds: are clear throughout. 17:03 Abdomen/GI: Exam negative for acute changes, Inspection: abdomen appears normal, Palpation: abdomen is soft and non-tender, in all quadrants. 17:03 Neuro: Exam negative for acute changes, Orientation: is normal, Mentation: is normal, Motor: is normal, moves all fours. Vital Signs: 16:39 BP 121 / 45; Pulse 81; Resp 18 S; Temp 98(TE); Pulse Ox 97% on R/A; Weight 113.4 kg jd3 (R); Height 5 ft. 6 in. (167.64 cm) (R); Pain 10/10; 17:30 BP 118 / 39; Pulse 75; Resp 18 S; Pulse Ox 99% on R/A; jd3 18:25 BP 109 / 50; Pulse 66; Resp 17 S; Pulse Ox 99% on R/A; jd3 20:00 BP 113 / 46; Pulse 64; Resp 14; Pulse Ox 98% on R/A; ll3 16:39 Body Mass Index 40.35 (113.40 kg, 167.64 cm) jd3 MDM: 16:21 Patient medically screened. pm1 21:46 Data reviewed: vital signs. Data interpreted: Pulse oximetry: on room air is 98 %. pm1 Interpretation: normal. Counseling: I had a detailed discussion with the patient and/or guardian regarding: the historical points, exam findings, and any diagnostic results supporting the discharge/admit diagnosis, lab results, radiology results, the need for outpatient follow up, to return to the emergency department if symptoms worsen or persist or if there are any questions or concerns that arise at home. 11/10 17:02 Order name: Basic Metabolic Panel; Complete Time: 18:19 pm1 11/10 17:02 Order name: CBC with Diff; Complete Time: 18:47 pm1 11/10 17:02 Order name: LFT's; Complete Time: 18:19 pm1 11/10 17:02 Order name: Magnesium; Complete Time: 18:19 pm1 11/10 17:02 Order name: NT PRO-BNP; Complete Time: 18:19 pm1 11/10 17:02 Order name: PT-INR; Complete Time: 18:19 pm1 11/10 17:02 Order name: Troponin HS; Complete Time: 18:19 pm1 11/10 17:02 Order name: XRAY Chest (1 view); Complete Time: 18:19 pm1 11/10 17:02 Order name: EKG; Complete Time: 17:03 pm1 11/10 17:02 Order name: Cardiac monitoring; Complete Time: 17:30 pm1 11/10 17:02 Order name: EKG - Nurse/Tech; Complete Time: 17:30 pm1 11/10 17:02 Order name: IV Saline Lock; Complete Time: 17:18 pm11/10 18:35 Order name: CBC Smear Scan; Complete Time: 18:47 EDMS 11/10 17:02 Order name: Labs collected and sent; Complete Time: 17:18 pm1 11/10 17:02 Order name: O2 Per Protocol; Complete Time: 17:18 pm1 11/10 17:02 Order name: O2 Sat Monitoring; Complete Time: 17:18 pm1 Administered Medications: No medications were administered Disposition Summary: 11/10/21 21:47 Discharge Ordered Location: Home pm1 Problem: new pm1 Symptoms: have improved pm1 Condition: Stable pm1 Diagnosis - Weakness pm1 Followup: pm1 - With: Emergency Department - When: As needed - Reason: Worsening of condition Followup: pm1 - With: Private Physician - When: 2 - 3 days - Reason: Recheck today's complaints, Continuance of care, Re-evaluation by your physician Discharge Instructions: - Discharge Summary Sheet pm1 - Weakness pm1 Forms: - Medication Reconciliation Form pm1 - Thank You Letter pm1 - Antibiotic Education pm1 - Prescription Opioid Use pm1 Signatures: Dispatcher [employer] EDRiley Selby NP LIFE ENRICHMENT DIRECTOR pm1 Juvenal Mckay RN RN jd3 Corrections: (The following items were deleted from the chart) 22:16 17:02 Urine Dipstick-Ancillary ordered. pm1 ll3
[2021-11-10 22:51] VITALS: TEMP 98
[2021-11-10 22:56] VITALS: BP 113/46; O2SAT 98
--- NOTE | 2021-11-12 07:25 | EKG ---
Test Date: 2021-11-10 Test Time: 17:21:30 Mask Designer: SCOTTIE MEASUREMENT RESULTS: Intervals: Rate: 65 IA: QRSD: 82 QT: 350 QTc: 364 [place]: P: IA: QRS: 81 T: 62 INTERPRETIVE STATEMENTS: Atrial fibrillation Low voltage QRS Nonspecific ST and T wave abnormality Abnormal ECG Compared to ECG 10/27/2021 12:03:02 Low QRS voltage now present Possible ischemia no longer present ST (T wave) deviation still present Electronically Signed On 11-12-21 07:19:16 CDT by Tobi Beverly
== END 2021-11-10 22:17 | disposition home or self-care (01) ==
LOC: ER 15:50
DX: R53.1 Weakness (principal); N17.9 Acute kidney failure, unspecified; I48.91 Unspecified atrial fibrillation
CPT/HCPCS: 36415; 71045; 80048; 80076; 83735; 83880; 84484; 85025; 85610; 93005; 99284

== ENCOUNTER 2023-08-08 18:45 | Inpatient (IN) | payer BC ==
[2023-08-08] MEDS ORDERED: dilTIAZem HCL 25 MG/5 ML VIAL IV ONE ×2 (19:31→23:23)
[2023-08-08 19:43] LABS: Absolute Basophils 0.1 K/uL (0-0.5); Absolute Eosinophils 0.4 K/uL (0-0.5); Absolute Monocytes 0.8 K/uL (0.1-1.3); Hemoglobin 14.5 g/dL (12.0-15.0)
[2023-08-08 19:53] LABS: Absolute Lymphocytes (CBC) 1.9 K/uL (0.7-4.9); Absolute Neutrophil 6.4 K/uL (1.8-8.0); Basophils % 1.1 % (0-1.3); Eosinophils % 3.8 % (0-4.4); Hematocrit 43.3 % (36.0-45.0); Lymphocytes % 19.8 % (15.3-44.8); MCHC 33.5 g/dL (32.0-36.0); MCV 95.6 fL (80-100); MPV 8.4 fL (7.6-11.3); Monocytes % 7.9 % (3.3-12.3); Neutrophils % 67.4 % (41.7-73.7); Nucleated Red Blood Cells % 0.2 % (0-0); Platelets 288 thou/uL (152-406); RBC Red Blood Cell Count 4.53 M/uL (3.86-4.86); Red Cell Distribution Width 17.2 % (12.1-15.2)
[2023-08-08 20:00] LABS: Anion Gap 13.8 mEq/L (5.0-15.0); Magnesium 1.9 mg/dL (1.6-2.4); Potassium 3.8 mEq/L (3.5-5.1); Thyroid Stimulating Hormone 2.79 uIU/mL (0.358-3.740); Troponin High Sensitivity 7.2 pg/mL (<58.9)
--- NOTE | 2023-08-08 21:48 | RAD REPORT ---
EXAM DESCRIPTION: RADChest Single View08/08/2023 9:08 pm CLINICAL HISTORY: DYSPNEA COMPARISON: Chest Single View dated 11/10/2021; Chest Single View dated 10/14/2021; Chest Single View dated 10/13/2021; Chest Single View dated 10/11/2021; Chest For Pe Angio dated 08/08/2023 TECHNIQUE: Portable AP view of the chest. FINDINGS: New patchy right basilar airspace opacity with small right effusion. Trace left versus ple ural thickening, stable. No pneumothorax. The cardiomediastinal contours are unremarkable. IMPRESSION: New patchy right basilar airspace opacity with new small effusion, may reflect atelectas is or pneumonia.
--- NOTE | 2023-08-08 21:58 | RAD REPORT ---
EXAM DESCRIPTION: CT - Chest For Pe Angio - 08/08/2023 9:25 pm CLINICAL HISTORY: DYSPNEA COMPARISON: Chest Single View dated 08/08/2023 TECHNIQUE: Thin axial CT images of the chest were obtained following administration of iodinated co ntrast intravenously. Multiplanar reconstructions, and maximum intensity projection reconstructions w ere generated and reviewed. Exam utilizes a protocol for optimal evaluation of pulmonary arterial shavonne e. All CT scans are performed using dose optimization technique as appropriate and may include automated exposure control or mA/KV adjustment according to patient size. FINDINGS: Bilateral pulmonary emboli starting at the right and left distal pulmonary arteries extend ing into branches to the left upper and lower lobes and right middle and lower lobes, mostly subocclu sive, although there are some occluded third order right lower lobe branches. No evidence of right he art strain. No acute or significant aorta findings. Subsegmental dependent opacities in the right more than left lower lobes. Small right pleural effusio n. . No pneumothorax. No abnormal mediastinal or hilar masses or lymphadenopathy seen. No chest wall mass or abnormal axill iary lymphadenopathy. IMPRESSION: Large burden of bilateral pulmonary emboli as above. Subsegmental dependent opacities in the right more than left lower lobes likely relate to atelectasis . Small right pleural effusion. The findings were communicated to on 08/08/2023 at 21:51 hours.
--- NOTE | 2023-08-08 22:06 | ER ---
Nurse's Notes [facility] Name: Mady Wilkins Age: 73 yrs Sex: Female : 1950 Arrival Date: 08/08/2023 Time: 18:45 Bed 6 Private MD: Diagnosis: Unspecified atrial fibrillation;Pulmonary embolism without acute cor pulmonale Presentation: 08/07 18:55 Chief complaint: EMS states: SHORTNESS OF BREATH x3 WK. Coronavirus screen: At this bp time, the client does not indicate any symptoms associated with coronavirus-19. Ebola Screen: No symptoms or risks identified at this time. Initial Sepsis Screen: Does the patient meet any 2 criteria? HR > 90 bpm. No. Patient's initial sepsis screen is negative. Does the patient have a suspected source of infection? No. Patient's initial sepsis screen is negative. Risk Assessment: Do you want to hurt yourself or someone else? Patient reports no desire to harm self or others. Onset of symptoms is unknown. 18:55 Method Of Arrival: EMS: [facility] bp 18:55 Acuity: MONTSE 3 bp Triage Assessment: 18:56 General: Appears distressed, obese, Behavior is calm, cooperative, appropriate for age. bp Pain: Denies pain. Respiratory: Reports shortness of breath Onset: The symptoms/episode began/occurred at an unknown time. the patient has mild shortness of breath. Historical: - Allergies: 18:56 ACETAMINOPHEN; bp 18:56 Tramadol HCl; bp - PMHx: 18:56 Atrial fibrillation; Colitis; Fibromyalgia; bp - PSHx: 18:56 right chest wall dialysis site; bp - Immunization history:: Adult Immunizations up to date. - Social history:: Smoking status: Patient denies any tobacco usage or history of. Screenin:[address] [facility] ED Fall Risk Assessment (Adult) History of falling in the last 3 months, bp including since admission No falls in past 3 months (0 pts) Confusion or Disorientation No (0 pts) Intoxicated or Sedated No (0 pts) Impaired Gait No (0 pts) Mobility Assist Device Used No (0 pt) Altered Elimination No (0 pt). Abuse screen: Denies threats or abuse. Denies injuries from another. Nutritional screening: No deficits noted. Tuberculosis screening: No symptoms or risk factors identified. Assessment: 18:58 General: SEE TRIAGE NOTE. bp 19:00 General: Appears in no apparent distress. comfortable, obese, well groomed, well pf1 developed, Behavior is calm, cooperative, appropriate for age, quiet. 19:00 Pain: Denies pain. Neuro: No deficits noted. Level of Consciousness is awake, alert, pf1 obeys commands, Oriented to person, place, time, situation, Reports weakness in generalized since 3 weeks. Cardiovascular: Reports shortness of breath, Capillary refill < 3 seconds Patient's skin is warm and dry. Rhythm is atrial fibrillation with rapid ventricular response. Respiratory: No deficits noted. Reports shortness of breath at rest since 3 weeks Airway is patent Respiratory effort is even, unlabored. GI: No deficits noted. No signs and/or symptoms were reported involving the gastrointestinal system. Abdomen is round non-distended, Bowel sounds present X 4 quads. Abd is soft and non tender X 4 quads. : No deficits noted. No signs and/or symptoms were reported regarding the genitourinary system. EENT: No deficits noted. No signs and/or symptoms were reported regarding the EENT system. Derm: No deficits noted. No signs and/or symptoms reported regarding the dermatologic system. Musculoskeletal: Reports weakness in generalized. 19:00 Respiratory: Breath sounds are diminished. as9 20:00 Reassessment: Patient appears in no apparent distress at this time. Patient and/or pf1 family updated on plan of care and expected duration. Pain level reassessed. Patient is alert, oriented x 3, equal unlabored respirations, skin warm/dry/pink. 21:00 Reassessment: Patient appears in no apparent distress at this time. Patient and/or pf1 family updated on plan of care and expected duration. Pain level reassessed. Patient is alert, oriented x 3, equal unlabored respirations, skin warm/dry/pink. Patient states symptoms have improved. Vital Signs: 18:55 BP 146 / 79; Pulse 140; Resp 20; Temp 98; Pulse Ox 96% ; bp 19:00 BP 214 / 86; Pulse 127; Resp 17; Temp 98; Pulse Ox 98% on R/A; Pain 0/10; pf1 20:00 BP 137 / 79; Pulse 94; Resp 14; Pulse Ox 100% on R/A; Pain 0/10; pf1 20:30 BP 141 / 76; Pulse 106; Resp 16; Pulse Ox 100% on R/A; Pain 0/10; pf1 21:00 BP 147 / 109; Pulse 115; Resp 14; Pulse Ox 100% on 2 lpm NC; Pain 0/10; pf1 23:00 BP 152 / 103; Pulse 129; Resp 18; Temp 98.1; Pulse Ox 100% on 2 lpm NC; Weight 120.2 kg;as9 19:00 Pain Scale: Adult pf1 20:00 Pain Scale: Adult pf1 20:30 Pain Scale: Adult pf1 21:00 Pain Scale: Adult pf1 ED Course: 18:54 Patient arrived in ED. bp 18:56 Triage completed. bp 18:56 Arm band placed on. bp 18:58 Patient has correct armband on for positive identification. bp 18:58 Maintain EMS IV. Dressing intact. Good blood return noted. Site clean \T\ dry. Gauge \T\ bp site: 20 GA LEFT AC. 19:10 Door closed. Noise minimized. Warm blanket given. pf1 19:11 Lys[facility] Porter [facility]-C [facility]. kb 19:11 Radha Iniguez MD is Attending Physician. kb 19:18 Client placed on continuous cardiac and pulse oximetry monitoring. NIBP monitoring oe applied. websphere architect on. 19:18 EKG done, by clean room technician. reviewed by Lyssa [place]. oe 19:35 Basic Metabolic Panel Sent. oe 19:35 CBC with Diff Sent. oe 19:35 Magnesium Sent. oe 19:35 Troponin HS Sent. oe 21:00 IV discontinued, intact, bleeding controlled, No redness/swelling at site. Pressure pf1 dressing applied, 20 gauge to LAC removed that was placed by EMS. 21:00 No provider procedures requiring assistance completed. pf1 21:04 Inserted saline lock: 18 gauge in right antecubital area, using aseptic technique. jb4 21:09 XRAY Chest (1 view) In Process Unspecified. EDMS 21:27 CT Chest For PE Angio In Process Unspecified. EDMS 22:05 Tk Young MD is Hospitalizing Provider. kb 22:05 Provided Education on: need for admit. as9 08/08 08:39 Katt Huggins, RN is Primary Nurse. ko1 Administered Medications: 08/07 19:36 Drug: Diltiazem IVP 20 mg IVP once; Over 2 minutes Route: IVP; Site: left antecubital; pf1 20:30 Follow up: Response: No adverse reaction; Marked relief of symptoms pf1 23:45 Drug: Enoxaparin Sub-Q 1 mg/kg Sub-Q once Route: Sub-Q; Site: left lower abdomen; as9 08/08 00:21 Follow up: Response: No adverse reaction as9 08/07 23:46 Drug: Diltiazem IV 5 mg/hr IV at calculated rate See Administration Instructions; as9 (standard dilution 125 mg diltiazem mixed in 125 mL NS; final concentration 1mg/mL). Recommended max rate 15 mg/hr; Titrate 5 mg/hr as often as every 15 minutes to achieve goal (see titration policy); Goal parameter HR less than 100 bpm Route: IV; Rate: calculated rate; Site: right antecubital; 08/08 00:15 Follow up: Rate change 10 mg/hr as9 00:30 Follow up: Rate change 15 mg/hr as9 Medication: 08/07 18:58 VIS not applicable for this client. bp Outcome: 22:05 Decision to Hospitalize by Provider. kb 23:29 Admitted to ER Hold. Please see [facility] for further documentation. as9 23:29 Condition: good 23:29 Instructed on the need for admit, 08/08 16:29 Patient left the ED. ko1 Signatures: Dispatcher [employer] EDMS Lyssa Porter, DIRECTOR INSURANCE-C DIRECTOR INSURANCE-Antione Juarez RN RN jb4 Fuad Carlson Brian RN RN bp Katt Huggins RN RN ko1 Shirley Ruiz, VICKI RN pf1 Ra Andrea, VICKI RN as9 Corrections: (The following items were deleted from the chart) 03:07 03:05 Respiratory: as9 as9 04:51 17 22:05 Admitted to ER Hold. Please see [facility] for further documentation. as9 08/08 04:51 08/07 22:05 Condition: good as9 9 08/08 04:51 08/07 22:05 Instructed on the need for admit, as9 as9
--- NOTE | 2023-08-08 22:06 | EDPHYS ---
Physician Documentation [facility] Name: Mady Wilkins Age: 73 yrs Sex: Female : 1950 Arrival Date: 08/08/2023 Time: 18:45 Bed 6 Private MD: ED Physician Radha Iniguez HPI: 08/07 23:16 This 73 yrs old Female presents to ER via EMS with complaints of Shortness Of Breath. kb 23:16 Pt is a 73 year old female who presents for cough and fatigue for 3 weeks with kb shortness of breath that started this afternoon. Family states pt has not taken any prescribed medication in a long time. . Historical: - Allergies: 18:56 ACETAMINOPHEN; bp 18:56 Tramadol HCl; bp - PMHx: 18:56 Atrial fibrillation; Colitis; Fibromyalgia; bp - PSHx: 18:56 right chest wall dialysis site; bp - Immunization history:: Adult Immunizations up to date. - Social history:: Smoking status: Patient denies any tobacco usage or history of. ROS: 23:14 Constitutional: As per HPI kb Exam: 23:14 Constitutional: This is a well developed, well nourished patient who is awake, alert, kb and in no acute distress. Head/Face: Normocephalic, atraumatic. ENT: Moist Mucous membranes Respiratory: Respirations even and unlabored. No increased work of breathing. Talking in full sentences Abdomen/GI: Soft, non-tender. No distention Skin: Warm, dry with normal turgor. Normal color. MS/ Extremity: Pulses equal, no cyanosis. Neurovascular intact. Full, normal range of motion. Neuro: Awake and alert, GCS 15, oriented to person, place, time, and situation. Moves all extremities. Normal gait. 23:14 Cardiovascular: Rate: tachycardic, Rhythm: irregularly irregular, Vital Signs: 18:55 BP 146 / 79; Pulse 140; Resp 20; Temp 98; Pulse Ox 96% ; bp 19:00 BP 214 / 86; Pulse 127; Resp 17; Temp 98; Pulse Ox 98% on R/A; Pain 0/10; pf1 20:00 BP 137 / 79; Pulse 94; Resp 14; Pulse Ox 100% on R/A; Pain 0/10; pf1 20:30 BP 141 / 76; Pulse 106; Resp 16; Pulse Ox 100% on R/A; Pain 0/10; pf1 21:00 BP 147 / 109; Pulse 115; Resp 14; Pulse Ox 100% on 2 lpm NC; Pain 0/10; pf1 23:00 BP 152 / 103; Pulse 129; Resp 18; Temp 98.1; Pulse Ox 100% on 2 lpm NC; Weight 120.2 kg;as9 19:00 Pain Scale: Adult pf1 20:00 Pain Scale: Adult pf1 20:30 Pain Scale: Adult pf1 21:00 Pain Scale: Adult pf1 MDM: 19:11 Patient medically screened. kb 21:51 Data reviewed: vital signs, nurses notes. kb 23:15 Differential diagnosis: pneumonia, Pulmonary Embolism abnormal ekg, arrhythmia. kb Consideration of Admission/Observation Patient was admitted/placed on observation. Escalation of care including admission/observation considered. Management of patient was discussed with the following: Hospitalist: Dr Young accepts pt for admission. Counseling: I had a detailed discussion with the patient and/or guardian regarding the historical points, exam findings, and any diagnostic results supporting the discharge/admit diagnosis, lab results, radiology results, the need for further work-up and treatment in the hospital. 08/07 19:18 Order name: Basic Metabolic Panel; Complete Time: 20:02 kb 08/07 19:18 Order name: CBC with Diff; Complete Time: 20:20 kb 08/07 19:18 Order name: Magnesium; Complete Time: 20:02 kb 08/07 19:18 Order name: Troponin HS; Complete Time: 20:02 kb 08/07 19:19 Order name: TSH; Complete Time: 20:02 kb 08/07 23:14 Order name: CBC with Automated Diff EDMS 08/07 23:14 Order name: CBC with Automated Diff EDMS 08/07 23:14 Order name: Comprehensive Metabolic Panel EDMS 08/07 23:14 Order name: Comprehensive Metabolic Panel EDMS 08/07 23:14 Order name: Lipid Profile EDMS 08/07 23:14 Order name: Lipid Profile EDMS 08/07 23:14 Order name: Liver (Hepatic) Function EDMS 08/07 23:14 Order name: Liver (Hepatic) Function EDMS 08/07 23:14 Order name: Magnesium EDMS 08/07 23:14 Order name: Magnesium EDMS 08/07 23:14 Order name: NT PRO-BNP EDMS 08/07 23:14 Order name: NT PRO-BNP EDMS 08/07 23:14 Order name: Phosphorus EDMS 08/07 23:14 Order name: Phosphorus EDMS 08/07 23:14 Order name: T4 Free EDMS 08/07 23:14 Order name: T4 Free EDMS 08/07 23:14 Order name: Thyroid Stimulating Hormone EDMS 08/07 23:14 Order name: Thyroid Stimulating Hormone EDMS 08/07 23:14 Order name: Troponin High Sensitivity EDMS 08/07 23:14 Order name: Troponin High Sensitivity EDMS 08/07 23:14 Order name: Troponin High Sensitivity EDMS 08/07 23:14 Order name: Troponin High Sensitivity EDMS 08/08 08:24 Order name: Glucose, Ancillary Testing EDMS 08/08 09:27 Order name: PTT, Activated Partial Thromb EDMS 08/08 15:38 Order name: PTT, Activated Partial Thromb EDMS 08/07 19:18 Order name: XRAY Chest (1 view); Complete Time: 21:53 kb 08/07 20:03 Order name: CT Chest For PE Angio; Complete Time: 22:03 kb 08/07 23:14 Order name: Echo with Doppler EDMS 08/07 19:18 Order name: EKG; Complete Time: 19:19 kb 08/07 23:14 Order name: CONS Physician Consult EDMS 08/07 23:14 Order name: Physical Therapy Consult EDMS 08/07 19:18 Order name: Cardiac monitoring; Complete Time: 19:21 kb 08/07 19:18 Order name: EKG - Nurse/Tech; Complete Time: 19:21 kb 08/07 19:18 Order name: IV Saline Lock; Complete Time: 19:25 kb 08/07 19:18 Order name: Labs collected and sent; Complete Time: 19:34 kb 08/07 19:18 Order name: O2 Per Protocol; Complete Time: 19:25 kb 08/07 19:18 Order name: O2 Sat Monitoring; Complete Time: 19:25 kb Administered Medications: 19:36 Drug: Diltiazem IVP 20 mg IVP once; Over 2 minutes Route: IVP; Site: left antecubital; pf1 20:30 Follow up: Response: No adverse reaction; Marked relief of symptoms pf1 23:45 Drug: Enoxaparin Sub-Q 1 mg/kg Sub-Q once Route: Sub-Q; Site: left lower abdomen; 08/08 00:21 Follow up: Response: No adverse reaction 08/07 23:46 Drug: Diltiazem IV 5 mg/hr IV at calculated rate See Administration Instructions; as9 (standard dilution 125 mg diltiazem mixed in 125 mL NS; final concentration 1mg/mL). Recommended max rate 15 mg/hr; Titrate 5 mg/hr as often as every 15 minutes to achieve goal (see titration policy); Goal parameter HR less than 100 bpm Route: IV; Rate: calculated rate; Site: right antecubital; 08/08 00:15 Follow up: Rate change 10 mg/hr 00:30 Follow up: Rate change 15 mg/hr Disposition Summary: 08/08/23 22:05 Hospitalization Ordered Notes: Hospitalization Status: Inpatient Admission kb Provider: Tk Young Condition: Stable kb Problem: new kb Symptoms: are unchanged kb Bed/Room Type: Standard kb Location: Intensive Care Unit(08/09/23 15:42) bd Room Assignment: 3-(08/09/23 15:42) bd Diagnosis - Unspecified atrial fibrillation kb - Pulmonary embolism without acute cor pulmonale kb Forms: - Medication Reconciliation Form kb - SBAR form kb - Leadership Thank You Letter kb Signatures: Dispatcher [employer] Lyssa Kearns FNP-C FNP-Kasia Palencia Cindy, RN RN cg Peltier, Brian RN Shirley Price RN RN pf1 Ra Andrea, RN RN as9 Corrections: (The following items were deleted from the chart) 08/07 23:29 22:05 Telemetry/MedSurg (Inpatient) kb cg 23:29 22:05 kb cg 08/08 15:42 08/07 23:29 [facility] ER HOLD cg bd 08/08 15:42 08/07 23:29 ERHOLD- cg bd
--- NOTE | 2023-08-08 22:58 | P.HP ---
Certification for Inpatient Patient admitted to: Inpatient With expected LOS: >2 Midnights Patient will require the following post-hospital care: None Practitioner: I am a practitioner with admitting privileges, knowledge of patient current condition, hospital course, and medical plan of care. Services: Services provided to patient in accordance with Admission requirements found in Title 42 Section 412.3 of the Code of Federal Regulations Patient History Date of Service: 08/08/23 Reason for admission: Atrial fibrillation with RVR/Bilateral PE History of Present Illness: Patient is a 73-year-old female who is well-known to me from an extensive hospital stay that occurred in September 2021. At that time, patient had come in with atrial fibrillation with rapid ventricular response. She was also in acute renal insufficiency. She was given amiodarone initially. However, she went into developed an acute chemical hepatitis which we contributed to the amiodarone. Patient was given beta-parvez therapy-she was on carvedilol along with digoxin. Echocardiogram at that time revealed an ejection fraction of 20 to 25%. Patient also had moderate pulmonary hypertension. Patient ended up needing hemodialysis. She was transferred to inpatient rehabilitation. She build her strength up while she was in rehab. She was discharged to follow-up with outpatient hemodialysis, and she remained on digoxin and carvedilol for rate control. She was also on Xarelto for the atrial fibrillation. Over the next year she was able to get off of hemodialysis. She was following up with Dr. Ronquillo, and then they transferred her care to [facility]. Patient stopped taking her cardiac meds about a year ago. She has been off of anticoagulation for about a year. I am not sure if she is taking any home medications at this time, as her makes it seem like she is off of all her medicines for the last year. She came into the emergency room today because she was short of breath and her workup in the emergency room found her to be in atrial fibrillation with rapid ventricular response. She was given Cardizem for rate control. Her heart rate had come down into the 90s. However, her heart rate went back into the 120s. They decided to get a CT PE protocol in the emergency room which revealed bilateral pulmonary embolism. Patient will be s tarted on a heparin drip along with digoxin IV along with a beta-parvez therapy. Patient will be monitored in the intensive care unit. Patient also has had vaginal bleeding on and off for quite a while. I talked her a little more extensively about this, she states that she has not seen a gem cutter because she would not really want anything done for the bleeding. Will monitor her H&H. She has never required a blood transfusion. Will monitor her for GI bleeding. If she has any bleeding, we should have GI available later this week. At this time patient will be monitored closely in the intensive care unit. Patient's states that her appetite is pretty good. She has no difficulty with her nutrition. She ambulates at home, sometimes without a walker. She does have a walker which she is supposed to use. She uses a recliner to rest as well. Allergies tramadol Allergy (Verified 10/24/21 14:31) Nausea/Vomiting acetaminophen [From Tylenol] Adverse Reaction (Verified 10/24/21 14:31) Anaphylaxis Home Medications: Apixaban [Eliquis *] 2.5 mg PO BID #60 tablet 10/23/21 carvediloL [Coreg*] 25 mg PO BID #60 tab 10/23/21 Apixaban [Eliquis] 5 mg PO BID #60 tablet 11/08/21 Atorvastatin Calcium [Lipitor*] 20 mg PO BEDTIME #30 tab 11/08/21 Cranberry Fruit Extract 400 mg PO BID #60 cap 11/08/21 Docusate/Senna [Senokot-S*] 2 tab PO BEDTIME PRN #30 tab 11/08/21 Gabapentin [Neurontin*] 200 mg PO TID #120 cap 11/08/21 Lidocaine 4% Patch [Lidoderm 5% Patch*] 1 patch TOP DAILY #30 patch 11/08/21 Loperamide [Imodium*] 2 mg PO Q4H PRN #20 cap 11/08/21 Magnesium Oxide [Mag 0X*] 400 mg PO BID #60 tab 11/08/21 Nepro Shake [Nepro*] 237 ml PO BID #60 can 11/08/21 Nystatin Powder [Mycostatin (Powder)*] 1 appl TOP BID #1 btl 11/08/21 Ondansetron [Zofran (Odt)*] 4 mg PO Q4H PRN #30 tab 11/08/21 Simethicone [Mylicon*] 80 mg PO Q6H PRN #120 tab 11/08/21 Venlafaxine HCl *Xr* [Effexor XR*] 37.5 mg PO DAILY #30 cap 11/08/21 carvediloL [Coreg*] 25 mg PO BID #60 tab 11/08/21 levoFLOXacin [Levaquin*] 250 mg PO Q48H #10 tab 11/08/21 - Past Medical/Surgical History Diabetic: No -: HTN, no medications -: atrial fibrillation -: fibromyalgia -: ESRD(she was able to come off of dialysis a year ago) -: Menorrhagia -: Morbid obesity -: Cholesystectomy -: Hemodialysis access catheter - Family History Father Medical History: Hypertension, Diabetes Mother Medical History: Hypertension, Diabetes, Stroke Sister Medical History: Hypertension, Diabetes - Social History Smoking Status: Never smoker Alcohol use: No CD- Drugs: No Caffeine use: No Review of Systems 10-point ROS is otherwise unremarkable Physical Examination - Vital Signs Temperature: 98 F Blood Pressure: 150/80 Pulse: 140 Respirations: 24 Pulse Ox (%): 95 - Physical Exam General: Alert, In no apparent distress, Oriented x3, Obese HEENT: Atraumatic, PERRLA, Mucous membr. moist/pink, EOMI, Sclerae nonicteric Neck: Supple, 2+ carotid pulse no bruit, No LAD, Without JVD or thyroid abnormality Respiratory: Diminished, Crackles/rales Cardiovascular: Irregular heart rate/rhythm Gastrointestinal: Normal bowel sounds, Soft and benign, Non-distended, No tenderness Musculoskeletal: No tenderness Integumentary: No rashes Neurological: Normal speech, Normal strength at 5/5 x4 extr, Normal tone, Sensation intact, Cranial nerves 3-12 intact, Normal affect, Abnormal gait Lymphatics: No axilla or inguinal lymphadenopathy - Studies Laboratory Data (last 24 hrs) 08/08/23 08/08/23 19:26 19:26 WBC 9.50 Hgb 14.5 Hct 43.3 Plt Count 288 Sodium 139 Potassium 3.8 BUN 11 Creatinine 1.10 H Glucose 130 H Magnesium 1.9 Assessment & Plan - Problems (Diagnosis) (1) Pulmonary embolism Current Visit: Yes Status: Acute (2) ESRD (end stage renal disease) Current Visit: Yes Status: Acute (3) Atrial fibrillation with RVR Current Visit: No Status: Acute (4) Morbid obesity with BMI of 40.0-44.9, adult Current Visit: No Status: Acute (5) Hypertension Current Visit: No Status: Chronic Qualifiers: (6) Cardiomyopathy Current Visit: Yes Status: Acute - Plan PLAN: 1. Echocardiogram 2. Heparin drip 3. Restart beta-parvez therapy +/- digoxin 4. Cardiology consultation 5. Gently diuresis 6. Strict I's and O's 7. Repeat CXR 8. Daily weights 9. Physical therapy evaluation 10. Strict blood pressure and blood sugar control 11. Education regarding diet and treatment of congestive heart failure Discharge Plan: Home Plan to discharge in: Greater than 2 days - Advance Directives Does patient have a Living Will: No Does patient have a Durable POA for Healthcare: No - Code Status/Comfort Care Code Status Assessed: Yes Code Status: Full Code Critical Care: Yes Time Spent Managing PTS Care (In Minutes): 55 Date of Service: 08/08/23 Echocardiogram September/2021 ([place]) 1. LEFT VENTRICULAR WALL MOTION: SEVERE GLOBAL HYPOKINESIS. 2. DOPPLER/COLOR FLOW: MODERATE PUMONARY HYPERTENSION. 3. RIGHT VENTRICULAR SYSTOLIC PRESSURE 51 mmHg. 4. COMMENTS: SEVERE GLOBAL HYPOKINESIS 5. MODERATE PUMONARY HYPERTENSION. 6. EJECTION FRACTION 25-30%. 7. LEFT ATRIAL ENLARGEMENT.
[2023-08-08] MEDS ORDERED: NA CHLORIDE 0.9% 250 ML ONE (23:23)
[2023-08-08] MEDS ORDERED: ENOXAPARIN 60 MG/0.6 ML SQ ONE (23:24)
[2023-08-09] MEDS ORDERED: NA CHLORIDE 0.9% 1,000 ML ONE (03:18)
[2023-08-09] MEDS: NA CHLORIDE 0.9% 1,000 ML IV SCH (03:31)
[2023-08-09 04:32] LABS: Absolute Basophils 0.1 K/uL (0-0.5); Absolute Eosinophils 0.3 K/uL (0-0.5); Absolute Lymphocytes (CBC) 2.7 K/uL (0.7-4.9); Absolute Monocytes 0.8 K/uL (0.1-1.3); Absolute Neutrophil 6.6 K/uL (1.8-8.0); Basophils % 0.9 % (0-1.3); Eosinophils % 2.6 % (0-4.4); Hematocrit 40.8 % (36.0-45.0); Hemoglobin 13.7 g/dL (12.0-15.0); Lymphocytes % 25.9 % (15.3-44.8); MCH 32.1 pg (27.0-35.0); MCHC 33.5 g/dL (32.0-36.0); MCV 95.7 fL (80-100); MPV 8.7 fL (7.6-11.3); Monocytes % 7.8 % (3.3-12.3); Neutrophils % 62.8 % (41.7-73.7); Platelets 285 thou/uL (152-406); RBC Red Blood Cell Count 4.26 M/uL (3.86-4.86); Red Cell Distribution Width 17.3 % (12.1-15.2)
[2023-08-09 04:52] LABS: Albumin 2.7 g/dL (3.4-5.0); Albumin/Globulin Ratio 0.7 (1.1-1.8); Anion Gap 10.8 mEq/L (5.0-15.0); Bilirubin Direct 0.5 mg/dL (0-0.2); Bilirubin Indirect, Calculated 1.3 mg/dL (0.2-0.8); Bilirubin Total 1.8 mg/dL (0.2-1.0); Globulin 3.7 g/dL (2.3-3.5); Phosphorus 3.4 mg/dL (2.5-4.9); Potassium 3.8 mEq/L (3.5-5.1); Protein, Total 6.4 g/dL (6.4-8.2)
[2023-08-09] MEDS: INSULIN REGULAR (HUMAN) 100 UNIT/ML SQ SCH (07:30)
[2023-08-09] MEDS: POTASSIUM 25 MEQ EFFERV TAB PO SCH (08:14)
[2023-08-09] MEDS: ONDANSETRON 4 MG/2 ML VIAL IV PRN (08:14)
[2023-08-09] MEDS: ASPIRIN EC 81 MG TAB PO SCH (08:14)
[2023-08-09] MEDS: FUROSEMIDE 40 MG/4 ML VIAL IV SCH (08:14)
[2023-08-09] MEDS: METOPROLOL TAR 25 MG TAB PO SCH (08:15)
[2023-08-09] MEDS ORDERED: ASPIRIN EC 81 MG TAB PO ONE (08:20)
[2023-08-09] MEDS ORDERED: FUROSEMIDE 40 MG/4 ML VIAL ONE ×2 (08:20→17:03)
[2023-08-09] MEDS ORDERED: POTASSIUM 25 MEQ EFFERV TAB ONE (08:20)
[2023-08-09] MEDS ORDERED: METOPROLOL TAR 25 MG TAB ONE (08:20)
[2023-08-09] MEDS ORDERED: ONDANSETRON 4 MG/2 ML VIAL ONE (08:20)
--- NOTE | 2023-08-09 10:26 | P.PN ---
Subjective Date of Service: 08/09/23 Chief Complaint: Atrial fibrillation with RVR/Bilateral PE Pt is resting comfortably in bed. Pt complains of chest wall tenderness due to history of fibromyalgia. She has bilateral PE. Waiting for Echo. Pt is geiing heparin drip. She denies any vaginal bleeding. Currently in A. fib. No other complaints. Review of Systems General: Unremarkable Eyes: As per HPI ENT: Unremarkable Respiratory: Shortness of Breath, Unremarkable Cardiovascular: Palpitations Gastrointestinal: Unremarkable Genitourinary: Unremarkable Musculoskeletal: Unremarkable Integumentary: Unremarkable Neurological: Unremarkable Lymphatics: Unremarkable Physical Examination - Vital Signs Temperature: 97.5 F Blood Pressure: 141/83 Pulse: 118 Respirations: 20 Pulse Ox (%): 97 - Physical Exam General: Alert, In no apparent distress, Oriented x3 HEENT: Atraumatic, Normocephalic, PERRLA Neck: Supple, 2+ carotid pulse no bruit Respiratory: Clear to auscultation bilaterally, Normal air movement Cardiovascular: No edema, Normal pulses, Irregular heart rate/rhythm Capillary refill: <2 Seconds Gastrointestinal: Normal bowel sounds, Soft and benign, Non-distended Musculoskeletal: No clubbing, No swelling Integumentary: No rashes, No breakdown Neurological: Normal gait, Normal speech, Normal strength at 5/5 x4 extr Lymphatics: No axilla or inguinal lymphadenopathy - Studies Laboratory Data (last 24 hrs) 08/08/23 08/08/23 19:26 19:26 WBC 9.50 Hgb 14.5 Hct 43.3 Plt Count 288 Sodium 139 Potassium 3.8 BUN 11 Creatinine 1.10 H Glucose 130 H Magnesium 1.9 Assessment And Plan - Plan Acute Pulmonary embolism: CTA chest shows bilateral PE. Will continue heparin dip. Will f/u Echo to r/o RV strain. Pt will need AC for at least 3 - 6 months. Acute resp failure with hypoxia: Likely due to PE. Will continue heparin drip and 2L BNC. A. fib with RVR: HR is 118. Will continue metoprolol, digoxin, heparin drip and telemetry Cardiomyopathy: Pt has elevated BNP. BNP is 887. Will f/u Echo to r/o CHF. Continue strict I/O and daily weight. Questionable vaginal bleeding: Will monitor H/H. Hgb is 13.7. Hx of ESRD: CR is 1.0. Will avoid nephrotoxins and monitor renal function. Morbid Obesity: Pt was advised to lose weight. Htn: Continue metoprolol DVT ppx: heparin drip Discharge Plan: Home
[2023-08-09] MEDS: HEPARIN/D5W 25,000 UNIT/500 ML BAG IV SCH (10:27)
[2023-08-09] MEDS ORDERED: HEPARIN/D5W 25,000 UNIT/500 ML BAG IV ONE (10:33)
[2023-08-09] MEDS: SOTALOL HCL 80 MG TAB PO SCH (17:07)
--- NOTE | 2023-08-09 20:17 | CON ---
Date of Consultation: 08/09/2023 Reason For Consultation: Atrial fibrillation, rapid ventricular response. History Of Present Illness: A 73-year-old female, history of atrial fibrillation and history of kidn ey disease, required dialysis for a short period of time and then recovered from it. The patient has been having also some shortness of breath. Denies having any chest pain. No nausea, vomiting, or d iarrhea. Past Medical History: Hypertension, atrial fibrillation, recovered advanced kidney failure, morbid o besity. Medications: Refer reconciliation sheet for detailed list. Allergies: TRAMADOL AND ACETAMINOPHEN. Family History: No premature coronary artery disease or cancer. Social History: She does not smoke or drink. Does not use any drugs. Review of Systems: All systems reviewed are negative except mentioned in HPI. Physical Examination: Vital Signs: Reviewed. Head and Neck: Pupils are equal, reactive to light. Intact eye movements. No JVD. No cervical lym phadenopathy. Neck supple. Thyroid is not enlarged. Lungs: Clear to auscultation bilaterally. No rhonchi, rales, or crackles. No accessory muscle use. Heart: Irregularly irregular. No extra sounds. Abdomen: Soft, nontender. Bowel sounds positive. No organomegaly. No masses or hernia. No rigidi ty or rebound. Extremities: No edema, clubbing, cyanosis. Intact pulses. Skin: No rash or nodules. Neurologic: Alert, awake, oriented x3. No focal deficits appreciated. Investigations: Cardiac enzymes x2 are negative. BUN is 10, creatinine 1.0. Troponins x2 are negat suzanne. Hemoglobin 13.7. CT PE protocol showed large burden of bilateral pulmonary emboli. Assessment/recommendation: 1.Atrial fibrillation with rapid ventricular response. Started on sotalol 80 mg twice a day and she was started on heparin drip for PE and will plan to do JEREMIAH cardioversion before discharge if she sta ys in atrial fibrillation on sotalol. Continue metoprolol with it as well. 2.Bilateral pulmonary embolism, hemodynamically stable on IV heparin. Continue current management. Consult Pulmonary for further recommendations on this matter. If she shows any signs of instability , then thrombolytics should be considered. 3.Hypertension. Blood pressure is controlled. SR/MODL Voice ID: [id number] Report ID: [id number]
--- NOTE | 2023-08-10 06:55 | ECHO ---
HEIGHT: 5 ft 7 in WEIGHT: 261 lb 14.547 oz DATE OF STUDY: 08/09/[address]: Tk Young MD 2-DIMENSIONAL: YES M.MODE: YES DOPPLER: YES COLOR FLOW: YES TDS: YES PORTABLE: YES DEFINITY: BUBBLE STUDY: DIAGNOSIS: CONGESTIVE HEART FAILURE CARDIAC HISTORY: CATHERIZATION: SURGERY: PROSTHETIC VALVE: PACEMAKER: MEASUREMENTS (cm) DIASTOLIC (NORMALS) SYSTOLIC (NORMALS) IVSd 0.9 (0.6-1.2) LA Diam 4.5 (1.9-4.0) LVEF 52% LVIDd 3.5 (3.5-5.7) LVIDs 2.6 (2.0-3.5) %FS 26% LVPWd 0.9 (0.6-1.2) Ao Diam 2.0 (2.0-3.7) 2 DIMENSIONAL ASSESSMENT: RIGHT ATRIUM: NOT WELL SEEN LEFT ATRIUM: ENLARGED RIGHT VENTRICLE: NOT WELL SEEN LEFT VENTRICLE: NORMAL TRICUSPID VALVE: MILD TRICUSPID REGURGITATION MITRAL VALVE: MILD MITRAL REGURGITATION PULMONIC VALVE: NOT WELL SEEN AORTIC VALVE: NORMAL PERICARDIAL EFFUSION: NONE AORTIC ROOT: NORMAL LEFT VENTRICULAR WALL MOTION: NORMAL DOPPLER/COLOR FLOW: SEE BELOW COMMENTS: 1. LIMITED WINDOWS AND POOR STUDY 2. OVERALL LEFT VENTRICULAR EJECTION FRACTION IS NORMAL 50-55% 3. LEFT ATRIAL ENLARGEMENT 4. MILD MITRAL REGURGITATION, TRICUSPID REGURGITATION 5. ATRIAL FIBRILLATION TECHNOLOGIST: BIANCA JIANG
[2023-08-10] MEDS ORDERED: ASPIRIN EC 81 MG TAB PO ONE (08:00)
[2023-08-10] MEDS ORDERED: FUROSEMIDE 40 MG/4 ML VIAL ONE ×2 (08:00→16:25)
[2023-08-10 09:35] LABS: Absolute Basophils 0.1 K/uL (0-0.5); Absolute Eosinophils 0.6 K/uL (0-0.5); Absolute Lymphocytes (CBC) 2.2 K/uL (0.7-4.9); Absolute Monocytes 0.8 K/uL (0.1-1.3); Absolute Neutrophil 5.8 K/uL (1.8-8.0); Basophils % 1.1 % (0-1.3); Eosinophils % 6.1 % (0-4.4); Hematocrit 44.9 % (36.0-45.0); Hemoglobin 14.8 g/dL (12.0-15.0); Lymphocytes % 23.5 % (15.3-44.8); MCH 31.5 pg (27.0-35.0); MCV 95.5 fL (80-100); MPV 8.4 fL (7.6-11.3); Monocytes % 8.5 % (3.3-12.3); Neutrophils % 60.8 % (41.7-73.7); Nucleated Red Blood Cells % 0.3 % (0-0); Platelets 235 thou/uL (152-406); Red Cell Distribution Width 17.2 % (12.1-15.2)
[2023-08-10 09:51] LABS: Albumin 2.9 g/dL (3.4-5.0); Albumin/Globulin Ratio 0.7 (1.1-1.8); Anion Gap 9.9 mEq/L (5.0-15.0); Bilirubin Total 2.3 mg/dL (0.2-1.0); Globulin 3.9 g/dL (2.3-3.5); Magnesium 1.8 mg/dL (1.6-2.4); Potassium 3.9 mEq/L (3.5-5.1); Protein, Total 6.8 g/dL (6.4-8.2)
--- NOTE | 2023-08-10 10:35 | P.PN ---
Subjective Date of Service: 08/10/23 Chief Complaint: Atrial fibrillation with RVR/Bilateral PE Pt is resting comfortably in bed. Pt is gettin heparin drip for bilateral PE. Echo shows EF 50 - 55% with left atrial enlargement. She denies any vaginal bleeding. No other complaints. Review of Systems General: Unremarkable Eyes: Unremarkable ENT: Unremarkable Respiratory: Unremarkable Cardiovascular: Unremarkable Gastrointestinal: Unremarkable Genitourinary: Unremarkable Musculoskeletal: Unremarkable Integumentary: Unremarkable Neurological: Unremarkable Lymphatics: Unremarkable Physical Examination - Vital Signs Temperature: 97.0 F Blood Pressure: 109/61 Pulse: 105 Respirations: 14 Pulse Ox (%): 93 - Physical Exam General: Alert, In no apparent distress, Oriented x3, Obese HEENT: Atraumatic, Normocephalic, PERRLA Neck: Supple, 2+ carotid pulse no bruit Respiratory: Clear to auscultation bilaterally, Normal air movement Cardiovascular: No edema, Normal pulses, Regular rate/rhythm, Normal S1 S2 Capillary refill: <2 Seconds Gastrointestinal: Normal bowel sounds, Soft and benign, Non-distended Musculoskeletal: No clubbing, No swelling Integumentary: No rashes, No breakdown Neurological: Normal gait, Normal speech, Normal strength at 5/5 x4 extr Lymphatics: No axilla or inguinal lymphadenopathy Assessment And Plan - Plan Acute Pulmonary embolism: CTA chest shows bilateral PE. Will continue heparin dip. Echo shows EF 50 - 55% with left atrial enlargement. Pt will need AC for at least 3 - 6 months. Acute resp failure with hypoxia: Likely due to PE. Will continue heparin drip and 2L BNC. A. fib with RVR: HR is 118. Will continue metoprolol, sotalol, digoxin, heparin drip and telemetry. TSH is 2.0. cardiology is following. Cardiomyopathy: Pt has elevated BNP. BNP is 887. Will f/u Echo to r/o CHF. Continue strict I/O and daily weight. Questionable vaginal bleeding: Will monitor H/H. Hgb is 13.7. Hx of ESRD: CR is 1.0. Will avoid nephrotoxins and monitor renal function. Morbid Obesity: Pt was advised to lose weight. Htn: Continue metoprolol DVT ppx: heparin drip Discharge Plan: Home
--- NOTE | 2023-08-10 14:12 | EKG ---
Test Date: 2023-08-08 Test Time: 18:12:33 Pricing Analyst: SHELBY MEASUREMENT RESULTS: Intervals: Rate: 149 [place]: QRSD: 74 QT: 298 QTc: 469 [place]: P: [place]: QRS: 52 T: -56 INTERPRETIVE STATEMENTS: Atrial fibrillation Low voltage QRS ST abnormality, possible digitalis effect Abnormal ECG Compared to ECG 11/10/2021 17:21:30 No significant changes Electronically Signed On 08-10-23 14:06:50 CDT by Michael Chaudhari
[2023-08-10] MEDS ORDERED: ONDANSETRON 4 MG/2 ML VIAL ONE (15:26)
--- NOTE | 2023-08-10 16:58 | P.CNS ---
Date of Consult: 08/10/23 Reason for Consult: Pulmonary embolism Chief Complaint: Atrial fibrillation with RVR/Bilateral PE History of Present Illness: Pt is 73 yrs of age present bedside. Hard of hearing came in to Er with dysnea and rapid Afib/ Hx of Afib not on anticoag. Masssive PE noted/ complex PMH note reviewed a Allergies tramadol Allergy (Verified 10/24/21 14:31) Nausea/Vomiting acetaminophen [From Tylenol] Adverse Reaction (Verified 10/24/21 14:31) Anaphylaxis Home Medications: NK [No Home Meds] 08/09/23 - Past Medical/Surgical History Diabetic: No -: HTN, no medications -: atrial fibrillation -: fibromyalgia -: ESRD(she was able to come off of dialysis a year ago) -: Menorrhagia -: Morbid obesity -: Cholesystectomy -: Hemodialysis access catheter - Family History Father Medical History: Hypertension, Diabetes Mother Medical History: Hypertension, Diabetes, Stroke Sister Medical History: Hypertension, Diabetes - Social History Smoking Status: Unknown if ever smoked Alcohol use: No CD- Drugs: No Caffeine use: No Place of Residence: Home Review of Systems General: Weakness Respiratory: Shortness of Breath Physical Examination Temp Pulse Resp BP Pulse Ox 97.2 F 101 H 18 125/77 95 08/10/23 12:00 08/10/23 15:00 08/10/23 15:00 08/10/23 15:00 08/10/23 15:00 General: Alert, Oriented x3 Neck: Supple Respiratory: Clear to auscultation bilaterally, Diminished Cardiovascular: No edema, Irregular heart rate/rhythm - Problems (1) Pulmonary emboli Current Visit: Yes Status: Acute Plan: Pt admitted with PE, Large burden of bilateral pulmonary emboli as above. Subsegmental dependent opacities in the right more than left lower lobes likely relate to atelectasis. Small right pleural effusionVS stable/ change ot lovenox. Ct revlabs reviewed O2 satisfactory Qualifiers: Chronicity: acute (2) Atrial fibrillation Current Visit: Yes Status: Acute Plan: Rate controlled onmeds Qualifiers: Atrial fibrillation type: longstanding persistent Qualified Code(s): I48.11 - Longstanding persistent atrial fibrillation
[2023-08-10] MEDS: Enoxaparin 120 MG/0.8 ML SYR SQ SCH (20:15)
--- NOTE | 2023-08-10 20:16 | PN ---
Subjective: Seen by bedside, doing clinically well. Heart rate is better, but still in AFib. Her b reathing is better at rest. She has no significant shortness of breath. No chest pain. No nausea, vomiting, or diarrhea. No dysuria, polyuria, or urinary urgency. All other systems were reviewed, t hey were negative. Objective: Vital Signs: Reviewed. Head and Neck: Pupils are equal, reactive to light. Intact eye movements. No JVD. No cervical lym phadenopathy. Neck is supple. Thyroid is not enlarged. Lungs: Decreased breathing sounds bilaterally. No accessory muscle use or muscle retraction. Heart: Irregularly irregular. No extra sounds. Abdomen: Soft, nontender. Bowel sounds positive. No organomegaly. No masses or hernia. No rigidi ty or rebound. Extremities: No clubbing or cyanosis. Intact pulses. Trace edema. Neuro: Alert, awake, oriented x3. No acute focal deficits appreciated. Investigations: BUN 8, creatinine 1.1. Troponins are negative and hemoglobin is 14.8. Assessment And Recommendations: 1.Atrial fibrillation, rate is controlled now. Continue sotalol and she is on anticoagulation for t he pulmonary embolism and recommend transition to oral anticoagulation with Eliquis. However, we marly l do a loading dose with 10 mg twice a day at first and plan for a JEREMIAH-guided cardioversion during th is hospital stay. 2.Bilateral pulmonary embolism, on IV heparin. Recommend transition to Eliquis but to load with hig h dose at first and explained to the patient that she will need to stay on it for the rest of her lif e. There is no signs of RV strain on echo and patient is hemodynamically stable and can be managed by anticoagulants. 3.Hypertension. Blood pressure is controlled. SR/MODL Voice ID: [id number] Report ID: [id number]
[2023-08-11 04:53] LABS: Absolute Basophils 0.1 K/uL (0-0.5); Absolute Eosinophils 0.5 K/uL (0-0.5); Absolute Lymphocytes (CBC) 2.3 K/uL (0.7-4.9); Eosinophils % 5.8 % (0-4.4); Hematocrit 43.3 % (36.0-45.0); Hemoglobin 14.6 g/dL (12.0-15.0); Lymphocytes % 25.6 % (15.3-44.8); MCH 32.1 pg (27.0-35.0); MCHC 33.7 g/dL (32.0-36.0); MCV 95.2 fL (80-100); MPV 8.4 fL (7.6-11.3); Neutrophils % 56.6 % (41.7-73.7); Nucleated Red Blood Cells % 0.1 % (0-0); Platelets 246 thou/uL (152-406); RBC Red Blood Cell Count 4.55 M/uL (3.86-4.86); Red Cell Distribution Width 17.2 % (12.1-15.2)
[2023-08-11 05:09] LABS: Anion Gap 7.9 mEq/L (5.0-15.0); Potassium 3.9 mEq/L (3.5-5.1); Troponin High Sensitivity 7.8 pg/mL (<58.9)
--- NOTE | 2023-08-11 08:40 | P.PN ---
Subjective Date of Service: 08/11/23 Chief Complaint: Atrial fibrillation with RVR/Bilateral PE Pt is resting comfortably in bed. Pt is getting therapeutic lovenox for bilateral PE. Echo shows EF 50 - 55% with left atrial enlargement. She denies any vaginal bleeding. No other complaints. Review of Systems General: Unremarkable Eyes: Unremarkable ENT: Unremarkable Respiratory: Unremarkable Cardiovascular: Unremarkable Gastrointestinal: Unremarkable Genitourinary: Unremarkable Musculoskeletal: Unremarkable Integumentary: Unremarkable Neurological: Unremarkable Lymphatics: Unremarkable Physical Examination - Vital Signs Temperature: 97 F Blood Pressure: 103/66 Pulse: 99 Respirations: 14 Pulse Ox (%): 94 - Physical Exam General: Alert, In no apparent distress, Oriented x3 HEENT: Atraumatic, Normocephalic, PERRLA Neck: Supple, 2+ carotid pulse no bruit Respiratory: Clear to auscultation bilaterally, Normal air movement Cardiovascular: No edema, Normal pulses, Regular rate/rhythm, Normal S1 S2 Capillary refill: <2 Seconds Gastrointestinal: Normal bowel sounds, Soft and benign, Non-distended Musculoskeletal: No clubbing, No swelling Integumentary: No rashes, No breakdown Neurological: Normal gait, Normal speech, Normal strength at 5/5 x4 extr Lymphatics: No axilla or inguinal lymphadenopathy Assessment And Plan - Plan Acute Pulmonary embolism: CTA chest shows bilateral PE. Will continue lovenox 120mg subq BID. Echo shows EF 50 - 55% with left atrial enlargement. Pt will need AC for life given history of A. fib Acute resp failure with hypoxia: Likely due to PE. Will continue heparin drip and 2L BNC. A. fib with RVR: HR is 99. Will continue metoprolol, sotalol, digoxin, lovenox and telemetry. TSH is 2.0. Cardiology is following. Will switch pt to Eliquis before JEREMIAH cardioversion Cardiomyopathy: Pt has elevated BNP. BNP is 887. Will f/u Echo to r/o CHF. Continue strict I/O and daily weight. Questionable vaginal bleeding: Will monitor H/H. Hgb is 14.6<- 13.7. Hx of ESRD: CR is 1.24 <- 1.15 <- 1.0. Will avoid nephrotoxins and monitor renal function. Morbid Obesity: Pt was advised to lose weight. Htn: Continue metoprolol DVT ppx: lovenox Discharge Plan: Home
[2023-08-11] MEDS ORDERED: DIGOXIN 0.25 MG TABLET ONE (08:41)
[2023-08-11] MEDS ORDERED: FUROSEMIDE 40 MG/4 ML VIAL ONE (08:42)
[2023-08-11] MEDS ORDERED: ASPIRIN EC 81 MG TAB PO ONE (08:42)
[2023-08-11] MEDS: DIGOXIN 0.125 MG TABLET PO SCH (09:00)
[2023-08-11] MEDS ORDERED: NA CHLORIDE 0.9% 500 ML ONE (09:14)
[2023-08-11] MEDS: ASPIRIN EC 81 MG TAB PO SCH (10:31)
[2023-08-11] MEDS ORDERED: ATROPINE SULF 1 MG/10 ML SYR IV ONE (11:29)
[2023-08-11] MEDS ORDERED: METOPROLOL TARTRATE 5 MG/5 ML INJ IV ONE (11:29)
[2023-08-11] MEDS ORDERED: HYDRALAZINE HCL 20 MG/ML VIAL ONE (11:30)
[2023-08-11] MEDS ORDERED: LIDOCAINE 1% MPF 5 ML VIAL ONE (11:45)
[2023-08-11] MEDS ORDERED: propofoL 200 MG/20 ML VIAL IV ONE (11:46)
--- NOTE | 2023-08-11 11:53 | P.PN ---
Subjective Date of Service: 08/11/23 Chief Complaint: Atrial fibrillation with RVR/Bilateral PE Subjective: Improving (Patient is improving doing well) Review of Systems Unremarkable General: Weakness Respiratory: Shortness of Breath Physical Examination - Vital Signs Temperature: 97 F Blood Pressure: 165/63 Pulse: 91 Respirations: 21 Pulse Ox (%): 98 - Physical Exam General: Alert, In no apparent distress, Oriented x3 Neck: Supple Respiratory: Clear to auscultation bilaterally Cardiovascular: No edema, Irregular heart rate/rhythm Assessment And Plan - Current Problems (Diagnosis) (1) Pulmonary emboli Current Visit: Yes Status: Acute Plan: Patient admitted with bilateral pulmonary emboli doing well is currently on Lovenox we will change her over to Eliquis possible cardioversion Qualifiers: Chronicity: acute (2) Atrial fibrillation Current Visit: Yes Status: Acute Plan: Rate controlled onmeds echocardiogram shows normal left ventricular ejection fraction reduce dose of Lasix to 40 mg a day Qualifiers: Atrial fibrillation type: longstanding persistent Qualified Code(s): I48.11 - Longstanding persistent atrial fibrillation
[2023-08-11] MEDS ORDERED: Phenylephrine HCl 10 MG/ML 1 ML VIAL ONE (12:15)
[2023-08-11] MEDS ORDERED: ONDANSETRON 4 MG/2 ML VIAL ONE (14:58)
[2023-08-11] MEDS ORDERED: SOTALOL HCL 80 MG TAB ONE (18:07)
--- NOTE | 2023-08-11 18:28 | P.PN ---
Subjective Date of Service: 08/11/23 Chief Complaint: Atrial fibrillation with RVR/Bilateral PE Subjective: No new changes Review of Systems 10-point ROS is otherwise unremarkable Physical Examination - Vital Signs Temperature: 97.6 F Blood Pressure: 103/63 Pulse: 98 Respirations: 15 Pulse Ox (%): 91 - Physical Exam General: Alert HEENT: Atraumatic Neck: Supple Respiratory: Clear to auscultation bilaterally Cardiovascular: No edema, Irregular heart rate/rhythm Gastrointestinal: Normal bowel sounds Assessment And Plan - Current Problems (Diagnosis) (1) Atrial fibrillation Current Visit: Yes Status: Acute Plan: Patient failed JEREMIAH DCCV despite delivering 3 shocks, will continue rate control regimen continue Sotalol 80 mg po BID Continue lopressor 25 mg po BID continue Digoxin 125 mcg daily start patient on Eliquis 5 mg po BID Qualifiers: Atrial fibrillation type: longstanding persistent Qualified Code(s): I48.11 - Longstanding persistent atrial fibrillation (2) Pulmonary embolism Current Visit: Yes Status: Acute Plan: start patient on Eliquis 5 mg po BID (3) Hypertension Current Visit: No Status: Chronic Plan: patient BP is soft so continue medications above and continue to monitor. can swtich lasix to 40 mg po daily. Qualifiers:
[2023-08-12 04:59] LABS: Absolute Basophils 0.1 K/uL (0-0.5); Absolute Eosinophils 0.4 K/uL (0-0.5); Absolute Lymphocytes (CBC) 2.3 K/uL (0.7-4.9); Absolute Monocytes 1.1 K/uL (0.1-1.3); Absolute Neutrophil 6.2 K/uL (1.8-8.0); Basophils % 0.8 % (0-1.3); Hematocrit 42.3 % (36.0-45.0); Hemoglobin 14.3 g/dL (12.0-15.0); Lymphocytes % 22.7 % (15.3-44.8); MCH 32.4 pg (27.0-35.0); MCHC 33.8 g/dL (32.0-36.0); MCV 95.9 fL (80-100); MPV 8.8 fL (7.6-11.3); Monocytes % 10.8 % (3.3-12.3); Neutrophils % 61.7 % (41.7-73.7); Nucleated Red Blood Cells % 0.2 % (0-0); Platelets 227 thou/uL (152-406); Red Cell Distribution Width 17.2 % (12.1-15.2)
[2023-08-12 05:17] VITALS: BMI 39.5
--- NOTE | 2023-08-12 06:44 | TEE ---
TRANSESOPHAGEAL ECHOCARDIOGRAM REPORT CARDIOLOGY DEPARTMENT DATE OF STUDY: 08/10/2020 HEIGHT: 5'7" WEIGHT: 253 lbs DIAGNOSIS: ATRIAL FIBRILLATION/ CARDIOVERSION HAM TRIMMER COMMENTS: JEREMIAH CARDIAC HISTORY: CATHERIZATION: SURGERY: PROSTHETIC VALVE: PACEMAKER: 2 DIMENSIONAL ASSESSMENT: RIGHT ATRIUM: NORMAL LEFT ATRIUM: SEVERE ENLARGED RIGHT VENTRICLE: NORMAL LEFT VENTRICLE: NORMAL TRICUSPID VALVE: MODERATE TRICUSPID REGURGITATION MITRAL VALVE: MILD MITRAL REGURGITATION PULMONIC VALVE: NORMAL AORTIC VALVE: NORMAL PERICARDIAL EFFUSION: NONE AORTIC ROOT: NORMAL EJECTION FRACTION: LEFT VENTRICULAR WALL MOTION: NORMAL DOPPLER/COLOR FLOW: NOT ACCESSED COMMENTS: 1. NORMAL LEFT ATRIAL APPENDAGE, NO THROMBUS 2. SEVERE ENLARGED LEFT ATRIUM 3. FAILED CARDIOVERSION TIMES THREE TECHNOLOGIST: BIANCA JIANG
--- NOTE | 2023-08-12 08:18 | OP ---
Surgeon: Griffin Mclaughlin Type Of Procedure: Transesophageal echocardiogram-guided cardioversion. Reason For Procedure: Persistent atrial fibrillation. Blood Loss: None. Complications: None. Description Of Procedure: We talked to the patient and explained risks and benefits of procedure. S igned consent form was obtained. The patient was brought to the cysto room and the OR time-out was p erformed. Sedation was done by Anesthesia team. After sedation was given, JEREMIAH probe was inserted wi thout any difficulty. Images were obtained and then the JEREMIAH probe was removed without any signs of b leeding. We delivered 3 rounds of 200/250/300 joules of energy, but the patient stayed in AFib, so w e decided just to stop the cardioversion. Assessment And Plan: Persistent atrial fibrillation, not responsive to cardioversion. Plan is to co ntinue medical management at this point. The patient was moved to recovery without any complications . RILEY/RENARD Voice ID: [id number] Report ID: [id number]
[2023-08-12] MEDS ORDERED: DIGOXIN 0.25 MG TABLET ONE (08:41)
[2023-08-12] MEDS ORDERED: FUROSEMIDE 40 MG/4 ML VIAL ONE (08:42)
[2023-08-12] MEDS ORDERED: ASPIRIN EC 81 MG TAB PO ONE (08:42)
[2023-08-12] MEDS: APIXABAN 5 MG TABLET PO SCH (08:52)
[2023-08-12] MEDS: FUROSEMIDE 40 MG/4 ML VIAL IV SCH (08:53)
--- NOTE | 2023-08-12 09:43 | P.PN ---
Subjective Date of Service: 08/12/23 Chief Complaint: Atrial fibrillation with RVR/Bilateral PE Pt is resting comfortably in bed. Pt failed JEREMIAH cardioversion x 3. She converted to NSR this morning. Will continue cardiac meds. Echo shows EF 50 - 55% with left atrial enlargement without RV strain. No other complaints. Review of Systems General: Unremarkable Eyes: Unremarkable ENT: Unremarkable Respiratory: Unremarkable Cardiovascular: Unremarkable Gastrointestinal: Unremarkable Genitourinary: Unremarkable Musculoskeletal: Unremarkable Integumentary: Unremarkable Neurological: Unremarkable Lymphatics: Unremarkable Physical Examination - Vital Signs Temperature: 96.9 F Blood Pressure: 116/63 Pulse: 60 Respirations: 12 Pulse Ox (%): 99 - Physical Exam General: Alert, In no apparent distress, Oriented x3 HEENT: Atraumatic, Normocephalic Neck: Supple, 2+ carotid pulse no bruit Respiratory: Clear to auscultation bilaterally, Normal air movement Cardiovascular: No edema, Normal pulses, Regular rate/rhythm, Normal S1 S2 Capillary refill: <2 Seconds Gastrointestinal: Normal bowel sounds, Soft and benign, Non-distended Musculoskeletal: No clubbing, No swelling Integumentary: No rashes, No breakdown Neurological: Normal gait, Normal speech, Normal strength at 5/5 x4 extr Lymphatics: No axilla or inguinal lymphadenopathy Assessment And Plan - Plan Acute Pulmonary embolism: CTA chest shows bilateral PE. Will continue Eliquis 5mg po BID. Off lovenox. Echo shows EF 50 - 55% with left atrial enlargement without RV strain. Pt will need AC for life given history of A. fib Acute resp failure with hypoxia: Likely due to PE. Will continue eliquis and 2L BNC. A. fib with RVR: HR is 99. Will continue metoprolol, sotalol, digoxin, Eliquis and telemetry. TSH is 2.0. Cardiology is following. Pt failed JEREMIAH cardioversion x3. Now in NSR. Cardiomyopathy: Pt has elevated BNP. BNP is 887. Echo shows EF 50 - 55% with le ft atrial enlargement. Continue lasix 40mg iv BID, strict I/O and daily weight. Questionable vaginal bleeding: Will monitor H/H. Hgb is 14.6<- 13.7. Hx of ESRD: CR is 1.35 <- 1.24 <- 1.15 <- 1.0. Will avoid nephrotoxins and monitor renal function. Morbid Obesity: Pt was advised to lose weight. Deconditioning: Will consult PT. Htn: Continue metoprolol DVT ppx: lovenox Discharge Plan: Will transfer out of the ICU if ok with cardiology.
--- NOTE | 2023-08-12 12:55 | P.PN ---
Subjective Date of Service: 08/12/23 Chief Complaint: Atrial fibrillation with RVR/Bilateral PE Review of Systems General: Weakness Respiratory: Shortness of Breath Physical Examination - Vital Signs Temperature: 96.9 F Blood Pressure: 119/47 Pulse: 59 Respirations: 20 Pulse Ox (%): 96 - Physical Exam General: Alert, In no apparent distress, Oriented x3 Respiratory: Clear to auscultation bilaterally Cardiovascular: No edema, Normal pulses Assessment And Plan - Current Problems (Diagnosis) (1) Pulmonary emboli Current Visit: Yes Status: Acute Plan: Patient admitted with summary emboli change to PO eloquence doing much better oxygenation satisfactory blood pressure is stable plan to DC LasixLabs reviewed renal function is slightly worse Qualifiers: Chronicity: acute (2) Atrial fibrillation Current Visit: Yes Status: Acute Plan: Patient did have a transesophageal echocardiogram electrical cardioversion was not successful however patient reverted back to normal sinus rhythm this morning Qualifiers: Atrial fibrillation type: longstanding persistent Qualified Code(s): I48.11 - Longstanding persistent atrial fibrillation
--- NOTE | 2023-08-12 14:26 | EKG ---
Test Date: 2023-08-11 Test Time: 12:14:59 Bridge Operator: CYNTHIA MEASUREMENT RESULTS: Intervals: Rate: 104 TX: QRSD: 86 QT: 376 QTc: 494 [place]: P: TX: QRS: 71 T: -22 INTERPRETIVE STATEMENTS: Atrial fibrillation with rapid ventricular response Abnormal QRS-T angle, consider primary T wave abnormality Abnormal ECG Compared to ECG 08/08/2023 18:12:33 T-wave abnormality now present ST (T wave) deviation no longer present Electronically Signed On 08-12-23 14:23:30 CDT by Michael Chaudhari
[2023-08-13] MEDS ORDERED: ACETAMINOPHEN 500 MG TAB ONE (02:33)
[2023-08-13] MEDS: ACETAMINOPHEN 500 MG TAB PO PRN (02:35)
[2023-08-13 05:01] LABS: Absolute Basophils 0.1 K/uL (0-0.5); Absolute Eosinophils 0.4 K/uL (0-0.5); Absolute Lymphocytes (CBC) 2.2 K/uL (0.7-4.9); Absolute Neutrophil 5.6 K/uL (1.8-8.0); Basophils % 0.7 % (0-1.3); Hematocrit 39.9 % (36.0-45.0); Hemoglobin 13.3 g/dL (12.0-15.0); Lymphocytes % 24.1 % (15.3-44.8); MCH 32.1 pg (27.0-35.0); MCHC 33.4 g/dL (32.0-36.0); MCV 96.2 fL (80-100); MPV 8.7 fL (7.6-11.3); Monocytes % 10.8 % (3.3-12.3); Neutrophils % 60.4 % (41.7-73.7); Nucleated Red Blood Cells % 0.1 % (0-0); Platelets 217 thou/uL (152-406); RBC Red Blood Cell Count 4.15 M/uL (3.86-4.86); Red Cell Distribution Width 16.8 % (12.1-15.2)
[2023-08-13 05:25] LABS: Magnesium 1.8 mg/dL (1.6-2.4); Phosphorus 3.3 mg/dL (2.5-4.9)
[2023-08-13] MEDS ORDERED: ASPIRIN EC 81 MG TAB PO ONE (08:36)
[2023-08-13] MEDS: MAGNESIUM SULFATE 1 gm IVPB 1 GM/100 ML BAG IV ONE (08:38)
--- NOTE | 2023-08-13 09:42 | P.PN ---
Subjective Date of Service: 08/13/23 Chief Complaint: Atrial fibrillation with RVR/Bilateral PE Pt is resting comfortably in bed. Pt failed JEREMIAH cardioversion x 3. She converted to NSR on 08/12/23. Will continue medical therapy. Echo shows EF 50 - 55% with left atrial enlargement without RV strain. No other complaints. Review of Systems General: Unremarkable Eyes: Unremarkable ENT: Unremarkable Respiratory: Unremarkable Cardiovascular: Unremarkable Gastrointestinal: Unremarkable Genitourinary: Unremarkable Musculoskeletal: Unremarkable Integumentary: Unremarkable Neurological: Unremarkable Lymphatics: Unremarkable Physical Examination - Vital Signs Temperature: 97.1 F Blood Pressure: 105/51 Pulse: 47 Respirations: 14 Pulse Ox (%): 98 - Physical Exam General: Alert, In no apparent distress, Oriented x3, Obese HEENT: Atraumatic, Normocephalic Neck: Supple, 2+ carotid pulse no bruit Respiratory: Clear to auscultation bilaterally, Normal air movement Cardiovascular: No edema, Normal pulses, Regular rate/rhythm, Normal S1 S2 Capillary refill: <2 Seconds Gastrointestinal: Normal bowel sounds, Soft and benign, Non-distended Musculoskeletal: No clubbing, No swelling Integumentary: No rashes, No breakdown Neurological: Normal gait, Normal speech, Normal strength at 5/5 x4 extr, Normal tone, Sensation intact Assessment And Plan - Plan Acute Pulmonary embolism: CTA chest shows bilateral PE. Will continue Eliquis 5mg po BID. Off lovenox. Echo shows EF 50 - 55% with left atrial enlargement without RV strain. Pt will need AC for life given history of A. fib Acute resp failure with hypoxia: Likely due to PE. Will continue eliquis and 2L BNC. A. fib with RVR: HR is 99. Will continue metoprolol, sotalol, Eliquis and telemetry. Off digoxin. TSH is 2.0. Cardiology is following. Pt failed JEREMIAH cardioversion x3. Now in NSR. Cardiomyopathy: Pt has elevated BNP. BNP is 887. Echo shows EF 50 - 55% with left atrial enlargement. Continue lasix 40mg iv BID, strict I/O and daily weight. Questionable vaginal bleeding: Will monitor H/H. Hgb is 14.6<- 13.7. Hx of ESRD: CR is 1.27<- 1.35 <- 1.24 <- 1.15 <- 1.0. Will avoid nephrotoxins an d monitor renal function. Morbid Obesity: Pt was advised to lose weight. Deconditioning: Will consult PT. Htn: Continue metoprolol DVT ppx: lovenox Discharge Plan: Will transfer out of the ICU if ok with cardiology.
--- NOTE | 2023-08-13 12:43 | P.PN ---
Subjective Date of Service: 08/13/23 Chief Complaint: Atrial fibrillation with RVR/Bilateral PE Subjective: Improving (Patient is doing much better more alert responsive cooperative currently back in normal sinus rhythm) Review of Systems 10-point ROS is otherwise unremarkable General: Weakness Respiratory: Shortness of Breath Physical Examination - Vital Signs Temperature: 97.2 F Blood Pressure: 128/58 Pulse: 63 Respirations: 14 Pulse Ox (%): 94 - Physical Exam General: Alert, Oriented x3, Cachectic Neck: Supple Respiratory: Clear to auscultation bilaterally Cardiovascular: No edema, Regular rate/rhythm, Normal S1 S2 Assessment And Plan - Current Problems (Diagnosis) (1) Pulmonary emboli Current Visit: Yes Status: Acute Plan: Patient admitted with bilateral pulmonary emboli is currently doing much better change to PO Eliquis/ambulate physical therapy patient is weak discharge planning Qualifiers: Chronicity: acute (2) Atrial fibrillation Current Visit: Yes Status: Acute Plan: Patient is converted back to normal sinus rhythm failure cardioversion status posterior transesophageal echo Qualifiers: Atrial fibrillation type: longstanding persistent Qualified Code(s): I48.11 - Longstanding persistent atrial fibrillation
--- NOTE | 2023-08-13 14:56 | P.PN ---
Subjective Date of Service: 08/13/23 Chief Complaint: Atrial fibrillation with RVR/Bilateral PE Subjective: No new changes Review of Systems 10-point ROS is otherwise unremarkable Physical Examination - Vital Signs Temperature: 97.2 F Blood Pressure: 128/58 Pulse: 63 Respirations: 14 Pulse Ox (%): 94 - Physical Exam General: Alert, Oriented x3 HEENT: Atraumatic Neck: Supple Respiratory: Clear to auscultation bilaterally Cardiovascular: No edema, Normal S1 S2 Gastrointestinal: Normal bowel sounds Assessment And Plan - Current Problems (Diagnosis) (1) Atrial fibrillation Current Visit: Yes Status: Acute Plan: Patient failed JEREMIAH DCCV despite delivering 3 shocks, but she cardioverted into sinus rhythm later on. continue Sotalol 80 mg po BID Continue lopressor 25 mg po BID continue Digoxin 125 mcg daily Continue Eliquis 5 mg po BID Qualifiers: Atrial fibrillation type: longstanding persistent Qualified Code(s): I48.11 - Longstanding persistent atrial fibrillation (2) Pulmonary embolism Current Visit: Yes Status: Acute Plan: Eliquis 5 mg po BID (3) Hypertension Current Visit: No Status: Chronic Plan: patient BP is soft so continue medications above and continue to monitor. Qualifiers:
[2023-08-14 05:51] LABS: Absolute Basophils 0.1 K/uL (0-0.5); Absolute Eosinophils 0.4 K/uL (0-0.5); Absolute Monocytes 0.9 K/uL (0.1-1.3); Absolute Neutrophil 5.3 K/uL (1.8-8.0); Eosinophils % 4.3 % (0-4.4); Hematocrit 41.5 % (36.0-45.0); Hemoglobin 13.9 g/dL (12.0-15.0); Lymphocytes % 23.2 % (15.3-44.8); MCHC 33.5 g/dL (32.0-36.0); MCV 95.7 fL (80-100); MPV 8.8 fL (7.6-11.3); Neutrophils % 61.5 % (41.7-73.7); Nucleated Red Blood Cells % 0.1 % (0-0); Platelets 199 thou/uL (152-406); RBC Red Blood Cell Count 4.33 M/uL (3.86-4.86); Red Cell Distribution Width 17.1 % (12.1-15.2)
[2023-08-14 06:00] LABS: Anion Gap 9.1 mEq/L (5.0-15.0); Potassium 4.1 mEq/L (3.5-5.1)
--- NOTE | 2023-08-14 11:52 | P.PN ---
Subjective Date of Service: 08/14/23 Chief Complaint: Atrial fibrillation with RVR/Bilateral PE Pt is resting comfortably in bed. Pt failed JEREMIAH cardioversion x 3. She converted to NSR on 08/12/23. Will continue medical therapy. Echo shows EF 50 - 55% with left atrial enlargement without RV strain. She was transferred out of the ICU yesterday. No other complaints. Review of Systems General: Unremarkable Eyes: Unremarkable ENT: Unremarkable Respiratory: Unremarkable Cardiovascular: Unremarkable Gastrointestinal: Unremarkable Genitourinary: Unremarkable Musculoskeletal: Unremarkable Integumentary: Unremarkable Neurological: Unremarkable Lymphatics: Unremarkable Physical Examination - Vital Signs Temperature: 97.3 F Blood Pressure: 106/45 Pulse: 54 Respirations: 15 Pulse Ox (%): 97 - Physical Exam General: Alert, In no apparent distress, Oriented x3 HEENT: Atraumatic, Normocephalic, PERRLA Neck: Supple, 2+ carotid pulse no bruit Respiratory: Clear to auscultation bilaterally, Normal air movement Cardiovascular: No edema, Normal pulses, Regular rate/rhythm, Normal S1 S2, Edema Capillary refill: <2 Seconds Gastrointestinal: Normal bowel sounds, Soft and benign, Non-distended Musculoskeletal: No clubbing, No swelling Integumentary: No rashes, No breakdown Neurological: Normal gait, Normal speech, Normal strength at 5/5 x4 extr, Sensation intact Assessment And Plan - Plan Acute Pulmonary embolism: CTA chest shows bilateral PE. Will continue Eliquis 5mg po BID. Off lovenox. Echo shows EF 50 - 55% with left atrial enlargement without RV strain. Pt will need AC for life given history of A. fib Acute resp failure with hypoxia: Likely due to PE. Will continue eliquis and 2L BNC. A. fib with RVR: HR is 48. Will continue sotalol, Eliquis and telemetry. Hold metoprolol and digoxin. TSH is 2.0. Cardiology is following. Pt failed JEREMIAH cardioversion x3. Now in NSR. Cardiomyopathy: Pt has elevated BNP. BNP is 887. Echo shows EF 50 - 55% with left atrial enlargement. Continue lasix 40mg iv BID, strict I/O and daily weight. Questionable vaginal bleeding: Will monitor H/H. Hgb is 14.6<- 13.7. Hx of ESRD: CR is 1.05 <- 1.27<- 1.35 <- 1.24 <- 1.15 <- 1.0. Will avoid nephrotoxins and monitor renal function. Morbid Obesity: Pt was advised to lose weight. Hyponatremia: Na is 134. Will monitor. Deconditioning: Consulted PT. Htn: Continue metoprolol DVT ppx: lovenox Discharge Plan: Will transfer out of the ICU if ok with cardiology.
[2023-08-15 05:16] LABS: Absolute Basophils 0.1 K/uL (0-0.5); Absolute Eosinophils 0.4 K/uL (0-0.5); Absolute Monocytes 0.8 K/uL (0.1-1.3); Absolute Neutrophil 5.3 K/uL (1.8-8.0); Basophils % 1.3 % (0-1.3); Eosinophils % 4.2 % (0-4.4); Hematocrit 38.8 % (36.0-45.0); Hemoglobin 12.8 g/dL (12.0-15.0); Lymphocytes % 23.2 % (15.3-44.8); MCH 31.8 pg (27.0-35.0); MCV 96.4 fL (80-100); MPV 9.2 fL (7.6-11.3); Monocytes % 9.7 % (3.3-12.3); Neutrophils % 61.6 % (41.7-73.7); Platelets 167 thou/uL (152-406); RBC Red Blood Cell Count 4.03 M/uL (3.86-4.86); Red Cell Distribution Width 17.1 % (12.1-15.2)
[2023-08-15 05:25] LABS: Anion Gap 10.9 mEq/L (5.0-15.0); Potassium 3.9 mEq/L (3.5-5.1)
--- NOTE | 2023-08-15 09:37 | P.PN ---
Subjective Date of Service: 08/15/23 Chief Complaint: Atrial fibrillation with RVR/Bilateral PE Subjective: Improving (pt is doing well feeling week, ?hematuria) Review of Systems Unremarkable General: Weakness Physical Examination - Vital Signs Temperature: 99.1 F Blood Pressure: 147/59 Pulse: 66 Respirations: 16 Pulse Ox (%): 97 - Physical Exam General: Alert, Oriented x3 HEENT: Atraumatic Neck: Supple Respiratory: Clear to auscultation bilaterally, Normal air movement Cardiovascular: No edema, Regular rate/rhythm Assessment And Plan - Current Problems (Diagnosis) (1) Pulmonary emboli Current Visit: Yes Status: Acute Plan: Stabel doign well. ? hematuria. Pt states she slight hematuria even before wa started on Anticoagulation/ Dyspnea has improved/ Labs reviewed/ Stable fo discharge/ Labs reviwed Qualifiers: Chronicity: acute (2) Atrial fibrillation Current Visit: Yes Status: Acute Plan: Patient is converted back to normal sinus rhythm failure cardioversion status posterior transesophageal echo Qualifiers: Atrial fibrillation type: longstanding persistent Qualified Code(s): I48.11 - Longstanding persistent atrial fibrillation
--- NOTE | 2023-08-15 11:44 | P.PN ---
Subjective Date of Service: 08/15/23 Chief Complaint: Atrial fibrillation with RVR/Bilateral PE Pt is resting comfortably in bed. Pt failed JEREMIAH cardioversion x 3. She converted to NSR on 08/12/23. Will continue medical therapy. Echo shows EF 50 - 55% with left atrial enlargement without RV strain. She was transferred out of the ICU on 08/13/23. Waiting for physical therapy eval. No other complaints. Review of Systems General: Unremarkable Eyes: Unremarkable ENT: Unremarkable Respiratory: Unremarkable Cardiovascular: Unremarkable Gastrointestinal: Unremarkable Genitourinary: Unremarkable Musculoskeletal: Unremarkable Integumentary: Unremarkable Neurological: Unremarkable Lymphatics: Unremarkable Physical Examination - Vital Signs Temperature: 99.1 F Blood Pressure: 147/59 Pulse: 66 Respirations: 16 Pulse Ox (%): 97 - Physical Exam General: Alert, In no apparent distress, Oriented x3, Obese HEENT: Atraumatic, Normocephalic Neck: Supple, 2+ carotid pulse no bruit, JVD not distended Respiratory: Clear to auscultation bilaterally, Normal air movement Cardiovascular: No edema, Normal pulses, Regular rate/rhythm, Normal S1 S2 Capillary refill: <2 Seconds Gastrointestinal: Normal bowel sounds, Soft and benign, Non-distended Musculoskeletal: No clubbing, No swelling Integumentary: No rashes, No breakdown, No significant lesion Neurological: Normal gait, Normal speech, Normal strength at 5/5 x4 extr Lymphatics: No axilla or inguinal lymphadenopathy Assessment And Plan - Plan Acute Pulmonary embolism: CTA chest shows bilateral PE. Will continue Eliquis 5mg po BID. Off lovenox. Echo shows EF 50 - 55% with left atrial enlargement without RV strain. Pt will need AC for life given history of A. fib Acute resp failure with hypoxia: Likely due to PE. Will continue eliquis and 2L BNC. A. fib with RVR: HR is 55. Will continue sotalol, Eliquis and telemetry. Hold metoprolol and digoxin. TSH is 2.0. Cardiology is following. Pt failed JEREMIAH cardioversion x3. Now in NSR. Cardiomyopathy: Pt has elevated BNP. BNP is 887. Echo shows EF 50 - 55% with left atrial enlargement. Continue lasix 40mg iv BID, strict I/O and daily weight. Questionable vaginal bleeding: Will monitor H/H. Hgb is 14.6<- 13.7. Hx of ESRD: CR is 1.04<- 1.05 <- 1.27<- 1.35 <- 1.24 <- 1.15 <- 1.0. Will avoid nephrotoxins and monitor renal function. Morbid Obesity: Pt was advised to lose weight. Hyponatremia: Na is 135. Will monitor. Deconditioning: Consulted PT. Htn: Continue metoprolol DVT ppx: lovenox Discharge Plan: Transferred out of the ICU on 08/13/23. Will check urinalysis for UTI.
--- NOTE | 2023-08-15 13:10 | P.PN ---
Subjective Date of Service: 08/15/23 Chief Complaint: Atrial fibrillation with RVR/Bilateral PE Subjective: No new changes Review of Systems 10-point ROS is otherwise unremarkable Physical Examination - Vital Signs Temperature: 97.9 F Blood Pressure: 132/62 Pulse: 57 Respirations: 17 Pulse Ox (%): 93 - Physical Exam General: Alert, Oriented x3 HEENT: Atraumatic Neck: Supple Respiratory: Clear to auscultation bilaterally Cardiovascular: No edema Gastrointestinal: Normal bowel sounds Assessment And Plan - Current Problems (Diagnosis) (1) Atrial fibrillation Current Visit: Yes Status: Acute Plan: Patient failed JEREMIAH DCCV despite delivering 3 shocks, but she cardioverted into sinus rhythm later on. continue Sotalol 80 mg po BID Continue Eliquis 5 mg po BID start patient on Toprol XL 25 mg daily outpatient follow up with cardiology, we will sign off, please call for any questions. Qualifiers: Atrial fibrillation type: longstanding persistent Qualified Code(s): I48.11 - Longstanding persistent atrial fibrillation (2) Pulmonary embolism Current Visit: Yes Status: Acute Plan: Eliquis 5 mg po BID (3) Hypertension Current Visit: No Status: Chronic Plan: start Toprol XL 25 mg daily Qualifiers:
[2023-08-15 16:07] LABS: Specific Gravity 1.025 (1.005-1.030); Sqamous Epithelial <5 /HPF (None Seen); Urine Bacteria <20 /HPF (<20); Urine Bilirubin NEGATIVE (Negative); Urine Blood 3+ (Negative); Urine Clarity Turbid (Clear); Urine Color Yellow (Yellow); Urine Culture Reflex Order REFLEXED; Urine Glucose NEGATIVE (Negative); Urine Ketones NEGATIVE (Negative); Urine Microscopic Reflex YN ORDER UMIC; Urine Nitrite NEGATIVE (Negative); Urine Protein 1+ (Negative); Urine RBC >50 /HPF (None Seen); Urine Urobilinogen 4+ (Over) (Normal); Urine pH 8.5 (5.0-7.0)
[2023-08-16 06:34] LABS: Absolute Basophils 0.1 K/uL (0-0.5); Absolute Eosinophils 0.4 K/uL (0-0.5); Absolute Lymphocytes (CBC) 2.1 K/uL (0.7-4.9); Absolute Monocytes 0.8 K/uL (0.1-1.3); Absolute Neutrophil 4.8 K/uL (1.8-8.0); Basophils % 0.8 % (0-1.3); Eosinophils % 5.1 % (0-4.4); Hematocrit 39.8 % (36.0-45.0); Hemoglobin 13.5 g/dL (12.0-15.0); Lymphocytes % 25.4 % (15.3-44.8); MCH 32.5 pg (27.0-35.0); MCHC 33.8 g/dL (32.0-36.0); MCV 95.9 fL (80-100); MPV 8.8 fL (7.6-11.3); Monocytes % 9.6 % (3.3-12.3); Neutrophils % 59.1 % (41.7-73.7); Nucleated Red Blood Cells % 0.1 % (0-0); Platelets 169 thou/uL (152-406); RBC Red Blood Cell Count 4.15 M/uL (3.86-4.86)
[2023-08-16] MEDS: METOPROLOL XL 25 MG TAB PO SCH (06:42)
[2023-08-16 06:43] LABS: Anion Gap 6.8 mEq/L (5.0-15.0); Potassium 3.8 mEq/L (3.5-5.1)
[2023-08-16] MEDS: lisinopriL 10 MG TAB PO SCH (09:28)
[2023-08-16 10:29] VITALS: O2SAT 94
--- NOTE | 2023-08-16 12:44 | P.DS ---
Admission Date: 08/08/23 Discharge Date: 08/16/23 Reason for Admission: Atrial fibrillation with RVR/Bilateral PE Consultations: Dr. Mclaughlin, Dr. Zambrano Procedures: JEREMIAH DCCV - failed to convert electrically but did convert pharmacologically - Problems (1) Atrial fibrillation Status: Acute Qualifiers: Atrial fibrillation type: longstanding persistent Qualified Code(s): I48.11 - Longstanding persistent atrial fibrillation (2) Pulmonary emboli Status: Acute Qualifiers: Chronicity: acute Brief History of Present Illness: "Patient is a 73-year-old female who is well-known to me from an extensive hospital stay that occurred in September 2021. At that time, patient had come in with atrial fibrillation with rapid ventricular response. She was also in acute renal insufficiency. She was given amiodarone initially. However, she went into developed an acute chemical hepatitis which we contributed to the amiodarone. Patient was given beta-parvez therapy-she was on carvedilol along with digoxin. Echocardiogram at that time revealed an ejection fraction of 20 to 25%. Patient also had moderate pulmonary hypertension. Patient ended up needing hemodialysis. She was transferred to inpatient rehabilitation. She build her strength up while she was in rehab. She was discharged to follow-up with outpatient hemodialysis, and she remained on digoxin and carvedilol for rate control. She was also on Xarelto for the atrial fibrillation. Over the next year she was able to get off of hemodialysis. She was following up with Dr. Ronquillo, and then they transferred her care to [facility]. Patient stopped taking her cardiac meds about a year ago. She has been off of anticoagulation for about a year. I am not sure if she is taking any home medications at this time, as her makes it seem like she is off of all her medicines for the last year. She came into the emergency room today because she was short of breath and her workup in the emergency room found her to be in atrial fibrillation with rapid ventricular response. She was given Cardizem for rate control. Her heart rate had come down into the 90s. However, her heart rate went back into the 120s. They decided to get a CT PE protocol in the emergency room which revealed bilateral pulmonary embolism. Patient will be started on a heparin drip along with digoxin IV along with a beta-parvez therapy. Patient will be monitored in the intensive care unit. Patient also has had vaginal bleeding on and off for quite a while. I talked her a little more extensively about this, she states that she has not seen a consumer loan processor because she would not really want anything done for the bleeding. Will monitor her H&H. She has never required a blood transfusion. Will monitor her for GI bleeding. If she has any bleeding, we should have GI available later this week. At this time patient will be monitored closely in the intensive care unit. Patient's states that her appetite is pretty good. She has no difficulty with her nutrition. She ambulates at home, sometimes without a walker. She does have a walker which she is supposed to use. She uses a recliner to rest as well." Hospital Course: Ms. Wilkins has had a long history of atrial fibrillation. During her hospital stay, attempts to electrically cardiovert her have failed. She has been given different beta blockers, calcium channel blockers, and some digoxin. She did eventually convert to sinus rhythm with Sotalol. She has been cleared by Dr. Zambrano for discharge on Eliquis for bilateral pulmonary emboli. Her most recent echo seems to show an improved ejection fraction from 2021. Mrs. Wilkins has repeatedly declined physical therapy. States she does well at home without home health. She lives at home with her Spouse, has a walker which she uses infrequently, and a recliner for rest. She will be discharged with Sotalol, Eliquis, and Lisinopril for cardiopulmonary treatment. There was some concern regarding hematuria and a possible urinary tract infection. Cultures remain pending, but will discharge with Augmentin x 7 days awaiting results. <Almaz Sorensen - Last Filed: 08/16/23 12:52> Admission Date: 08/08/23 Discharge Date: 08/17/23 Hospital Course: Pt seen and examined. I agree with the note by the [facility]. Ok to discharge pt <Catherine Richardson - Last Filed: 08/17/23 22:21> Disposition: ROUTINE DISCHARGE Discharge Condition: GOOD Vital Signs/Physical Exam: Temp Pulse Resp BP Pulse Ox 97.8 F 60 18 176/56 H 94 08/16/23 08:00 08/16/23 09:28 08/16/23 08:00 08/16/23 09:28 08/16/23 08:00 General: Alert, In no apparent distress, Oriented x3 HEENT: Atraumatic, Normocephalic, PERRLA Neck: 2+ carotid pulse no bruit Respiratory: Clear to auscultation bilaterally, Normal air movement Cardiovascular: Regular rate/rhythm Capillary refill: <2 Seconds Gastrointestinal: Soft and benign Musculoskeletal: No clubbing Integumentary: Other (minimal ecchymosis to upper arms) Neurological: Normal speech, Normal tone Lymphatics: No axilla or inguinal lymphadenopathy External genitalia: Deferred Rectal: Deferred Laboratory Data at Discharge: WBC 8.10 thou/uL (4.3-10.9) 08/16/23 05:35 Hgb 13.5 g/dL (12.0-15.0) 08/16/23 05:35 Hct 39.8 % (36.0-45.0) 08/16/23 05:35 Plt Count 169 thou/uL (152-406) 08/16/23 05:35 APTT Cancelled 08/10/23 18:30 Sodium 136 mEq/L (136-145) 08/16/23 05:35 Potassium 3.8 mEq/L (3.5-5.1) 08/16/23 05:35 BUN 13 mg/dL (7-18) 08/16/23 05:35 Creatinine 1.01 mg/dL (0.55-1.02) 08/16/23 05:35 Glucose 99 mg/dL (74-106) 08/16/23 05:35 Phosphorus Cancelled 08/13/23 05:00 Magnesium Cancelled 08/13/23 05:00 Total Bilirubin 2.3 mg/dL (0.2-1.0) H 08/10/23 09:24 AST 30 U/L (15-37) 08/10/23 09:24 ALT 26 U/L (13-56) 08/10/23 09:24 Alkaline Phosphatase 117 U/L (45-117) 08/10/23 09:24 Triglycerides 104 mg/dL (<150) 08/09/23 04:01 Cholesterol 133 mg/dL (<200) 08/09/23 04:01 HDL Cholesterol 38 mg/dL (40-60) L 08/09/23 04:01 Cholesterol/HDL Ratio 3.50 08/09/23 04:01 <Sorensen,Almaz Fredy - Last Filed: 08/16/23 12:52> Vital Signs/Physical Exam: Temp Pulse Resp BP Pulse Ox 97.7 F 56 18 127/58 L 98 08/16/23 12:00 08/16/23 12:00 08/16/23 12:00 08/16/23 12:00 08/16/23 12:00 Laboratory Data at Discharge: WBC 8.10 thou/uL (4.3-10.9) 08/16/23 05:35 Hgb 13.5 g/dL (12.0-15.0) 08/16/23 05:35 Hct 39.8 % (36.0-45.0) 08/16/23 05:35 Plt Count 169 thou/uL (152-406) 08/16/23 05:35 APTT Cancelled 08/10/23 18:30 Sodium 136 mEq/L (136-145) 08/16/23 05:35 Potassium 3.8 mEq/L (3.5-5.1) 08/16/23 05:35 BUN 13 mg/dL (7-18) 08/16/23 05:35 Creatinine 1.01 mg/dL (0.55-1.02) 08/16/23 05:35 Glucose 99 mg/dL (74-106) 08/16/23 05:35 Phosphorus Cancelled 08/13/23 05:00 Magnesium Cancelled 08/13/23 05:00 Total Bilirubin 2.3 mg/dL (0.2-1.0) H 08/10/23 09:24 AST 30 U/L (15-37) 08/10/23 09:24 ALT 26 U/L (13-56) 08/10/23 09:24 Alkaline Phosphatase 117 U/L (45-117) 08/10/23 09:24 Triglycerides 104 mg/dL (<150) 08/09/23 04:01 Cholesterol 133 mg/dL (<200) 08/09/23 04:01 HDL Cholesterol 38 mg/dL (40-60) L 08/09/23 04:01 Cholesterol/HDL Ratio 3.50 08/09/23 04:01 <Catherine Richardson - Last Filed: 08/17/23 22:21> Diet: AHA Activity: Ad carlos <Sorensen,Almaz Fredy - Last Filed: 08/16/23 12:52> <Catherine Richardson - Last Filed: 08/17/23 22:21> Home Medications: Amox/Clavulanate [Augmentin 875-125 Tab] 875 mg PO BID 7 Days #14 tab 08/16/23 Apixaban [Eliquis] 5 mg PO BID 90 Days #180 tablet 08/16/23 Lisinopril [Zestril] 10 mg PO DAILY 60 Days #60 tab 08/16/23 Sotalol HCl [Betapace*] 80 mg PO BID 90 Days #180 tab 08/16/23 New Medications: Amox/Clavulanate [Augmentin 875-125 Tab] 875 mg PO BID 7 Days #14 tab Sotalol HCl [Betapace*] 80 mg PO BID 90 Days #180 tab Apixaban [Eliquis] 5 mg PO BID 90 Days #180 tablet Lisinopril [Zestril] 10 mg PO DAILY 60 Days #60 tab Physician Discharge Instructions: Please follow up with Dr. Zambrano (Pulmonary) and Dr. Mclaughlin (Cardiology) and PCP within 1-2 weeks. Please call the inpatient unit for any questions or concerns regarding hospital stay Return to the ER for worsening symptoms Followup: Kei Zambrano MD [ACTIVE - CAN ADMIT] - (call for an apt for 1-2 weeks.) Hector Prather PA [Primary Care Provider] - Griffin Mclaughlin MD [ACTIVE - CAN ADMIT] - (call for an apt for 1-2 weeks)
[2023-08-16 14:27] VITALS: BP 127/58; TEMP 97.7
== END 2023-08-16 15:37 | disposition home or self-care (01) | DRG 189 ==
LOC: ER 18:45 → ERHOLD 23:05 → 3RD-ICU 08-09 15:49 → 2ND 08-14 03:47 → 4TH 08-14 03:50
PROVIDERS: ADMIT Hospitalist; ATTEND Hospitalist
PROC: 5A09457 Assistance with Respiratory Ventilation, 24-96 Consecutive Hours, Continuous Positive Airway Pressure (ICD-10-PCS; principal; 2023-08-09)
PROC: B24BZZ4 Ultrasonography of Heart with Aorta, Transesophageal (ICD-10-PCS; 2023-08-11)
PROC: 5A2204Z Restoration of Cardiac Rhythm, Single (ICD-10-PCS; 2023-08-11)
DX: J96.01 Acute respiratory failure with hypoxia (principal); I26.99 Other pulmonary embolism without acute cor pulmonale; N18.6 End stage renal disease; Z68.41 Body mass index [BMI] 40.0-44.9, adult; I12.0 Hypertensive chronic kidney disease with stage 5 chronic kidney disease or end stage renal disease; I42.9 Cardiomyopathy, unspecified; I48.11 Longstanding persistent atrial fibrillation; R64 Cachexia; E87.1 Hypo-osmolality and hyponatremia; N39.0 Urinary tract infection, site not specified; E66.01 Morbid (severe) obesity due to excess calories; M79.7 Fibromyalgia; R31.9 Hematuria, unspecified; Z88.5 Allergy status to narcotic agent; Z79.01 Long term (current) use of anticoagulants; Z90.49 Acquired absence of other specified parts of digestive tract; Z79.899 Other long term (current) drug therapy
CPT/HCPCS: 36415; 71045; 71275; 80048; 80053; 80061; 81001; 82248; 82947; 83735; 83880; 84100; 84439; 84443; 84484; 85025; 85730; 87086; 87088; 92960; 93005; 93306; 93312; 96372; 97116; 97161; 97530; 99285; J0360; J0461; J1650; J1940; J2001; J2371; J2405; J2704; J3475; J7030; J7040; J7050; Q9967

== ENCOUNTER 2023-08-23 11:14 | Observation (INO) | payer BC ==
--- NOTE | 2023-08-23 12:28 | RAD REPORT ---
EXAM DESCRIPTION: RAD - Chest Single View - 08/23/2023 12:09 pm CLINICAL HISTORY: DYSPNEA COMPARISON: Chest Single View dated 08/08/2023; Chest Single View dated 11/10/2021; Chest Single View dated 10/14/2021; Chest Single View dated 10/13/2021 FINDINGS: Lines: None. Lungs: Mild airspace disease in lung bases, left greater than right. This is similar to 08/08/2023. Pleural: No significant pleural effusions or pneumothorax. Cardiac: The heart size is within normal limits. Mediastinum: Within normal limits. Bones: No acute fractures. Other: None IMPRESSION: Similar aeration of the lungs with mild left greater than right basilar opacities that c ould reflect atelectasis and/or pneumonia.
[2023-08-23 12:43] LABS: Absolute Basophils 0.1 K/uL (0-0.5); Absolute Eosinophils 0.9 K/uL (0-0.5); Absolute Lymphocytes (CBC) 2.5 K/uL (0.7-4.9); Absolute Monocytes 0.8 K/uL (0.1-1.3); Absolute Neutrophil 6.5 K/uL (1.8-8.0); Basophils % 0.8 % (0-1.3); Hematocrit 41.8 % (36.0-45.0); Hemoglobin 13.9 g/dL (12.0-15.0); Lymphocytes % 23.4 % (15.3-44.8); MCH 32.3 pg (27.0-35.0); MCHC 33.2 g/dL (32.0-36.0); MCV 97.3 fL (80-100); MPV 8.8 fL (7.6-11.3); Monocytes % 7.4 % (3.3-12.3); Neutrophils % 60.4 % (41.7-73.7); Platelets 235 thou/uL (152-406); RBC Red Blood Cell Count 4.29 M/uL (3.86-4.86); Red Cell Distribution Width 17.9 % (12.1-15.2)
[2023-08-23 13:00] LABS: Anion Gap 10.1 mEq/L (5.0-15.0); Potassium 4.1 mEq/L (3.5-5.1); Troponin High Sensitivity 10.4 pg/mL (<58.9)
[2023-08-23 13:15] LABS: INFLUENZA A NAA NEGATIVE (NEGATIVE); RESPIRATORY SYNCYTIAL VIR NAA NEGATIVE (NEGATIVE); SARS-COV-2 RT PCR NEGATIVE (NEGATIVE)
[2023-08-23] MEDS ORDERED: CEFTRIAXONE 1000 MG/VIAL ONE (13:26)
[2023-08-23] MEDS ORDERED: NA CHLORIDE 0.9% 250 ML ONE (13:27)
[2023-08-23] MEDS ORDERED: AZITHROMYCIN 500 MG INJ IVPB ONE (13:27)
--- NOTE | 2023-08-23 13:27 | ER ---
Nurse's Notes [facility] Name: Mady Wilkins Age: 73 yrs Sex: Female : 1950 Arrival Date: 08/23/2023 Time: 11:14 Bed 5 Private MD: Diagnosis: Weakness;Unspecified bacterial pneumonia Presentation: 08/22 11:54 Chief complaint: Patient states: SOB, nausea, weakness for 2 weeks. Discharged for UTI ll1 and A fib RVR with cardioversion, on antibiotics still. On Eliquis for blood clots in the lungs EMS states: VSS 100 %, HR 40's-50's. Coronavirus screen: Client denies travel out of the [place] in the last 14 days. difficulty breathing, fatigue, nausea, Client presents with at least one sign or symptom that may indicate coronavirus-19. Standard/surgical mask placed on the client. Ebola Screen: Patient denies travel to an Ebola-affected area in the 21 days before illness onset. Initial Sepsis Screen: Does the patient meet any 2 criteria? No. Patient's initial sepsis screen is negative. Does the patient have a suspected source of infection? No. Patient's initial sepsis screen is negative. Risk Assessment: Do you want to hurt yourself or someone else? Patient reports no desire to harm self or others. Onset of symptoms was August 07, 2023. 11:54 Method Of Arrival: EMS ll1 11:54 Acuity: MONTSE 3 ll1 Triage Assessment: 12:44 General: Appears in no apparent distress. comfortable, Behavior is calm, cooperative. db Pain: Complains of pain in chest. Historical: - Allergies: 11:39 ACETAMINOPHEN; ll1 11:39 Tramadol HCl; ll1 - PMHx: 11:39 Atrial fibrillation; Colitis; Fibromyalgia; ll1 - PSHx: 11:39 right chest wall dialysis site; ll1 - Immunization history:: Adult Immunizations up to date. - Infectious Disease History:: Denies. - Social history:: Smoking status: Patient denies any tobacco usage or history of. Screenin:25 [facility] ED Fall Risk Assessment (Adult) History of falling in the last 3 months, db including since admission No falls in past 3 months (0 pts) Confusion or Disorientation No (0 pts) Intoxicated or Sedated No (0 pts) Impaired Gait Yes (1 pt) Mobility Assist Device Used Yes (1 pt) Altered Elimination No (0 pt) Score/Fall Risk Level 0 - 2 = Low Risk Oriented to surroundings, Maintained a safe environment. Abuse screen: Denies threats or abuse. Denies injuries from another. Nutritional screening: No deficits noted. Tuberculosis screening: No symptoms or risk factors identified. Assessment: 12:18 Reassessment: Patient appears in no apparent distress at this time. Patient and/or db family updated on plan of care and expected duration. Pain level reassessed. 13:45 Reassessment: No changes from previously documented assessment. Patient and/or family ll1 updated on plan of care and expected duration. Pain level reassessed. 14:15 Reassessment: Patient appears in no apparent distress at this time. Patient and/or db family updated on plan of care and expected duration. Pain level reassessed. Patient is alert, oriented x 3, equal unlabored respirations, skin warm/dry/pink. 15:28 Reassessment: Patient appears in no apparent distress at this time. Patient and/or db family updated on plan of care and expected duration. Pain level reassessed. Patient is alert, oriented x 3, equal unlabored respirations, skin warm/dry/pink. General: Appears in no apparent distress. comfortable, Behavior is calm, cooperative. Neuro: Level of Consciousness is awake, alert, obeys commands, Oriented to person, place, time, situation. Respiratory: Airway is patent Respiratory effort is even, unlabored, Respiratory pattern is regular, symmetrical. 17:35 Reassessment: REPORT FAXED TO UNIT. db 17:40 Reassessment: Patient appears in no apparent distress at this time. Patient and/or db family updated on plan of care and expected duration. Pain level reassessed. Patient is alert, oriented x 3, equal unlabored respirations, skin warm/dry/pink. Vital Signs: 12:30 BP 142 / 48; Pulse 47; Resp 18; Pulse Ox 99% on R/A; db 13:44 BP 160 / 62; Pulse 54; Resp 18; Temp 97.6; Pulse Ox 98% on R/A; ll1 14:00 BP 153 / 67; Pulse 52; Resp 18; Pulse Ox 99% on R/A; db 15:00 BP 138 / 69; Pulse 48; Resp 16; Pulse Ox 99% on R/A; db 16:00 BP 152 / 64; Pulse 49; Resp 20; Pulse Ox 99% on R/A; db 17:00 BP 159 / 84; Pulse 53; Resp 18; Pulse Ox 99% ; db ED Course: 11:17 Patient arrived in ED. rg4 11:25 Andrew Bustillo MD is Attending Physician. ec2 11:39 Arm band placed on. ll1 11:47 Patient placed in an exam room, on a stretcher. ll1 11:56 Triage completed. ll1 12:11 XRAY Chest (1 view) In Process Unspecified. EDMS 12:17 Iliana Blood, RN is Primary Nurse. db 12:25 Patient has correct armband on for positive identification. Bed in low position. Call db light in reach. Side rails up X 1. Provided Education on: LABS. Client placed on continuous cardiac and pulse oximetry monitoring. NIBP monitoring applied. teletypesetter monitor on. Pulse ox on. NIBP on. Warm blanket given. 12:25 Initial lab(s) drawn, by me, sent to lab. EKG done, by ED staff, reviewed by Andrew Bustillo MD COVID swab sent to lab. Flu and/or RSV swab sent to lab. Inserted saline lock: 22 gauge in right antecubital area, using aseptic technique. Blood collected. 13:27 Lino Arreaga MD is Hospitalizing Provider. ec2 17:40 No provider procedures requiring assistance completed. Patient admitted, IV remains in db place. Administered Medications: 13:35 Drug: Rocephin IV 1 grams IV at calculated rate once; Given slow IV push per pharmacy ll1 instructions Route: IV; Rate: calculated rate; Site: right antecubital; 13:41 Follow up: Response: No adverse reaction; IV Status: Completed infusion; IV Intake: [id number] 13:42 Drug: AZITHromycin IVPB 500 mg IVPB once over 1 hrs; (mix in 250 mL NS) Route: IVPB; ll1 Infused Over: 1 hrs; Site: right antecubital; 15:00 Follow up: Response: No adverse reaction; IV Status: Completed infusion; IV Intake: db 250ml Medication: 12:25 VIS not applicable for this client. db Intake: 13:41 IV: 10ml; Total: 10ml. ll1 15:00 IV: 250ml; Total: 260ml. db Outcome: 13:27 Decision to Hospitalize by Provider. ec2 17:40 Admitted to ER Hold. Please see [facility] for further documentation. db 17:40 Condition: stable 17:40 Instructed on the need for admit, 18:23 Admitted to Med/surg accompanied by tech, via stretcher, with chart, Report called to db FAXED TO 4TH 18:23 Patient left the ED. db Signatures: Dispatcher [employer] Sandra Meza [id number] Janusz Avilez RN RN ll1 Iliana Blood RN RN db Andrew Bustillo MD MD ec2
--- NOTE | 2023-08-23 13:27 | EDPHYS ---
Physician Documentation [facility] Name: Mady Wilkins Age: 73 yrs Sex: Female : 1950 Arrival Date: 08/23/2023 Time: 11:14 Bed 5 Private MD: ED Physician Andrew Bustillo HPI: 08/22 11:57 This 73 yrs old Female presents to ER via EMS with complaints of weakness, ec2 sob. 11:57 Patient arrives today for evaluation of weakness and shortness of breath. Patient ec2 reports several weeks of symptoms. Patient reports some general dyspnea. Patient reports recent diagnosis of PE, on Eliquis, reports medication compliance. Also reports some generalized fatigue. Patient reports no cough or cold symptoms, no vomiting or diarrhea, no issues with p.o. intake.. Historical: - Allergies: 11:39 ACETAMINOPHEN; ll1 11:39 Tramadol HCl; ll1 - PMHx: 11:39 Atrial fibrillation; Colitis; Fibromyalgia; ll1 - PSHx: 11:39 right chest wall dialysis site; ll1 - Immunization history:: Adult Immunizations up to date. - Infectious Disease History:: Denies. - Social history:: Smoking status: Patient denies any tobacco usage or history of. ROS: 11:57 Constitutional: as per hpi ec2 Exam: 11:57 Constitutional: GEN: NAD Head: atraumatic Eyes: EOMI Ears: External ears are ec2 normal. CV: regular rate LUNGS: no respiratory distress, no wheezes, rales, or rhonchi ABD: non-distended SKIN: no evidence of rashes MSK: no evidence of trauma NEURO: moves all extremities equally Vital Signs: 12:30 BP 142 / 48; Pulse 47; Resp 18; Pulse Ox 99% on R/A; db 13:44 BP 160 / 62; Pulse 54; Resp 18; Temp 97.6; Pulse Ox 98% on R/A; ll1 14:00 BP 153 / 67; Pulse 52; Resp 18; Pulse Ox 99% on R/A; db 15:00 BP 138 / 69; Pulse 48; Resp 16; Pulse Ox 99% on R/A; db 16:00 BP 152 / 64; Pulse 49; Resp 20; Pulse Ox 99% on R/A; db 17:00 BP 159 / 84; Pulse 53; Resp 18; Pulse Ox 99% ; db MDM: 11:46 Patient medically screened. ec2 11:57 Data reviewed: vital signs. ED course: Patient arrives today for evaluation of ec2 generalized weakness as well as shortness of breath. Examination remarkable for well-appearing nontoxic dividual is otherwise in no acute distress. Will obtain lab work, chest x-ray and further assess. Evaluating for anemia, lecture light disturbances, renal dysfunction, intrathoracic process as well.. 12:42 ED course: EKG independently reviewed and interpreted by me, shows normal sinus rhythm, ec2 rate of 46, no acute ST segment ovation's, nonconcerning intervals.. 12:50 ED course: CBC is reassuring, chest x-ray shows possible pneumonia, does have some ec2 subjective shortness of breath, will add on antibiotics for pneumonia coverage. . 13:03 ED course: Metabolic profile reassuring, BNP minimally elevated at 800. Troponin within ec2 normal ranges. Will admit for generalized weakness, subjective shortness of breath, pneumonia. . 08/22 11:50 Order name: Basic Metabolic Panel; Complete Time: 13:03 ec2 08/22 11:50 Order name: CBC with Diff; Complete Time: 12:50 ec2 08/22 11:50 Order name: NT PRO-BNP; Complete Time: 13:03 ec2 08/22 11:50 Order name: Troponin HS; Complete Time: 13:03 ec2 08/22 11:50 Order name: COVID-19/FLU A+B/RSV; Complete Time: 13:20 ec2 08/22 11:50 Order name: XRAY Chest (1 view); Complete Time: 12:50 ec2 08/22 11:50 Order name: EKG; Complete Time: 11:51 ec2 08/22 11:50 Order name: Cardiac monitoring; Complete Time: 12:43 ec2 08/22 11:50 Order name: EKG - Nurse/Tech; Complete Time: 12:43 ec2 08/22 11:50 Order name: IV Saline Lock; Complete Time: 12:43 ec2 08/22 11:50 Order name: Labs collected and sent; Complete Time: 12:43 ec2 08/22 11:50 Order name: O2 Per Protocol; Complete Time: 12:43 ec2 08/22 11:50 Order name: O2 Sat Monitoring; Complete Time: 12:43 ec2 Administered Medications: 13:35 Drug: Rocephin IV 1 grams IV at calculated rate once; Given slow IV push per pharmacy ll1 instructions Route: IV; Rate: calculated rate; Site: right antecubital; 13:41 Follow up: Response: No adverse reaction; IV Status: Completed infusion; IV Intake: [id number] 13:42 Drug: AZITHromycin IVPB 500 mg IVPB once over 1 hrs; (mix in 250 mL NS) Route: IVPB; ll1 Infused Over: 1 hrs; Site: right antecubital; 15:00 Follow up: Response: No adverse reaction; IV Status: Completed infusion; IV Intake: db 250ml Disposition Summary: 08/23/23 13:27 Hospitalization Ordered Notes: Hospitalization Status: Inpatient Admission ec2 Provider: Lino Arreaga ec2 Condition: Stable ec2 Problem: an acute exacerbation ec2 Symptoms: are unchanged ec2 Bed/Room Type: Standard ec2 Location: Telemetry/MedSurg (Inpatient)(08/23/23 17:13) rust Room Assignment: 425(08/23/23 17:13) rust Diagnosis - Weakness ec2 - Unspecified bacterial pneumonia ec2 Forms: - Medication Reconciliation Form ec2 - SBAR form ec2 - Leadership Thank You Letter ec2 Signatures: Dispatcher [employer] Janusz Espinoza RN RN ll1 Genny Gould RN RN kb3 Iliana Blood RN RN db Andrew Bustillo MD MD 2 Catherine Muñoz rust Corrections: (The following items were deleted from the chart) 15:06 13:27 Telemetry/MedSurg (Inpatient) ec2 kb3 15:06 13:27 ec2 kb3 17:13 15:06 [facility] ER HOLD kb3 jr12 17:13 15:06 ERHOLD- kb3 jr12
--- NOTE | 2023-08-23 15:34 | P.HP ---
Certification for Inpatient Patient admitted to: Observation With expected LOS: <2 Midnights Patient will require the following post-hospital care: None Practitioner: I am a practitioner with admitting privileges, knowledge of patient current condition, hospital course, and medical plan of care. Services: Services provided to patient in accordance with Admission requirements found in Title 42 Section 412.3 of the Code of Federal Regulations Patient History Date of Service: 08/23/23 Reason for admission: Dyspnea, weakness History of Present Illness: 73-year-old female with history of atrial fibrillation on chronic anticoagulation therapy, bilateral pulmonary embolism presents emergency department for dyspnea, weakness. She was recently admitted here on 08/08/2023 and subsequent discharged on 08/16/2023, during her hospitalization she was noted to have A-fib RVR, she was started on sotalol and underwent JEREMIAH cardioversion, JEREMIAH cardioversion was not successful although she did convert to sinus rhythm with chemical cardioversionsotalol. During her hospitalization she was also found to have bilateral pulmonary embolism and started on Eliquis. Additionally at discharge she was given a prescription for Augmentin for suspected urinary tract infection. Patient reports that since has been home she has been short of breath, not necessarily worsening but continually short of breath, she also reports generalized weakness and feels like she has pneumonia she was evaluated in the emergency department today her labs were significant for a BNP of 799 viral swabs are negative chest x-ray was obtained which revealed similar aeration of the lungs with mild left greater than right basilar opacities which could reflect atelectasis and/or pneumonia. ED provider wishes to admit patient for suspected pneumonia, weakness Allergies tramadol Allergy (Verified 10/24/21 14:31) Nausea/Vomiting acetaminophen [From Tylenol] Adverse Reaction (Verified 10/24/21 14:31) Anaphylaxis Home Medications: Amox/Clavulanate [Augmentin 875-125 Tab] 875 mg PO BID 7 Days #14 tab 08/16/23 Apixaban [Eliquis] 5 mg PO BID 90 Days #180 tablet 08/16/23 Lisinopril [Zestril] 10 mg PO DAILY 60 Days #60 tab 08/16/23 Sotalol HCl [Betapace*] 80 mg PO BID 90 Days #180 tab 08/16/23 - Past Medical/Surgical History Diabetic: No -: HTN, no medications -: atrial fibrillation -: fibromyalgia -: ESRD(she was able to come off of dialysis a year ago) -: Menorrhagia -: Morbid obesity -: Cholesystectomy -: Hemodialysis access catheter Psychosocial/ Personal History: Lives at home with her - Family History Father -: Hypertension, Diabetes Mother -: Hypertension, Diabetes, Stroke Sister -: Hypertension, Diabetes - Social History Smoking Status: Never smoker Alcohol use: No CD- Drugs: No Caffeine use: No Place of Residence: Home Review of Systems 10-point ROS is otherwise unremarkable General: Weakness, Malaise Respiratory: Shortness of Breath Physical Examination - Physical Exam General: Alert, In no apparent distress, Oriented x3, Obese HEENT: Atraumatic, PERRLA, Mucous membr. moist/pink Neck: Supple, 2+ carotid pulse no bruit, No LAD Respiratory: Clear to auscultation bilaterally, Normal air movement Cardiovascular: Regular rate/rhythm (Sinus bradycardia around 50), Normal S1 S2 Gastrointestinal: Normal bowel sounds, No tenderness Musculoskeletal: No tenderness Integumentary: No rashes Neurological: Normal speech, Normal strength at 5/5 x4 extr, Normal tone, Normal affect - Studies Laboratory Data (last 24 hrs) 08/23/23 08/23/23 12:28 12:28 WBC 10.80 Hgb 13.9 Hct 41.8 Plt Count 235 Sodium 137 Potassium 4.1 BUN 11 Creatinine 1.10 H Glucose 110 H Assessment and Plan - Plan Assessment: Dyspnea, suspected pneumonia Recent history of bilateral PE with large clot burden on anticoagulation Atrial fibrillation on chronic anticoagulation now in sinus rhythmbradycardic General weakness Plan: Dyspnea, suspected pneumonia Recent history of bilateral PE with large clot burden on anticoagulation Pneumonia versus atelectasis continue antibiotics Rocephin/doxycycline avoid medications that prolong QTc incentive pharmacy ordered Continue Eliquis, but counseled patient that she may continue to experience shortness of breath regarding PE for weeks/months Monitor CBC, watch for fevers atrial fibrillation on chronic anticoagulation now in sinus rhythmbradycardic Sinus bradycardia in the 50s Continue Eliquis, sotalol Monitor on telemetry Cardiology consulted-QTc 434 Possibly down titrate dose of sotalol? General weakness PT consult patient refused inpatient rehab/SNF during last hospitalization DVT PPX: Continue Eliquis Code status: Full Discharge Plan: Home Plan to discharge in: 24 Hours - Advance Directives Does patient have a Living Will: No Does patient have a Durable POA for Healthcare: No - Code Status/Comfort Care Code Status Assessed: Yes (Full code) Critical Care: No Time Spent Managing Pts Care (In Minutes): 70
[2023-08-23] MEDS ORDERED: ALBUTEROL 2.5 MG/3 ML NEB SOL NEB PRN (17:29)
[2023-08-23] MEDS ORDERED: ACETAMINOPHEN 500 MG TAB PO PRN (17:29)
[2023-08-23 17:52] VITALS: BMI 41.3
[2023-08-23] MEDS: SOTALOL HCL 80 MG TAB PO SCH (18:00)
[2023-08-23] MEDS: APIXABAN 5 MG TABLET PO SCH (18:44)
[2023-08-23] MEDS: DOXYCYCLINE 100 MG in NA CHLORIDE 0.9% 100 ML IVPB SCH (21:12)
[2023-08-24 01:58] VITALS: O2SAT 99
[2023-08-24 06:13] LABS: Absolute Basophils 0.1 K/uL (0-0.5); Absolute Eosinophils 0.9 K/uL (0-0.5); Absolute Lymphocytes (CBC) 2.6 K/uL (0.7-4.9); Absolute Monocytes 0.8 K/uL (0.1-1.3); Absolute Neutrophil 5.1 K/uL (1.8-8.0); Basophils % 1.2 % (0-1.3); Eosinophils % 9.2 % (0-4.4); Hematocrit 37.3 % (36.0-45.0); Hemoglobin 12.4 g/dL (12.0-15.0); Lymphocytes % 27.9 % (15.3-44.8); MCH 32.2 pg (27.0-35.0); MCHC 33.1 g/dL (32.0-36.0); MCV 97.2 fL (80-100); MPV 8.5 fL (7.6-11.3); Neutrophils % 53.7 % (41.7-73.7); Platelets 196 thou/uL (152-406); RBC Red Blood Cell Count 3.84 M/uL (3.86-4.86); Red Cell Distribution Width 17.2 % (12.1-15.2)
[2023-08-24 06:39] LABS: Anion Gap 8.1 mEq/L (5.0-15.0); Potassium 4.1 mEq/L (3.5-5.1); Thyroid Stimulating Hormone 3.11 uIU/mL (0.358-3.740)
[2023-08-24] MEDS ORDERED: SOTALOL HCL 80 MG TAB PO SCH (09:00)
[2023-08-24] MEDS ORDERED: APIXABAN 2.5 MG TABLET PO SCH (09:00)
[2023-08-24] MEDS ORDERED: lisinopriL 10 MG TAB PO SCH (09:00)
[2023-08-24] MEDS: lisinopriL 10 MG TAB PO SCH (09:51)
[2023-08-24] MEDS: CEFTRIAXONE 1,000 MG in NA CHLORIDE 0.9% 50 ML IVPB SCH (09:51)
[2023-08-24 13:23] VITALS: BP 148/63; TEMP 97.3
--- NOTE | 2023-08-24 13:31 | EKG ---
Test Date: 2023-08-23 Test Time: 11:38:05 Physician Liaison: STONEY MEASUREMENT RESULTS: Intervals: Rate: 46 [place]: 160 QRSD: 76 QT: 496 QTc: 434 [place]ita: P: 44 [place]: 160 QRS: 35 T: 35 INTERPRETIVE STATEMENTS: Marked sinus bradycardia with sinus arrhythmia Abnormal ECG Compared to ECG 08/11/2023 12:14:59 Atrial fibrillation no longer present T-wave abnormality no longer present Electronically Signed On 08-24-23 13:28:13 CDT by Michael Chaudhari
[2023-08-24 14:14] LABS: Sqamous Epithelial <5 /HPF (None Seen); Urine Bacteria <20 /HPF (<20); Urine Bilirubin NEGATIVE (Negative); Urine Blood 3+ (Negative); Urine Clarity Extremely Turbid (Clear); Urine Color Yellow (Yellow); Urine Culture Reflex Order REFLEXED; Urine Glucose NEGATIVE (Negative); Urine Ketones NEGATIVE (Negative); Urine Microscopic Reflex YN ORDER UMIC; Urine Mucus Slight /HPF (None Seen); Urine Nitrite NEGATIVE (Negative); Urine Protein 1+ (Negative); Urine RBC >50 /HPF (None Seen); Urine Urobilinogen Normal (Normal); Urine WBC 20-50 /HPF (<5); Urine pH 6.5 (5.0-7.0)
--- NOTE | 2023-08-24 14:22 | P.DS ---
Admission Date: 08/23/23 Discharge Date: 08/24/23 Disposition: ROUTINE DISCHARGE Discharge Condition: FAIR Reason for Admission: Dyspnea, weakness - Problems (1) Sinus bradycardia Current Visit: Yes Status: Acute (2) Pneumonia Current Visit: Yes Status: Acute (3) Atrial fibrillation with RVR Current Visit: No Status: Acute Brief History of Present Illness: 73-year-old female with history of atrial fibrillation on chronic anticoagulation therapy, bilateral pulmonary embolism presented to emergency department for dyspnea, weakness. She was recently admitted here on 08/08/2023 and subsequent discharged on 08/16/2023, and during her hospitalization she was noted to have A-fib RVR, she was started on sotalol and underwent JEREMIAH cardioversion, JEREMIAH cardioversion was not successful although she did convert to sinus rhythm with chemical cardioversionsotalol. She was also found to have bilateral pulm embolism and started on Eliquis. Patient was also discharged with Augmentin for suspected UTI Patient reported that since being home she has been continually short of breath. She also reported generalized weakness and felt like she has pneumonia. She was evaluated in the emergency department and her labs were significant for a BNP of 799, viral swabs were negative, chest x-ray was obtained which revealed similar aeration of the lungs with mild left greater than right basilar opacities which could reflect atelectasis and/or pneumonia. Patient was admitted for further management. Hospital Course: Patient placed under observation on the medical floor and started on IV antibiotics for possible pneumonia. She is on Eliquis for pulmonary embolism which was continued. She has a history of atrial fibrillation which spontaneously converted to sinus rhythm during previous hospitalization. Patient was noted to be bradycardic but no cardiac pauses or arrhythmias during this hospital stay. She was seen and evaluated by cardiology Dr. Mclaughlin who recommended patient to continue sotalol. She was also seen by pulmonary Dr. Zambrano regarding her pulmonary embolism. Her oxygen saturation was stable on room air, even with ambulation. She was evaluated by physical therapy and she was able to ambulate independently. Patient declined any further PT. Patient is clinically stable and deemed stable for discharge. She has been informed to avoid falls, and made aware that falls can cause life-threatening bleed given that she takes an anticoagulant. Vital Signs/Physical Exam: Temp Pulse Resp BP Pulse Ox 97.3 F 61 17 148/63 H 95 08/24/23 12:00 08/24/23 12:00 08/24/23 12:00 08/24/23 12:00 08/24/23 12:00 General: Alert, In no apparent distress, Oriented x3, Obese HEENT: Mucous membr. moist/pink Neck: Supple, JVD not distended Respiratory: Clear to auscultation bilaterally Cardiovascular: Regular rate/rhythm, Normal S1 S2 Gastrointestinal: Normal bowel sounds, Soft and benign, Non-distended, No tenderness Musculoskeletal: No swelling Integumentary: No cyanosis Neurological: Normal strength at 5/5 x4 extr Laboratory Data at Discharge: WBC 9.50 thou/uL (4.3-10.9) 08/24/23 06:00 Hgb 12.4 g/dL (12.0-15.0) D 08/24/23 06:00 Hct 37.3 % (36.0-45.0) 08/24/23 06:00 Plt Count 196 thou/uL (152-406) 08/24/23 06:00 Sodium 137 mEq/L (136-145) 08/24/23 06:00 Potassium 4.1 mEq/L (3.5-5.1) 08/24/23 06:00 BUN 11 mg/dL (7-18) 08/24/23 06:00 Creatinine 1.00 mg/dL (0.55-1.02) 08/24/23 06:00 Glucose 104 mg/dL (74-106) 08/24/23 06:00 Home Medications: Apixaban [Eliquis *] 5 mg PO BID 90 Days #180 tablet 08/16/23 Lisinopril [Zestril] 10 mg PO DAILY 60 Days #60 tab 08/16/23 Sotalol HCl [Betapace*] 80 mg PO BID 90 Days #180 tab 08/16/23 Cefdinir [Omnicef] 300 mg PO BID #14 tab 08/24/23 New Medications: Cefdinir [Omnicef] 300 mg PO BID #14 tab Physician Discharge Instructions: Please note it is very crucial not to fall while you are taking a blood thinner. Please use assistive device if you have difficulty walking or wobbly on your feet to avoid falls because you can have a life-threatening bleed if you fall while taking a blood thinner. Diet: AHA Activity: Fall precautions Followup: Kei Zambrano MD [ACTIVE - CAN ADMIT] - (within 2 weeks) Hector Prather PA [Primary Care Provider] - Michael Chaudhari MD [ACTIVE - CAN ADMIT] - (Please follow with Dr. Mclaughlin within 2 weeks.) Time spent managing pt's care (in minutes): 32
--- NOTE | 2023-08-24 15:48 | P.CNS ---
Date of Consult: 08/24/23 Reason for Consult: Abnormal CXRY Chief Complaint: Dyspnea, weakness History of Present Illness: Age 73 AW dyspnea and weakness Recent admission fo rPE Doign well. Denies cough or fever. Hxo f Afib Weak since pt left the hospital 7 Allergies tramadol Allergy (Verified 10/24/21 14:31) Nausea/Vomiting acetaminophen [From Tylenol] Adverse Reaction (Verified 10/24/21 14:31) Anaphylaxis Home Medications: Apixaban [Eliquis *] 5 mg PO BID 90 Days #180 tablet 08/16/23 Lisinopril [Zestril] 10 mg PO DAILY 60 Days #60 tab 08/16/23 Sotalol HCl [Betapace*] 80 mg PO BID 90 Days #180 tab 08/16/23 Cefdinir [Omnicef] 300 mg PO BID #14 tab 08/24/23 - Past Medical/Surgical History Diabetic: No -: HTN, no medications -: atrial fibrillation -: fibromyalgia -: ESRD(she was able to come off of dialysis a year ago) -: Menorrhagia -: Morbid obesity -: Pulmonary embolism -: Cholesystectomy -: Hemodialysis access catheter Psychosocial/ Personal History: Lives at home with her - Family History Father Medical History: Hypertension, Diabetes Mother Medical History: Hypertension, Diabetes, Stroke Sister Medical History: Hypertension, Diabetes - Social History Smoking Status: Unknown if ever smoked Alcohol use: No CD- Drugs: No Caffeine use: No Place of Residence: Home Review of Systems 10-point ROS is otherwise unremarkable General: Weakness Respiratory: Shortness of Breath Physical Examination Temp Pulse Resp BP Pulse Ox 97.3 F 61 17 148/63 H 95 08/24/23 12:00 08/24/23 12:00 08/24/23 12:00 08/24/23 12:00 08/24/23 12:00 General: Alert, Oriented x3 Neck: Supple Respiratory: Clear to auscultation bilaterally Cardiovascular: No edema, Regular rate/rhythm, Normal S1 S2 Gastrointestinal: Normal bowel sounds, Soft and benign Musculoskeletal: No clubbing, No swelling Integumentary: No rashes, No breakdown - Problems (1) Dyspnea Status: Acute Plan: Pt is 73 yrs of age discharged came back again with dyspnea and weakness. NE of pneumonia. CXRY ? Left basilar effusion/ WBC normalRA sat normal Pt is on Eliquis NE of sepsis/ Normal chemistry Discharge home Qualifiers: Dyspnea type: dyspnea on exertion Qualified Code(s): R06.09 - Other forms of dyspnea
== END 2023-08-24 15:17 | disposition home or self-care (01) ==
LOC: ER 11:14 → ERHOLD 14:30 → 4TH 17:19
PROVIDERS: ADMIT Hospitalist; ATTEND Internal Medicine
DX: J18.9 Pneumonia, unspecified organism (principal); R00.1 Bradycardia, unspecified; R06.09 Other forms of dyspnea; R53.1 Weakness; I48.11 Longstanding persistent atrial fibrillation; I26.99 Other pulmonary embolism without acute cor pulmonale; Z88.5 Allergy status to narcotic agent; Z88.6 Allergy status to analgesic agent; Z79.01 Long term (current) use of anticoagulants; Z11.52 Encounter for screening for COVID-19
CPT/HCPCS: 96365; 93005; 87088; 85025 ×2; 81001; 87086; 80048 ×2; 36415; 84443; 84484 ×3; 84439; 84145; 83880; 0241U; 71045; 97161; 94010; 96375; 99285; J7050; J0696 ×2; G0378

== ENCOUNTER 2024-07-16 02:49 | Inpatient (IN) | payer BC ==
[2024-07-16 03:53] LABS: Absolute Eosinophils 0.3 K/uL (0-0.5); Absolute Lymphocytes (CBC) 1.6 K/uL (0.7-4.9); Absolute Neutrophil 7.6 K/uL (1.8-8.0); Basophils % 0.3 % (0-1.3); Eosinophils % 2.5 % (0-4.4); Hematocrit 43.2 % (36.0-45.0); Hemoglobin 14.3 g/dL (12.0-15.0); Lymphocytes % 15.5 % (15.3-44.8); MCH 31.9 pg (27.0-35.0); MCHC 33.1 g/dL (32.0-36.0); MCV 96.3 fL (80-100); MPV 8.5 fL (7.6-11.3); Monocytes % 9.9 % (3.3-12.3); Neutrophils % 71.8 % (41.7-73.7); Platelets 240 thou/uL (152-406); RBC Red Blood Cell Count 4.48 M/uL (3.86-4.86); Red Cell Distribution Width 17.7 % (12.1-15.2)
[2024-07-16 03:54] LABS: PT Prothrombin Time 10.8 SECONDS (10.0-13.0); Protime INR 0.94
[2024-07-16 04:07] LABS: Anion Gap 12.5 mEq/L (5.0-15.0); Magnesium 2.1 mg/dL (1.6-2.4); Potassium 3.5 mEq/L (3.5-5.1); Troponin High Sensitivity 9.5 pg/mL (<58.9)
[2024-07-16] MEDS ORDERED: dilTIAZem HCL 25 MG/5 ML VIAL IV ONE ×2 (04:27→06:48)
--- NOTE | 2024-07-16 05:00 | RAD REPORT ---
EXAM: XR Chest, 1 View CLINICAL HISTORY: The patient is 74 years old and is Female; DYSPNEA TECHNIQUE: Frontal view of the chest. COMPARISON: No relevant prior studies available. FINDINGS: Lungs: Prominent interstitial markings which may indicate mild interstitial edema. Pleural space: Blunting of the left costophrenic angle which may indicate left pleural effusion. No pneumothorax. Heart: Unremarkable. Mediastinum: Unremarkable. Normal mediastinal contour. Bones/joints: No acute findings. IMPRESSION: 1. Prominent interstitial markings which may indicate mild interstitial edema. 2. Blunting of the left costophrenic angle which may indicate left pleural effusion. Electronically signed by: Obdulio Taylor MD 07/16/2024 04:54 AM [facility] 8 Due to temporary technical issues with the PACS/[employer] reporting system, reports are being earnest d by the in-house radiologist without review as a courtesy to ensure prompt reporting the interpreting radiologist is fully responsible for the content of the report. Transcribed Date/Time: 07/16/2024 4:59 AM
--- NOTE | 2024-07-16 06:10 | RAD REPORT ---
PROCEDURE: US Pelvis Transabdominal, Complete CLINICAL INDICATION: The patient is 74 years old and is Female; VAGINAL BLEEDING Bed Name: 3 TECHNIQUE: Real-time complete transabdominal pelvic ultrasound with image documentation. COMPARISON: No relevant prior studies available. FINDINGS: UTERUS/CERVIX: Diffusely thickened, heterogenously hyperechoic appearance of the endometrial stripe , measuring approximately 6 cm in thickness, without appreciable internal vascularity on color flow imaging.. The uterus measures 13.4 x 6.4 x 8.4 cm. OVARIES: Neither the left nor the right ovary were visualized. FREE FLUID: No free fluid. BLADDER: Unremarkable as visualized. Wall is normal thickness for degree of distention. IMPRESSION: Diffusely thickened, heterogenously hyperechoic appearance of the endometrial stripe, measuring appro ximately 6 cm in thickness, without appreciable internal vascularity on color flow imaging. Findings are highly suspicious for endometrial carcinoma. Gynecologic consultation recommended for fu rther evaluation and workup. Electronically signed by: Blue Garcia MD 07/16/2024 06:06 AM [facility] Due to temporary technical issues with the PACS/[employer] reporting system, reports are being sign ed by the in-house radiologist without review as a courtesy to ensure prompt reporting the interpreting rad iologist is fully responsible for the content of the report. Transcribed Date/Time: 07/16/2024 6:10 AM
[2024-07-16] MEDS ORDERED: NA CHLORIDE 0.9% 100 ML ONE (06:48)
--- NOTE | 2024-07-16 07:27 | P.CNS ---
Date of Consult: 07/16/24 Reason for Consult: Atrial fib with RVR Requesting Physician: Mars Graff Chief Complaint: Atrial fibrillation with rapid ventricular response History of Present Illness: Patient is a 74-year-old female who presents to the hospital with atrial fibrillation with rapid ventricular spots. Patient has been in the hospital about 3 years ago and she was in atrial fibrillation with rapid ventricular response at that time and was started on amiodarone drip. Her ejection fraction was around 20% at that time. Patient went into liver failure and amiodarone was discontinued. Patient also ended up with renal failure and ended up on hem odialysis for a few months. She was able to come off of hemodialysis. Patient is atrial fibrillation at that time was controlled with metoprolol and digoxin. Patient had echocardiogram done last year which revealed an ejection fraction of 52%. Patient has been on anticoagulation and cardiac meds for her atrial fibrillation but she has stopped the medication over the last 4 months. Her states that the reason the medications have been stopped is because she is not able to get to her doctor's appointments because of her decreased mobility. Over the last few weeks she has had persistent vaginal bleeding. She is not the best historian and her is not always available to care for her so he does not know her history that well either. They do note that she has not been on any anticoagulation within that time. Patient has not really appreciated any significant weight loss. There is an endometrial lesion that was seen on the ultrasound downstairs. Patient was given Cardizem in the emergency room. No anticoagulation at this time. Hemoglobin is stable. Hemodynamically, patient's heart rate is in the 120s to 130s; however, patient's blood pressure is stable. At this time, patient is stable for admission. However, we do not have gynecology available and with her persistent bleeding it may be best for patient to be at a facility where gynecology is available. Patient will be transferred to a tertiary care facility. Allergies tramadol Allergy (Verified 10/24/21 14:31) Nausea/Vomiting acetaminophen [From Tylenol] Adverse Reaction (Verified 10/24/21 14:31) Anaphylaxis Home Medications: Apixaban [Eliquis] 5 mg PO BID #60 tab 07/22/24 Benzonatate [Tessalon Perle*] 100 mg PO Q6H PRN #25 cap 07/22/24 Digoxin [Lanoxin*] 0.125 mg PO DAILY #60 tab 07/22/24 Metoprolol Tartrate [Lopressor*] 25 mg PO BID 6AM 6PM #60 tab 07/22/24 - Past Medical/Surgical History Diabetic: No -: HTN, no medications -: atrial fibrillation -: fibromyalgia -: ESRD(she was able to come off of dialysis a year ago) -: Menorrhagia -: Morbid obesity -: Pulmonary embolism -: Cholesystectomy -: Hemodialysis access catheter Psychosocial/ Personal History: Lives at home with her - Family History Father Medical History: Hypertension, Diabetes Mother Medical History: Hypertension, Diabetes, Stroke Sister Medical History: Hypertension, Diabetes - Social History Smoking Status: Unknown if ever smoked Alcohol use: No CD- Drugs: No Caffeine use: No Review of Systems 10-point ROS is otherwise unremarkable Physical Examination Reviewed General: Alert, In no apparent distress, Oriented x2 HEENT: Atraumatic Neck: Supple Respiratory: Clear to auscultation bilaterally, Normal air movement Cardiovascular: Irregular heart rate/rhythm Gastrointestinal: Normal bowel sounds, Soft and benign, Non-distended Musculoskeletal: No clubbing, No swelling Neurological: Sensation intact, Cranial nerves 3-12 intact, Abnormal gait, Abnormal strength Laboratory Data (last 24 hrs) 07/16/24 07/16/24 07/16/24 03:09 03:09 03:09 WBC 10.60 Hgb 14.3 Hct 43.2 Plt Count 240 PT 10.8 INR 0.94 Sodium 139 Potassium 3.5 BUN 14 Creatinine 1.14 H Glucose 152 H Magnesium 2.1 - Problems (1) Atrial fibrillation with RVR Status: Acute (2) Abnormal vaginal bleeding Status: Acute (3) History of end stage renal disease Status: Acute (4) Amiodarone toxicity Status: Acute (5) Morbid obesity with BMI of 40.0-44.9, adult Status: Acute Conclusions/ Impression: Plan: 1. Atrial fibrillation with rapid ventricular response; patient currently on Cardizem drip in the emergency room. Rate is still poorly controlled. May need to try esmolol IV and she may need JEREMIAH with cardioversion. She is not tolerant of a lot of cardiac medications. Could also reattempt amiodarone but will need to monitor LFTs very closely. Holding anticoagulation at this time because of vaginal bleeding. Cardiology consulted. 2. Abnormal vaginal bleeding; [facility] follow-up. 3. Chronic kidney disease; continue monitor renal function closely 4. Morbid obesity and debility; patient may benefit from a GLP-1 agonist, and continued physical therapy 5. GI DVT prophylaxis At this time, emergency room physician will be taken over patient's care and in itiating transfer to [facility] for ICU for A-fib RVR as we do not have any ICU beds available as well as [facility] availability. We do not have gynecology available at our facility and we may need some additional information regarding long-term anticoagulation that would be necessary. So gynecology consultation and recommendation will be prudent.
--- NOTE | 2024-07-16 08:05 | ER ---
Nurse's Notes [facility] Name: Mady Wilkins Age: 74 yrs Sex: Female : 1950 Arrival Date: 07/16/2024 Time: 02:49 Bed 3 Private MD: Diagnosis: Unspecified atrial fibrillation;Abnormal uterine and vaginal bleeding, unspecified;Thickened Endometrium Presentation: 07/16 03:04 Chief complaint: EMS states: toned out generalized weakness, shortness or breath and cp4 vaginal bleeding. Reports A fib RVR upon arrival. Gave 250 mL bolus, zofran 4 mg, and cardizem 20 mg. Coronavirus screen: Client denies travel out of the [place] in the last 14 days. At this time, the client does not indicate any symptoms associated with coronavirus-19. Ebola Screen: Patient negative for fever greater than or equal to 101.5 degrees Fahrenheit, and additional compatible Ebola Virus Disease symptoms Patient denies exposure to infectious person. Patient denies travel to an Ebola-affected area in the 21 days before illness onset. No symptoms or risks identified at this time. Initial Sepsis Screen: Does the patient meet any 2 criteria? HR > 90 bpm. No. Patient's initial sepsis screen is negative. Does the patient have a suspected source of infection? No. Patient's initial sepsis screen is negative. Risk Assessment: Do you want to hurt yourself or someone else? Patient reports no desire to harm self or others. Onset of symptoms was July 15, 2024. 03:04 Method Of Arrival: EMS: [facility] cp4 03:04 Acuity: MONTSE 3 cp4 03:16 Care prior to arrival: Medication(s) given: Normal saline infusion, 250 mL zofran 4 mg, cp4 Cardizem 20 mg. Triage Assessment: 03:09 General: Appears in no apparent distress. uncomfortable, Behavior is calm, appropriate cp4 for age, uncooperative. Pain: Complains of pain in "all over" Pain does not radiate. Pain currently is 9 out of 10 on a pain scale. EENT: No signs and/or symptoms were reported regarding the EENT system. Neuro: Level of Consciousness is awake, alert, obeys commands, Oriented to person, place, time, situation. Cardiovascular: Patient's skin is warm and dry. Rhythm is atrial fibrillation. Respiratory: Airway is patent Respiratory effort is even, unlabored, Breath sounds are clear bilaterally. GI: No signs and/or symptoms were reported involving the gastrointestinal system. 03:09 : Reports vaginal bleeding that is bright red, heavy flow. cp4 Historical: - Allergies: 03:09 ACETAMINOPHEN; cp4 03:09 Tramadol HCl; cp4 - PMHx: 03:09 Atrial fibrillation; Colitis; Fibromyalgia; cp4 - Immunization history:: Adult Immunizations up to date. - Infectious Disease History:: Denies. - Social history:: Smoking status: Patient denies any tobacco usage or history of. Screenin:15 [facility] ED Fall Risk Assessment (Adult) History of falling in the last 3 months, cp4 including since admission No falls in past 3 months (0 pts) Confusion or Disorientation No (0 pts) Intoxicated or Sedated No (0 pts) Impaired Gait No (0 pts) Mobility Assist Device Used No (0 pt) Altered Elimination No (0 pt) Score/Fall Risk Level 0 - 2 = Low Risk Oriented to surroundings, Maintained a safe environment, Assessed \\T\\ reinforced patient's understanding of fall precautions, Hourly rounding (assess needs \\T\\ fall precautionary measures) done. Abuse screen: Denies threats or abuse. Denies injuries from another. Nutritional screening: No deficits noted. Tuberculosis screening: No symptoms or risk factors identified. Assessment: 03:15 Reassessment: No changes from previously documented assessment. 4 07:05 Reassessment: Dr Young at bedside assessing pt and discussing POC. 7 08:00 Reassessment: [place] applied, brief changed, bedding changed. jl7 08:25 Reassessment: Dr Graff at bedside updating on POC. jl7 Vital Signs: 03:04 BP 131 / 91; Pulse 107; Resp 18; Temp 97.6; Pulse Ox 100% ; Weight 113.85 kg; Height 5 cp4 ft. 7 in. ; Pain 0/10; 04:18 BP 128 / 98; Pulse 90; Resp 18; Pulse Ox 100% ; cp4 05:18 BP 109 / 70; Pulse 86; Resp 16; Pulse Ox 100% ; cp4 06:57 BP 124 / 67; Pulse 130; Resp 17; Pulse Ox 100% ; cp4 08:25 BP 103 / 78; Pulse 123; Resp 17; Pulse Ox 100% ; jl7 10:00 BP 138 / 84; Pulse 118; jl7 10:15 BP 132 / 75; Pulse 89; jl7 03:04 Body Mass Index 39.31 (113.85 kg, 170.18 cm) cp4 03:04 Pain Scale: Adult cp4 ED Course: 02:52 Patient arrived in ED. jj6 03:05 Mars Graff DO is Attending Physician. ms3 03:09 Triage completed. cp4 03:09 EKG done, by ED staff, reviewed by Mars Graff DO. bf2 03:09 Arm band placed on right wrist. Patient placed in an exam room, on a stretcher. cp4 03:12 Basic Metabolic Panel Sent. bf2 03:12 CBC with Diff Sent. bf2 03:12 Magnesium Sent. bf2 03:12 PT-INR Sent. bf2 03:13 Troponin HS Sent. bf2 03:15 No provider procedures requiring assistance completed. Maintain EMS IV. Dressing cp4 intact. Good blood return noted. Site clean \\T\\ dry. Gauge \\T\\ site: 20 RAC. Flushed with 10 mL NS. 03:15 Bed in low position. Call light in reach. Side rails up X2. cp4 03:17 Dede Worthy is Primary Nurse. cp4 03:44 XRAY Chest (1 view) In Process Unspecified. EDMS 03:55 US Pelvis Complete In Process Unspecified. EDMS 07:00 Client placed on continuous cardiac and pulse oximetry monitoring. NIBP monitoring jl7 applied. 07:09 Attending Physician role handed off by Mars Graff DO ms3 07:09 Wade Dey MD is Attending Physician. ms3 07:19 initiated a transfer with Ann Colin from the [facility] Transfer [facility]. eb 07:56 connected the [facility] transfer station operator for [facility] with Dr. Graff for patient eb transfer consultation. 08:00 Linen changed. jl7 08:02 Mars Graff DO is Attending Physician. ms3 08:04 Tk Young MD is Hospitalizing Provider. ms3 10:54 Patient admitted, IV remains in place. intact, No redness/swelling at site. jl7 10:54 Provided Education on: admission. jl7 14:35 Primary Nurse role handed off by Dede Worthy jl7 14:35 Inge Lee, RN is Primary Nurse. jl7 Administered Medications: 10:53 Discontinued: diltiazem 5 mg/hr IV at calculated rate See Administration Instructions; jl7 (standard dilution 125 mg diltiazem mixed in 125 mL NS; final concentration 1mg/mL). Recommended max rate 15 mg/hr; Titrate 5 mg/hr as often as every 15 minutes to achieve goal (see titration policy); Goal parameter HR less than 100 bpm 04:32 Drug: Diltiazem IVP 25 mg IVP once; Over 2 minutes {Note: HR 143.} Route: IVP; Site: cp4 right antecubital; 09:11 Follow up: Response: No adverse reaction jl7 06:56 Drug: Diltiazem IV 5 mg/hr IV at calculated rate See Administration Instructions; cp4 (standard dilution 125 mg diltiazem mixed in 125 mL NS; final concentration 1mg/mL). Recommended max rate 15 mg/hr; Titrate 5 mg/hr as often as every 15 minutes to achieve goal (see titration policy); Goal parameter HR less than 100 bpm Route: IV; Rate: calculated rate; Site: right antecubital; 08:07 Follow up: Response: No adverse reaction; Rate change 10 mg/hr; IV Status: Infusion ld1 continued 08:25 Follow up: BP 103 / 78; Pulse 123 bpm; Resp 17 bpm; Pulse Ox 100% ; Response: No change jl7 in condition; Rate change 15 mg/hr 10:00 Follow up: BP 138 / 84; Pulse 118 bpm; Rate change 10 mg/hr; titrating down to jl7 discontinue per Dr. Young 10:15 Follow up: BP 132 / 75; Pulse 89 bpm; Rate change 5 mg/hr; titrating down to jl7 discontinue per Dr. Young 10:53 Follow up: Response: No adverse reaction; IV Status: Completed infusion jl7 Medication: 03:15 VIS not applicable for this client. cp4 Intake: Outcome: 08:04 Decision to Hospitalize by Provider. ms3 10:54 Admitted to ER Hold. Please see [facility] for further documentation. jl7 10:54 Condition: stable 10:54 Discharge instructions given to patient, family, Instructed on the need for admit, Demonstrated understanding of instructions, 20:44 Patient left the ED. cp4 Signatures: Dispatcher [employer] EDMS Inge Lee RN RN jl7 Haven Peña Marcus, DO ms3 Anne Graff RN RN ld1 Latesha Holland jj6 Dede Worthy cp4 Marisol Dupont bf2 Corrections: (The following items were deleted from the chart) 03:10 03:09 PSHx: right chest wall dialysis site; cp4 cp4 03:14 03:09 : Reports vaginal bleeding that is bright red, spotty, cp4 cp4 10:18 10:10 BP 132 / 75; Pulse 89 bpm; Rate change 5 mg/hr; titrating down to discontinue per jl7 Dr. Young jl7
--- NOTE | 2024-07-16 08:05 | EDPHYS ---
Physician Documentation [facility] Name: Mady Wilkins Age: 74 yrs Sex: Female : 1950 Arrival Date: 07/16/2024 Time: 02:49 Bed 3 Private MD: ED Physician Mars Graff HPI: 07/16 04:20 This 74 yrs old Female presents to ER via EMS with complaints of Vaginal Bleeding. ms3 04:20 74-year-old female with past medical history of atrial fibrillation, colitis, ms3 fibromyalgia presents to the emergency department via [facility] for shortness of breath and myalgias. EMS notes on arrival patient was in atrial fibrillation with rapid ventricular rate. EMS notes patient's heart rate 150s to 160s on their arrival. Patient was given 250 mL of normal saline and 20 mg of Cardizem with improvement of her heart rate. Patient states she developed shortness of breath today. Patient denies chest pain, nausea, vomiting.. Historical: - Allergies: 03:09 ACETAMINOPHEN; cp4 03:09 Tramadol HCl; cp4 - PMHx: 03:09 Atrial fibrillation; Colitis; Fibromyalgia; cp4 - Immunization history:: Adult Immunizations up to date. - Infectious Disease History:: Denies. - Social history:: Smoking status: Patient denies any tobacco usage or history of. ROS: 04:20 Constitutional: Negative for fever, and chills. Cardiovascular: Negative for chest ms3 pain, and palpitations. Abdomen/GI: Negative for abdominal pain, nausea, vomiting, diarrhea, and constipation, MS/Extremity: Negative for injury and deformity, Skin: Negative for injury, rash, and discoloration, 04:20 Respiratory: Positive for shortness of breath, 04:20 : Positive for vaginal bleeding, Exam: 04:20 Constitutional: This is a well developed, well nourished patient who is awake, alert, ms3 and in no acute distress. Respiratory: Lungs have equal breath sounds bilaterally, clear to auscultation and percussion. No rales, rhonchi or wheezes noted. No increased work of breathing, no retractions or nasal flaring. Abdomen/GI: Soft, non-tender, with normal bowel sounds. No distension or tympany. No guarding or rebound. No evidence of tenderness throughout. Skin: Warm, dry with normal turgor. Normal color with no rashes, no lesions, and no evidence of cellulitis. 04:20 Cardiovascular: Rate: tachycardic, Rhythm: irregularly irregular, Pulses: no pulse deficits are appreciated, Heart sounds: normal, normal S1and S2, 04:31 ECG was reviewed by the Attending Physician. ms3 Vital Signs: 03:04 BP 131 / 91; Pulse 107; Resp 18; Temp 97.6; Pulse Ox 100% ; Weight 113.85 kg; Height 5 cp4 ft. 7 in. ; Pain 0/10; 04:18 BP 128 / 98; Pulse 90; Resp 18; Pulse Ox 100% ; cp4 05:18 BP 109 / 70; Pulse 86; Resp 16; Pulse Ox 100% ; cp4 06:57 BP 124 / 67; Pulse 130; Resp 17; Pulse Ox 100% ; cp4 08:25 BP 103 / 78; Pulse 123; Resp 17; Pulse Ox 100% ; jl7 10:00 BP 138 / 84; Pulse 118; jl7 10:15 BP 132 / 75; Pulse 89; jl7 03:04 Body Mass Index 39.31 (113.85 kg, 170.18 cm) cp4 03:04 Pain Scale: Adult cp4 MDM: 03:05 Medical Screening Exam initiated ms3 04:20 Differential diagnosis: Bronchitis CHF exacerbation, dysfunctional uterine bleeding, ms3 Neoplasm Myocardial Infarction pneumonia, Atrial fibrillation with rapid ventricular rate. 07:08 Data reviewed: vital signs, nurses notes, lab test result(s), EKG, radiologic studies. ms3 08:02 I considered the following discharge prescriptions or medication management in the ms3 emergency department Medications were administered in the Emergency Department. See MAR. Independent interpretation of the following test(s) in the Emergency Department EKG: See my EKG interpretation above. Historians other than the Patient: EMS: [facility]. Counseling: I had a detailed discussion with the patient and/or guardian regarding the historical points, exam findings, and any diagnostic results supporting the discharge/admit diagnosis, lab results, radiology results, the need for further work-up and treatment in the hospital. ED course: Discussed case with Dr Alvarado at [facility]. He states he would have to biopsy endometrium, await results. Recommends trial of anticoagulation and if bleeding becomes worse can rate control a fib. If bleeding becomes worse they can be contacted for transfer.. 07/16 03:05 Order name: Basic Metabolic Panel; Complete Time: 04:18 ms3 07/16 03:05 Order name: CBC with Diff; Complete Time: 04:07 ms3 07/16 03:05 Order name: Magnesium; Complete Time: 04:18 ms3 07/16 03:05 Order name: PT-INR; Complete Time: 04:07 ms3 07/16 03:05 Order name: Troponin HS; Complete Time: 04:18 ms3 07/16 08:33 Order name: CBC with Automated Diff EDMS 07/16 08:33 Order name: Comprehensive Metabolic Panel EDMS 07/16 08:33 Order name: Magnesium EDMS 07/16 08:33 Order name: Phosphorus EDMS 07/16 08:33 Order name: Protime (+INR) EDMS 07/16 08:33 Order name: PTT, Activated Partial Thromb EDMS 07/16 08:33 Order name: T4 Free EDMS 07/16 08:33 Order name: Thyroid Stimulating Hormone EDMS 07/16 08:33 Order name: Troponin High Sensitivity EDMS 07/16 09:07 Order name: CBC with Automated Diff EDMS 07/16 09:07 Order name: CBC with Automated Diff EDMS 07/16 09:07 Order name: Comprehensive Metabolic Panel EDMS 07/16 09:07 Order name: Comprehensive Metabolic Panel EDMS 07/16 09:07 Order name: Protime (+INR) EDMS 07/16 09:07 Order name: Protime (+INR) EDMS 07/16 09:07 Order name: PTT, Activated Partial Thromb EDMS 07/16 09:07 Order name: PTT, Activated Partial Thromb EDMS 07/16 09:07 Order name: Troponin High Sensitivity EDMS 07/16 09:07 Order name: Troponin High Sensitivity EDMS 07/16 09:07 Order name: Troponin High Sensitivity EDMS 07/16 09:07 Order name: Troponin High Sensitivity EDMS 07/16 03:05 Order name: XRAY Chest (1 view) ms3 07/16 03:22 Order name: US Pelvis Complete 3 07/16 03:05 Order name: EKG; Complete Time: 03:06 ms3 07/16 09:07 Order name: CONS Physician Consult EDMS 07/16 03:05 Order name: Cardiac monitoring; Complete Time: 03:17 ms3 07/16 03:05 Order name: EKG - Nurse/Tech; Complete Time: 03:17 ms3 07/16 03:05 Order name: IV Saline Lock; Complete Time: 03:17 ms07/16 03:05 Order name: Labs collected and sent; Complete Time: 03:18 ms3 07/16 03:05 Order name: O2 Per Protocol; Complete Time: 03:18 ms3 07/16 03:05 Order name: O2 Sat Monitoring; Complete Time: 03:18 ms3 EC:31 Rate is 104 beats/min. Rhythm is irregularly irregular. QRS [place] is Normal. QRS ms3 interval is normal. Clinical impression: Atrial Fibrillation and with rapid ventricular rate. Interpreted by me. Reviewed by me. Administered Medications: 10:53 Discontinued: diltiazem 5 mg/hr IV at calculated rate See Administration Instructions; jl7 (standard dilution 125 mg diltiazem mixed in 125 mL NS; final concentration 1mg/mL). Recommended max rate 15 mg/hr; Titrate 5 mg/hr as often as every 15 minutes to achieve goal (see titration policy); Goal parameter HR less than 100 bpm 04:32 Drug: Diltiazem IVP 25 mg IVP once; Over 2 minutes {Note: HR 143.} Route: IVP; Site: [facility] right antecubital; 09:11 Follow up: Response: No adverse reaction jl7 06:56 Drug: Diltiazem IV 5 mg/hr IV at calculated rate See Administration Instructions; cp4 (standard dilution 125 mg diltiazem mixed in 125 mL NS; final concentration 1mg/mL). Recommended max rate 15 mg/hr; Titrate 5 mg/hr as often as every 15 minutes to achieve goal (see titration policy); Goal parameter HR less than 100 bpm Route: IV; Rate: calculated rate; Site: right antecubital; 08:07 Follow up: Response: No adverse reaction; Rate change 10 mg/hr; IV Status: Infusion ld1 continued 08:25 Follow up: BP 103 / 78; Pulse 123 bpm; Resp 17 bpm; Pulse Ox 100% ; Response: No change jl7 in condition; Rate change 15 mg/hr 10:00 Follow up: BP 138 / 84; Pulse 118 bpm; Rate change 10 mg/hr; titrating down to jl7 discontinue per Dr. Young 10:15 Follow up: BP 132 / 75; Pulse 89 bpm; Rate change 5 mg/hr; titrating down to jl7 discontinue per Dr. Young 10:53 Follow up: Response: No adverse reaction; IV Status: Completed infusion jl7 Disposition: 07:08 Critical Care:. ms3 Disposition Summary: 07/16/24 08:04 Hospitalization Ordered Notes: Hospitalization Status: Inpatient Admission ms3 Provider: Tk Young ms3 Condition: Stable ms3 Problem: new ms3 Symptoms: are unchanged ms3 Bed/Room Type: Standard ms3 Location: Intensive Care Unit(07/16/24 16:42) eb Room Assignment: 4-(07/16/24 16:42) eb Diagnosis - Unspecified atrial fibrillation ms3 - Abnormal uterine and vaginal bleeding, unspecified ms3 - Thickened Endometrium ms3 Forms: - Medication Reconciliation Form ms3 - SBAR form ms3 - Leadership Thank You Letter ms3 Critical care time excluding procedures: 07:08 Critical care time: Bedside Care: 35 minutes, Consultation: 5 minutes, Family ms3 Intervention: 5 minutes. Total time: 45 minutes Signatures: Dispatcher [employer] EDMS Wendy Jung, RN RN Haven Peña Mars Graff DO DO ms3 Dede Worthy cp4 Inge Lee RN jl7 Anne Graff RN ld1 Corrections: (The following items were deleted from the chart) 03:06 03:06 BASIC METABOLIC PANEL+C.LAB.BRZ ordered. EDMS EDMS 03:06 03:06 CBC+H.LAB.BRZ ordered. EDMS EDMS 03:06 03:06 MAGNESIUM+C.LAB.BRZ ordered. EDMS EDMS 03:06 03:06 PROTIME (+INR)+COAG.LAB.BRZ ordered. EDMS EDMS 03:06 03:06 Troponin High Sensitivity+C.LAB.BRZ ordered. EDMS EDMS 03:10 03:09 PSHx: right chest wall dialysis site; cp4 cp4 04:23 04:20 Differential diagnosis: dysfunctional uterine bleeding, Neoplasm ms3 ms3 08:07 07:08 Transition of care: After a detail discussion of the patient's case, care is ms3 transferred to Wade Dey MD ms3 09:54 08:04 Intensive Care Unit ms3 hb 09:54 08:04 ms3 hb 12:54 09:54 [facility] ER HOLD hb eb 12:54 09:54 ERHOLD- hb eb 12:58 12:54 Intensive Care Unit eb hb 12:58 12:54 5- eb hb 16:42 12:58 [facility] ER HOLD hb eb 16:42 12:58 ERHOLD- hb eb
[2024-07-16] MEDS ORDERED: ACETAMINOPHEN 500 MG TAB PO PRN (09:01)
[2024-07-16] MEDS ORDERED: NA CHLORIDE 0.9% 1,000 ML ONE (09:55)
[2024-07-16] MEDS ORDERED: METOPROLOL TARTRATE 5 MG/5 ML INJ IV ONE (09:55)
[2024-07-16] MEDS: NA CHLORIDE 0.9% 1,000 ML IV SCH (10:00)
[2024-07-16] MEDS: METOPROLOL TARTRATE 5 MG/5 ML INJ IV SCH (10:04)
[2024-07-16] MEDS ORDERED: MORPHINE 2 MG/ML SYR ONE (10:11)
[2024-07-16] MEDS ORDERED: ONDANSETRON 4 MG/2 ML VIAL ONE (10:11)
[2024-07-16] MEDS: MORPHINE 2 MG/ML SYR IV PRN (10:24)
[2024-07-16] MEDS: ONDANSETRON 4 MG/2 ML VIAL IV PRN (10:25)
[2024-07-16 10:59] LABS: Absolute Eosinophils 0.2 K/uL (0-0.5); Absolute Lymphocytes (CBC) 1.7 K/uL (0.7-4.9); Absolute Monocytes 1.1 K/uL (0.1-1.3); Absolute Neutrophil 7.9 K/uL (1.8-8.0); Basophils % 0.3 % (0-1.3); Eosinophils % 1.9 % (0-4.4); Hematocrit 37.6 % (36.0-45.0); Hemoglobin 12.8 g/dL (12.0-15.0); Lymphocytes % 15.5 % (15.3-44.8); MCH 32.5 pg (27.0-35.0); MCV 95.7 fL (80-100); MPV 8.4 fL (7.6-11.3); Monocytes % 10.3 % (3.3-12.3); Nucleated Red Blood Cells % 0.1 % (0-0); Platelets 217 thou/uL (152-406); RBC Red Blood Cell Count 3.93 M/uL (3.86-4.86); Red Cell Distribution Width 17.3 % (12.1-15.2)
[2024-07-16 11:23] LABS: Albumin 2.2 g/dL (3.4-5.0); Albumin/Globulin Ratio 0.8 (1.1-1.8); Anion Gap 10.4 mEq/L (5.0-15.0); Bilirubin Total 2.7 mg/dL (0.2-1.0); Globulin 2.6 g/dL (2.3-3.5); Magnesium 1.9 mg/dL (1.6-2.4); PT Prothrombin Time 11.6 SECONDS (10.0-13.0); Phosphorus 2.8 mg/dL (2.5-4.9); Potassium 3.4 mEq/L (3.5-5.1); Protein, Total 4.8 g/dL (6.4-8.2); Protime INR 1.02; Thyroid Stimulating Hormone 2.48 uIU/mL (0.358-3.740); Troponin High Sensitivity 8.9 pg/mL (<58.9)
[2024-07-16 11:36] LABS: PTT, Activated Partial Thromb 24.2 SECONDS (24.3-36.9)
[2024-07-16] MEDS ORDERED: DIGOXIN 0.25 MG/ML AMP ONE ×3 (11:45→18:40)
[2024-07-16] MEDS: DIGOXIN 0.25 MG/ML AMP IV ONE (12:10)
[2024-07-16] MEDS: PNEUMOCOCCAL VACCINE 0.5 ML IMVAC ONE (15:00)
[2024-07-16] MEDS: FLU (Fluarix Triv) TS24-25(6MOS UP)/PF 45 MCG/0.5 ML Syringe IM ONE (15:00)
[2024-07-16] MEDS: METOPROLOL TAR 25 MG TAB PO ONE (15:30)
[2024-07-16] MEDS ORDERED: METOPROLOL TAR 25 MG TAB ONE (16:16)
--- NOTE | 2024-07-16 17:58 | P.PN ---
Date of Service: 06/12/24 Subjective Patient is clinically doing well and patient denies any new complaints. Physical Examination - Vital Signs reviewed Physical examination General: Alert and oriented x 2, NAD, HEENT: Conjunctiva not pale, anicteric sclera Neck: Supple, no elevated JVD Heart: Heart sounds 1 and 2 normal, regular rhythm, normal rate, no pedal edema Lungs: Clear to auscultation bilaterally, adequate breath sounds bilaterally, no rhonchi or crackles. Abdomen: Soft, nondistended, nontender, normal bowel sounds. Extremities: No tenderness, no deformity Skin: Normal skin turgor, no rash, no nodules or ulcers. Neuro: No focal motor deficit. Normal speech. Psychiatry: Normal mood, no agitation. Assessment And Plan -Assessment/Plan Assessment and plan Generalized weakness Multiple falls Intracranial Bleed Lower extremity weakness MRI Lspine - sacral insufficiency fracture continue PT/OT SS for IPR placement + ROM with lower extremities Hyponatremia Na 128 Serum osmolality stable (271) Continue IV NS. Monitor BMP. added salt in diet, mild fluid restriction UTI Urine cultures growing gram-negative rods Continue IV Rocephin - citrobacter Koceri Constipation Continue lactulose. Awaiting IPR bed VTE prophylaxis: SCD/TEDS Advanced directive: Full code
[2024-07-16] MEDS: DIGOXIN 0.25 MG/ML AMP IV SCH (18:00)
--- NOTE | 2024-07-16 19:38 | P.HP ---
Date of Service: 07/16/24 Chief Complaint: Atrial fibrillation with rapid ventricular response History of Present Illness: Patient is a 74-year-old female who presents to the hospital with atrial fibrillation with rapid ventricular spots. Patient has been in the hospital about 3 years ago and she was in atrial fibrillation with rapid ventricular response at that time and was started on amiodarone drip. Her ejection fraction was around 20% at that time. Patient went into liver failure and amiodarone was discontinued. Patient also ended up with renal failure and ended up on hemodialysis for a few months. She was able to come off of hemodialysis. Patient is atrial fibrillation at that time was controlled with metoprolol and digoxin. Patient had echocardiogram done last year which revealed an ejection fraction of 52%. Patient has been on anticoagulation and cardiac meds for her atrial fibrillation but she has stopped the medication over the last 4 months. Her states that the reason the medications have been stopped is because she is not able to get to her doctor's appointments because of her decreased mobility. Over the last few weeks she has had persistent vaginal bleeding. She is not the best historian and her is not always available to care for her so he does not know her history that well either. They do note that she has not been on any anticoagulation within that time. Patient has not really appreciated any significant weight loss. There is an endometrial lesion that was seen on the ultrasound downstairs. Patient was given Cardizem in the emergency room. No anticoagulation at this time. Hemoglobin is stable. Hemodynamically, patient's heart rate is in the 120s to 130s; however, patient's blood pressure is stable. At this time, patient is stable for admission. However, we do not have gynecology available and with her persistent bleeding it may be best for patient to be at a facility where gynecology is available. Patient will be transferred to a tertiary care facility. Allergies tramadol Allergy (Verified 10/24/21 14:31) Nausea/Vomiting acetaminophen [From Tylenol] Adverse Reaction (Verified 10/24/21 14:31) Anaphylaxis Home Medications: Apixaban [Eliquis *] 5 mg PO BID 90 Days #180 tablet 08/16/23 Sotalol HCl [Betapace*] 80 mg PO BID 90 Days #180 tab 08/16/23 lisinopriL [Zestril] 10 mg PO DAILY 60 Days #60 tab 08/16/23 Cefdinir [Omnicef] 300 mg PO BID #14 tab 08/24/23 - Past Medical/Surgical History Diabetic: No -: HTN, no medications -: atrial fibrillation -: fibromyalgia -: ESRD(she was able to come off of dialysis a year ago) -: Menorrhagia -: Morbid obesity -: Pulmonary embolism -: Cholesystectomy -: Hemodialysis access catheter Psychosocial/ Personal History: Lives at home with her - Family History Father Medical History: Hypertension, Diabetes Mother Medical History: Hypertension, Diabetes, Stroke Sister Medical History: Hypertension, Diabetes - Social History Smoking Status: Unknown if ever smoked Alcohol use: No CD- Drugs: No Caffeine use: No Review of Systems 10-point ROS is otherwise unremarkable Physical Examination Reviewed General: Alert, In no apparent distress, Oriented x2 HEENT: Atraumatic Neck: Supple Respiratory: Clear to auscultation bilaterally, Normal air movement Cardiovascular: Irregular heart rate/rhythm Gastrointestinal: Normal bowel sounds, Soft and benign, Non-distended Musculoskeletal: No clubbing, No swelling Neurological: Sensation intact, Cranial nerves 3-12 intact, Abnormal gait, Abnormal strength Laboratory Data (last 24 hrs) 07/16/24 07/16/24 07/16/24 03:09 03:09 03:09 WBC 10.60 Hgb 14.3 Hct 43.2 Plt Count 240 PT 10.8 INR 0.94 Sodium 139 Potassium 3.5 BUN 14 Creatinine 1.14 H Glucose 152 H Magnesium 2.1 - Problems (1) Atrial fibrillation with RVR Current Visit: No Status: Acute (2) Abnormal vaginal bleeding Current Visit: Yes Status: Acute (3) History of end stage renal disease Current Visit: Yes Status: Acute (4) Amiodarone toxicity Current Visit: Yes Status: Acute (5) Morbid obesity with BMI of 40.0-44.9, adult Current Visit: No Status: Acute Conclusions/ Impression: Plan: 1. Atrial fibrillation with rapid ventricular response; patient currently on Cardizem drip in the emergency room. Rate is still poorly controlled. May need to try esmolol IV and she may need JEREMIAH with cardioversion. She is not tolerant of a lot of cardiac medications. Could also reattempt amiodarone but will need to monitor LFTs very closely. Holding anticoagulation at this time because of vaginal bleeding. Cardiology consulted. 2. Abnormal vaginal bleeding; [facility] follow-up. 3. Chronic kidney disease; continue monitor renal function closely 4. Morbid obesity and debility; patient may benefit from a GLP-1 agonist, and continued physical therapy 5. GI DVT prophylaxis At this time, emergency room physician will be taken over patient's care and initiating transfer to [facility] for ICU for A-fib RVR as we do not have any ICU beds available as well as [facility] availability. We do not have gynecology available at our facility and we may need some additional information regarding long-term anticoagulation that would be necessary. So gynecology consultation and recommendation will be prudent.
[2024-07-16] MEDS: METOPROLOL TAR 25 MG TAB PO SCH (21:46)
[2024-07-17 06:01] LABS: Absolute Eosinophils 0.6 K/uL (0-0.5); Absolute Lymphocytes (CBC) 1.8 K/uL (0.7-4.9); Absolute Monocytes 0.9 K/uL (0.1-1.3); Absolute Neutrophil 6.2 K/uL (1.8-8.0); Basophils % 0.3 % (0-1.3); Eosinophils % 5.9 % (0-4.4); Hematocrit 40.4 % (36.0-45.0); Hemoglobin 13.6 g/dL (12.0-15.0); Lymphocytes % 19.1 % (15.3-44.8); MCH 32.5 pg (27.0-35.0); MCHC 33.6 g/dL (32.0-36.0); MCV 96.7 fL (80-100); MPV 8.4 fL (7.6-11.3); Monocytes % 9.1 % (3.3-12.3); Neutrophils % 65.6 % (41.7-73.7); Nucleated Red Blood Cells % 0.1 % (0-0); Platelets 219 thou/uL (152-406); RBC Red Blood Cell Count 4.18 M/uL (3.86-4.86); Red Cell Distribution Width 17.2 % (12.1-15.2)
[2024-07-17 06:28] LABS: Albumin 2.4 g/dL (3.4-5.0); Albumin/Globulin Ratio 0.8 (1.1-1.8); Anion Gap 11.5 mEq/L (5.0-15.0); Bilirubin Total 3.9 mg/dL (0.2-1.0); Potassium 4.5 mEq/L (3.5-5.1); Protein, Total 5.4 g/dL (6.4-8.2); Troponin High Sensitivity 13.7 pg/mL (<58.9)
[2024-07-17 07:11] LABS: PT Prothrombin Time 10.9 SECONDS (10.0-13.0); PTT, Activated Partial Thromb 23.7 SECONDS (24.3-36.9); Protime INR 0.95
--- NOTE | 2024-07-17 08:03 | P.PN ---
Subjective Date of Service: 07/17/24 Patient clinically doing better. Patient rate controlled. However, continues to have abnormal uterine bleeding. HOT KNIFE FOXING CUTTER consulted. Patient with endometrial lesion. CT scan pending today. May be able to stepdown. Await cardiology and gynecology recommendations. Review of Systems 10-point ROS is otherwise unremarkable Physical Examination - Vital Signs Temperature: 97.4 F Blood Pressure: 144/63 Pulse: 86 Respirations: 20 Pulse Ox (%): 96 - Physical Exam General: Alert, In no apparent distress, Oriented x3, Obese Respiratory: Clear to auscultation bilaterally, Normal air movement Cardiovascular: Regular rate/rhythm, Normal S1 S2 Gastrointestinal: Normal bowel sounds, No tenderness Musculoskeletal: No tenderness Integumentary: No rashes Neurological: Normal speech, Normal tone, Normal affect Lymphatics: No axilla or inguinal lymphadenopathy - Studies Medications List Reviewed: Yes Assessment & Plan - Problems (Diagnosis) (1) Atrial fibrillation with RVR Current Visit: No Status: Acute (2) Abnormal vaginal bleeding Current Visit: Yes Status: Acute (3) History of end stage renal disease Current Visit: Yes Status: Acute (4) Amiodarone toxicity Current Visit: Yes Status: Acute (5) Morbid obesity with BMI of 40.0-44.9, adult Current Visit: No Status: Acute (6) ALT (SGPT) level raised Current Visit: Yes Status: Acute (7) Elevated aspartate aminotransferase level Current Visit: Yes Status: Acute - Plan Plan: 1. Patient with atrial fibrillation with rapid ventricular response; patient is currently on beta-parvez therapy and digoxin. This is what she was taking before. She had tried amiodarone but she developed liver toxicity. She also went into renal failure and ended up on dialysis. Currently rate is well- controlled. Patient is very noncompliant with her medications as she has not seen her forestry tree pruner in quite a while and has not got refills for her medications. Her states that she is difficult to transport which is why she does not make her appointments. 2. Abnormal uterine bleeding; patient with a endometrial mass on pelvic ultrasound. CT imaging pending at this time. Gynecology consultation pending. They are not routinely available at our hospital and we did attempt transfer but [facility] denied the transfer. They wanted us to do a trial of anticoa gulation and if she bled heavily then they would accept her. However, patient has been bleeding the whole time so it is not prudent to try her on a trial of anticoagulation at this time. Will await gynecology recommendations-scheduled to see on Wednesday. Patient is noncompliant and her long-term prognosis is poor especially if she continues not following up. 3. Morbid obesity and deconditioning; will start physical therapy and get them to ambulate patient. She is not orthostatic so she can ambulate and will monitor her hemodynamics while she does physical therapy 4. History of pulmonary embolism; will resume anticoagulation when she has her abnormal uterine bleeding controlled 5. GI DVT prophylaxis Discharge Plan: Home Plan to discharge in: Greater than 2 days - Advance Directives Does patient have a Living Will: No Does patient have a Durable POA for Healthcare: No Critical Care: No Time Spent Managing PTS Care (In Minutes): 35
[2024-07-17] MEDS: NA CHLORIDE 0.9% 250 ML IV ONE (08:30)
--- NOTE | 2024-07-17 09:42 | RAD REPORT ---
EXAM: CT CHEST, ABDOMEN AND PELVIS WITH CONTRAST CLINICAL INDICATION: endometrial mass; liver failure; pleural effusion TECHNIQUE: CT chest, abdomen and pelvis was performed, following the administration of contrast, as p er department protocol. Axial, sagittal and coronal reconstructions were obtained. One or more of the following dose reduction techniques were used: Automated exposure control, adjustment of the mA a nd/or kV according to patient size, and/or iterative reconstruction. Unless otherwise specified, incidental findings do not require dedicated imaging follow-up. COMPARISON: 07/16/2024 FINDINGS: LUNGS: Mild linear atelectasis is seen in both lung bases posteriorly. No pulmonary nodule, mass or i nfiltrate. PLEURA: No pleural effusion. No pneumothorax. MEDIASTINUM AND LYMPH NODES: 13 mm right infrahilar lymph node is seen. No additional areas of lympha denopathy seen. OSSEOUS STRUCTURES AND CHEST WALL: Intact. LIVER: Normal in size and contour. No focal lesion or biliary dilatation. Cholecystectomy clips. PANCREAS: No mass, ductal dilation, or wen-pancreatic fluid. SPLEEN: Normal size. No focal lesion. ADRENALS: Normal; no mass. KIDNEYS: 5.5 cm fatty attenuation mass projects from the superior aspect of the right kidney, likely a large angiomyolipoma. There is additional benign cysts bilaterally, largest on the right inferiorly measuring 4.5 cm. URINARY BLADDER: Normal contour. GASTROINTESTINAL TRACT: No bowel obstruction, free air, significant free fluid or abscess. Moderate hiatal hernia. APPENDIX: Normal appendix. LYMPH NODES: No lymphadenopathy. MUSCULOSKELETAL: Mild multilevel lumbar degenerative changes. OTHER: There is marked distention of the endometrium with intermediate density material. The endometr ial canal measures 7 cm. IMPRESSION: Marked distention of the endometrial canal up to 7 cm. This can be due to hydrometrocolpos related to cervical stenosis. Another possibility would be neoplasm. Hysteroscopy would be recommended for further evaluation. 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
[2024-07-17] MEDS: ALBUMIN HUMAN 25% 100 ML IV SCH (09:48)
--- NOTE | 2024-07-17 10:19 | P.CNS ---
Date of Consult: 07/17/24 Chief Complaint: Atrial fibrillation with rapid ventricular response History of Present Illness: Patient with PMH of atrial fibrillation, failed multiple attempts for cardioversion in the past, presented with vaginal bleeding, denies chest pain, no palpitations, no syncope. Allergies tramadol Allergy (Verified 10/24/21 14:31) Nausea/Vomiting acetaminophen [From Tylenol] Adverse Reaction (Verified 10/24/21 14:31) Anaphylaxis Home medications list reviewed: Yes Home Medications: NK [No Home Meds] 07/16/24 - Past Medical/Surgical History Diabetic: No -: HTN, no medications -: atrial fibrillation -: fibromyalgia -: ESRD(she was able to come off of dialysis a year ago) -: Menorrhagia -: Morbid obesity -: Pulmonary embolism -: Cholesystectomy -: Hemodialysis access catheter Psychosocial/ Personal History: Lives at home with her - Family History Father Medical History: Hypertension, Diabetes Mother Medical History: Hypertension, Diabetes, Stroke Sister Medical History: Hypertension, Diabetes - Social History Smoking Status: Unknown if ever smoked Alcohol use: No CD- Drugs: No Caffeine use: No Place of Residence: Home Review of Systems 10-point ROS is otherwise unremarkable Physical Examination Temp Pulse Resp BP Pulse Ox 97.4 F 86 20 144/63 H 96 07/17/24 08:03 07/17/24 08:03 07/17/24 08:03 07/17/24 08:03 07/17/24 08:03 General: Alert, In no apparent distress HEENT: Atraumatic, PERRLA, Mucous membr. moist/pink, EOMI, Sclerae nonicteric Neck: Supple, 2+ carotid pulse no bruit, No LAD, Without JVD or thyroid abnormality Respiratory: Clear to auscultation bilaterally, Normal air movement Cardiovascular: Regular rate/rhythm, Normal S1 S2, Irregular heart rate/rhythm Gastrointestinal: Normal bowel sounds, No tenderness Musculoskeletal: No tenderness Integumentary: No rashes Neurological: Normal gait, Normal speech, Normal tone, Normal affect Lymphatics: No axilla or inguinal lymphadenopathy - Problems (1) Atrial fibrillation Current Visit: No Status: Acute Plan: Patient failed multiple attempts for cardioversion in the past, she also had amiodarone toxicity at one point, she is currently rate controlled with metoprolol and digoxin. continue above medications continue to hold anticoagulation until cleared by gynecology for Eliquis. patient might benefit from watchman procedure in the future follow up with cardiology as outpatient. Qualifiers: Atrial fibrillation type: longstanding persistent Qualified Code(s): I48.11 - Longstanding persistent atrial fibrillation
--- NOTE | 2024-07-17 12:00 | EKG ---
Test Date: 2024-07-16 Test Time: 03:06:04 Loop Drier Operator: ZOLTAN MEASUREMENT RESULTS: Intervals: Rate: 104 [place]: QRSD: 86 QT: 376 QTc: 494 [place]: P: IL: QRS: 63 T: 14 INTERPRETIVE STATEMENTS: Atrial fibrillation with rapid ventricular response with premature ventricular or aberrantly conducted complexes Septal infarct, age undetermined Abnormal ECG Compared to ECG 08/24/2023 11:49:32 Ventricular premature complex(es) now present Myocardial infarct finding now present Sinus bradycardia no longer present Electronically Signed On 07-17-24 11:58:26 [employer] ARC by Griffin Mclaughlin
[2024-07-17] MEDS: DIGOXIN 0.125 MG TABLET PO SCH (20:37)
[2024-07-18 06:26] LABS: Absolute Eosinophils 0.7 K/uL (0-0.5); Absolute Lymphocytes (CBC) 2.1 K/uL (0.7-4.9); Absolute Monocytes 0.9 K/uL (0.1-1.3); Absolute Neutrophil 5.8 K/uL (1.8-8.0); Basophils % 0.5 % (0-1.3); Eosinophils % 6.8 % (0-4.4); Hematocrit 37.4 % (36.0-45.0); Hemoglobin 12.7 g/dL (12.0-15.0); Lymphocytes % 22.3 % (15.3-44.8); MCH 32.5 pg (27.0-35.0); MCHC 33.8 g/dL (32.0-36.0); MPV 8.9 fL (7.6-11.3); Monocytes % 9.8 % (3.3-12.3); Neutrophils % 60.6 % (41.7-73.7); Platelets 194 thou/uL (152-406); Red Cell Distribution Width 16.9 % (12.1-15.2)
[2024-07-18 06:33] LABS: Albumin 2.7 g/dL (3.4-5.0); Bilirubin Total 2.6 mg/dL (0.2-1.0); Globulin 2.6 g/dL (2.3-3.5); Protein, Total 5.3 g/dL (6.4-8.2)
[2024-07-18] MEDS: CETIRIZINE HCL 5 MG TABLET PO ONE (11:41)
--- NOTE | 2024-07-18 13:00 | P.PN ---
Date of Service: 07/18/24 Subjective: Reports mild improvement in volume of vaginal bleeding No other acute events overnight ROS: 10 point ROS as noted above, otherwise negative Physical exam GEN: Alert, oriented, NAD HEENT: Normal conjunctiva, sclera anicteric CV: Atrial fibrillation rate 80s to 100s, no edema Pulm: Nonlabored respirations on room air ABD: Soft, nontender, nondistended MSK: No joint tenderness Integumentary: No rashes Neuro: Normal speech, normal affect Vitals reviewed Assessment Atrial fibrillation with rapid ventricular response Abnormal vaginal bleeding History of ESRD-no longer on HD History of amiodarone toxicity Morbid obesity and deconditioning history of PE Plan Atrial fibrillation with rapid ventricular response History of PE Abnormal vaginal bleeding Dilatation of endometrial canal up to 7 cm On metoprolol and digoxin for rate control/[id number] well-controlled today at this time Holding Eliquis given ongoing abnormal uterine bleeding Plan for gynecology to evaluate today Endometrial canal dilatation possibly secondary to cervical stenosis versus neoplasm according to radiology report Appreciate further input from gynecology History of ESRD-no longer on HD Monitor renal function daily History of amiodarone toxicity Metoprolol, digoxin Morbid obesity and deconditioning PT consultation VTE: SCD-not on anticoagulation given abnormal uterine bleeding Code: Full Dispo: 2-3 days Time Spent Managing Pts Care (In Minutes): 35
[2024-07-18 19:12] LABS: PT Prothrombin Time 10.7 SECONDS (10.0-13.0); PTT, Activated Partial Thromb 26.3 SECONDS (24.3-36.9); Protime INR 0.94
[2024-07-18] MEDS: HEPARIN/D5W 25,000 UNIT/500 ML BAG IV SCH (19:36)
[2024-07-19 04:50] LABS: Hematocrit 33.9 % (36.0-45.0); Hemoglobin 11.5 g/dL (12.0-15.0); MCH 32.8 pg (27.0-35.0); MCV 96.5 fL (80-100); MPV 8.8 fL (7.6-11.3); Platelets 164 thou/uL (152-406); RBC Red Blood Cell Count 3.51 M/uL (3.86-4.86); Red Cell Distribution Width 17.3 % (12.1-15.2)
[2024-07-19 05:04] LABS: Anion Gap 8.7 mEq/L (5.0-15.0); Potassium 3.7 mEq/L (3.5-5.1)
--- NOTE | 2024-07-19 08:14 | ECHO ---
HEIGHT: 5 ft 7 in WEIGHT: 241 lb 14.4 oz DATE OF STUDY: 07/17/[address]: Tk Young MD 2-DIMENSIONAL: YES M.MODE: YES DOPPLER: YES COLOR FLOW: YES TDS: NO PORTABLE: YES DEFINITY: NO BUBBLE STUDY: NO DIAGNOSIS: ATRIAL FIBRILLATION, CONGESTIVE HEART FAILURE CARDIAC HISTORY: CATHERIZATION: SURGERY: PROSTHETIC VALVE: PACEMAKER: MEASUREMENTS (cm) DIASTOLIC (NORMALS) SYSTOLIC (NORMALS) IVSd 1.1 (0.6-1.2) LA Diam 3.9 (1.9-4.0) LVEF 60-65% LVIDd 4.4 (3.5-5.7) LVIDs 2.8 (2.0-3.5) %FS 36% LVPWd 1.0 (0.6-1.2) Ao Diam 2.7 (2.0-3.7) 2 DIMENSIONAL ASSESSMENT: RIGHT ATRIUM: NORMAL LEFT ATRIUM: MODERATELY DILATED RIGHT VENTRICLE: NORMAL LEFT VENTRICLE: NORMAL TRICUSPID VALVE: TRACE TRICUSPID REGURGITATION MITRAL VALVE: NORMAL PULMONIC VALVE: NORMAL AORTIC VALVE: NORMAL PERICARDIAL EFFUSION: NONE AORTIC ROOT: NORMAL LEFT VENTRICULAR WALL MOTION: NORMAL. DOPPLER/COLOR FLOW: DIASTOLIC DYSFUNCTION. COMMENTS: 1. MODERATELY DILATED LEFT ATRIUM. 2. NORMAL LEFT VENTRICUALR SYSTOLIC FUNCTION. LEFT VENTRICULAR EJECTION FRACTION 60-65%. NORMAL WALL MOTION. 3. DIASTOLIC DYSFUNCTION. 4. MILDLY ELEVATED FILLING PRESSURES. RIGHT ATRIAL PRESSURE 10-15 mmHg. TECHNOLOGIST: [facility]
--- NOTE | 2024-07-19 14:04 | P.PN ---
Date of Service: 07/19/24 Subjective: Tolerating heparin drip overnight without significant bleeding so far No other acute events overnight ROS: 10 point ROS as noted above, otherwise negative Physical exam GEN: Alert, oriented, NAD HEENT: Normal conjunctiva, sclera anicteric CV: Atrial fibrillation rate 80s to 100s, no edema Pulm: Nonlabored respirations on room air ABD: Soft, nontender, nondistended MSK: No joint tenderness Integumentary: No rashes Neuro: Normal speech, normal affect Vitals reviewed Assessment Atrial fibrillation with rapid ventricular response Abnormal vaginal bleeding History of ESRD-no longer on HD History of amiodarone toxicity Morbid obesity and deconditioning history of PE Plan Atrial fibrillation with rapid ventricular response History of PE Abnormal vaginal bleeding Dilatation of endometrial canal up to 7 cm On metoprolol and digoxin for rate control/[id number] well-controlled today at this time Holding Eliquis given ongoing abnormal uterine bleeding Given history of PE and increased risk for stroke with A-fib will trial patient on a heparin Will need to monitor closely for worsening vaginal bleeding If patient develop significant vaginal bleeding may require evaluation at tertiary center by Push Bench Operator Helper onc Case was reviewed with gynecology who recommends patient be evaluated by Push Bench Operator Helper onc Dr. Concepcion spoke with Dr. Herson Hawkins at [facility] If patient does not have further bleedin can follow up outpatient, if bleeding will need inpatient transfer Endometrial canal dilatation possibly secondary to cervical stenosis versus neoplasm according to radiology report Appreciate further input from gynecology History of ESRD-no longer on HD Monitor renal function daily History of amiodarone toxicity Metoprolol, digoxin Morbid obesity and deconditioning PT consultation VTE: SCD-not on anticoagulation given abnormal uterine bleeding Code: Full Dispo: 2-3 days Time Spent Managing Pts Care (In Minutes): 35
[2024-07-20 05:41] LABS: Hematocrit 33.4 % (36.0-45.0); Hemoglobin 11.4 g/dL (12.0-15.0); MCHC 34.2 g/dL (32.0-36.0); MCV 96.4 fL (80-100); MPV 8.4 fL (7.6-11.3); Platelets 184 thou/uL (152-406); RBC Red Blood Cell Count 3.47 M/uL (3.86-4.86); Red Cell Distribution Width 17.6 % (12.1-15.2)
[2024-07-20 05:54] LABS: Albumin 2.4 g/dL (3.4-5.0); Albumin/Globulin Ratio 0.9 (1.1-1.8); Anion Gap 7.7 mEq/L (5.0-15.0); Bilirubin Total 1.2 mg/dL (0.2-1.0); Globulin 2.8 g/dL (2.3-3.5); Potassium 3.7 mEq/L (3.5-5.1); Protein, Total 5.2 g/dL (6.4-8.2)
[2024-07-20] MEDS ORDERED: LIDOCAINE 1% MPF 5 ML VIAL ONE (13:50)
[2024-07-20] MEDS ORDERED: ONDANSETRON 4 MG/2 ML VIAL ONE (13:50)
[2024-07-20] MEDS ORDERED: FENTANYL CITR 100 MCG/2 ML ONE (13:51)
[2024-07-20] MEDS ORDERED: propofoL 200 MG/20 ML VIAL IV ONE (13:51)
[2024-07-20] MEDS: LIDOCAINE HCL/EPINEPHRINE 20 ML MDV ONE (13:53)
--- NOTE | 2024-07-20 15:18 | P.PN ---
Date of Service: 07/20/24 Subjective: Going for biopsy today with OIL TANK CAR CLEANER surgery No acute events overnight ROS: 10 point ROS as noted above, otherwise negative Physical exam GEN: Alert, oriented, NAD HEENT: Normal conjunctiva, sclera anicteric CV: Atrial fibrillation rate 80s to 100s, no edema Pulm: Nonlabored respirations on room air ABD: Soft, nontender, nondistended MSK: No joint tenderness Integumentary: No rashes Neuro: Normal speech, normal affect Vitals reviewed Assessment Atrial fibrillation with rapid ventricular response Abnormal vaginal bleeding History of ESRD-no longer on HD History of amiodarone toxicity Morbid obesity and deconditioning history of PE Plan Atrial fibrillation with rapid ventricular response History of PE Abnormal vaginal bleeding Dilatation of endometrial canal up to 7 cm On metoprolol and digoxin for rate control/[id number] well-controlled today at this time Holding Eliquis given ongoing abnormal uterine bleeding Given history of PE and increased risk for stroke with A-fib will trial patient on a heparin Will need to monitor closely for worsening vaginal bleeding If patient develop significant vaginal bleeding may require evaluation at tertiary center by Vocal Music Teacher onc Case was reviewed with gynecology who recommends patient be evaluated by Vocal Music Teacher onc Dr. Concepcion spoke with Dr. Herson Hawkins at [facility] If patient does not have further bleeding can follow up outpatient, if bleeding will need inpatient transfer Endometrial canal dilatation possibly secondary to cervical stenosis versus neoplasm according to radiology report Undergoing tissue biopsy today 07/20 with OIL TANK CAR CLEANER surgery to further expedite treatment course Resume heparin when OK with OIL TANK CAR CLEANER History of ESRD-no longer on HD Monitor renal function daily History of amiodarone toxicity Metoprolol, digoxin Morbid obesity and deconditioning PT consultation VTE: Heparin drip to be resumed when ok with OIL TANK CAR CLEANER surgery Code: Full Dispo: 2-3 days Time Spent Managing Pts Care (In Minutes): 35
[2024-07-20] MEDS: BENZONATATE 100 MG CAP PO PRN (16:34)
--- NOTE | 2024-07-21 01:07 | OP ---
Date of Procedure: 07/20/2024 Surgeon: Guadalupe Concepcion MD Cooler Conveyor Loader: No assistants. Preoperative Diagnoses: Postmenopausal bleeding, pelvic mass. Postoperative Diagnoses: Postmenopausal bleeding, pelvic mass, endometrial mass. Procedures Performed: 1. Exam under anesthesia, Pap smear. 2. Hysteroscopy and dilation and curettage. 3. Cystoscopy. Complications: No complications. Drains: No drains. Anesthesia: General with LMA. Specimens: 1. Pap smear. 2. Endometrial curettings. Estimated Blood Loss: Less than 25. Condition: Stable. Indications: The patient is a 74-year-old, presented to the emergency room 5 days ago, has been hosp italized with postmenopausal bleeding as well as significant cardiac issues including atrial fibrilla tion with rapid ventricular rhythm, currently rate controlled; history of pulmonary emboli in the [facility] t, 1 year ago, currently none detected. At admission was imaged and found to have a large pelvic mas s. The patient has not had a gynecologic visit in over 30 years, does not recollect her Pap results in t he past, but does not report any abnormal Pap smears. Recurrent postmenopausal bleeding in the past few weeks, slight in amount, but when she came in, she was bleeding a pad every 2-3 hours. Denied an y pelvic pain. Does has have some urgency and incontinence. No bowel issues. After visiting with the patient and her today and examining her, discussed about the diagnose s, potential risk of cervical or uterine cancer, most likely endometrial and consented her for an exa m under anesthesia, sampling of the endometrium, cervix if needed, and cystoscopy. All questions and answers were answered to their satisfaction. The patient is a bit hard of hearing, but her was able to understand the entire conversation. The patient also understood this an d consented. Description Of Procedure: After she was taken back to the OR, she was placed in a supine fashion on the operating table. After general anesthesia was given with LMA, she was placed in dorsal lithotomy position. Vulva, vagina, and perineum were prepped and draped in a sterile fashion. Exam under anesthesia was performed. Vaginal exam showed a significant stage II rectocele, posterior wall prolapse. Cervix at this time, no evidence of cervical tumor. Pap smear was performed and boswell ded out. Hysteroscopy, D and C: Anterior lip of the cervix was held with 2 long Allis clamps. A diagnostic S limLine hysteroscope was inserted through the cervical canal and traversed under direct visualization into the endometrial canal. There was a large endometrial mass that encompassed the entire uterine cavity. The sounding length of the fundus was 11 cm. The scope was then removed. Endometrial curet tings were performed with a curette as well as Ruben Stone forceps to grasp a good amount of the en dometrial tissue. After adequate sample was removed and handed off for permanent pathology, the Maynor s clamps were removed and vagina was cleaned up. Rectal exam was performed and did not have any masses. Cystoscopy: A 30-degrees lens, a diagnostic sheath, and normal saline were used. Cystoscopy was per formed through the urethra into the bladder. The trigone was well visualized. Both ureteric orifice s had strong jets of urine from them. Significant trabeculations without any cellules. No bladder m ass, fistula, stone were noted and the bladder dome, lateral martins, internal meatus were all well vis ualized. The urethra was also visualized on the way out with flow. No evidence of any tumors or div erticula in the urethra. The bladder was drained with the red rubber catheter. The patient was cyndi aguilar up and recovered from anesthesia. Instrument, needle, and sponge counts were correct before she was recovered. EBL was less than 25. The patient will be returned to the ICU. She remained stable hemodynamically throughout the entire case and I will discuss the findings with her at this t chris and she will follow up with Dr. Herson Hawkins, a gynecological oncologist, next week with path ology results. DON/RENARD Voice ID: [id number] Report ID: [id number]
[2024-07-21 05:43] LABS: Hematocrit 33.3 % (36.0-45.0); Hemoglobin 11.3 g/dL (12.0-15.0); MCH 33.1 pg (27.0-35.0); MCHC 33.8 g/dL (32.0-36.0); MCV 97.7 fL (80-100); Platelets 195 thou/uL (152-406); RBC Red Blood Cell Count 3.41 M/uL (3.86-4.86); Red Cell Distribution Width 17.3 % (12.1-15.2)
[2024-07-21 06:05] LABS: Albumin 2.3 g/dL (3.4-5.0); Albumin/Globulin Ratio 0.9 (1.1-1.8); Anion Gap 7.7 mEq/L (5.0-15.0); Bilirubin Total 1.3 mg/dL (0.2-1.0); Globulin 2.7 g/dL (2.3-3.5); Potassium 3.7 mEq/L (3.5-5.1)
--- NOTE | 2024-07-21 13:33 | P.PN ---
Date of Service: 07/21/24 Subjective: S/P biopsy 07/20 Doing well up to bs without assistance Improving ROS: 10 point ROS as noted above, otherwise negative Physical exam GEN: Alert, oriented, NAD HEENT: Normal conjunctiva, sclera anicteric CV: Atrial fibrillation rate 80s to 100s, no edema Pulm: Nonlabored respirations on room air ABD: Soft, nontender, nondistended MSK: No joint tenderness Integumentary: No rashes Neuro: Normal speech, normal affect Vitals reviewed Assessment Atrial fibrillation with rapid ventricular response Abnormal vaginal bleeding History of ESRD-no longer on HD History of amiodarone toxicity Morbid obesity and deconditioning history of PE Plan Atrial fibrillation with rapid ventricular response History of PE Abnormal vaginal bleeding Dilatation of endometrial canal up to 7 cm On metoprolol and digoxin for rate control/[id number] well-controlled today at this time Holding Eliquis given ongoing abnormal uterine bleeding-plan to resume am Given history of PE and increased risk for stroke with A-fib will trial patient on a heparin Will need to monitor closely for worsening vaginal bleedin Case was reviewed with gynecology who recommends patient be evaluated by [facility] onc Dr. Concepcion spoke with Dr. Herson Hawkins at [facility] If patient does not have further bleeding can follow up outpatient, if bleeding will need inpatient transfer Endometrial canal dilatation possibly secondary to cervical stenosis versus neoplasm according to radiology report Underwent tissue biopsy 07/20 with PRODUCTION MINER surgery to further expedite treatment course History of ESRD-no longer on HD Monitor renal function daily History of amiodarone toxicity Metoprolol, digoxin Morbid obesity and deconditioning PT consultation VTE: Heparin drip for now, resume eliquis in AM Code: Full Dispo: 2-3 days Time Spent Managing Pts Care (In Minutes): 35
--- NOTE | 2024-07-21 13:55 | P.PN ---
Subjective Date of Service: 07/21/24 Chief Complaint: Atrial fibrillation with rapid ventricular response Subjective: No new changes, No C/O voiced, Tolerating diet, Ambulating, Improving Review of Systems 10-point ROS is otherwise unremarkable Physical Examination - Vital Signs Temperature: 97.5 F Blood Pressure: 91/70 Pulse: 75 Respirations: 16 Pulse Ox (%): 98 - Physical Exam General: Alert, In no apparent distress HEENT: Atraumatic, PERRLA, EOMI Neck: Supple, JVD not distended Respiratory: Clear to auscultation bilaterally, Normal air movement Cardiovascular: Irregular heart rate/rhythm Gastrointestinal: Normal bowel sounds, No tenderness Musculoskeletal: No tenderness Integumentary: No rashes Neurological: Normal speech, Normal tone, Normal affect Lymphatics: No axilla or inguinal lymphadenopathy - Studies Medications List Reviewed: Yes Assessment And Plan - Current Problems (Diagnosis) (1) Atrial fibrillation Current Visit: No Status: Acute Plan: Patient failed multiple attempts for cardioversion in the past, she also had amiodarone toxicity at one point, she is currently rate controlled with metoprolol and digoxin. continue above medications Patient HR is bit higher today, recommend getting dioxin level, if low then increase dose to 250 mcg daily. Anticoagulation was on hold due to vaginal bleeding, biopsy was done yesterday and results are pending but there is high suspicion for uterine cancer, patient is currently on Heparin, if HgB stable in next 24 hours then recommend resuming Eliquis 5 mg po BID patient might benefit from watchman procedure in the future follow up with cardiology as outpatient. Qualifiers: Atrial fibrillation type: longstanding persistent Qualified Code(s): I48.11 - Longstanding persistent atrial fibrillation
[2024-07-22 05:19] VITALS: BMI 38.5
[2024-07-22 05:31] LABS: Hematocrit 32.3 % (36.0-45.0); Hemoglobin 10.9 g/dL (12.0-15.0); MCH 32.7 pg (27.0-35.0); MCHC 33.8 g/dL (32.0-36.0); MCV 96.7 fL (80-100); Platelets 188 thou/uL (152-406); RBC Red Blood Cell Count 3.34 M/uL (3.86-4.86); Red Cell Distribution Width 17.5 % (12.1-15.2)
[2024-07-22 05:56] LABS: Albumin 2.3 g/dL (3.4-5.0); Albumin/Globulin Ratio 0.9 (1.1-1.8); Anion Gap 7.7 mEq/L (5.0-15.0); Bilirubin Total 1.1 mg/dL (0.2-1.0); Globulin 2.7 g/dL (2.3-3.5); Potassium 3.7 mEq/L (3.5-5.1)
[2024-07-22] MEDS: APIXABAN 5 MG TABLET PO SCH (07:39)
[2024-07-22 09:24] VITALS: BP 89/54; TEMP 97.8
[2024-07-22 10:17] VITALS: O2SAT 98
--- NOTE | 2024-07-22 14:27 | P.DS ---
Admission Date: 07/16/24 Discharge Date: 07/22/24 Disposition: ROUTINE DISCHARGE Discharge Condition: GOOD Reason for Admission: Atrial fibrillation with rapid ventricular response Consultations: Cardiology-Dr. Mclaughlin Gynecology- Dr. Concepcion Brief History of Present Illness: Patient is a 74-year-old female who presents to the hospital with atrial fibrillation with rapid ventricular spots. Patient has been in the hospital about 3 years ago and she was in atrial fibrillation with rapid ventricular response at that time and was started on amiodarone drip. Her ejection fraction was around 20% at that time. Patient went into liver failure and amiodarone was discontinued. Patient also ended up with renal failure and ended up on hemodialysis for a few months. She was able to come off of hemodialysis. Patient is atrial fibrillation at that time was controlled with metoprolol and digoxin. Patient had echocardiogram done last year which revealed an ejection fraction of 52%. Patient has been on anticoagulation and cardiac meds for her atrial fibrillation but she has stopped the medication over the last 4 months. Her states that the reason the medications have been stopped is because she is not able to get to her doctor's appointments because of her decreased mobility. Over the last few weeks she has had persistent vaginal bleeding. She is not the best historian and her is not always available to care for her so he does not know her history that well either. They do note that she has not been on any anticoagulation within that time. Patient has not really appreciated any significant weight loss. There is an endometrial lesion that was seen on the ultrasound downstairs. Patient was given Cardizem in the emergency room. No anticoagulation at this time. Hemoglobin is stable. Hemodynamically, patient's heart rate is in the 120s to 130s; however, patient's blood pressure is stable. Hospital Course: Assessment Atrial fibrillation with rapid ventricular response Abnormal vaginal bleeding/possible endometrial mass History of ESRD-no longer on HD History of amiodarone toxicity Morbid obesity and deconditioning history of PE Patient was admitted to the hospital for atrial fibrillation with rapid ventricular response. He has a history of A-fib and has failed multiple cardioversion attempts in the past. She also has a history of amiodarone toxicity causing liver failure/renal failure requiring dialysis for short period time. She has been out of her home medications for around 4 months prior to this hospitalization as she could not make it to her doctors appointments. Additionally patient has had periodic vaginal bleeding for it appears around 1 year now. During her hospitalization she had a CT scan of her chest abdomen and pelvis which showed distention of the endometrial canal up to 7 cm. She was seen by gynecology during her hospitalization and underwent hysteroscopy biopsy. Biopsy results are currently pending, gynecology spoken with a colleague of hers Dr. Herson Hawkins patient will need to follow-up with next week likely on Wednesday for further evaluation and planning. In regards to her atrial fibrillation she was started on metoprolol and digoxin and has had good rate control. She was also monitored on a heparin drip and had only small amounts of vaginal bleeding/spotting and she will be transitioned to eliquis at discharge. She was offered/encouraged to allow for home health services with PT/SN but her and her declined as they did not want anyone else in their home. Prescritions for metorpolol, digoxin, and eliquis will be sent to her pharmacy and she should call the office of Dr. Nguyen at [phone] for an appointement as well as Dr. Herson Hawkins for close follow up in regard to the abnormal bleeding/imaging findings and the biopsy results. Dr. Concepcion has been speaking with Dr. Hawkins and they are working on trying to get you an appointment on Wednesday 07/26. You should call the office wednesday to work on this. It if very important that you follow the above instructions regarding your medications and follow up. Dr. Herson [facility] (Clinic) [facility] at Formerly named [facility] [address] [place], [place] [id number] [place] [address] Vital Signs/Physical Exam: Temp Pulse Resp BP Pulse Ox 97.8 F 88 20 89/54 L 98 07/22/24 08:00 07/22/24 08:00 07/22/24 08:00 07/22/24 08:00 07/22/24 08:00 General: Alert, In no apparent distress, Oriented x3 HEENT: Atraumatic, PERRLA Neck: Supple, JVD not distended Respiratory: Clear to auscultation bilaterally, Normal air movement Cardiovascular: Normal S1 S2, Irregular heart rate/rhythm Gastrointestinal: Normal bowel sounds Musculoskeletal: No tenderness Integumentary: No rashes Neurological: Normal speech, Normal affect Laboratory Data at Discharge: WBC 9.50 thou/uL (4.3-10.9) 07/22/24 04:58 Hgb 10.9 g/dL (12.0-15.0) L 07/22/24 04:58 Hct 32.3 % (36.0-45.0) L 07/22/24 04:58 Plt Count 188 thou/uL (152-406) 07/22/24 04:58 PT 10.7 SECONDS (10.0-13.0) 07/18/24 18:04 INR 0.94 07/18/24 18:04 APTT 79.8 SECONDS (24.3-36.9) H 07/22/24 04:58 Sodium 141 mEq/L (136-145) 07/22/24 04:58 Potassium 3.7 mEq/L (3.5-5.1) 07/22/24 04:58 BUN 9 mg/dL (7-18) 07/22/24 04:58 Creatinine 0.82 mg/dL (0.55-1.02) 07/22/24 04:58 Glucose 99 mg/dL (74-106) 07/22/24 04:58 Phosphorus 2.8 mg/dL (2.5-4.9) 07/16/24 10:51 Magnesium 1.9 mg/dL (1.6-2.4) 07/16/24 10:51 Total Bilirubin 1.1 mg/dL (0.2-1.0) H 07/22/24 04:58 AST 24 U/L (15-37) 07/22/24 04:58 ALT 46 U/L (13-56) 07/22/24 04:58 Alkaline Phosphatase 86 U/L (45-117) 07/22/24 04:58 Home Medications: Apixaban [Eliquis] 5 mg PO BID #60 tab 07/22/24 Benzonatate [Tessalon Perle*] 100 mg PO Q6H PRN #25 cap 07/22/24 Digoxin [Lanoxin*] 0.125 mg PO DAILY #60 tab 07/22/24 Metoprolol Tartrate [Lopressor*] 25 mg PO BID 6AM 6PM #60 tab 07/22/24 New Medications: Apixaban [Eliquis] 5 mg PO BID #60 tab Digoxin [Lanoxin*] 0.125 mg PO DAILY #60 tab Metoprolol Tartrate [Lopressor*] 25 mg PO BID 6AM 6PM #60 tab Benzonatate [Tessalon Perle*] 100 mg PO Q6H PRN #25 cap PRN Reason: Cough Physician Discharge Instructions: Patient was admitted to the hospital for atrial fibrillation with rapid ventricular response. He has a history of A-fib and has failed multiple cardioversion attempts in the past. She also has a history of amiodarone toxicity causing liver failure/renal failure requiring dialysis for short period time. She has been out of her home medications for around 4 months prior to this hospitalization as she could not make it to her doctors appointments. Additionally patient has had periodic vaginal bleeding for it appears around 1 year now. During her hospitalization she had a CT scan of her chest abdomen and pelvis which showed distention of the endometrial canal up to 7 cm. She was seen by gynecology during her hospitalization and underwent hysteroscopy biopsy. Biopsy results are currently pending, gynecology spoken with a colleague of hers Dr. Herson Hawkins patient will need to follow-up with next week likely on Wednesday for further evaluation and planning. In regards to her atrial fibrillation she was started on metoprolol and digoxin and has had good rate control. She was also monitored on a heparin drip and had only small amounts of vaginal bleeding/spotting and she will be transitioned to eliquis at discharge. She was offered/encouraged to allow for home health services with PT/SN but her and her declined as they did not want anyone else in their home. Prescritions for metorpolol, digoxin, and eliquis will be sent to her pharmacy and she should call the office of Dr. Nguyen at [phone] for an appointement as well as Dr. Herson Hawkins for close follow up in regard to the abnormal bleeding/imaging findings and the biopsy results. Dr. Concepcion has been speaking with Dr. Hawkins and they are working on trying to get you an appointment on Wednesday 07/26. You should call the office wednesday to work on this. It if very important that you follow the above instructions regarding your medications and follow up. Dr. Herson [facility] ([facility]) [facility] at Formerly named [facility] [address] [place] [address] [place] Follow up with a Family Medicine Physician of your choice: VALENTE NGUYEN MD [address] [facility] [address] [facility], [address] [place] [address] ACCEPTING NEW PATIENTS! FERCHO SMITH MD [address] [facility], [address] [place] [address] ACCEPTING NEW PATIENTS! JOE CHOU, DO [address] [address] KEIRY NARANJO MD [address] [facility], [address] [place] [address] MALICK GREGORY MD [address] [facility], [address] [place] [address] FLORESITA CABALLERO MD [address] [facility], [place] [address] NICOLA THORNE MD [address] [place] [address] ROOPA GAGE [address] [facility], [address] [place] [address] FUENTES KENNEDY MD [address] [facility], [address] [place] [address] VICTOR HUGO KENNEDY APRN AUTO DEALER [address] [facility], [address] [place] [address] BERTRAM FU DO [address] [facility], [address] [place] [address] Follow up with an Internal Medicine Physician of your choice: FERCHO SMITH MD [address] [facility], [address] [place], [place] [address] ACCEPTING NEW PATIENTS! LÓPEZ ALBA MD [address], [place] [address] MELIDA THORNE MD [address], [place] [id number] OSKAR CARROLL MD [address] [facility] [facility] [address] [place], [place] [id number] ERIC CASTILLO MD [address], [place] [id number] Diet: Regular Activity: Fall precautions Followup: VALENTE NGUYEN [ACTIVE - CAN ADMIT] - 1 Week Hector Prather PAC [Primary Care Provider] - Time spent managing pt's care (in minutes): 60
== END 2024-07-22 10:24 | disposition home or self-care (01) | DRG 987 ==
LOC: ER 02:49 → ERHOLD 09:01 → 3RD-ICU 17:40
PROVIDERS: ADMIT Hospitalist; ATTEND Hospitalist
PROC: 0UDB8ZX Extraction of Endometrium, Via Natural or Artificial Opening Endoscopic, Diagnostic (ICD-10-PCS; principal; 2024-07-16)
PROC: 0T9B70Z Drainage of Bladder with Drainage Device, Via Natural or Artificial Opening (ICD-10-PCS; 2024-07-17)
DX: I48.11 Longstanding persistent atrial fibrillation (principal); N18.6 End stage renal disease; I12.0 Hypertensive chronic kidney disease with stage 5 chronic kidney disease or end stage renal disease; Z68.41 Body mass index [BMI] 40.0-44.9, adult; E66.01 Morbid (severe) obesity due to excess calories; M79.7 Fibromyalgia; N95.0 Postmenopausal bleeding; N93.9 Abnormal uterine and vaginal bleeding, unspecified; C54.1 Malignant neoplasm of endometrium; T46.2X5A Adverse effect of other antidysrhythmic drugs, initial encounter; R74.01 Elevation of levels of liver transaminase levels; R19.00 Intra-abdominal and pelvic swelling, mass and lump, unspecified site; Z88.5 Allergy status to narcotic agent; Z88.8 Allergy status to other drugs, medicaments and biological substances; Z79.01 Long term (current) use of anticoagulants; Z90.49 Acquired absence of other specified parts of digestive tract; Z86.711 Personal history of pulmonary embolism; Z79.899 Other long term (current) drug therapy; Z91.148 Patient's other noncompliance with medication regimen for other reason
CPT/HCPCS: 36415; 71045; 71260; 74177; 76856; 80048; 80053; 80162; 83735; 84100; 84439; 84443; 84484; 85025; 85027; 85610; 85730; 88305; 93005; 93306; 96365; 96375; 99285; J1160; J2003; J2270; J2405; J2704; J3010; J7030; P9047; Q9967